=== PATIENT | female | born 1955 | race Caucasian/White ===

== ENCOUNTER 2020-07-14 10:24 | Inpatient (IN) | payer OTHER, MEDICARE ==
[2020-07-14] MEDS ORDERED: Senokot S 8.6-50 MG TAB PO PRN (12:23)
[2020-07-14] MEDS ORDERED: Sodium Chloride 0.65% Nasal 44 ML BOT EA NARE PRN (12:23)
[2020-07-14] MEDS ORDERED: Cepastat Lozenges 1 LOZ PO PRN (12:23)
[2020-07-14] MEDS ORDERED: Ondansetron PF 4 MG/2 ML Vial IVP PRN (12:23)
[2020-07-14] MEDS ORDERED: Loratadine 10 MG TAB PO PRN (12:23)
[2020-07-14] MEDS ORDERED: hydrALAZINE 20 MG/ML VIAL SLOW IVP PRN (12:23)
[2020-07-14] MEDS ORDERED: Calcium Carbonate 500 MG ChewTAB PO PRN (12:23)
[2020-07-14] MEDS ORDERED: Diabetic Tussin 200 MG/10 ML UDCUP PO PRN (12:23)
[2020-07-14] MEDS ORDERED: Ondansetron ODT 4 MG TAB PO PRN (12:23)
[2020-07-14] MEDS ORDERED: Bisacodyl 10 MG SUPP PR PRN (12:23)
[2020-07-14] MEDS ORDERED: Acetaminophen 325 MG TAB PO PRN (12:23)
[2020-07-14] MEDS ORDERED: HumaLOG 300 UNITS/3 ML VIAL SC PRN (12:26)
[2020-07-14] MEDS ORDERED: Dextrose 50% Abboject 50 ML SYRINGE SLOW IVP PRN (12:26)
[2020-07-14] MEDS ORDERED: Dextrose 5% in Water 1,000 ML IV PRN (12:26)
[2020-07-14] MEDS: Sodium Chloride 0.45% 1,000 ML IV SCH (13:00)
--- NOTE | 2020-07-14 13:21 | HP ---
PRIMARY CARE PHYSICIAN: [facility] Call admission. REASON FOR ADMISSION: Hepatic encephalopathy. HISTORY OF PRESENT ILLNESS: A 64-year-old female, who has underlying history of nonalcoholic cirrhosis of liver, who was brought to [facility] Emergency Room for increasing confusion. The patient was evaluated at [facility] Emergency Room. The patient had routine blood test done, which showed acute kidney injury, elevated ammonia, and the patient's confusion was consistent with hepatic encephalopathy. The patient's urinalysis also showed UTI. The patient was also recently admitted on June 28 for hepatitic encephalopathy and UTI. The patient had one episode of vomiting at home. She denies any hematemesis. She does not have any melena or hematochezia. The patient was having increasing confusion at home and she was also appeared weak and that is why the patient's daughter took her to local emergency room, and subsequently, the patient is transferred to our hospital for higher level of care. The patient does not have any fever or chills. She has nausea and vomiting. She had incontinence of urination. She denies any abdominal pain or abdominal distention. No hematochezia. No exposure with COVID-19. No respiratory symptoms. REVIEW OF SYSTEMS: All review of systems reviewed with the patient and negative except as mentioned in HPI, though review of system reviewed with the patient is also limited because of her level of alertness. PAST MEDICAL HISTORY: Hypertension, dyslipidemia, diabetes type 2, hypothyroidism, nonalcoholic cirrhosis of liver. PAST SURGICAL HISTORY: Cholecystectomy, thyroidectomy. PAST PSYCHIATRIC HISTORY: Reviewed and negative. SOCIAL HISTORY: The patient lives with family. No history of tobacco, alcohol, or illicit drug abuse. FAMILY HISTORY: Nothing significant. No strong family history of premature coronary artery disease, stroke, or cancer. ALLERGIES: SHELLFISH CONTAINING PRODUCT. CURRENT HOME MEDICATIONS: 1. Lasix 20 mg daily. 2. Lactulose 10 g q.i.d. 3. Rifaximin 550 mg twice daily. 4. Lipitor 10 mg at bedtime. 5. Levothyroxine 200 mcg p.o. daily. 6. Pantoprazole 40 mg p.o. daily. 7. Tramadol as needed basis. 8. Aldactone 50 mg daily. 9. Coreg 12.5 mg twice daily. 10. Victoza subcu daily. 11. Ferrous sulfate 325 mg daily. 12. Fosamax 70 mg weekly. 13. Metformin 500 mg two tablets twice daily. EMERGENCY ROOM COURSE: The patient is given Zofran at other emergency room. PHYSICAL EXAMINATION: VITAL SIGNS: Currently blood pressure 140/77, pulse 74, respiratory rate 18, saturation 98% on room air, temperature 98.8. GENERAL: The patient is currently alert, awake, confused, follows commands. HEENT: Head; normocephalic and atraumatic. EYES: Pupils are round and reactive to light. Extraocular muscles are intact. ENT: Oropharynx within normal limits. Moist mucous membranes. No oral lesions. No pharyngeal erythema. No exudate. NECK: Supple. No JVD. No meningeal signs of irritation. LUNGS: Clear to auscultation without any rhonchi or rales. CARDIAC: S1 and S2 appears regular. No murmur. No gallop. No rub. ABDOMEN: Soft. Bowel sounds present. Obesity noted. No peritoneal signs. No suprapubic tenderness. BACK: No CVA tenderness. EXTREMITIES: Upper extremities; passive movement of all joints are normal. Lower extremities; no edema. Good distal pulsation. SKIN: No skin rash. HEMATOLOGIC: No lymphadenopathy. NEUROLOGIC: The patient is alert, oriented x1. Confused. Speech normal. Asterixis noted. Otherwise, the patient moves all 4 limbs. SIGNIFICANT LABORATORY DATA AND IMAGING STUDIES: EKG showing right axis deviation, nonspecific ST-T changes. CBC; WBC 8.4, hemoglobin 11.9, platelet 97. BMP; sodium 143, potassium 3.8, chloride 110, carbon dioxide 20, anion gap 17, BUN 69, creatinine 1.71, glucose 150, calcium 9.5. LFT; AST 47, ALT 49, alkaline phosphatase 116, albumin 3.5. CK 22. Troponin less than 0.010. Ammonia 122. TSH 1.01. Urinalysis suspected for UTI. Urine drug screen negative. Serum drug screen negative. ASSESSMENT AND PLAN: 1. Hepatic encephalopathy. The patient has confusion. The patient has elevated ammonia level. The patient has underlying cirrhosis of liver. This patient also has associated acute kidney injury and abnormal metabolic profile. All this contributing to her encephalopathy. We will do CT brain to rule out any intracranial process, though less likely. We will treat her with gentle IV fluid, lactulose 20 g p.o. q.i.d., rifaximin 550 mg p.o. twice daily, and we will also treat Rocephin for urinary tract infection. 2. Acute kidney injury. We will give her half normal saline at 75 mL/h for only 1 L and we will repeat labs tomorrow. 3. Urinary tract infection. We will start Rocephin 1 g q.24 hours and we will do urine culture and change antibiotic accordingly. 4. Nonalcoholic cirrhosis of liver. We will obtain ultrasound of abdomen to rule out any ascites, which is clinically less likely at this point. 5. Diabetes type 2. Once we confirm her home medications, we will continue with her home medication. We will hold her metformin given her renal function. We will continue with insulin as per sliding scale protocol. Diabetic diet will be given. 6. Dyslipidemia. We will continue Lipitor as per home dosage. 7. Hypothyroidism. We will continue Synthroid as per home dosage. 8. Obesity with BMI 30 to 40. 9. Thrombocytopenia. We will avoid platelet reducing medication like Lovenox, only SCD. 10. Anemia, normocytic. We will continue vitamin supplementation. 11. Deep venous thrombosis prophylaxis, SCD. No Lovenox because of low platelet count. 12. Gastrointestinal prophylaxis. The patient is already on Protonix therapy. #13 patient had dark stool with blood clot when she had a bowel movement, will monitor H&H, GI has been consulted, CODE STATUS: The patient is full code. DISPOSITION PLAN: Based on clinical course. We are expecting the patient's stay in hospital more than 2 midnights. Plan of care discussed with the patient in detail. Job ID: [id number] MTDD
[2020-07-14] MEDS: cefTRIAXone\\ROCEPHIN 1 GM in Sodium Chloride 0.9% 100 ML IVPB SCH (14:22)
--- NOTE | 2020-07-14 16:11 | ULT ---
ABDOMINAL ULTRASOUND HISTORY: Cirrhosis. FINDINGS: Liver: Slightly peripheral nodular contour suggesting cirrhosis. No focal hepatic lesion is seen. The re is slightly coarsened echotexture of the liver. Gallbladder: Not visualized. Prior CT abdomen in 2013 demonstrates surgical clips in the gallbladder fossa related to cholecystectomy. Common duct: Common duct is normal in caliber measuring 0.4 cm in diameter. Pancreas: The limited visualized pancreas demonstrates a normal sonographic appearance. IVC: Limited visualized IVC has a normal sonographic appearance. Aorta: Majority of the abdominal aorta is obscured by shadowing from bowel gas. Where visualized, the abdominal aorta is normal in caliber. Spleen: Enlarged measuring 16.6 cm in craniocaudal dimensions. Kidneys: Kidneys demonstrate a normal sonographic appearance bilaterally with the right kidney measur ing 9.8 cm in length, and the left kidney measures 10.1 cm in length. IMPRESSION: 1. Cirrhosis and splenomegaly. 2. Evidence of cholecystectomy. Common duct is normal in caliber.
--- NOTE | 2020-07-14 16:14 | CON ---
DATE OF CONSULTATION: 07/14/2020 REASON FOR CONSULTATION: Hepatic encephalopathy. HISTORY OF PRESENT ILLNESS: Ms. Arboleda is a 64-year-old female who recently moved from [place], [place] to this area. History is mostly obtained from the patient's daughter with assistance of medical student. Reportedly, this is the 3rd admission for hepatic encephalopathy with previous episode occurred in 2017 and more recently in June of this year. The patient has been taking lactulose at home and rifaximin. The patient has had increasing confusion and somnolence and was found to have elevated ammonia level on admission up to 122. There were no signs of any overt bleeding such as melena, although she did have one small patch of red blood in her dark stool today. She frequently has had some decrease in her abdominal girth according to the daughter since moving to this area. She has been treated for persistent UTI. She has had upper endoscopy performed last year that did not show any varices. Reportedly, she also had a negative colonoscopy in July of last year. She does have a UTI that is currently being treated. PAST MEDICAL HISTORY: 1. Cirrhosis from steatohepatitis. 2. Hypertension. 3. Hyperlipidemia. 4. Adult onset diabetes. 5. Hypothyroidism. 6. Status post cholecystectomy. 7. Status post thyroidectomy. ALLERGIES: NO KNOWN DRUG ALLERGIES. MEDICATIONS: At home include; 1. Metformin. 2. Bactrim. 3. Reglan. 4. Meloxicam. 5. Lisinopril. 6. Victoza. 7. Synthroid. 8. Dexilant. 9. Lipitor. SOCIAL HISTORY: The patient recently moved to this area. Care for by her daughter. No known tobacco or alcohol usage. FAMILY HISTORY: Negative for any known GI problem, liver disease, or GI malignancy. REVIEW OF SYSTEMS: Not obtained. PHYSICAL EXAMINATION: VITAL SIGNS: Temperature of 98.8, blood pressure 179/84, and pulse of 70. GENERAL: She is alert, but not oriented. HEENT: Anicteric sclerae. CV: Shows normal S1 and S2. Regular rate and rhythm. CHEST: Show breath sounds. Clear to auscultation. ABDOMEN: Soft, protuberant, but no distention. No tympany. No obvious fluid wave. She has normoactive bowel sounds. There is no illicit tenderness. EXTREMITIES: Show no edema. LABORATORY DATA: WBCs 8.4, hemoglobin 11.9, and platelet count of 97. Electrolytes within normal range. Creatinine 1.71, BUN of 69, bilirubin 1.0, ALT of 49, AST of 47. Ammonia level 122. TSH 1.0179. ASSESSMENT: 1. Hepatic encephalopathy, no evidence of significant gastrointestinal bleed. However, the patient does have infection, which is urinary tract infection that is being currently treated. 2. Cirrhosis from fatty liver. 3. No signs of other decompensation such as ascites. Esophagogastroduodenoscopy lastly did not show any varices. RECOMMENDATIONS: 1. Continue with lactulose at 30 mL of 20 g four times daily for now until to achieve 3 to 4 bowel movements daily. 2. Started on rifaximin 550 mg p.o. b.i.d. 3. Proceed with abdominal ultrasound. 4. We will follow with further recommendation, pending clinical course. Job ID: [id number]
[2020-07-14] MEDS: HumaLOG 300 UNITS/3 ML VIAL SC PRN (16:41)
[2020-07-14] MEDS: Rifaximin 550 MG TAB PO SCH (20:13)
[2020-07-15] MEDS: Sodium Chloride 0.45% 1,000 ML IV SCH (02:05)
[2020-07-15 03:53] VITALS: BMI 36.6
[2020-07-15 04:49] LABS: INR-International Normal Ratio 1.2; Prothrombin Time 15.9 sec (12.0-14.7)
[2020-07-15 04:54] LABS: Hemoglobin A1c 5.5 % (4.0-6.0)
[2020-07-15 04:55] LABS: #Eosinphils 0.1 thou/uL (0.0-0.7); #Lymphocytes 1.7 thou/uL (1.20-3.40); #Monocytes 0.4 thou/uL (0.11-0.59); #Neutrophils 3.3 thou/uL (1.40-6.50); %Basophils 0.9 % (0.0-1.0); %Eosinophils 1.4 % (0.0-10.0); %Lymphocytes 30.7 % (21.0-51.0); %Monocytes 7.6 % (0.0-10.0); %Neutrophils 59.5 % (42.0-75.0); Hemoglobin 11.5 g/dL (12.0-16.0); Mean Corpuscular HGB CONC 34.1 g/dL (32.0-36.0); Mean Corpuscular Hemoglobin 31.3 pg (27.0-31.0); Mean Corpuscular Volume 91.8 fL (78.0-98.0); Mean Platelet Volume 8.9 fL (7.4-10.4); Platelet Count 85 thou/uL (130-400); RBC Distribution Width 13.4 % (11.5-14.5); Red Blood Cell (RBC) Count 3.67 mill/uL (4.20-5.40); White Blood Cell (WBC) Count 5.6 thou/uL (4.8-10.8)
[2020-07-15 05:12] LABS: ALT (SGPT) 40 U/L (8-55); AST (SGOT) 33 U/L (5-34); Albumin 3.2 g/dL (3.4-4.8); Alkaline Phosphatase 95 U/L (40-110); Anion Gap 17 mmol/L (10-20); BUN (Urea Nitrogen) 71 mg/dL (9.8-20.1); Calc. Creatinine Clearance 61 mL/min (70-130); Calcium 9.3 mg/dL (7.8-10.44); Carbon Dioxide 18 mmol/L (23-31); Chloride 114 mmol/L (98-107); Estimated GFR-MDRD 38; Globulin 3.1 g/dL (2.4-3.5); Glucose 121 mg/dL (80-115); Potassium 3.7 mmol/L (3.5-5.1); Protein, Total 6.3 g/dL (6.0-8.3); Sodium 145 mmol/L (136-145)
[2020-07-15] MEDS ORDERED: FLU VACC QS2020-21(65YR UP)/PF 240 MCG/0.7 ML SYRINGE IM ONE (09:00)
--- NOTE | 2020-07-15 09:20 | PDOC.HOSPP ---
- Subjective Encounter Date: 07/15/20 Encounter Time: 07:00 Subjective: Patient is doing better today, her renal function improved, her ammonia is also improved, she is physically slightly weak, - Objective Vital Signs & Weight: Vital Signs (12 hours) Temp Pulse Resp BP Pulse Ox 07/15/20 07:19 97.7 F 64 16 139/72 98 07/15/20 04:00 98.4 F 66 20 137/77 97 07/15/20 00:00 98.1 F 62 20 144/83 H 98 Weight Weight 213 lb 9.6 oz I&O: 07/14/20 07/15/20 07/16/20 06:59 06:59 06:59 Intake Total 200 Output Total 1 Balance 199 Result Diagrams: 07/15/20 04:29 07/15/20 04:29 Additional Labs: Accuchecks 07/15/20 07/15/20 07/14/20 04:35 00:31 15:01 POC Glucose 120 H 125 H 152 H Radiology Reviewed by me: Yes (Ultrasound right upper quadrant reviewed) Hospitalist ROS - Review of Systems Constitutional: reports: weakness, malaise. denies: fever, chills, sweats, other Respiratory: denies: cough, dry, shortness of breath, hemoptysis, SOB with excertion, pleuritic pain, sputum, wheezing, other Cardiovascular: denies: chest pain, palpitations, orthopnea, paroxysmal noc. dyspnea, edema, light headedness, other Gastrointestinal: denies: nausea, vomiting, abdominal pain, diarrhea, c onstipation, melena, hematochezia, other Genitourinary: denies: dysuria, frequency, incontinence, hematuria, retention, other Musculoskeletal: denies: neck pain, shoulder pain, arm pain, back pain, hand pain, leg pain, foot pain, other Skin: denies: rash, lesions, vi, bruising, other - Medication Medications: Active Medications Generic Name Dose Route Start Last Admin Trade Name Freq PRN Reason Stop Dose Admin Ceftriaxone Sodium 1 gm/ 100 mls @ 200 mls/hr 07/14/20 13:00 07/14/20 14:22 Sodium Chloride IVPB 100 mls 1300 LLUVIA Administration Insulin Human Lispro 0 units 07/14/20 12:26 07/14/20 16:41 Humalog 300 Units/3 Ml Vial SC 2 unit .MODERATE SLIDING SC PRN Administration Moderate Correctional Scale Lactulose 20 gm 07/14/20 13:00 07/14/20 20:13 Lactulose 20 Gm/30 Ml Udcup PO 20 gm QID LLUVIA Administration Rifaximin 550 mg 07/14/20 21:00 07/14/20 20:13 Rifaximin 550 Mg Tab PO 550 mg BID LLUVIA Administration - Exam General Appearance: NAD, awake alert Eye: PERRL, anicteric sclera ENT: normocephalic atraumatic, no oropharyngeal lesions Neck: supple, symmetric, no JVD, no thyromegaly Heart: RRR, no murmur, no gallops, no rubs, normal peripheral pulses Respiratory: CTAB, no wheezes, no rales, no ronchi, normal chest expansion Gastrointestinal: soft, non-tender, non-distended, normal bowel sounds, no palp able masses Extremities: no cyanosis, no clubbing, no edema Skin: normal turgor, no lesions Neurological: cranial nerve grossly intact, normal sensation to touch, no weakness, no focal deficits Musculoskeletal: normal tone, normal strength, no muscle wasting Psychiatric: normal affect, normal behavior, A&O x 3 Hosp A/P (1) Hepatic encephalopathy Code(s): K72.90 - HEPATIC FAILURE, UNSPECIFIED WITHOUT COMA Status: Acute (2) Acute kidney injury Code(s): N17.9 - ACUTE KIDNEY FAILURE, UNSPECIFIED Status: Acute (3) UTI (urinary tract infection) Status: Acute Qualifiers: Urinary tract infection type: acute cystitis Hematuria presence: without hematuria Qualified Code(s): N30.00 - Acute cystitis without hematuria (4) Obesity (BMI 30-39.9) Code(s): E66.9 - OBESITY, UNSPECIFIED Status: Chronic (5) Diabetes type 2, controlled Code(s): E11.9 - TYPE 2 DIABETES MELLITUS WITHOUT COMPLICATIONS Status: Chronic Qualifiers: Diabetes mellitus prison insulin use: with intermediate manager use Diabetes mellitus complication status: without complication Qualified Code(s): E11.9 - Type 2 diabetes mellitus without complications; Z79.4 - skilled nursing (current) use of insulin (6) Hypertension Code(s): I10 - ESSENTIAL (PRIMARY) HYPERTENSION Status: Chronic Qualifiers: Hypertension type: essential hypertension Qualified Code(s): I10 - Essential (primary) hypertension (7) Dyslipidemia Code(s): E78.5 - HYPERLIPIDEMIA, UNSPECIFIED Status: Chronic - Plan old records reviewed/req, continue antibiotics, PT/OT Patient has overall clinical improvement, her renal function is improving, patient is able to continue her oral intake, today we will discontinue IV fluid We will continue Rocephin today and follow-up on urine culture result Medication reviewed and continue provide symptomatic and supportive care Continue PT OT GI following and they will decide about further intervention like endoscopy if needed, her H&H remained stable, Expecting discharge in next 24 hours.
[2020-07-15] MEDS: Rifaximin 550 MG TAB PO SCH ×2 (09:53→20:36)
[2020-07-15 13:18] LABS: SARS-CoV-2 MS2 Positive; SARS-CoV-2 N Gene Negative; SARS-CoV-2 S Gene Negative; SARS-CoV-2 by NAA Not Detected (NotDetected); SARS-CoV-2 orf1ab Negative
[2020-07-15] MEDS: cefTRIAXone\\ROCEPHIN 1 GM in Sodium Chloride 0.9% 100 ML IVPB SCH (13:31)
[2020-07-15] MEDS: HumaLOG 300 UNITS/3 ML VIAL SC PRN (17:55)
[2020-07-15] MEDS ORDERED: traMADol HCl 50 MG TAB PO PRN (19:50)
[2020-07-15] MEDS ORDERED: Febuxostat 40 MG TAB PO SCH (20:15)
--- NOTE | 2020-07-15 23:26 | PRG ---
DATE OF SERVICE: 07/15/2020 SUBJECTIVE: She feels like her mental status is back to normal. She took lactulose 4 doses a day, but has only had two soft bowel movements today. She has no other complaints today. OBJECTIVE: VITAL SIGNS: Temperature 98.0, pulse 65, blood pressure 122/79. GENERAL: She is in no acute distress. Alert and oriented x3. LUNGS: Clear to auscultation bilaterally. HEART: Regular rate and rhythm without murmur. ABDOMEN: Soft, nontender, and nondistended. Bowel sounds are present. EXTREMITIES: No lower extremity edema. NEUROLOGIC: She has no asterixis on neurological exam. LABORATORY DATA: White blood cell count 5.6, hemoglobin 11.5, platelets 85. INR 1.2. Creatinine 1.39. Bilirubin 1.0. AST 33, ALT 40, alk phos 95. Albumin 3.2. Ammonia 61. IMPRESSION: 1. Hepatic encephalopathy, symptomatically improved with Xifaxan and lactulose. 2. Cirrhosis of liver, likely secondary to fatty liver disease. RECOMMENDATIONS: 1. Continue lactulose 30 mL 4 times daily. The frequency the dosing can be backed off to twice daily or 3 times daily if her bowel movements become more frequent. The goal is to titrate to 2 to 3 soft bowel movements per day. 2. Continue Xifaxan 550 mg twice daily. 3. Follow up with Dr. Vasquez or his PA in 2 to 3 weeks. 4. I will sign off. Please call if GI can be of assistance. Job ID: [id number]
[2020-07-16] MEDS: Rifaximin 550 MG TAB PO SCH (08:29)
[2020-07-16] MEDS ORDERED: Febuxostat 40 MG TAB PO SCH (09:00)
[2020-07-16] MEDS: cefTRIAXone\\ROCEPHIN 1 GM in Sodium Chloride 0.9% 100 ML IVPB SCH (12:56)
[2020-07-16] MEDS: HumaLOG 300 UNITS/3 ML VIAL SC PRN (13:00)
[2020-07-16 17:36] VITALS: BP 136/84; TEMP 98.1
--- NOTE | 2020-07-19 07:55 | DIS ---
DATE OF ADMISSION: 07/14/2020 DATE OF DISCHARGE: 07/16/2020 PRIMARY CARE PHYSICIAN: [facility] Call admission. DISCHARGE DISPOSITION: Home. PRIMARY DISCHARGE DIAGNOSES: 1. Acute kidney injury, improved. 2. Hepatic encephalopathy, resolved. 3. Urinary tract infection. SECONDARY DISCHARGE DIAGNOSES: Nonalcoholic cirrhosis of liver with portal hypertension, obesity, hypertension, dyslipidemia, diabetes type 2. PRIMARY PROCEDURE/OPERATION: None. RADIOLOGICAL INVESTIGATION: Abdominal ultrasound showing cirrhosis of liver. SIGNIFICANT LABORATORY DATA: Hemoglobin 11.5, platelet 85, WBC 5.6. INR 1.2. Sodium 145, creatinine 1.39, and ammonia level 61. LFT normal. Hemoglobin A1c 5.5. COVID-19 negative. DISCHARGE MEDICATIONS: 1. Coreg 12.5 mg twice daily. 2. Dexilant 30 mg daily. 3. Febuxostat (Uloric) 40 mg p.o. daily. 4. Ferrous sulfate 325 mg daily. 5. Fosamax 70 mg every week. 6. Lasix 20 mg daily. 7. Invokana 300 mg p.o. daily. 8. Lipitor 10 mg p.o. daily. 9. Metformin 1000 mg b.i.d. 10. Aldactone 50 mg daily. 11. Synthroid 200 mcg p.o. daily. 12. Tramadol 50 mg p.r.n. 13. Vascepa 1 g p.o. b.i.d. 14. Victoza 1.8 mg subcutaneously daily. 15. Rifaximin 550 mg p.o. twice daily. 16. Cipro 500 mg p.o. twice daily for 5 days. 17. Lactulose 20 g p.o. b.i.d. CONTRAINDICATION: None. CODE STATUS: Full code. INPATIENT LADLE PATCHER: Dr. Corey Vasquez, GI specialist. TEST RESULT PENDING ON DISCHARGE: None. ALLERGIES: SHELLFISH. DISCHARGE PLAN: Post hospital, the patient will follow up with her primary care physician in 1 week and the patient will make appointment with GI in 2 weeks. HOSPITAL COURSE: A 64-year-old female who was initially evaluated at [facility] Emergency Room for increasing confusion. Based on blood test, the patient was found with hepatic encephalopathy and she was also dehydrated with [id number] kidney injury. The patient was transferred to our hospital. We treated her with IV fluids. Her urinalysis was consistent with UTI, which was treated with Rocephin. Her urine culture grew E coli and based on culture and sensitivity result, we changed to Cipro for 5 more days. The patient was given lactulose with rifaximin and her hepatic encephalopathy resolved in next day or two. The patient did very well with physical therapy and Gastroenterology was consulted while in the hospital and they recommended outpatient followup. PHYSICAL EXAMINATION: The patient is seen and examined at bedside today. The patient is hemodynamically stable. VITAL SIGNS: Temperature 97.5, pulse 65, respiratory rate 16, saturation 98%, blood pressure 159/75, weight 213 pounds. GENERAL: The patient is alert and awake, in no acute distress. HEAD: Normocephalic, atraumatic. NECK: Supple. No JVD. No meningeal signs of irritation. LUNGS: Clear to auscultation without any rhonchi or rales. CARDIAC: S1 and S2. Regular. No murmur. No gallop. No rub. ABDOMEN: Soft and benign without any tenderness. NEUROLOGIC: Nonfocal examination. No asterixis. Job ID: [id number]
== END 2020-07-16 15:27 | disposition home or self-care (01) | DRG 442 ==
LOC: T4-B 11:53
PROVIDERS: ADMIT Internal Medicine; ATTEND Internal Medicine
DX: K72.90 Hepatic failure, unspecified without coma (principal); N17.9 Acute kidney failure, unspecified; N39.0 Urinary tract infection, site not specified; Z23 Encounter for immunization; K74.60 Unspecified cirrhosis of liver; I10 Essential (primary) hypertension; E78.5 Hyperlipidemia, unspecified; E11.9 Type 2 diabetes mellitus without complications; E03.9 Hypothyroidism, unspecified; E66.9 Obesity, unspecified; D69.6 Thrombocytopenia, unspecified; D64.9 Anemia, unspecified; K76.0 Fatty (change of) liver, not elsewhere classified; Z20.828 Contact with and (suspected) exposure to other viral communicable diseases; Z90.49 Acquired absence of other specified parts of digestive tract; Z91.013 Allergy to seafood; Z79.4 Long term (current) use of insulin; Z79.899 Other long term (current) drug therapy; Z68.30 Body mass index [BMI] 30.0-30.9, adult
CPT/HCPCS: 36415; 36416; 80053; 82140; 83036; 85025; 85610; 87635; 90471; 90662; 90732; 93975; G0008; G0009; J0696; J3490; U0003

== ENCOUNTER 2020-07-28 18:16 | Inpatient (IN) | payer OTHER, MEDICARE ==
--- NOTE | 2020-07-28 19:06 | RAD ---
EXAM: CHEST ONE VIEW HISTORY: Altered mental status. Increased confusion. COMPARISON: None FINDINGS: The cardiac silhouette and pulmonary vasculature are within normal limits. The lungs are clear. Degen erative changes are seen in the spine. Surgical clips overlie the lower neck and superior mediastinum as well as right upper quadrant. IMPRESSION: No acute cardiopulmonary process.
--- NOTE | 2020-07-28 20:12 | CT ---
HEAD CT WITHOUT CONTRAST: 07/28/20 COMPARISON: None. HISTORY: Increasing confusion. TECHNIQUE: Axial CT imaging at 5 mm intervals from vertex through skull base without contrast. FINDINGS: The visualized paranasal sinuses and mastoid air cells appear well aerated with no displaced calvaria l fracture seen. No intracranial hemorrhage, midline shift, mass effect or ventricular enlargement. IMPRESSION: No acute findings. POS: KAREN
[2020-07-28 20:55] LABS: #Eosinphils 0.1 thou/uL (0.0-0.7); #Lymphocytes 1.2 thou/uL (1.20-3.40); #Monocytes 0.4 thou/uL (0.11-0.59); #Neutrophils 2.9 thou/uL (1.40-6.50); %Basophils 0.8 % (0.0-1.0); %Eosinophils 2.6 % (0.0-10.0); %Lymphocytes 26.3 % (21.0-51.0); %Monocytes 8.2 % (0.0-10.0); %Neutrophils 62.1 % (42.0-75.0); Hemoglobin 11.2 g/dL (12.0-16.0); Mean Corpuscular HGB CONC 35.3 g/dL (32.0-36.0); Mean Corpuscular Hemoglobin 31.5 pg (27.0-31.0); Mean Corpuscular Volume 89.1 fL (78.0-98.0); Mean Platelet Volume 8.6 fL (7.4-10.4); Platelet Count 67 thou/uL (130-400); RBC Distribution Width 14.1 % (11.5-14.5); Red Blood Cell (RBC) Count 3.56 mill/uL (4.20-5.40); White Blood Cell (WBC) Count 4.7 thou/uL (4.8-10.8)
[2020-07-28 21:10] LABS: ALT (SGPT) 21 U/L (8-55); AST (SGOT) 25 U/L (5-34); Albumin 3.2 g/dL (3.4-4.8); Alkaline Phosphatase 92 U/L (40-110); Anion Gap 16 mmol/L (10-20); BUN (Urea Nitrogen) 59 mg/dL (9.8-20.1); Bilirubin, Total 1.5 mg/dL (0.2-1.2); CK (CPK) 40 U/L (29-168); Calc. Creatinine Clearance 0 mL/min (70-130); Calcium 9.2 mg/dL (7.8-10.44); Carbon Dioxide 20 mmol/L (23-31); Chloride 104 mmol/L (98-107); Estimated GFR-MDRD 19; Globulin 3.4 g/dL (2.4-3.5); Glucose 171 mg/dL (80-115); Magnesium 1.6 mg/dL (1.6-2.6); Potassium 4.1 mmol/L (3.5-5.1); Protein, Total 6.6 g/dL (6.0-8.3); Sodium 136 mmol/L (136-145)
[2020-07-28] MEDS ORDERED: cefTRIAXone\\ROCEPHIN 2 GM VIAL ONE (21:28)
[2020-07-28 21:49] LABS: Bilirubin Negative (Negative); Blood, Urine Negative (Negative); Glucose, Urine (Dipstick) 500 mg/dL (Negative); Ketone, Urine Negative (Negative); Leukocyte Negative (Negative); Nitrite Negative (Negative); Protein, Urine (Dipstick) Negative (Neg-Trace); Urobilinogen 0.2 mg/dL (Less than 2); pH, Urine 5.5 (5.0-9.0)
[2020-07-28 21:50] LABS: Clarity Clear (Clear)
[2020-07-28] MEDS ORDERED: Vancomycin 1 GM/200 ML BAG ONE (22:09)
[2020-07-29 00:07] VITALS: BMI 36.6
[2020-07-29] MEDS: Lactated Ringer's 1,000 ML IV SCH ×2 (00:18→07:06)
[2020-07-29] MEDS ORDERED: traMADol HCl 50 MG TAB PO PRN (06:31)
[2020-07-29] MEDS ORDERED: HumaLOG 300 UNITS/3 ML VIAL SC PRN (06:37)
[2020-07-29] MEDS ORDERED: Dextrose 5% in Water 1,000 ML IV PRN (06:37)
[2020-07-29] MEDS ORDERED: Dextrose 50% Abboject 50 ML SYRINGE SLOW IVP PRN (06:37)
[2020-07-29 07:07] LABS: Lactic Acid 1.5 mmol/L (0.5-2.2)
[2020-07-29 07:10] LABS: Anion Gap 13 mmol/L (10-20); BUN (Urea Nitrogen) 56 mg/dL (9.8-20.1); Calc. Creatinine Clearance 43 mL/min (70-130); Calcium 8.3 mg/dL (7.8-10.44); Carbon Dioxide 21 mmol/L (23-31); Chloride 108 mmol/L (98-107); Estimated GFR-MDRD 25; Glucose 92 mg/dL (80-115); Potassium 3.9 mmol/L (3.5-5.1); Sodium 138 mmol/L (136-145)
[2020-07-29 07:17] LABS: Hemoglobin 9.3 g/dL (12.0-16.0); Mean Corpuscular HGB CONC 34.3 g/dL (32.0-36.0); Mean Corpuscular Hemoglobin 30.8 pg (27.0-31.0); Mean Corpuscular Volume 89.7 fL (78.0-98.0); Mean Platelet Volume 8.9 fL (7.4-10.4); Platelet Count 57 thou/uL (130-400); RBC Distribution Width 14.3 % (11.5-14.5); Red Blood Cell (RBC) Count 3.03 mill/uL (4.20-5.40); White Blood Cell (WBC) Count 3.3 thou/uL (4.8-10.8)
--- NOTE | 2020-07-29 07:28 | HP ---
REASON FOR ADMISSION: Confusion. HISTORY OF PRESENT ILLNESS: This is a 64-year-old female patient who is known to have NIEVES-induced liver cirrhosis, was admitted recently for confusion secondary to increased ammonia. At home, she was reported to have increased confusion. It was reported that she has been refusing to eat or drink fluids for the past couple days. Also, she recently finished antibiotics for urinary tract infection. In the ER, she was noted to be alert, but slow to respond. I just saw the patient and she is fully alert. She does endorse not drinking much fluid lately. PAST MEDICAL HISTORY: 1. Diabetes type 2. 2. High blood pressure. 3. High cholesterol. 4. Cirrhosis due to NIEVES. 5. Hypothyroidism. 6. Post cholecystectomy. 7. Post thyroidectomy. ALLERGIES: TO SHELLFISH. SOCIAL HISTORY: She does not smoke. Does not drink alcohol. FAMILY HISTORY: Reviewed, found to be noncontributory. REVIEW OF SYSTEMS: All systems reviewed, except the above-mentioned confusion, found to be negative. PHYSICAL EXAMINATION: GENERAL: She is awake, alert, oriented, does not appear to be in distress. VITAL SIGNS: Her blood pressure 105/69, heart rate of 71, temperature is 97.9, saturating 100% on room air. HEENT: Head is nontraumatic, normocephalic. Pupils equal, reactive. Extraocular movements are intact. Nonicteric sclerae. Well-injected conjunctivae. Oral mucosa normal. Nasal mucosa normal. NECK: Supple. No adenopathy. No murmur. Thyroid is not palpable. Trachea is midline. No supraclavicular adenopathy. HEART: S1, S2 regular. No murmur. No gallops. No friction rubs. No displacement of PMI. LUNGS: Clear to auscultation bilaterally. No wheezes, rhonchi, or crackles. ABDOMEN: Bowel sounds are positive. Nontender abdomen. No hepatosplenomegaly. EXTREMITIES: 1+ pitting edema in bilateral lower extremities. NEUROLOGIC: Cranial nerves II through XII within normal limits. Normal motor function. Normal sensory function. LABORATORY DATA: Blood work shows WBC of 4.7, hemoglobin of 11.2, platelets of 67. Sodium of 136; potassium 4.1; bicarb 20; BUN 59; creatinine 2.48, previous creatinine 1.39; glucose 171. Lactic acid 3.4. Troponin 0.016. Repeat lactic acid 3. TSH 0.1919, free T4 of 1.89. A chest x-ray shows no acute disease. CT of the head shows no acute finding. ASSESSMENT AND PLAN: This is a 64-year-old female patient who is presenting with transient change in mental status. She is known to have cirrhosis, but her ammonia level is within normal limits. It seems that she has worsening of her kidney function due to poor oral intake in the setting of being on diuretics. This might have caused her transient confusion. Neuro: Patient is currently fully oriented. Continue to monitor her from that standpoint. Endocrinology: The patient's TSH is lower than the norm. It is most likely that she is taking more than she needs of thyroid replacement. For now, we will put her on a hold. Up on her discharge, recommendation is to decrease the dose. Recheck her TSH in a month or so. In regard to her diabetes, we will continue her current medications and she will be on insulin sliding scale. Renal system and electrolytes: The patient does appear to be dehydrated. Her lactic acid is slightly elevated. We will recheck it since she did receive hydration, also we will hold her diuretics for now. Reassess after her kidney function is back to normal. Cardiac: The patient has high blood pressure. Her blood pressure now is soft. We will resume Coreg but with parameters. GI: The patient has history of liver cirrhosis. Continue lactulose. Continue rifaximin. For DVT prophylaxis, she will be on SCDs. The patient is to be a full code. Job ID: [id number]
[2020-07-29] MEDS ORDERED: Non-Formulary Item 1 EACH (Icosapent Ethyl 1 GM Capsule) PO SCH (08:00)
[2020-07-29] MEDS: Rifaximin 550 MG TAB PO SCH ×2 (08:10→21:49)
[2020-07-29] MEDS: Atorvastatin Calcium 10 MG TAB PO SCH (08:10)
[2020-07-29] MEDS: Ferrous Sulfate 325 MG TAB PO SCH (08:11)
[2020-07-29] MEDS: Carvedilol 6.25 MG TAB PO SCH ×2 (08:11→22:18)
[2020-07-29 08:27] LABS: Band 1 % (5-11); Eosinophils 7 % (0-10); Lymphocytes 44 % (21-51); MDiff Complete? YES; Monocytes 10 % (0-10); Neutrophil 39 % (42-75); Platelet Morphology Comment Appears Decreased
[2020-07-29] MEDS ORDERED: CANAGLIFLOZIN 300 MG PO SCH (09:00)
[2020-07-29] MEDS ORDERED: Carvedilol 6.25 MG TAB PO SCH (09:00)
[2020-07-29] MEDS ORDERED: Non-Formulary Item 1 EACH (Carvedilol [Carvedilol] 12.5 MG Tablet) PO SCH (09:00)
[2020-07-29] MEDS ORDERED: Non-Formulary Item 1 EACH (Ferrous Sulfate [Ferrous Sulfate] 325 MG Tablet) PO SCH (09:00)
[2020-07-29] MEDS ORDERED: LIRAGLUTIDE 0.6 MG/0.1 ML SC SCH ×2 (09:00)
[2020-07-29] MEDS ORDERED: Alendronate Sodium 70 mg Tablet PO SCH ×2 (09:00→11:15)
[2020-07-29] MEDS: Febuxostat 40 MG TAB PO SCH (09:14)
[2020-07-29] MEDS: Empagliflozin 25 MG TAB PO SCH (09:14)
[2020-07-29] MEDS: Icosapent Ethyl 1 GM CAPSULE PO SCH ×2 (09:14→16:56)
[2020-07-29] MEDS ORDERED: DEXLANSOPRAZOLE 30 MG PO SCH (21:00)
[2020-07-30 07:38] VITALS: TEMP 98
[2020-07-30] MEDS: Ferrous Sulfate 325 MG TAB PO SCH (08:26)
[2020-07-30] MEDS: Atorvastatin Calcium 10 MG TAB PO SCH (08:26)
[2020-07-30] MEDS: Icosapent Ethyl 1 GM CAPSULE PO SCH ×2 (08:26→17:30)
[2020-07-30] MEDS: Rifaximin 550 MG TAB PO SCH (08:26)
[2020-07-30] MEDS: Empagliflozin 25 MG TAB PO SCH (08:26)
[2020-07-30] MEDS: Carvedilol 6.25 MG TAB PO SCH (08:26)
[2020-07-30] MEDS: Febuxostat 40 MG TAB PO SCH (08:26)
[2020-07-30 08:29] VITALS: BP 101/55
--- NOTE | 2020-07-31 01:26 | DIS ---
DATE OF ADMISSION: 07/28/2020 DATE OF DISCHARGE: 07/30/2020 DISCHARGE DIAGNOSES: 1. Acute metabolic encephalopathy, mild. Suspect secondarily to #2. 2. Dehydration, resolving. 3. Acute kidney injury on chronic kidney disease, improved. 4. Metabolic acidosis likely secondary to volume contraction and metformin. 5. Hypothyroidism. 6. Nonalcoholic hepatic cirrhosis. CONSULTATIONS: None. PERTINENT LABORATORY AND X-RAY FINDINGS: Creatinine ranged between 1.97 to 2.48. Estimated GFR ranged between 19 to 25. CO2 ranged between 20 to 21. Lactic acid level ranged between 1.5 to 3.4. Magnesium level 1.6. Total bilirubin 1.5, AST 25, ALT of 21, alkaline phosphatase 92. Serum ammonia level 60. TSH 0.19, free T4 of 1.89. CBC showed a white blood cell count ranging between 3.3 to 4.7, hemoglobin ranged between 9.3 to 11.2, platelet count ranged between 57 to 67. Blood cultures x2 dated 07/28/2020 showed no growth at 48 hours. Urine culture dated 07/28/2020 showed no growth at [address] of the brain without contrast dated 07/28/2020 showed no acute intracranial process. Portable chest x-ray dated 07/28/2020 showed no acute cardiopulmonary process. HOSPITAL COURSE: The patient was initially admitted after presenting with confusion in the context of NIEVES and likely dehydration. The patient was placed on IV fluids after screening metabolic survey showed evidence of acute kidney injury in the context of chronic kidney disease. The patient received general fluid resuscitation and overall clinically stabilized. Serum ammonia level was noted at 60. However, patient's mental status rapidly improved with hydration. The patient was also noted with mild over-correction for hypothyroidism with recommendations to decrease levothyroxine to 175 mcg daily. The patient may need additional titration of her thyroid replacement on an ongoing basis after discharge. Overall, the patient did remain clinically stable during the hospital course with mental status returning to baseline levels with full orientation x3 prior to discharge. I have examined the patient at the time of discharge and discussed followup instructions. The patient verbalized understanding and agreement, ready for discharge on 07/30/2020. DISCHARGE MEDICATIONS: 1. Carvedilol 12.5 mg p.o. b.i.d. 2. Dexilant 30 mg p.o. at bedtime. 3. Febuxostat 40 mg p.o. daily. 4. Ferrous sulfate 325 mg p.o. daily. 5. Fosamax 70 mg p.o. q.7 days. 6. Invokana 300 mg p.o. daily. 7. Lipitor 10 mg p.o. daily. 8. Tramadol 50 mg p.o. q.6 hours p.r.n. 9. Vascepa 1 g p.o. b.i.d. 10. Victoza 1.8 mg subcutaneously daily. 11. Xifaxan 550 mg p.o. b.i.d. 12. Lasix 20 mg p.o. daily, hold until 08/03/2020. 13. Lactulose 20 g p.o. b.i.d. 14. Levothyroxine 175 mcg p.o. daily. 15. Metformin 1000 mg p.o. b.i.d., may resume on 08/03/2020. 16. Spironolactone 50 mg p.o. daily, hold until 08/03/2020. FOLLOWUP: The patient may follow up with Dr. Corey Vasquez with GI Service. CONDITION ON DISCHARGE: Fair. ACTIVITY: Ad-iraj. DIET: Heart healthy and ADA. CODE STATUS: Full. DISPOSITION: Home, 07/30/2020.. TIME SPENT: Total time preparing and coordinating discharge, 34 minutes. Job ID: [id number]
--- NOTE | 2020-07-31 15:08 | EKG ---
Test Reason : AMS Blood Pressure : / mmHG Vent. Rate : 066 BPM Atrial Rate : 066 BPM P-R Int : 166 ms QRS Dur : 084 ms QT Int : 432 ms P-R-T Axes : 034 -17 053 degrees QTc Int : 452 ms Normal sinus rhythm Nonspecific T wave abnormality Abnormal ECG Confirmed by CHITRA BAINS ([id number]), scientific publications editor PELON GRAVES ([id number]) on 07/31/2020 3:08:28 PM Referred By: Confirmed By:CHITRA BAINS
--- NOTE | 2020-08-02 05:53 | PQF ---
CLINICAL DOCUMENTATION CLARIFICATION FORM: Dear : Lei Rivera Date / Time: 08/02/2020 05:53 Please exercise your independent, professional judgment in responding to the clarification form. Clinical indicators are provided on the bottom of this form for your review Please check appropriate box(es) to clarify if the following diagnosis has been ruled in our ruled out: Sepsis [ ] Ruled in diagnosis [ ] Continue to treat [ ] Resolved [ x ] Ruled out diagnosis [ ] Improving [ ] Cannot rule out diagnosis [ ] Other diagnosis [ ] Unable to determine Physician Signature: Date/Time: For continuity of documentation, please document condition throughout progress notes and discharge summary. Thank You. To be completed by CDI/Coding staff for physician review: Present Clinical Indicators - Signs / Symptoms / Labs Results and Location in Medical Record [x] Sepsis ED Notes 07/28 [x] Acute metabolic encephalopathy DS 07/30 [x] Altered mental status ED Notes 07/28 [x] PERLA DS 07/30 [x] Metabolic acidosis DS 07/30 [x] Pulse=65 Temp=97.9 JT=978/69 Respi=18 Vital Signs 07/28 [x] WBC: 07/28=4.7 07/29=3.3 Laboratory 07/28 [x] Lactic Acid: 07/28=3.4 Laboratory 07/28 [x] Blood culture: no growth Collected 07/28 Present Risk Factors Results and Location in Medical Record [x] DM ED Notes 07/28 [x] Liver Cirrhosis ED Notes 07/28 [x] CKD DS 07/30 Present Treatments Results and Location in Medical Record [x] Cipro 500mg Oral DEC 02 [x] Rocephin 2gm IV DEC 02 [x] Vancomycin 1 gm IV DEC 02 [x] IVF DEC 02 CDS/Status Controller Signature: Luis Angel Stanleymariangel Phan Phone #: [phone] Date/Time: 08/02/2020 05:53 This is a permanent part of the Medical Record [facility]
--- NOTE | 2020-08-02 05:56 | PQF ---
CLINICAL DOCUMENTATION CLARIFICATION FORM: Dear :Lei Rivera Date / Time: 08/02/20 05:55 Please exercise your independent, professional judgment in responding to the clarification form. Clinical indicators are provided on the bottom of this form for your review Please check appropriate box(es) to clarify if the following diagnosis has been ruled in our ruled out: Hepatorenal syndrome [ ] Ruled in diagnosis [ ] Continue to treat [ ] Resolved [ x ] Ruled out diagnosis [ ] Improving [ ] Cannot rule out diagnosis [ ] Other diagnosis [ ] Unable to determine Physician Signature: Date/Time: For continuity of documentation, please document condition throughout progress notes and discharge summary. Thank You. To be completed by CDI/Coding staff for physician review: Present Clinical Indicators - Signs / Symptoms / Labs Results and Location in Medical Record [x] Hepatorenal syndrome ED Notes 07/28 [x] Altered mental status ED Notes 07/28 [x] Metabolic acidosis DS 07/30 [x] Ammonia: 07/28=60 Laboratory 07/28 [x] CC: confusion HP 07/28 [x] Pitting edema in bilateral extremities HP 07/28 Present Risk Factors Results and Location in Medical Record [x] DM ED Notes 07/28 [x] Liver Cirrhosis ED Notes 07/28 [x] CKD DS 07/30 Present Treatments Results and Location in Medical Record [x] IVF MAR 07/28 [x] Lactulose 20gm Oral DEC 02 CDS/Wool Hat Finisher Signature: Luis Angel Phan Phone #: ext [phone] Date/Time: 08/02/20 05:55 This is a permanent part of the Medical Record [facility]
== END 2020-07-30 18:09 | disposition home or self-care (01) | DRG 682 ==
LOC: ERS 18:16 → T4-B 22:19
PROVIDERS: ADMIT Internal Medicine; ATTEND Emergency Medicine
DX: N17.9 Acute kidney failure, unspecified (principal); G93.41 Metabolic encephalopathy; E87.2 Acidosis; N18.9 Chronic kidney disease, unspecified; E03.9 Hypothyroidism, unspecified; E11.22 Type 2 diabetes mellitus with diabetic chronic kidney disease; I12.9 Hypertensive chronic kidney disease with stage 1 through stage 4 chronic kidney disease, or unspecified chronic kidney disease; E78.00 Pure hypercholesterolemia, unspecified; K74.60 Unspecified cirrhosis of liver; K75.81 Nonalcoholic steatohepatitis (NASH); E86.0 Dehydration; T38.3X5A Adverse effect of insulin and oral hypoglycemic [antidiabetic] drugs, initial encounter; Z90.49 Acquired absence of other specified parts of digestive tract; Z91.013 Allergy to seafood; Z79.84 Long term (current) use of oral hypoglycemic drugs; Z79.899 Other long term (current) drug therapy
CPT/HCPCS: 36415; 36416; 51701; 70450; 71045; 80048; 80053; 81003; 82140; 82550; 83605; 83735; 84439; 84443; 84484; 85025; 87040; 87086; 93005; 96365; 96367; J0696; J3370

== ENCOUNTER 2020-08-25 16:57 | Inpatient (IN) | payer OTHER, MEDICARE ==
[2020-08-25 17:44] LABS: #Eosinphils 0.1 thou/uL (0.0-0.7); #Lymphocytes 0.9 thou/uL (1.20-3.40); #Monocytes 0.2 thou/uL (0.11-0.59); #Neutrophils 1.6 thou/uL (1.40-6.50); %Basophils 0.8 % (0.0-1.0); %Eosinophils 2.4 % (0.0-10.0); %Lymphocytes 31.6 % (21.0-51.0); %Monocytes 6.9 % (0.0-10.0); %Neutrophils 58.3 % (42.0-75.0); Hemoglobin 8.5 g/dL (12.0-16.0); Mean Corpuscular HGB CONC 32.8 g/dL (32.0-36.0); Mean Corpuscular Hemoglobin 29.2 pg (27.0-31.0); Mean Corpuscular Volume 89.1 fL (78.0-98.0); Mean Platelet Volume 8.4 fL (7.4-10.4); Platelet Count 86 thou/uL (130-400); RBC Distribution Width 14.5 % (11.5-14.5); Red Blood Cell (RBC) Count 2.91 mill/uL (4.20-5.40); White Blood Cell (WBC) Count 2.8 thou/uL (4.8-10.8)
[2020-08-25 18:12] LABS: ALT (SGPT) 19 U/L (8-55); AST (SGOT) 38 U/L (5-34); Albumin 2.8 g/dL (3.4-4.8); Alkaline Phosphatase 106 U/L (40-110); Anion Gap 17 mmol/L (10-20); BUN (Urea Nitrogen) 25 mg/dL (9.8-20.1); Calc. Creatinine Clearance 0 mL/min (70-130); Calcium 8.5 mg/dL (7.8-10.44); Carbon Dioxide 16 mmol/L (23-31); Chloride 110 mmol/L (98-107); Globulin 3.1 g/dL (2.4-3.5); Glucose 173 mg/dL (80-115); Lipase 110 U/L (8-78); Potassium 4.3 mmol/L (3.5-5.1); Protein, Total 5.9 g/dL (6.0-8.3); Sodium 139 mmol/L (136-145)
[2020-08-25 18:13] LABS: Acetaminophen Less than 6.0 mcg/mL (10.0-30.0); Alcohol Less than 10 mg/dL (Less than 10); Salicylate Less than 8.0 mg/dL (15.0-30.0)
--- NOTE | 2020-08-25 18:16 | RAD ---
SINGLE VIEW OF THE CHEST: 08/25/20 COMPARISON: 07/28/20 HISTORY: Altered mental status. History of cirrhosis and chronic kidney disease. FINDINGS: Single view of the chest shows an enlarged but stable cardiomediastinal silhouette with atherosclerot ic calcifications in the aorta. There is no evidence of consolidation, mass or pleural effusion. Dege nerative changes are seen in the spine. IMPRESSION: No evidence of acute cardiopulmonary disease. POS: EAA
[2020-08-25 19:12] LABS: Bilirubin Negative (Negative); Blood, Urine Negative (Negative); Clarity Clear (Clear); Glucose, Urine (Dipstick) Greater than 1000 mg/dL (Negative); Ketone, Urine Negative (Negative); Leukocyte Negative Leu/uL (Negative); Nitrite Negative (Negative); Protein, Urine (Dipstick) Negative (Neg-Trace); Urobilinogen Normal mg/dL (Less than 2); pH, Urine 5.5 (5.0-9.0)
[2020-08-25] MEDS ORDERED: Cefepime 2 GM VIAL ONE (19:13)
--- NOTE | 2020-08-25 19:18 | CT ---
CT OF THE BRAIN WITHOUT CONTRAST: 08/25/20 COMPARISON: 07/28/20 HISTORY: Altered mental status. History of cirrhosis and kidney disease. TECHNIQUE: Multiple contiguous axial images were obtained in a CT of the brain without contrast. FINDINGS: The brain is normal in morphology and attenuation without focal lesions or confluent areas of infarct ion. There is no evidence of hydrocephalus, intracranial hemorrhage, or extra-axial fluid collection. The calvarium and overlying soft tissues are unremarkable. The visualized paranasal sinuses and masto id air cells are well aerated. IMPRESSION: No evidence of acute intracranial abnormality. POS: EAA
[2020-08-25 19:25] LABS: Amphetamine Not Detected (NotDetected); Barbiturates Screen Not Detected (NotDetected); Benzodiazepine Screen Not Detected (NotDetected); Cocaine Metabolite Screen Not Detected (NotDetected); Medtox Control Line Valid? VALID (VALID); Medtox Reader # READER 4; Methadone Not Detected (NotDetected); Methamphetamine Not Detected (NotDetected); Opiate Screen Not Detected (NotDetected); Oxycodone Screen Not Detected (NotDetected); Phencyclidine (PCP) Not Detected (NotDetected); THC/Cannabinoid Screen Not Detected (NotDetected); Tricyclic Screen Not Detected (NotDetected)
[2020-08-25 21:37] LABS: Lactic Acid 2.7 mmol/L (0.5-2.2)
[2020-08-26] MEDS ORDERED: Acetaminophen 500 MG TAB ONE (00:26)
--- NOTE | 2020-08-26 01:03 | HP ---
REASON FOR ADMISSION: Confusion. HISTORY OF PRESENT ILLNESS: This is a 64-year-old female patient who is presenting with confusion. She is known to have cirrhosis secondary to NIEVES and was recently discharged from this hospital approximately a month ago. She comes in with similar presentation to her last admission. During her stay, she was confused and appeared to be dehydrated. She did receive IV fluids. Her confusion improved. She was also noted to be mildly overcorrected for her hypothyroidism. Her levothyroxine dose was decreased. She was discharged home, and since then, her daughter has been caring for her and making sure that she is well hydrated, drinking enough fluids. There was some discussion with her body sander that she might be having some element of dementia superimposed on her cirrhosis also. She was advised to be referred to a liver transplant center, but the patient was not interested in that option. Patient has been having off-and-on episodes of confusion described by her daughter who is at the bedside as being foggy, and this morning, she tried to go to the bathroom outside of her house, and at some point, she moves her bowels in her room, and for that reason, her daughter brought her to the emergency room. Currently, patient knows that she is at the hospital but does not know the year. She does not appear to be in distress. PAST MEDICAL HISTORY: 1. Diabetes type 2. 2. High blood pressure. 3. High cholesterol. 4. Cirrhosis due to NIEVES. 5. Hypothyroidism. 6. Cholecystectomy. 7. Thyroidectomy. ALLERGIES: SHELLFISH. SOCIAL HISTORY: She does not smoke. Does not drink alcohol. FAMILY HISTORY: Reviewed, found to be noncontributory. REVIEW OF SYSTEMS: All systems reviewed, except the above mentioned found to be negative. PHYSICAL EXAMINATION: GENERAL: She is awake, alert, oriented, does not appear in distress. VITAL SIGNS: Her blood pressure is 131/66, pulse of 67, temperature is 98.5, saturating 100% on room air. HEENT: Head is nontraumatic, normocephalic. Pupils equal, reactive. Extraocular movements are intact. Nonicteric sclerae. Well injected conjunctivae. Oral mucosa normal. Nasal mucosa normal. NECK: Supple. No adenopathy. No murmur. Thyroid is not palpable. Trachea is midline. No supraclavicular adenopathy. HEART: S1, S2, regular. No murmurs. No gallops. No friction rubs. No displacement of PMI. LUNGS: Clear to auscultation bilaterally. No wheezes. No rhonchi. No crackles. ABDOMEN: Bowel sounds are positive. Nontender abdomen. No hepatosplenomegaly. EXTREMITIES: She does have 2+ pitting edema in the left lower extremity, 1+ pitting edema in the right lower extremity which is chronic as per patient's daughter. NEUROLOGIC: She has normal cranial nerves and she is moving all of her extremities. LABORATORY DATA: Blood work shows a WBC of 2.8, hemoglobin of 8.5, platelets of 86. Previous hemoglobin 9.3. Sodium 139, potassium 4.3, bicarbonate of 16, previous bicarbonate was 21, BUN 25, creatinine 1.91, lactic acid of 4.5, glucose 274, AST 38, ALT 19, ammonia level 70, lipase of 110. TSH 0.4111. Chest x-ray shows no acute pulmonary disease. CT of brain shows no intracranial abnormality. ASSESSMENT AND PLAN: This is a 64-year-old female patient who is presenting with confusion. She is known to have nonalcoholic steatohepatitis induced cirrhosis. Her lactate is elevated, but she does not appear to be dehydrated as her creatinine is not much higher than last time but again not around her baseline. Neurology: The patient will have frequent neuro checks. There could be some element of dementia superimposed on her forgetfulness due to liver cirrhosis. Her confusion is most likely metabolic in nature. We will continue to observe her from that standpoint. Gastroenterology: We will consult GI for further input. We will continue her lactulose, and we will schedule her for paracentesis. ID: The patient will be on IV antibiotics. She already received IV cefepime. We will recheck her lactate level. For deep venous thrombosis prophylaxis, she will be on SCDs. Hematology: The patient does appear to be more anemic than before. We will recheck her hemoglobin in the morning. Type and screen her in case she will need to be transfused. Endocrinology: Continue her levothyroxine. I did discuss the code status with her daughter and with her, and she wishes to be a full code. Job ID: [id number]
[2020-08-26] MEDS: Sodium Chloride 0.9% 1,000 ML IV SCH ×2 (01:53→11:33)
[2020-08-26 01:58] VITALS: BMI 37.3
[2020-08-26] MEDS ORDERED: Acetaminophen 325 MG TAB PO PRN (02:30)
[2020-08-26 05:15] LABS: #Lymphocytes 0.9 thou/uL (1.20-3.40); #Monocytes 0.2 thou/uL (0.11-0.59); #Neutrophils 1.1 thou/uL (1.40-6.50); %Basophils 0.5 % (0.0-1.0); %Eosinophils 1.6 % (0.0-10.0); %Lymphocytes 39.6 % (21.0-51.0); %Monocytes 9.6 % (0.0-10.0); %Neutrophils 48.7 % (42.0-75.0); Anion Gap 15 mmol/L (10-20); BUN (Urea Nitrogen) 22 mg/dL (9.8-20.1); Calc. Creatinine Clearance 60 mL/min (70-130); Calcium 7.8 mg/dL (7.8-10.44); Carbon Dioxide 18 mmol/L (23-31); Chloride 113 mmol/L (98-107); Glucose 92 mg/dL (80-115); Hemoglobin 7.2 g/dL (12.0-16.0); Mean Corpuscular HGB CONC 32.6 g/dL (32.0-36.0); Mean Corpuscular Hemoglobin 29.3 pg (27.0-31.0); Mean Corpuscular Volume 89.8 fL (78.0-98.0); Mean Platelet Volume 8.1 fL (7.4-10.4); Platelet Count 68 thou/uL (130-400); Potassium 3.6 mmol/L (3.5-5.1); RBC Distribution Width 14.4 % (11.5-14.5); Red Blood Cell (RBC) Count 2.45 mill/uL (4.20-5.40); Sodium 142 mmol/L (136-145); White Blood Cell (WBC) Count 2.3 thou/uL (4.8-10.8)
[2020-08-26 05:22] LABS: Lactic Acid 1.5 mmol/L (0.5-2.2)
--- NOTE | 2020-08-26 08:11 | ULT ---
EXAM: US Abdomen Limited DATE: 08/26/2020 7:41 AM INDICATION: Confusion with cirrhosis of the liver COMPARISON: None. FINDING: Limited abdominal ultrasound demonstrates no significant amount of free fluid within the pe ritoneal cavity. Overlying bowel gas limited image detail otherwise. IMPRESSION:No significant amount of free fluid within the peritoneal cavity.
--- NOTE | 2020-08-26 12:55 | PDOC.DS.DS ---
Provider - Provider Date of Admission: 08/25/20 20:24 Date of Discharge: 08/26/20 Admitting Provider: Blayne Barriga MD Primary Care Physician: Ria Das MD Course - Hospital Course Hospital Course: This is a 64-year-old female with past medical history of cirrhosis secondary to Velez who was admitted to the hospital for confusion. The patient was managed conservatively and her confusion resolved within 24 hours. She stated that she was taking lactulose as prescribed at home which has led to multiple bouts of diarrhea. I have instructed the patient to titrate lactulose to achieve 2-3 bowel movements a day. At this time she is stable and will be discharged home with outpatient follow-up with PCP in 1 week. Resuscitation Status: 08/25/20 21:03 Resuscitation Status Routine Resuscitation Status: FULL: Full Resuscitation - Labs Lab Results: 08/26/20 04:49 08/26/20 04:49 Abnormal Lab Results - Last 48 hrs 08/25/20 17:31: Chloride 110 H, Carbon Dioxide 16 L, BUN 25 H, Creatinine 1.91 H, AST 38 H, Serum Total Protein 5.9 L, Albumin 2.8 L, Albumin/Globulin Ratio 0.9 L, Lipase 110 H 08/25/20 17:31: Salicylates Less than 8.0 L, Acetaminophen Less than 6.0 L 08/25/20 17:31: WBC 2.8 L, RBC 2.91 L, Hgb 8.5 L, Hct 25.9 L, Plt Count 86 L, Lymphocytes # 0.9 L 08/25/20 17:54: Lactic Acid 4.5 H* 08/25/20 18:50: Urine Glucose (UA) Greater than 1000 A 08/25/20 21:11: Lactic Acid 2.7 H 08/26/20 04:49: Chloride 113 H, Carbon Dioxide 18 L, BUN 22 H, Creatinine 1.43 H 08/26/20 04:49: WBC 2.3 L, RBC 2.45 L, Hgb 7.2 L, Hct 22.0 L, Plt Count 68 L, Neutrophils # 1.1 L, Lymphocytes # 0.9 L Microbiology - Entire Visit 08/25/20 17:54 Venous blood - Left Hand Blood Culture - Preliminary Specimen has been received and culture in progress. No Growth to date. 08/25/20 17:31 Venous blood - Right Arm Blood Culture - Preliminary Specimen has been received and culture in progress. No Growth to date. - Physical Exam Vitals: Vital Signs (12 hours) Temp Pulse Resp BP Pulse Ox 08/26/20 11:22 98.1 F 66 16 120/76 100 08/26/20 07:26 97.9 F 68 16 113/72 98 08/26/20 04:35 98.0 F 70 18 124/72 99 08/26/20 02:00 100 08/26/20 01:10 97.5 F L 64 18 132/81 100 Weight Admit Weight 217 lb 4 oz Weight 217 lb 4 oz Physical Exam: The patient was seen and examined on the day of discharge. Problem - Problem (1) Liver cirrhosis Code(s): K74.60 - UNSPECIFIED CIRRHOSIS OF LIVER Status: Acute (2) Hepatic encephalopathy Code(s): K72.90 - HEPATIC FAILURE, UNSPECIFIED WITHOUT COMA Status: Acute (3) Diabetes type 2, controlled Code(s): E11.9 - TYPE 2 DIABETES MELLITUS WITHOUT COMPLICATIONS Status: Chronic Qualifiers: (4) Dyslipidemia Code(s): E78.5 - HYPERLIPIDEMIA, UNSPECIFIED Status: Chronic (5) Hypertension Code(s): I10 - ESSENTIAL (PRIMARY) HYPERTENSION Status: Chronic Qualifiers: - Time spent with Patient (mins): 34 Plan - Discharge Medications Home Medications: Medication Instructions Recorded Confirmed Type Dexlansoprazole [Dexilant] 30 mg PO HS 05/09/14 07/29/20 History Alendronate Sodium [Fosamax] 70 mg PO Q7D 07/14/20 07/29/20 History Atorvastatin Calcium [Lipitor] 10 mg PO DAILY 07/14/20 07/29/20 History Carvedilol 12.5 mg PO BID 07/14/20 07/29/20 History Ferrous Sulfate 325 mg PO DAILY 07/14/20 07/29/20 History Liraglutide [Victoza 2-Tyshawn] 1.8 mg SC DAILY 07/14/20 07/29/20 History Rifaximin [Xifaxan] 550 mg PO BID 07/14/20 07/29/20 History traMADol HCl [Tramadol HCl] 50 mg PO PRN PRN 07/14/20 07/29/20 History Canagliflozin [Invokana] 300 mg PO DAILY 07/15/20 07/29/20 History Febuxostat 40 mg PO DAILY 07/15/20 07/29/20 History Icosapent Ethyl [Vascepa] 1 gm PO BID-WM 07/15/20 07/29/20 History Lactulose 20 gm PO BID #1 bot 07/16/20 07/29/20 Rx Furosemide [Furosemide Oral 20 mg PO DAILY #0 07/30/20 07/29/20 Rx Solution] Levothyroxine Sodium 175 mcg PO DAILY #30 tablet 07/30/20 Rx Spironolactone 50 mg PO DAILY #0 07/30/20 07/29/20 Rx metFORMIN HCl 1,000 mg PO BID-WM #0 07/30/20 07/29/20 Rx Allergies: shellfish derived Allergy (Verified 07/14/20 20:19) - Follow up Plan Referrals: Ria Das MD [Primary Care Provider] - Disposition: HOME Quality - Care Measures CORE MEASURES:: N/A
[2020-08-26 16:18] VITALS: BP 97/59; TEMP 98.2
[2020-08-26] MEDS ORDERED: cefTRIAXone\\ROCEPHIN 1 GM in Sodium Chloride 0.9% 100 ML IVPB SCH (23:00)
--- NOTE | 2020-08-30 22:25 | PQF ---
CLINICAL DOCUMENTATION CLARIFICATION FORM: Dear : Nacho Chowdary Date / Time: 08/31/2020 Please exercise your independent, professional judgment in responding to the clarification form. Clinical indicators are provided on the bottom of this form for your review Please check appropriate box(es): [ ] Confusion is due to liver cirrhosis [ >] Confusion is due to acute hepatic encephalopathy [ ] Confusion is due to dementia [ ] Other diagnosis [ ] Unable to determine In addition, please specify: Present on Admission (POA): [ > ] Yes [ ] No [ ] Unable to determine To be completed by CDI/Coding staff for physician review: Present Clinical Indicators - Signs / Symptoms / Labs Results and Location in Medical Record [ x ] Patient presents for confusion in the setting of cirrhosis. There may be some component of hepatic encephalopathy ED provider Report [ x ] Presenting with confusion. Known to have nonalcholic steatohepatitis induced cirrhoisis. There could be some element of dementia superimposed on her forgetfulness due to her liver cirrhosis. Her confusion is most likely metabolic in nature H and P [ x ] Lactic acid levels are 4.5 and 2.7 Laboratory Present Risk Factors Results and Location in Medical Record [ x ] Cirrhosis due to NIEVES, dementia H and P [ x ] Acute hepatic encephalopathy, diabetes mellitus Discharge summary Present Treatments Results and Location in Medical Record [ x ] Brain CT 08/25 Reports [ x ] Lactulose 20 gm 08/26 Medications [ x ] IV Cefepime Medications CDS/Roll Edge Stitcher Hand Signature: [id number] Phone #: Date/Time: 08/31/2020 This is a permanent part of the Medical Record [facility]
== END 2020-08-26 17:33 | disposition home or self-care (01) | DRG 442 ==
LOC: ERS 16:57 → T4-B 20:24
PROVIDERS: ADMIT Internal Medicine; ATTEND Internal Medicine
DX: K72.00 Acute and subacute hepatic failure without coma (principal); D61.818 Other pancytopenia; K74.60 Unspecified cirrhosis of liver; E03.9 Hypothyroidism, unspecified; K75.81 Nonalcoholic steatohepatitis (NASH); E78.00 Pure hypercholesterolemia, unspecified; E78.5 Hyperlipidemia, unspecified; E11.22 Type 2 diabetes mellitus with diabetic chronic kidney disease; N18.9 Chronic kidney disease, unspecified; I12.9 Hypertensive chronic kidney disease with stage 1 through stage 4 chronic kidney disease, or unspecified chronic kidney disease; Z90.49 Acquired absence of other specified parts of digestive tract; Z90.89 Acquired absence of other organs; Z91.013 Allergy to seafood
CPT/HCPCS: 36415; 36416; 70450; 71045; 76705; 80048; 80053; 80306; 80307; 81003; 82140; 83605; 83690; 84443; 84484; 85025; 86850; 86900; 86901; 87040; 87086; 93005; 96365; J0692

== ENCOUNTER 2020-11-19 14:54 | Inpatient (IN) | payer MEDICARE, OTHER ==
[2020-11-19 15:28] LABS: #Lymphocytes 0.7 thou/uL (1.20-3.40); #Monocytes 0.3 thou/uL (0.11-0.59); #Neutrophils 2.1 thou/uL (1.40-6.50); %Eosinophils 1.3 % (0.0-10.0); %Lymphocytes 22.8 % (21.0-51.0); %Monocytes 9.4 % (0.0-10.0); %Neutrophils 65.5 % (42.0-75.0); Hemoglobin 6.7 g/dL (12.0-16.0); Mean Corpuscular HGB CONC 31.6 g/dL (32.0-36.0); Mean Corpuscular Hemoglobin 25.3 pg (27.0-31.0); Mean Corpuscular Volume 80.2 fL (78.0-98.0); Platelet Count 83 thou/uL (130-400); RBC Distribution Width 16.1 % (11.5-14.5); Red Blood Cell (RBC) Count 2.63 mill/uL (4.20-5.40); White Blood Cell (WBC) Count 3.1 thou/uL (4.8-10.8)
[2020-11-19 16:00] LABS: ALT (SGPT) 10 U/L (8-55); AST (SGOT) 18 U/L (5-34); Albumin 2.5 g/dL (3.4-4.8); Alkaline Phosphatase 107 U/L (40-110); Anion Gap 11 mmol/L (10-20); BUN (Urea Nitrogen) 35 mg/dL (9.8-20.1); Bilirubin, Total 1.1 mg/dL (0.2-1.2); Calc. Creatinine Clearance 0 mL/min (70-130); Calcium 8.3 mg/dL (7.8-10.44); Carbon Dioxide 19 mmol/L (23-31); Chloride 113 mmol/L (98-107); Globulin 2.8 g/dL (2.4-3.5); Glucose 102 mg/dL (80-115); Potassium 4.1 mmol/L (3.5-5.1); Protein, Total 5.3 g/dL (5.8-8.1); Sodium 139 mmol/L (136-145)
[2020-11-19] MEDS ORDERED: Pantoprazole 40 MG VIAL ONE (18:25)
[2020-11-19] MEDS ORDERED: Octreotide Acetate 1,250 MCG in Sodium Chloride 0.9% 250 ML 250 ML IVPB SCH (20:00)
[2020-11-20] MEDS ORDERED: Guaifenesin DM 100-10/5 ML UDCUP PO PRN (00:24)
[2020-11-20] MEDS ORDERED: hydrALAZINE 20 MG/ML VIAL SLOW IVP PRN (00:24)
[2020-11-20] MEDS ORDERED: Morphine 2 MG/ML VIAL SLOW IVP PRN (00:24)
[2020-11-20] MEDS ORDERED: Promethazine HCl 12.5 MG in Sodium Chloride 0.9% 50 ML IVPB PRN (00:24)
[2020-11-20] MEDS ORDERED: HYDROcodone/Acetaminophen 5/325 mg Tablet PO PRN (00:24)
[2020-11-20] MEDS ORDERED: Ondansetron PF 4 MG/2 ML Vial IVP PRN (00:24)
[2020-11-20] MEDS ORDERED: Labetalol HCl 100 MG/20 ML VIAL SLOW IVP PRN (00:24)
[2020-11-20] MEDS ORDERED: cloNIDine 0.1 MG TAB PO PRN (00:24)
[2020-11-20] MEDS ORDERED: traMADol HCl 50 MG TAB PO PRN (00:26)
[2020-11-20] MEDS ORDERED: Pantoprazole 40 MG VIAL IVP SCH (00:30)
[2020-11-20] MEDS ORDERED: Electrolyte Replacement Protocol 1 EACH FS SCH (00:30)
[2020-11-20] MEDS ORDERED: Octreotide Acetate 1,250 MCG in Sodium Chloride 0.9% 250 ML 250 ML IVPB SCH (01:00)
[2020-11-20] MEDS ORDERED: cefTRIAXone\\ROCEPHIN 1 GM in Sodium Chloride 0.9% 100 ML IVPB SCH (01:00)
[2020-11-20] MEDS ORDERED: Dextrose 50% Abboject 50 ML SYRINGE SLOW IVP PRN (01:18)
[2020-11-20] MEDS ORDERED: Dextrose 5% in Water 1,000 ML IV PRN (01:18)
[2020-11-20] MEDS ORDERED: HumaLOG 300 UNITS/3 ML VIAL SC PRN (01:18)
[2020-11-20 02:06] VITALS: BMI 43.9
[2020-11-20 04:55] LABS: #Lymphocytes 0.7 thou/uL (1.20-3.40); #Monocytes 0.2 thou/uL (0.11-0.59); #Neutrophils 1.3 thou/uL (1.40-6.50); %Basophils 0.2 % (0.0-1.0); %Eosinophils 0.9 % (0.0-10.0); %Lymphocytes 32.7 % (21.0-51.0); %Monocytes 8.9 % (0.0-10.0); %Neutrophils 57.2 % (42.0-75.0); Hemoglobin 7.7 g/dL (12.0-16.0); INR-International Normal Ratio 1.5; Mean Corpuscular HGB CONC 30.7 g/dL (32.0-36.0); Mean Corpuscular Hemoglobin 25.5 pg (27.0-31.0); Mean Corpuscular Volume 83.1 fL (78.0-98.0); Mean Platelet Volume 8.6 fL (7.4-10.4); Platelet Count 68 thou/uL (130-400); Prothrombin Time 18.2 sec (12.0-14.7); RBC Distribution Width 16.4 % (11.5-14.5); White Blood Cell (WBC) Count 2.3 thou/uL (4.8-10.8)
[2020-11-20 05:07] LABS: Anion Gap 11 mmol/L (10-20); BUN (Urea Nitrogen) 35 mg/dL (9.8-20.1); Calc. Creatinine Clearance 56 mL/min (70-130); Calcium 8.1 mg/dL (7.8-10.44); Carbon Dioxide 18 mmol/L (23-31); Chloride 113 mmol/L (98-107); Glucose 110 mg/dL (80-115); Magnesium 1.6 mg/dL (1.6-2.6); Potassium 4.2 mmol/L (3.5-5.1); Sodium 138 mmol/L (136-145)
[2020-11-20 05:28] LABS: SARS-CoV-2 PCR by NAA Not Detected (NotDetected)
[2020-11-20] MEDS ORDERED: Magnesium 2 GM/50 ML 2 GM in Premix Bag 1 BAG IVPB SCH (05:30)
[2020-11-20] MEDS: Levothyroxine 175 MCG TAB PO SCH ×2 (06:06→12:34)
[2020-11-20] MEDS ORDERED: Sodium Bicarbonate 2.5 MEQ/5 ML VIAL ONE (09:12)
[2020-11-20] MEDS ORDERED: Lidocaine 1% PF 5 ML VIAL ONE (09:13)
[2020-11-20] MEDS: Atorvastatin Calcium 10 MG TAB PO SCH (12:27)
[2020-11-20] MEDS: Spironolactone 25 MG TAB PO SCH (12:27)
[2020-11-20] MEDS: Carvedilol 6.25 MG TAB PO SCH ×2 (12:27→16:18)
[2020-11-20] MEDS: Rifaximin 550 MG TAB PO SCH ×2 (12:28→21:04)
[2020-11-20] MEDS: Pantoprazole 40 MG VIAL IVP SCH ×2 (12:28→21:05)
[2020-11-20 13:30] LABS: RBC Count-Automated (BF) 421 /cu.mm; WBC/Nucleated-Auto (BF) 116 uL
[2020-11-20 13:44] LABS: BF Color Yellow; Body Fluid Source Ascites Body Fluid; Clarity Hazy (Clear); Tube # EDTA
[2020-11-20 13:47] LABS: BF Segmented Neutrophils 12 %
[2020-11-20 13:48] LABS: Cell Count Non Hematic 48 %; Eosinophils 1 %; Lymphocytes 39 %
[2020-11-20 14:17] LABS: Hemoglobin 7.9 g/dL (12.0-16.0); Platelet Count 71 thou/uL (130-400)
[2020-11-20] MEDS: Folic Acid 1 MG TAB PO SCH (16:18)
[2020-11-20 19:49] LABS: Hemoglobin 7.9 g/dL (12.0-16.0); Platelet Count 76 thou/uL (130-400)
[2020-11-20] MEDS: Acetaminophen 325 MG TAB PO PRN (21:05)
[2020-11-21 04:22] LABS: ALT (SGPT) 9 U/L (8-55); AST (SGOT) 15 U/L (5-34); Albumin 2.3 g/dL (3.4-4.8); Alkaline Phosphatase 86 U/L (40-110); Anion Gap 12 mmol/L (10-20); BUN (Urea Nitrogen) 38 mg/dL (9.8-20.1); Bilirubin, Direct 0.6 mg/dL (0.1-0.3); Calc. Creatinine Clearance 50 mL/min (70-130); Calcium 7.7 mg/dL (7.8-10.44); Carbon Dioxide 17 mmol/L (23-31); Chloride 113 mmol/L (98-107); Glucose 148 mg/dL (80-115); Magnesium 1.8 mg/dL (1.6-2.6); Potassium 4.1 mmol/L (3.5-5.1); Protein, Total 4.8 g/dL (5.8-8.1); Sodium 138 mmol/L (136-145)
[2020-11-21 04:25] LABS: #Eosinphils 0.1 thou/uL (0.0-0.7); #Lymphocytes 0.8 thou/uL (1.20-3.40); #Monocytes 0.3 thou/uL (0.11-0.59); #Neutrophils 1.9 thou/uL (1.40-6.50); %Basophils 1.2 % (0.0-1.0); %Eosinophils 1.6 % (0.0-10.0); %Lymphocytes 25.3 % (21.0-51.0); %Monocytes 10.6 % (0.0-10.0); %Neutrophils 61.3 % (42.0-75.0); Hemoglobin 7.4 g/dL (12.0-16.0); Mean Corpuscular HGB CONC 31.8 g/dL (32.0-36.0); Mean Corpuscular Hemoglobin 26.3 pg (27.0-31.0); Mean Corpuscular Volume 82.9 fL (78.0-98.0); Mean Platelet Volume 8.8 fL (7.4-10.4); Platelet Count 74 thou/uL (130-400); RBC Distribution Width 16.4 % (11.5-14.5); Red Blood Cell (RBC) Count 2.82 mill/uL (4.20-5.40); White Blood Cell (WBC) Count 3.1 thou/uL (4.8-10.8)
[2020-11-21] MEDS: Levothyroxine 175 MCG TAB PO SCH ×2 (05:54→10:39)
[2020-11-21] MEDS ORDERED: Magnesium 2 GM/50 ML 2 GM in Premix Bag 1 BAG IVPB SCH (06:30)
[2020-11-21] MEDS ORDERED: Non-Formulary Item 1 EACH (Levothyroxine Sodium [Levothyroxine] 150 MCG Capsule) PO SCH (09:00)
[2020-11-21] MEDS ORDERED: Promethazine HCl 25 MG/ML VIAL IM PRN (09:14)
[2020-11-21] MEDS ORDERED: Promethazine HCl 25 MG/ML VIAL SLOW IVP PRN (09:14)
[2020-11-21] MEDS ORDERED: Ondansetron HCl/PF 4 MG/2 ML Vial IVP PRN (09:14)
[2020-11-21] MEDS ORDERED: Lidocaine 1% PF 5 ML VIAL ONE (09:26)
[2020-11-21] MEDS ORDERED: PROPOFOL 200 MG/20 ML VIAL ONE (09:26)
[2020-11-21] MEDS: Cyanocobalamin (Vitamin B-12) 1,000 MCG TAB PO SCH (10:38)
[2020-11-21] MEDS: Pantoprazole 40 MG VIAL IVP SCH ×2 (10:38→20:22)
[2020-11-21] MEDS: Multivit, Therapeutic 1 TAB PO SCH (10:38)
[2020-11-21] MEDS: Atorvastatin Calcium 10 MG TAB PO SCH (10:39)
[2020-11-21] MEDS: Spironolactone 25 MG TAB PO SCH ×2 (10:39→10:43)
[2020-11-21] MEDS: Carvedilol 3.125 MG TAB PO SCH ×2 (10:39→20:23)
[2020-11-21] MEDS: Rifaximin 550 MG TAB PO SCH ×2 (10:39→20:22)
[2020-11-21] MEDS: Carvedilol 6.25 MG TAB PO SCH (10:43)
[2020-11-21 12:13] LABS: Free T4 (Free Thyroxine) 1.27 ng/dL (0.70-1.48)
[2020-11-21] MEDS: Folic Acid 1 MG TAB PO SCH (14:44)
[2020-11-21] MEDS: Acetaminophen 325 MG TAB PO PRN (14:48)
[2020-11-21 15:47] LABS: Iron 36 ug/dL (50-170); Iron Binding Capacity, Total 245 mcg/dL (265-497)
[2020-11-21 16:12] LABS: Ferritin 14.24 ng/mL (10-291)
[2020-11-21] MEDS ORDERED: Furosemide 40 MG/4 ML VIAL SLOW IVP SCH (17:00)
[2020-11-22 04:55] LABS: #Lymphocytes 0.8 thou/uL (1.20-3.40); #Monocytes 0.3 thou/uL (0.11-0.59); #Neutrophils 1.7 thou/uL (1.40-6.50); %Basophils 0.7 % (0.0-1.0); %Eosinophils 0.5 % (0.0-10.0); %Lymphocytes 27.9 % (21.0-51.0); %Monocytes 11.2 % (0.0-10.0); %Neutrophils 59.7 % (42.0-75.0); Hemoglobin 7.5 g/dL (12.0-16.0); Mean Corpuscular HGB CONC 31.1 g/dL (32.0-36.0); Mean Corpuscular Hemoglobin 25.6 pg (27.0-31.0); Mean Corpuscular Volume 82.3 fL (78.0-98.0); Mean Platelet Volume 9.2 fL (7.4-10.4); Platelet Count 72 thou/uL (130-400); RBC Distribution Width 16.7 % (11.5-14.5); Red Blood Cell (RBC) Count 2.92 mill/uL (4.20-5.40); White Blood Cell (WBC) Count 2.9 thou/uL (4.8-10.8)
[2020-11-22 04:58] LABS: Anion Gap 11 mmol/L (10-20); BUN (Urea Nitrogen) 39 mg/dL (9.8-20.1); Calc. Creatinine Clearance 51 mL/min (70-130); Calcium 7.7 mg/dL (7.8-10.44); Carbon Dioxide 18 mmol/L (23-31); Chloride 114 mmol/L (98-107); Glucose 120 mg/dL (80-115); Magnesium 1.9 mg/dL (1.6-2.6); Sodium 139 mmol/L (136-145)
[2020-11-22 05:01] LABS: ALT (SGPT) 11 U/L (8-55); AST (SGOT) 15 U/L (5-34); Albumin 2.3 g/dL (3.4-4.8); Alkaline Phosphatase 90 U/L (40-110); Bilirubin, Direct 0.5 mg/dL (0.1-0.3); Bilirubin, Total 0.7 mg/dL (0.2-1.2); Protein, Total 4.8 g/dL (5.8-8.1)
[2020-11-22] MEDS: Levothyroxine 175 MCG TAB PO SCH (05:13)
[2020-11-22] MEDS: Atorvastatin Calcium 10 MG TAB PO SCH (09:08)
[2020-11-22] MEDS: Pantoprazole 40 MG VIAL IVP SCH (09:08)
[2020-11-22] MEDS: Cyanocobalamin (Vitamin B-12) 1,000 MCG TAB PO SCH (09:08)
[2020-11-22] MEDS: Rifaximin 550 MG TAB PO SCH (09:08)
[2020-11-22] MEDS: Multivit, Therapeutic 1 TAB PO SCH (09:08)
[2020-11-22] MEDS: Spironolactone 25 MG TAB PO SCH (09:45)
[2020-11-22] MEDS: Carvedilol 3.125 MG TAB PO SCH (09:45)
[2020-11-22] MEDS: Folic Acid 1 MG TAB PO SCH (14:55)
[2020-11-22 15:23] VITALS: BP 107/59; TEMP 97.6
[2020-11-23] MEDS ORDERED: Levothyroxine 150 MCG TAB PO SCH (06:00)
== END 2020-11-22 16:10 | disposition home or self-care (01) | DRG 394 ==
LOC: ERS 14:54 → ERHOLD 19:19 → 2NO 23:34
PROVIDERS: ADMIT Internal Medicine; ATTEND Internal Medicine
PROC: 30233N1 Transfusion of Nonautologous Red Blood Cells into Peripheral Vein, Percutaneous Approach (ICD-10-PCS; principal; 2020-11-19)
PROC: 0W9G3ZZ Drainage of Peritoneal Cavity, Percutaneous Approach (ICD-10-PCS; 2020-11-20)
PROC: 0W3P8ZZ Control Bleeding in Gastrointestinal Tract, Via Natural or Artificial Opening Endoscopic (ICD-10-PCS; 2020-11-21)
PROC: 0DB68ZZ Excision of Stomach, Via Natural or Artificial Opening Endoscopic (ICD-10-PCS; 2020-11-21)
DX: K31.7 Polyp of stomach and duodenum (principal); K76.6 Portal hypertension; K92.2 Gastrointestinal hemorrhage, unspecified; D61.818 Other pancytopenia; D62 Acute posthemorrhagic anemia; R18.8 Other ascites; D73.1 Hypersplenism; K75.81 Nonalcoholic steatohepatitis (NASH); K74.60 Unspecified cirrhosis of liver; E78.5 Hyperlipidemia, unspecified; E03.9 Hypothyroidism, unspecified; E11.22 Type 2 diabetes mellitus with diabetic chronic kidney disease; K31.89 Other diseases of stomach and duodenum; N18.30 Chronic kidney disease, stage 3 unspecified; D63.1 Anemia in chronic kidney disease; I12.9 Hypertensive chronic kidney disease with stage 1 through stage 4 chronic kidney disease, or unspecified chronic kidney disease; Z20.822 Contact with and (suspected) exposure to COVID-19; Z91.013 Allergy to seafood; Z90.49 Acquired absence of other specified parts of digestive tract; Z90.89 Acquired absence of other organs; Z79.4 Long term (current) use of insulin
CPT/HCPCS: 36415; 36416; 36430; 49083; 71045; 80048; 80053; 80076; 82274; 82607; 82728; 82746; 83540; 83550; 83735; 83880; 84439; 84443; 84481; 84484; 85025; 85060; 85610; 86850; 86900; 86901; 87070; 87205; 87635; 88305; 89051; 93005; 96365; 96366; 96375; C9113; J0696; J1815; J1940; J2354; J2704; J3475; J3490; J7050; P9016; U0003; U0005

== ENCOUNTER 2021-01-18 14:35 | Inpatient (IN) | payer MEDICARE, OTHER ==
[2021-01-18 17:27] LABS: #Eosinphils 0.1 thou/uL (0.0-0.7); #Lymphocytes 0.8 thou/uL (1.20-3.40); #Monocytes 0.4 thou/uL (0.11-0.59); #Neutrophils 4.4 thou/uL (1.40-6.50); %Basophils 0.4 % (0.0-1.0); %Lymphocytes 14.4 % (21.0-51.0); %Monocytes 6.2 % (0.0-10.0); Hemoglobin 10.1 g/dL (12.0-16.0); Mean Corpuscular HGB CONC 31.3 g/dL (32.0-36.0); Mean Corpuscular Hemoglobin 28.3 pg (27.0-31.0); Mean Corpuscular Volume 90.4 fL (78.0-98.0); Mean Platelet Volume 8.4 fL (7.4-10.4); Platelet Count 107 thou/uL (130-400); RBC Distribution Width 17.2 % (11.5-14.5); Red Blood Cell (RBC) Count 3.56 mill/uL (4.20-5.40); White Blood Cell (WBC) Count 5.7 thou/uL (4.8-10.8)
[2021-01-18 17:44] LABS: ALT (SGPT) 14 U/L (8-55); AST (SGOT) 28 U/L (5-34); Albumin 2.5 g/dL (3.4-4.8); Alkaline Phosphatase 99 U/L (40-110); Anion Gap 12 mmol/L (10-20); BUN (Urea Nitrogen) 53 mg/dL (9.8-20.1); Bilirubin, Total 1.1 mg/dL (0.2-1.2); Calc. Creatinine Clearance 0 mL/min (70-130); Calcium 9.1 mg/dL (7.8-10.44); Carbon Dioxide 20 mmol/L (23-31); Chloride 114 mmol/L (98-107); Globulin 3.9 g/dL (2.4-3.5); Glucose 90 mg/dL (80-115); Potassium 4.3 mmol/L (3.5-5.1); Protein, Total 6.4 g/dL (5.8-8.1); Sodium 142 mmol/L (136-145)
[2021-01-18 17:54] LABS: Prothrombin Time 17.7 sec (12.0-14.7)
[2021-01-18 17:55] LABS: INR-International Normal Ratio 1.4; PTT 33.8 sec (22.9-36.1)
[2021-01-18 18:03] LABS: Magnesium 1.7 mg/dL (1.6-2.6)
[2021-01-18] MEDS ORDERED: Furosemide 40 MG/4 ML VIAL ONE (18:59)
[2021-01-18 19:23] LABS: Bilirubin Negative (Negative); Blood, Urine 2+ (Negative); Clarity Clear (Clear); Glucose, Urine (Dipstick) Normal (Negative); Ketone, Urine Negative (Negative); Leukocyte 250 Leu/uL (Negative); Nitrite Negative (Negative); Protein, Urine (Dipstick) 20 mg/dL (Neg-Trace); RBC/HPF 0-3 HPF (0-3); Specific Gravity, Urine 1.017 (1.002-1.036); Squamous Epithelial 0-3 HPF (0-3); Urobilinogen Normal mg/dL (Less than 2); pH, Urine 5.5 (5.0-9.0)
[2021-01-18 19:24] LABS: Bacteria/HPF 1+ HPF (None Seen)
[2021-01-18] MEDS ORDERED: Ondansetron ODT 4 MG TAB PO PRN (20:57)
[2021-01-18] MEDS ORDERED: Acetaminophen 325 MG TAB PO PRN (20:57)
[2021-01-18] MEDS ORDERED: Ondansetron PF 4 MG/2 ML Vial IVP PRN (20:57)
[2021-01-18] MEDS ORDERED: Albumin 25% 25 GM/100 ML BOT IVPB SCH (21:00)
[2021-01-18 23:42] VITALS: BMI 46.3
[2021-01-19] MEDS ORDERED: Dextrose 5% in Water 1,000 ML IV PRN (00:41)
[2021-01-19] MEDS ORDERED: HumaLOG 300 UNITS/3 ML VIAL SC PRN ×2 (00:41)
[2021-01-19] MEDS ORDERED: Dextrose 50% Abboject 50 ML SYRINGE SLOW IVP PRN (00:41)
[2021-01-19] MEDS: Albumin 25% 25 GM/100 ML BOT IVPB SCH ×3 (03:45→16:10)
[2021-01-19 07:12] LABS: Anion Gap 14 mmol/L (10-20); BUN (Urea Nitrogen) 50 mg/dL (9.8-20.1); Calc. Creatinine Clearance 30 mL/min (70-130); Calcium 8.4 mg/dL (7.8-10.44); Carbon Dioxide 18 mmol/L (23-31); Chloride 115 mmol/L (98-107); Glucose 92 mg/dL (80-115); Potassium 3.8 mmol/L (3.5-5.1); Sodium 143 mmol/L (136-145)
[2021-01-19 07:22] LABS: #Lymphocytes 0.7 thou/uL (1.20-3.40); #Monocytes 0.3 thou/uL (0.11-0.59); #Neutrophils 2.7 thou/uL (1.40-6.50); %Basophils 0.5 % (0.0-1.0); %Eosinophils 1.1 % (0.0-10.0); %Lymphocytes 18.2 % (21.0-51.0); %Monocytes 6.9 % (0.0-10.0); %Neutrophils 73.3 % (42.0-75.0); Hemoglobin 8.5 g/dL (12.0-16.0); Mean Corpuscular HGB CONC 31.3 g/dL (32.0-36.0); Mean Corpuscular Hemoglobin 28.2 pg (27.0-31.0); Mean Corpuscular Volume 90.3 fL (78.0-98.0); Mean Platelet Volume 8.2 fL (7.4-10.4); Platelet Count 74 thou/uL (130-400); White Blood Cell (WBC) Count 3.7 thou/uL (4.8-10.8)
[2021-01-19 10:25] LABS: SARS-CoV-2 PCR by NAA Not Detected (NotDetected)
[2021-01-19] MEDS ORDERED: Furosemide 100 MG/10 ML VIAL SLOW IVP SCH (11:15)
[2021-01-19] MEDS ORDERED: Sodium Bicarbonate 2.5 MEQ/5 ML VIAL ONE (11:32)
[2021-01-19] MEDS ORDERED: Lidocaine 1% PF 5 ML VIAL ONE (11:32)
[2021-01-19] MEDS: Rifaximin 550 MG TAB PO SCH (20:35)
[2021-01-19] MEDS: Carvedilol 3.125 MG TAB PO SCH (20:35)
[2021-01-20 05:00] LABS: Anion Gap 16 mmol/L (10-20); BUN (Urea Nitrogen) 50 mg/dL (9.8-20.1); Calc. Creatinine Clearance 35 mL/min (70-130); Calcium 8.5 mg/dL (7.8-10.44); Carbon Dioxide 16 mmol/L (23-31); Chloride 116 mmol/L (98-107); Glucose 82 mg/dL (80-115); Potassium 3.5 mmol/L (3.5-5.1); Sodium 144 mmol/L (136-145)
[2021-01-20] MEDS ORDERED: Spironolactone 25 MG TAB PO SCH (08:00)
[2021-01-20] MEDS: Rifaximin 550 MG TAB PO SCH ×2 (08:36→20:13)
[2021-01-20] MEDS: Ascorbic Acid 500 mg Chewable Tablet PO SCH (08:36)
[2021-01-20] MEDS: Carvedilol 3.125 MG TAB PO SCH (08:38)
[2021-01-20] MEDS: Midodrine HCl 5 MG TAB PO SCH ×3 (08:38→20:13)
[2021-01-20] MEDS ORDERED: Furosemide 40 MG TAB PO SCH (09:00)
[2021-01-20] MEDS ORDERED: Carvedilol 6.25 MG TAB PO SCH (13:00)
[2021-01-20] MEDS: Carvedilol 6.25 MG TAB PO SCH (20:14)
[2021-01-21 07:38] LABS: Anion Gap 12 mmol/L (10-20); BUN (Urea Nitrogen) 47 mg/dL (9.8-20.1); Calc. Creatinine Clearance 39 mL/min (70-130); Calcium 8.5 mg/dL (7.8-10.44); Carbon Dioxide 21 mmol/L (23-31); Chloride 116 mmol/L (98-107); Glucose 88 mg/dL (80-115); Potassium 3.7 mmol/L (3.5-5.1); Sodium 145 mmol/L (136-145)
[2021-01-21] MEDS: Carvedilol 6.25 MG TAB PO SCH ×2 (08:34→20:22)
[2021-01-21] MEDS: Ascorbic Acid 500 mg Chewable Tablet PO SCH (08:34)
[2021-01-21] MEDS: Midodrine HCl 5 MG TAB PO SCH ×3 (08:34→20:23)
[2021-01-21] MEDS: Rifaximin 550 MG TAB PO SCH ×2 (08:35→20:23)
[2021-01-21] MEDS ORDERED: Albumin 25% 25 GM/100 ML BOT IVPB SCH ×2 (09:00→18:28)
[2021-01-21] MEDS ORDERED: Sodium Bicarbonate 2.5 MEQ/5 ML VIAL ONE (12:54)
[2021-01-21] MEDS ORDERED: Lidocaine 1% PF 5 ML VIAL ONE (12:54)
[2021-01-22 04:34] LABS: #Eosinphils 0.1 thou/uL (0.0-0.7); #Lymphocytes 0.7 thou/uL (1.20-3.40); #Monocytes 0.3 thou/uL (0.11-0.59); #Neutrophils 3.5 thou/uL (1.40-6.50); %Basophils 0.1 % (0.0-1.0); %Lymphocytes 15.6 % (21.0-51.0); %Monocytes 5.9 % (0.0-10.0); %Neutrophils 76.4 % (42.0-75.0); Mean Corpuscular HGB CONC 31.7 g/dL (32.0-36.0); Mean Corpuscular Hemoglobin 29.4 pg (27.0-31.0); Mean Corpuscular Volume 92.7 fL (78.0-98.0); Mean Platelet Volume 9.8 fL (7.4-10.4); Platelet Count 68 thou/uL (130-400); RBC Distribution Width 16.9 % (11.5-14.5); Red Blood Cell (RBC) Count 3.07 mill/uL (4.20-5.40); White Blood Cell (WBC) Count 4.6 thou/uL (4.8-10.8)
[2021-01-22 04:53] LABS: Anion Gap 13 mmol/L (10-20); BUN (Urea Nitrogen) 43 mg/dL (9.8-20.1); Calc. Creatinine Clearance 41 mL/min (70-130); Calcium 8.1 mg/dL (7.8-10.44); Carbon Dioxide 17 mmol/L (23-31); Chloride 116 mmol/L (98-107); Glucose 121 mg/dL (80-115); Potassium 3.6 mmol/L (3.5-5.1); Sodium 142 mmol/L (136-145)
[2021-01-22] MEDS: Carvedilol 6.25 MG TAB PO SCH ×2 (09:09→21:24)
[2021-01-22] MEDS: Rifaximin 550 MG TAB PO SCH ×2 (09:09→21:24)
[2021-01-22] MEDS: Midodrine HCl 5 MG TAB PO SCH ×3 (09:11→21:25)
[2021-01-22] MEDS: Ascorbic Acid 500 mg Chewable Tablet PO SCH (09:11)
[2021-01-22] MEDS: cefTRIAXone\\ROCEPHIN 1 GM in Sodium Chloride 0.9% 100 ML IVPB SCH (12:20)
[2021-01-22] MEDS: Sodium Bicarbonate Tab 325 MG TAB PO SCH ×2 (16:14→21:25)
[2021-01-22] MEDS ORDERED: Famotidine/PF 20 mg/2ml Vial SLOW IVP SCH (21:00)
[2021-01-23 06:10] LABS: #Eosinphils 0.1 thou/uL (0.0-0.7); #Lymphocytes 0.7 thou/uL (1.20-3.40); #Monocytes 0.3 thou/uL (0.11-0.59); #Neutrophils 4.2 thou/uL (1.40-6.50); %Basophils 0.3 % (0.0-1.0); %Eosinophils 2.3 % (0.0-10.0); %Lymphocytes 12.6 % (21.0-51.0); %Monocytes 5.7 % (0.0-10.0); Hemoglobin 9.7 g/dL (12.0-16.0); Mean Corpuscular HGB CONC 31.8 g/dL (32.0-36.0); Mean Corpuscular Hemoglobin 29.4 pg (27.0-31.0); Mean Corpuscular Volume 92.5 fL (78.0-98.0); Mean Platelet Volume 8.9 fL (7.4-10.4); Platelet Count 71 thou/uL (130-400); Red Blood Cell (RBC) Count 3.31 mill/uL (4.20-5.40); White Blood Cell (WBC) Count 5.4 thou/uL (4.8-10.8)
[2021-01-23 06:31] LABS: Anion Gap 11 mmol/L (10-20); BUN (Urea Nitrogen) 41 mg/dL (9.8-20.1); Calc. Creatinine Clearance 41 mL/min (70-130); Calcium 7.9 mg/dL (7.8-10.44); Carbon Dioxide 21 mmol/L (23-31); Chloride 114 mmol/L (98-107); Glucose 134 mg/dL (80-115); Magnesium 1.4 mg/dL (1.6-2.6); Phosphorus 2.9 mg/dL (2.3-4.7); Potassium 3.7 mmol/L (3.5-5.1); Sodium 142 mmol/L (136-145)
[2021-01-23] MEDS ORDERED: Magnesium 2 GM/50 ML 2 GM in Premix Bag 1 BAG IVPB SCH (08:00)
[2021-01-23] MEDS: Carvedilol 6.25 MG TAB PO SCH (08:42)
[2021-01-23] MEDS: Ascorbic Acid 500 mg Chewable Tablet PO SCH (08:42)
[2021-01-23] MEDS: Midodrine HCl 5 MG TAB PO SCH (08:47)
[2021-01-23] MEDS: Sodium Bicarbonate Tab 325 MG TAB PO SCH (08:48)
[2021-01-23] MEDS: Rifaximin 550 MG TAB PO SCH (08:48)
[2021-01-23 08:49] VITALS: BP 122/63
[2021-01-23 09:05] VITALS: TEMP 98.7
[2021-01-23] MEDS: cefTRIAXone\\ROCEPHIN 1 GM in Sodium Chloride 0.9% 100 ML IVPB SCH (10:13)
== END 2021-01-23 12:56 | disposition home or self-care (01) | DRG 432 ==
LOC: ERS 14:35 → INTOOBSV 18:58 → ONC 18:58 → OBSVTOIN 01-19 12:38
PROVIDERS: ADMIT Internal Medicine; ATTEND Internal Medicine
PROC: 0W9G3ZZ Drainage of Peritoneal Cavity, Percutaneous Approach (ICD-10-PCS; principal; 2021-01-19)
PROC: 0W9G3ZZ Drainage of Peritoneal Cavity, Percutaneous Approach (ICD-10-PCS; 2021-01-21)
DX: K74.60 Unspecified cirrhosis of liver (principal); K72.00 Acute and subacute hepatic failure without coma; K76.7 Hepatorenal syndrome; N17.9 Acute kidney failure, unspecified; E87.2 Acidosis; N18.4 Chronic kidney disease, stage 4 (severe); K76.6 Portal hypertension; D61.818 Other pancytopenia; E78.5 Hyperlipidemia, unspecified; I12.9 Hypertensive chronic kidney disease with stage 1 through stage 4 chronic kidney disease, or unspecified chronic kidney disease; D69.6 Thrombocytopenia, unspecified; Z91.013 Allergy to seafood; Z90.49 Acquired absence of other specified parts of digestive tract; K31.89 Other diseases of stomach and duodenum; D63.1 Anemia in chronic kidney disease; E03.9 Hypothyroidism, unspecified; K75.81 Nonalcoholic steatohepatitis (NASH); E11.22 Type 2 diabetes mellitus with diabetic chronic kidney disease
CPT/HCPCS: 36415; 36416; 49083; 71045; 80048; 80053; 81003; 81015; 82140; 83605; 83690; 83735; 83880; 84100; 85025; 85610; 85730; 87077; 87086; 87186; 87635; 96365; 96366; 96374; 96375; 96376; G0378; J0696; J1940; J3475; J3490; P9047; S0028; U0003; U0005

== ENCOUNTER 2021-03-01 22:45 | Inpatient (IN) | payer MEDICARE, OTHER ==
[2021-03-01 23:36] LABS: Hemoglobin 12.3 g/dL (12.0-16.0); Mean Corpuscular HGB CONC 33.4 g/dL (32.0-36.0); Mean Corpuscular Hemoglobin 31.4 pg (27.0-31.0); Mean Corpuscular Volume 93.9 fL (78.0-98.0); RBC Distribution Width 15.2 % (11.5-14.5); Red Blood Cell (RBC) Count 3.91 mill/uL (4.20-5.40); White Blood Cell (WBC) Count 4.7 thou/uL (4.8-10.8)
[2021-03-01 23:43] LABS: Acetaminophen Less than 6.0 mcg/mL (10.0-30.0); Alcohol Less than 10 mg/dL (Less than 10); Salicylate Less than 8.0 mg/dL (15.0-30.0)
[2021-03-01 23:45] LABS: ALT (SGPT) 21 U/L (8-55); AST (SGOT) 44 U/L (5-34); Albumin 2.7 g/dL (3.4-4.8); Alkaline Phosphatase 130 U/L (40-110); Anion Gap 18 mmol/L (10-20); BUN (Urea Nitrogen) 68 mg/dL (9.8-20.1); Bilirubin, Total 1.5 mg/dL (0.2-1.2); Calc. Creatinine Clearance 0 mL/min (70-130); Calcium 8.2 mg/dL (7.8-10.44); Carbon Dioxide 18 mmol/L (23-31); Chloride 110 mmol/L (98-107); Globulin 3.2 g/dL (2.4-3.5); Glucose 109 mg/dL (80-115); Lipase 88 U/L (8-78); Protein, Total 5.9 g/dL (5.8-8.1); Sodium 143 mmol/L (136-145)
[2021-03-01 23:52] LABS: #Eosinphils 0.1 thou/uL (0.0-0.7); #Lymphocytes 0.9 thou/uL (1.20-3.40); #Monocytes 0.3 thou/uL (0.11-0.59); #Neutrophils 3.3 thou/uL (1.40-6.50); %Basophils 0.6 % (0.0-1.0); %Eosinophils 2.4 % (0.0-10.0); %Lymphocytes 20.2 % (21.0-51.0); %Monocytes 6.5 % (0.0-10.0); %Neutrophils 70.4 % (42.0-75.0); Mean Platelet Volume 8.8 fL (7.4-10.4); Platelet Count 70 thou/uL (130-400); Platelet Morphology Comment Appears Decreased
[2021-03-02 00:17] LABS: Bilirubin Negative (Negative); Blood, Urine Trace (Negative); Glucose, Urine (Dipstick) Negative (Negative); Ketone, Urine Trace mg/dL (Negative); Leukocyte Trace (Negative); Nitrite Negative (Negative); Protein, Urine (Dipstick) Negative (Neg-Trace); Specific Gravity, Urine 1.015 (1.005-1.030); Urobilinogen 0.2 mg/dL (Less than 2)
[2021-03-02 00:19] LABS: Clarity Clear (Clear)
[2021-03-02 00:24] LABS: Squamous Epithelial 0-3 HPF (0-3)
[2021-03-02 00:25] LABS: Bacteria/HPF 1+ HPF (None Seen)
[2021-03-02 00:30] LABS: Amphetamine Not Detected (NotDetected); Barbiturates Screen Not Detected (NotDetected); Benzodiazepine Screen Not Detected (NotDetected); Cocaine Metabolite Screen Not Detected (NotDetected); Medtox Control Line Valid? VALID (VALID); Medtox Reader # READER 4; Methadone Not Detected (NotDetected); Methamphetamine Not Detected (NotDetected); Opiate Screen Not Detected (NotDetected); Oxycodone Screen Not Detected (NotDetected); Phencyclidine (PCP) Not Detected (NotDetected); THC/Cannabinoid Screen Not Detected (NotDetected); Tricyclic Screen Not Detected (NotDetected)
[2021-03-02] MEDS ORDERED: Cefepime 2 GM VIAL ONE (00:36)
[2021-03-02] MEDS ORDERED: VANCOMYCIN 2 GRAM/400 ML BAG 2 GM in Premix Bag 1 BAG IVPB SCH (02:15)
[2021-03-02] MEDS ORDERED: Acetaminophen 325 MG TAB PO PRN (04:56)
[2021-03-02] MEDS ORDERED: Ondansetron ODT 4 MG TAB PO PRN (04:56)
[2021-03-02] MEDS ORDERED: Insulin Regular 300 UNITS/3 ML VIAL SC PRN (04:56)
[2021-03-02] MEDS ORDERED: Dextrose 5% in Water 1,000 ML IV PRN (04:56)
[2021-03-02] MEDS ORDERED: HumaLOG 300 UNITS/3 ML VIAL SC PRN (04:56)
[2021-03-02] MEDS ORDERED: Dextrose 50% Abboject 50 ML SYRINGE SLOW IVP PRN (04:56)
[2021-03-02] MEDS ORDERED: Albumin 25% 25 GM/100 ML BOT IVPB SCH ×2 (05:15→14:00)
[2021-03-02] MEDS ORDERED: Midodrine HCl 5 MG TAB PO SCH (05:30)
[2021-03-02] MEDS ORDERED: Electrolyte Replacement Protocol 1 EACH FS PRN (06:30)
[2021-03-02] MEDS ORDERED: Potassium Chloride 10 MEQ in Premix Bag 1 BAG IVPB SCH (06:30)
[2021-03-02] MEDS: Sodium Chloride 0.9% 1,000 ML IV SCH ×2 (07:36→12:36)
[2021-03-02] MEDS: Potassium Chloride 20 MEQ in Premix Bag 1 BAG IVPB SCH ×2 (07:49→09:39)
[2021-03-02] MEDS: Enoxaparin Sodium 30 MG/0.3 ML SYRINGE SC SCH (07:50)
[2021-03-02] MEDS: Ondansetron PF 4 MG/2 ML Vial IVP PRN (07:50)
[2021-03-02] MEDS: Rifaximin 550 MG TAB PO SCH ×2 (07:50→20:43)
[2021-03-02 08:12] LABS: INR-International Normal Ratio 2.5; PTT 39.4 sec (22.9-36.1); Prothrombin Time 27.8 sec (12.0-14.7)
[2021-03-02] MEDS ORDERED: Lidocaine 1% PF 5 ML VIAL ONE (10:11)
[2021-03-02] MEDS ORDERED: Sodium Bicarbonate 2.5 MEQ/5 ML VIAL ONE (10:11)
[2021-03-02 12:24] LABS: WBC/Nucleated-Auto (BF) 80 uL
[2021-03-02 12:44] LABS: BF Color Yellow; Body Fluid Source Ascites Body Fluid; Clarity Hazy (Clear); Tube # EDTA
[2021-03-02 12:45] LABS: RBC Count-Automated (BF) 5 /cu.mm
[2021-03-02 12:47] LABS: BF Segmented Neutrophils 5 %; Cell Count Non Hematic 65 %; Lymphocytes 30 %
[2021-03-02] MEDS: D5 1/2 NS w/20 mEq KCL 1,000 ML IV SCH (14:03)
[2021-03-02] MEDS: Midodrine HCl 5 MG TAB PO SCH ×2 (14:03→23:48)
[2021-03-02] MEDS ORDERED: Cefepime 2 GM in Sodium Chloride 0.9% 100 ML IVPB SCH (23:59)
[2021-03-03 04:39] VITALS: BMI 37.6
[2021-03-03 04:52] LABS: #Eosinphils 0.1 thou/uL (0.0-0.7); #Lymphocytes 0.8 thou/uL (1.20-3.40); #Monocytes 0.3 thou/uL (0.11-0.59); #Neutrophils 2.8 thou/uL (1.40-6.50); %Basophils 0.5 % (0.0-1.0); %Eosinophils 2.1 % (0.0-10.0); %Lymphocytes 20.9 % (21.0-51.0); %Monocytes 7.7 % (0.0-10.0); %Neutrophils 68.8 % (42.0-75.0); Hemoglobin 10.1 g/dL (12.0-16.0); Mean Corpuscular HGB CONC 33.2 g/dL (32.0-36.0); Mean Corpuscular Hemoglobin 31.2 pg (27.0-31.0); Mean Platelet Volume 8.7 fL (7.4-10.4); Platelet Count 55 thou/uL (130-400); RBC Distribution Width 14.9 % (11.5-14.5); Red Blood Cell (RBC) Count 3.24 mill/uL (4.20-5.40)
[2021-03-03 05:08] LABS: ALT (SGPT) 15 U/L (8-55); AST (SGOT) 21 U/L (5-34); Albumin 2.5 g/dL (3.4-4.8); Alkaline Phosphatase 83 U/L (40-110); Anion Gap 15 mmol/L (10-20); BUN (Urea Nitrogen) 68 mg/dL (9.8-20.1); Bilirubin, Total 1.6 mg/dL (0.2-1.2); Calc. Creatinine Clearance 22 mL/min (70-130); Calcium 8.5 mg/dL (7.8-10.44); Carbon Dioxide 18 mmol/L (23-31); Chloride 116 mmol/L (98-107); Globulin 2.2 g/dL (2.4-3.5); Glucose 88 mg/dL (80-115); Protein, Total 4.7 g/dL (5.8-8.1); Sodium 146 mmol/L (136-145)
[2021-03-03 05:14] LABS: Potassium 2.5 mmol/L (3.5-5.1)
[2021-03-03] MEDS: Potassium Chloride 20 MEQ in Premix Bag 1 BAG IVPB SCH ×2 (06:37→09:15)
[2021-03-03] MEDS: Rifaximin 550 MG TAB PO SCH ×2 (09:03→21:51)
[2021-03-03] MEDS: Midodrine HCl 5 MG TAB PO SCH ×3 (09:03→21:51)
[2021-03-03] MEDS: D5 1/2 NS w/20 mEq KCL 1,000 ML IV SCH (09:20)
[2021-03-03] MEDS: Enoxaparin Sodium 30 MG/0.3 ML SYRINGE SC SCH (09:55)
[2021-03-03] MEDS ORDERED: Folic Acid 1 MG TAB PO SCH (15:00)
[2021-03-03] MEDS: Sodium Bicarbonate Tab 325 MG TAB PO SCH ×2 (15:16→21:52)
[2021-03-03] MEDS: Folic Acid 1 MG TAB PO SCH (15:17)
[2021-03-03 15:23] LABS: Anion Gap 13 mmol/L (10-20); BUN (Urea Nitrogen) 63 mg/dL (9.8-20.1); Calc. Creatinine Clearance 22 mL/min (70-130); Calcium 8.1 mg/dL (7.8-10.44); Carbon Dioxide 19 mmol/L (23-31); Chloride 115 mmol/L (98-107); Glucose 139 mg/dL (80-115); Magnesium 1.6 mg/dL (1.6-2.6); Sodium 144 mmol/L (136-145)
[2021-03-03] MEDS: Carvedilol 3.125 MG TAB PO SCH (21:51)
[2021-03-04 05:14] LABS: #Eosinphils 0.1 thou/uL (0.0-0.7); #Lymphocytes 1.3 thou/uL (1.20-3.40); #Monocytes 0.5 thou/uL (0.11-0.59); #Neutrophils 3.3 thou/uL (1.40-6.50); %Basophils 0.7 % (0.0-1.0); %Eosinophils 2.7 % (0.0-10.0); %Lymphocytes 23.8 % (21.0-51.0); %Monocytes 10.1 % (0.0-10.0); %Neutrophils 62.7 % (42.0-75.0); Hemoglobin 10.5 g/dL (12.0-16.0); Mean Corpuscular HGB CONC 32.3 g/dL (32.0-36.0); Mean Corpuscular Hemoglobin 30.9 pg (27.0-31.0); Mean Corpuscular Volume 95.5 fL (78.0-98.0); Mean Platelet Volume 8.9 fL (7.4-10.4); Platelet Count 59 thou/uL (130-400); RBC Distribution Width 14.8 % (11.5-14.5); Red Blood Cell (RBC) Count 3.41 mill/uL (4.20-5.40); White Blood Cell (WBC) Count 5.2 thou/uL (4.8-10.8)
[2021-03-04 05:57] LABS: ALT (SGPT) 15 U/L (8-55); AST (SGOT) 24 U/L (5-34); Albumin 2.3 g/dL (3.4-4.8); Alkaline Phosphatase 91 U/L (40-110); Anion Gap 13 mmol/L (10-20); BUN (Urea Nitrogen) 60 mg/dL (9.8-20.1); Bilirubin, Total 1.7 mg/dL (0.2-1.2); Calc. Creatinine Clearance 24 mL/min (70-130); Calcium 8.3 mg/dL (7.8-10.44); Carbon Dioxide 19 mmol/L (23-31); Chloride 116 mmol/L (98-107); Globulin 2.2 g/dL (2.4-3.5); Glucose 92 mg/dL (80-115); Potassium 3.1 mmol/L (3.5-5.1); Protein, Total 4.5 g/dL (5.8-8.1); Sodium 145 mmol/L (136-145)
[2021-03-04] MEDS ORDERED: Potassium Chloride 20 MEQ TAB PO SCH (07:30)
[2021-03-04] MEDS: Sodium Bicarbonate Tab 325 MG TAB PO SCH ×3 (08:54→21:07)
[2021-03-04] MEDS: Cholecalciferol 1,000 UNITS (25 MCG) TAB PO SCH (08:54)
[2021-03-04] MEDS: Rifaximin 550 MG TAB PO SCH ×2 (08:55→21:08)
[2021-03-04] MEDS: Ferrous Sulfate 325 MG TAB PO SCH (08:55)
[2021-03-04] MEDS: Ascorbic Acid 500 mg Chewable Tablet PO SCH (08:55)
[2021-03-04] MEDS: Midodrine HCl 5 MG TAB PO SCH ×3 (08:56→21:08)
[2021-03-04] MEDS: Carvedilol 3.125 MG TAB PO SCH ×2 (08:56→21:08)
[2021-03-04] MEDS: Atorvastatin Calcium 10 MG TAB PO SCH (08:56)
[2021-03-04] MEDS ORDERED: Albumin 25% 25 GM/100 ML BOT IVPB SCH (14:00)
[2021-03-05] MEDS: Ondansetron PF 4 MG/2 ML Vial IVP PRN (03:08)
[2021-03-05 04:29] LABS: #Eosinphils 0.2 thou/uL (0.0-0.7); #Lymphocytes 1.1 thou/uL (1.20-3.40); #Monocytes 0.3 thou/uL (0.11-0.59); #Neutrophils 2.2 thou/uL (1.40-6.50); %Basophils 1.2 % (0.0-1.0); %Eosinophils 4.1 % (0.0-10.0); %Lymphocytes 28.6 % (21.0-51.0); %Monocytes 8.2 % (0.0-10.0); Hemoglobin 10.3 g/dL (12.0-16.0); Mean Corpuscular HGB CONC 32.2 g/dL (32.0-36.0); Mean Corpuscular Hemoglobin 30.3 pg (27.0-31.0); Mean Corpuscular Volume 94.3 fL (78.0-98.0); Mean Platelet Volume 8.9 fL (7.4-10.4); Platelet Count 58 thou/uL (130-400); RBC Distribution Width 14.9 % (11.5-14.5); Red Blood Cell (RBC) Count 3.39 mill/uL (4.20-5.40); White Blood Cell (WBC) Count 3.8 thou/uL (4.8-10.8)
[2021-03-05 04:39] LABS: Anion Gap 15 mmol/L (10-20); BUN (Urea Nitrogen) 56 mg/dL (9.8-20.1); Calc. Creatinine Clearance 24 mL/min (70-130); Calcium 8.4 mg/dL (7.8-10.44); Carbon Dioxide 17 mmol/L (23-31); Chloride 113 mmol/L (98-107); Glucose 85 mg/dL (80-115); Magnesium 1.6 mg/dL (1.6-2.6); Potassium 3.5 mmol/L (3.5-5.1); Sodium 141 mmol/L (136-145)
[2021-03-05] MEDS: Ferrous Sulfate 325 MG TAB PO SCH (07:55)
[2021-03-05] MEDS: Ascorbic Acid 500 mg Chewable Tablet PO SCH (07:55)
[2021-03-05] MEDS: Atorvastatin Calcium 10 MG TAB PO SCH (07:55)
[2021-03-05] MEDS: Cholecalciferol 1,000 UNITS (25 MCG) TAB PO SCH (07:55)
[2021-03-05] MEDS: Folic Acid 1 MG TAB PO SCH (07:56)
[2021-03-05] MEDS: Carvedilol 3.125 MG TAB PO SCH ×2 (07:56→20:41)
[2021-03-05] MEDS: Rifaximin 550 MG TAB PO SCH ×2 (07:56→20:44)
[2021-03-05] MEDS: Sodium Bicarbonate Tab 325 MG TAB PO SCH ×3 (07:56→20:44)
[2021-03-05] MEDS: Midodrine HCl 5 MG TAB PO SCH ×3 (07:58→20:43)
[2021-03-06] MEDS: Ferrous Sulfate 325 MG TAB PO SCH (09:13)
[2021-03-06] MEDS: Ascorbic Acid 500 mg Chewable Tablet PO SCH (09:13)
[2021-03-06] MEDS: Cholecalciferol 1,000 UNITS (25 MCG) TAB PO SCH (09:13)
[2021-03-06] MEDS: Atorvastatin Calcium 10 MG TAB PO SCH (09:13)
[2021-03-06] MEDS: Midodrine HCl 5 MG TAB PO SCH (09:13)
[2021-03-06] MEDS: Carvedilol 3.125 MG TAB PO SCH (09:13)
[2021-03-06] MEDS: Folic Acid 1 MG TAB PO SCH (09:13)
[2021-03-06] MEDS: Sodium Bicarbonate Tab 325 MG TAB PO SCH (09:14)
[2021-03-06] MEDS: Rifaximin 550 MG TAB PO SCH (09:14)
[2021-03-06 11:10] VITALS: BP 118/58; TEMP 98
== END 2021-03-06 14:55 | disposition home or self-care (01) | DRG 441 ==
LOC: ERS 22:45 → 2NO 03-02 01:34
PROVIDERS: ADMIT Student in an Organized Health Care Education/Training Program; ATTEND Internal Medicine
PROC: 0W9G3ZZ Drainage of Peritoneal Cavity, Percutaneous Approach (ICD-10-PCS; principal; 2021-03-02)
DX: K72.90 Hepatic failure, unspecified without coma (principal); K76.7 Hepatorenal syndrome; R18.8 Other ascites; N17.9 Acute kidney failure, unspecified; E87.2 Acidosis; K76.6 Portal hypertension; I85.10 Secondary esophageal varices without bleeding; E87.0 Hyperosmolality and hypernatremia; D61.818 Other pancytopenia; N18.4 Chronic kidney disease, stage 4 (severe); E11.22 Type 2 diabetes mellitus with diabetic chronic kidney disease; E03.9 Hypothyroidism, unspecified; E88.09 Other disorders of plasma-protein metabolism, not elsewhere classified; E66.9 Obesity, unspecified; K74.60 Unspecified cirrhosis of liver; I12.9 Hypertensive chronic kidney disease with stage 1 through stage 4 chronic kidney disease, or unspecified chronic kidney disease; E87.6 Hypokalemia; E78.5 Hyperlipidemia, unspecified; E11.649 Type 2 diabetes mellitus with hypoglycemia without coma; Z91.013 Allergy to seafood; Z79.899 Other long term (current) drug therapy; Z90.49 Acquired absence of other specified parts of digestive tract; Z90.89 Acquired absence of other organs; Z68.39 Body mass index [BMI] 39.0-39.9, adult
CPT/HCPCS: 36415; 36416; 49083; 51701; 70450; 71045; 80048; 80053; 80306; 80307; 81003; 81015; 82140; 83605; 83690; 83735; 84484; 85025; 85060; 85610; 85730; 87040; 87070; 87205; 89051; 93005; 96365; J0692; J2405; J3370; J3480; P9047

== ENCOUNTER 2021-03-07 12:25 | Inpatient (IN) | payer MEDICARE, OTHER ==
[2021-03-07 14:12] LABS: #Eosinphils 0.1 thou/uL (0.0-0.7); #Lymphocytes 1.1 thou/uL (1.20-3.40); #Monocytes 0.4 thou/uL (0.11-0.59); #Neutrophils 2.2 thou/uL (1.40-6.50); %Basophils 0.6 % (0.0-1.0); %Eosinophils 2.4 % (0.0-10.0); %Lymphocytes 28.6 % (21.0-51.0); %Monocytes 9.2 % (0.0-10.0); %Neutrophils 59.1 % (42.0-75.0); Hemoglobin 11.5 g/dL (12.0-16.0); Mean Corpuscular HGB CONC 32.3 g/dL (32.0-36.0); Mean Corpuscular Hemoglobin 30.4 pg (27.0-31.0); Mean Corpuscular Volume 94.3 fL (78.0-98.0); Platelet Count 69 thou/uL (130-400); RBC Distribution Width 15.1 % (11.5-14.5); Red Blood Cell (RBC) Count 3.78 mill/uL (4.20-5.40); White Blood Cell (WBC) Count 3.8 thou/uL (4.8-10.8)
[2021-03-07 14:35] LABS: ALT (SGPT) 18 U/L (8-55); AST (SGOT) 32 U/L (5-34); Albumin 2.6 g/dL (3.4-4.8); Alkaline Phosphatase 111 U/L (40-110); Anion Gap 16 mmol/L (10-20); BUN (Urea Nitrogen) 56 mg/dL (9.8-20.1); Bilirubin, Total 1.6 mg/dL (0.2-1.2); Calc. Creatinine Clearance 0 mL/min (70-130); Calcium 8.2 mg/dL (7.8-10.44); Carbon Dioxide 17 mmol/L (23-31); Chloride 114 mmol/L (98-107); Globulin 2.5 g/dL (2.4-3.5); Glucose 88 mg/dL (80-115); Lipase 76 U/L (8-78); Potassium 3.7 mmol/L (3.5-5.1); Protein, Total 5.1 g/dL (5.8-8.1); Sodium 143 mmol/L (136-145)
[2021-03-07 15:25] LABS: Bilirubin Negative (Negative); Blood, Urine Moderate (Negative); Glucose, Urine (Dipstick) Negative (Negative); Ketone, Urine Trace mg/dL (Negative); Leukocyte Negative (Negative); Nitrite Negative (Negative); Protein, Urine (Dipstick) Negative (Neg-Trace); Urobilinogen 0.2 mg/dL (Less than 2)
[2021-03-07 15:26] LABS: Clarity Hazy (Clear)
[2021-03-07 15:29] LABS: Squamous Epithelial 0-3 HPF (0-3)
[2021-03-07 15:31] LABS: Bacteria/HPF Rare-Few HPF (None Seen)
[2021-03-07] MEDS ORDERED: Enoxaparin Sodium 40 MG/0.4 ML SYRINGE SC SCH (17:30)
[2021-03-07] MEDS: cefTRIAXone\\ROCEPHIN 1 GM in Sodium Chloride 0.9% 100 ML IVPB SCH (18:22)
[2021-03-07] MEDS ORDERED: hydrALAZINE 20 MG/ML VIAL SLOW IVP PRN (19:07)
[2021-03-07 19:47] LABS: INR-International Normal Ratio 1.5; PTT 34.7 sec (22.9-36.1); Prothrombin Time 18.2 sec (12.0-14.7)
[2021-03-08] MEDS: Rifaximin 550 MG TAB PO SCH ×3 (01:44→19:58)
[2021-03-08 05:13] LABS: #Eosinphils 0.1 thou/uL (0.0-0.7); #Lymphocytes 0.8 thou/uL (1.20-3.40); #Monocytes 0.3 thou/uL (0.11-0.59); #Neutrophils 1.9 thou/uL (1.40-6.50); %Basophils 0.8 % (0.0-1.0); %Eosinophils 2.3 % (0.0-10.0); %Lymphocytes 27.7 % (21.0-51.0); %Monocytes 8.3 % (0.0-10.0); %Neutrophils 60.9 % (42.0-75.0); Hemoglobin 10.7 g/dL (12.0-16.0); Mean Corpuscular Hemoglobin 29.5 pg (27.0-31.0); Mean Corpuscular Volume 95.2 fL (78.0-98.0); Mean Platelet Volume 8.5 fL (7.4-10.4); Platelet Count 63 thou/uL (130-400); RBC Distribution Width 14.9 % (11.5-14.5); Red Blood Cell (RBC) Count 3.63 mill/uL (4.20-5.40)
[2021-03-08 05:33] LABS: ALT (SGPT) 17 U/L (8-55); AST (SGOT) 25 U/L (5-34); Albumin 2.9 g/dL (3.4-4.8); Alkaline Phosphatase 95 U/L (40-110); Anion Gap 18 mmol/L (10-20); BUN (Urea Nitrogen) 58 mg/dL (9.8-20.1); Bilirubin, Total 1.5 mg/dL (0.2-1.2); Calc. Creatinine Clearance 23 mL/min (70-130); Calcium 8.5 mg/dL (7.8-10.44); Carbon Dioxide 18 mmol/L (23-31); Chloride 115 mmol/L (98-107); Globulin 2.3 g/dL (2.4-3.5); Glucose 79 mg/dL (80-115); Potassium 3.6 mmol/L (3.5-5.1); Protein, Total 5.2 g/dL (5.8-8.1); Sodium 147 mmol/L (136-145)
[2021-03-08] MEDS ORDERED: Enoxaparin Sodium 40 MG/0.4 ML SYRINGE SC SCH (09:00)
[2021-03-08] MEDS: cefTRIAXone\\ROCEPHIN 1 GM in Sodium Chloride 0.9% 100 ML IVPB SCH (17:21)
[2021-03-08] MEDS: Folic Acid 1 MG TAB PO SCH (18:02)
[2021-03-08] MEDS: Carvedilol 3.125 MG TAB PO SCH (19:58)
[2021-03-08] MEDS: Midodrine HCl 5 MG TAB PO SCH (19:58)
[2021-03-08] MEDS: Sodium Bicarbonate Tab 325 MG TAB PO SCH (19:58)
[2021-03-09 04:03] LABS: Hemoglobin 10.1 g/dL (12.0-16.0); Platelet Count 58 thou/uL (130-400)
[2021-03-09 04:20] LABS: ALT (SGPT) 13 U/L (8-55); AST (SGOT) 22 U/L (5-34); Albumin 2.8 g/dL (3.4-4.8); Alkaline Phosphatase 89 U/L (40-110); Anion Gap 12 mmol/L (10-20); BUN (Urea Nitrogen) 56 mg/dL (9.8-20.1); Bilirubin, Total 1.4 mg/dL (0.2-1.2); Calc. Creatinine Clearance 24 mL/min (70-130); Calcium 8.4 mg/dL (7.8-10.44); Carbon Dioxide 18 mmol/L (23-31); Chloride 114 mmol/L (98-107); Globulin 2.2 g/dL (2.4-3.5); Glucose 84 mg/dL (80-115); Potassium 3.2 mmol/L (3.5-5.1); Sodium 141 mmol/L (136-145)
[2021-03-09] MEDS: diphenhydrAMINE 25 MG CAP PO PRN (04:38)
[2021-03-09] MEDS: Levothyroxine 150 MCG TAB PO SCH (05:32)
[2021-03-09] MEDS: Midodrine HCl 5 MG TAB PO SCH ×3 (08:26→21:09)
[2021-03-09] MEDS: Sodium Bicarbonate Tab 325 MG TAB PO SCH ×3 (08:26→21:08)
[2021-03-09] MEDS: Ascorbic Acid 500 mg Chewable Tablet PO SCH (08:26)
[2021-03-09] MEDS: Rifaximin 550 MG TAB PO SCH ×2 (08:26→21:09)
[2021-03-09] MEDS: Carvedilol 3.125 MG TAB PO SCH ×2 (08:27→21:09)
[2021-03-09] MEDS: Cholecalciferol 1,000 UNITS (25 MCG) TAB PO SCH (08:28)
[2021-03-09] MEDS: Multivit, Therapeutic 1 TAB PO SCH (08:28)
[2021-03-09] MEDS: Cyanocobalamin (Vitamin B-12) 1,000 MCG TAB PO SCH (08:28)
[2021-03-09] MEDS: Ferrous Sulfate 325 MG TAB PO SCH (08:28)
[2021-03-09] MEDS ORDERED: Potassium Chloride 20 MEQ TAB PO SCH (14:45)
[2021-03-09] MEDS: Folic Acid 1 MG TAB PO SCH (18:09)
[2021-03-09] MEDS: cefTRIAXone\\ROCEPHIN 1 GM in Sodium Chloride 0.9% 100 ML IVPB SCH (18:09)
[2021-03-10] MEDS: diphenhydrAMINE 25 MG CAP PO PRN (03:40)
[2021-03-10 04:08] LABS: Anion Gap 14 mmol/L (10-20); BUN (Urea Nitrogen) 54 mg/dL (9.8-20.1); Calc. Creatinine Clearance 24 mL/min (70-130); Calcium 8.4 mg/dL (7.8-10.44); Carbon Dioxide 20 mmol/L (23-31); Chloride 114 mmol/L (98-107); Glucose 82 mg/dL (80-115); Potassium 3.6 mmol/L (3.5-5.1); Sodium 144 mmol/L (136-145)
[2021-03-10] MEDS: Levothyroxine 150 MCG TAB PO SCH (05:42)
[2021-03-10] MEDS: Ascorbic Acid 500 mg Chewable Tablet PO SCH (09:16)
[2021-03-10] MEDS: Cyanocobalamin (Vitamin B-12) 1,000 MCG TAB PO SCH (09:16)
[2021-03-10] MEDS: Multivit, Therapeutic 1 TAB PO SCH (09:16)
[2021-03-10] MEDS: Midodrine HCl 5 MG TAB PO SCH ×3 (09:16→21:00)
[2021-03-10] MEDS: Cholecalciferol 1,000 UNITS (25 MCG) TAB PO SCH (09:16)
[2021-03-10] MEDS: Ferrous Sulfate 325 MG TAB PO SCH (09:16)
[2021-03-10] MEDS: Sodium Bicarbonate Tab 325 MG TAB PO SCH ×3 (09:17→20:59)
[2021-03-10] MEDS: Rifaximin 550 MG TAB PO SCH ×2 (09:17→21:00)
[2021-03-10] MEDS: Carvedilol 3.125 MG TAB PO SCH ×2 (12:21→21:02)
[2021-03-10] MEDS: Sodium Chloride 0.9% 1,000 ML IV SCH (14:27)
[2021-03-10] MEDS: Folic Acid 1 MG TAB PO SCH (18:02)
[2021-03-10] MEDS: cefTRIAXone\\ROCEPHIN 1 GM in Sodium Chloride 0.9% 100 ML IVPB SCH (18:03)
[2021-03-11] MEDS: Levothyroxine 150 MCG TAB PO SCH (05:24)
[2021-03-11 05:46] LABS: Anion Gap 13 mmol/L (10-20); BUN (Urea Nitrogen) 51 mg/dL (9.8-20.1); Calc. Creatinine Clearance 22 mL/min (70-130); Calcium 8.2 mg/dL (7.8-10.44); Carbon Dioxide 19 mmol/L (23-31); Chloride 113 mmol/L (98-107); Glucose 87 mg/dL (80-115); Potassium 3.5 mmol/L (3.5-5.1); Sodium 141 mmol/L (136-145)
[2021-03-11] MEDS ORDERED: Octreotide Acetate 100 MCG/ML VIAL SC SCH (08:15)
[2021-03-11] MEDS: Ascorbic Acid 500 mg Chewable Tablet PO SCH (09:41)
[2021-03-11] MEDS: Cyanocobalamin (Vitamin B-12) 1,000 MCG TAB PO SCH (09:41)
[2021-03-11] MEDS: Cholecalciferol 1,000 UNITS (25 MCG) TAB PO SCH (09:41)
[2021-03-11] MEDS: Carvedilol 3.125 MG TAB PO SCH ×2 (09:41→20:16)
[2021-03-11] MEDS: Ferrous Sulfate 325 MG TAB PO SCH (09:41)
[2021-03-11] MEDS: Midodrine HCl 5 MG TAB PO SCH ×3 (09:42→19:53)
[2021-03-11] MEDS: Sodium Bicarbonate Tab 325 MG TAB PO SCH ×3 (09:43→19:52)
[2021-03-11] MEDS: Rifaximin 550 MG TAB PO SCH ×2 (09:43→19:53)
[2021-03-11] MEDS: Multivit, Therapeutic 1 TAB PO SCH (09:43)
[2021-03-11] MEDS ORDERED: Ondansetron PF 4 MG/2 ML Vial IVP SCH (10:00)
[2021-03-11] MEDS: Sodium Chloride 0.9% 1,000 ML IV SCH (10:21)
[2021-03-11] MEDS ORDERED: Sodium Chloride 0.9% 500 ML IV SCH (11:30)
[2021-03-11] MEDS: Albumin 25% 25 GM/100 ML BOT IVPB SCH ×3 (12:41→23:55)
[2021-03-11] MEDS: Octreotide Acetate 100 MCG/ML VIAL SC SCH ×2 (16:15→22:01)
[2021-03-11] MEDS: Folic Acid 1 MG TAB PO SCH (17:53)
[2021-03-11] MEDS: cefTRIAXone\\ROCEPHIN 1 GM in Sodium Chloride 0.9% 100 ML IVPB SCH (17:53)
[2021-03-12 04:51] LABS: Anion Gap 14 mmol/L (10-20); BUN (Urea Nitrogen) 50 mg/dL (9.8-20.1); Calc. Creatinine Clearance 21 mL/min (70-130); Calcium 8.6 mg/dL (7.8-10.44); Carbon Dioxide 18 mmol/L (23-31); Chloride 115 mmol/L (98-107); Glucose 166 mg/dL (80-115); Potassium 3.8 mmol/L (3.5-5.1); Sodium 143 mmol/L (136-145)
[2021-03-12] MEDS: Albumin 25% 25 GM/100 ML BOT IVPB SCH ×3 (05:59→20:00)
[2021-03-12] MEDS: Octreotide Acetate 100 MCG/ML VIAL SC SCH ×3 (05:59→21:40)
[2021-03-12] MEDS: Levothyroxine 150 MCG TAB PO SCH (05:59)
[2021-03-12] MEDS: Sodium Chloride 0.9% 1,000 ML IV SCH ×2 (06:00→18:39)
[2021-03-12] MEDS: Sodium Bicarbonate Tab 325 MG TAB PO SCH ×3 (09:34→20:00)
[2021-03-12] MEDS: Multivit, Therapeutic 1 TAB PO SCH (09:34)
[2021-03-12] MEDS: Midodrine HCl 5 MG TAB PO SCH ×3 (09:34→20:00)
[2021-03-12] MEDS: Rifaximin 550 MG TAB PO SCH ×2 (09:34→20:00)
[2021-03-12] MEDS: Cholecalciferol 1,000 UNITS (25 MCG) TAB PO SCH (09:35)
[2021-03-12] MEDS: Ferrous Sulfate 325 MG TAB PO SCH (09:35)
[2021-03-12] MEDS: Carvedilol 3.125 MG TAB PO SCH (09:35)
[2021-03-12] MEDS: Ascorbic Acid 500 mg Chewable Tablet PO SCH (09:35)
[2021-03-12] MEDS: Cyanocobalamin (Vitamin B-12) 1,000 MCG TAB PO SCH (09:35)
[2021-03-12] MEDS: cefTRIAXone\\ROCEPHIN 1 GM in Sodium Chloride 0.9% 100 ML IVPB SCH (18:36)
[2021-03-12] MEDS: Folic Acid 1 MG TAB PO SCH (18:36)
[2021-03-12] MEDS: Ondansetron PF 4 MG/2 ML Vial IVP PRN (18:37)
[2021-03-12] MEDS: Acetaminophen 325 MG TAB PO PRN (20:01)
[2021-03-12] MEDS ORDERED: Carvedilol 3.125 MG TAB PO SCH (21:00)
[2021-03-13] MEDS: Albumin 25% 25 GM/100 ML BOT IVPB SCH ×2 (03:33→10:00)
[2021-03-13 04:06] LABS: #Eosinphils 0.1 thou/uL (0.0-0.7); #Lymphocytes 0.7 thou/uL (1.20-3.40); #Monocytes 0.2 thou/uL (0.11-0.59); %Basophils 0.8 % (0.0-1.0); %Eosinophils 1.8 % (0.0-10.0); %Lymphocytes 24.7 % (21.0-51.0); %Monocytes 6.4 % (0.0-10.0); %Neutrophils 66.3 % (42.0-75.0); Hemoglobin 9.1 g/dL (12.0-16.0); Mean Corpuscular Hemoglobin 30.9 pg (27.0-31.0); Mean Corpuscular Volume 96.5 fL (78.0-98.0); Mean Platelet Volume 9.1 fL (7.4-10.4); Platelet Count 42 thou/uL (130-400); RBC Distribution Width 14.6 % (11.5-14.5); Red Blood Cell (RBC) Count 2.96 mill/uL (4.20-5.40)
[2021-03-13 04:27] LABS: ALT (SGPT) 13 U/L (8-55); AST (SGOT) 24 U/L (5-34); Albumin 3.9 g/dL (3.4-4.8); Alkaline Phosphatase 76 U/L (40-110); Anion Gap 16 mmol/L (10-20); BUN (Urea Nitrogen) 46 mg/dL (9.8-20.1); Calc. Creatinine Clearance 19 mL/min (70-130); Calcium 8.9 mg/dL (7.8-10.44); Carbon Dioxide 20 mmol/L (23-31); Chloride 116 mmol/L (98-107); Globulin 1.8 g/dL (2.4-3.5); Glucose 132 mg/dL (80-115); Potassium 3.5 mmol/L (3.5-5.1); Protein, Total 5.7 g/dL (5.8-8.1); Sodium 148 mmol/L (136-145)
[2021-03-13] MEDS: Octreotide Acetate 100 MCG/ML VIAL SC SCH ×3 (06:13→22:10)
[2021-03-13] MEDS: Levothyroxine 150 MCG TAB PO SCH (06:13)
[2021-03-13] MEDS: Multivit, Therapeutic 1 TAB PO SCH (09:58)
[2021-03-13] MEDS: Sodium Bicarbonate Tab 325 MG TAB PO SCH ×2 (09:58→15:50)
[2021-03-13] MEDS: Rifaximin 550 MG TAB PO SCH ×2 (09:58→19:49)
[2021-03-13] MEDS: Midodrine HCl 5 MG TAB PO SCH ×3 (09:58→19:49)
[2021-03-13] MEDS: Cyanocobalamin (Vitamin B-12) 1,000 MCG TAB PO SCH (09:59)
[2021-03-13] MEDS: Cholecalciferol 1,000 UNITS (25 MCG) TAB PO SCH (09:59)
[2021-03-13] MEDS: Ferrous Sulfate 325 MG TAB PO SCH (09:59)
[2021-03-13] MEDS: Ascorbic Acid 500 mg Chewable Tablet PO SCH (09:59)
[2021-03-13] MEDS: Acetaminophen 325 MG TAB PO PRN ×2 (10:01→20:28)
[2021-03-13] MEDS ORDERED: Albumin 25% 25 GM/100 ML BOT IVPB SCH (13:00)
[2021-03-13] MEDS ORDERED: Dextrose 5% in Water 1,000 ML IV SCH (13:15)
[2021-03-13] MEDS: diphenhydrAMINE 25 MG CAP PO PRN ×2 (13:29→19:49)
[2021-03-13] MEDS ORDERED: Morphine 2 MG/ML VIAL SLOW IVP SCH (15:45)
[2021-03-13] MEDS ORDERED: Furosemide 40 MG/4 ML VIAL SLOW IVP SCH ×2 (17:15→19:15)
[2021-03-13] MEDS: Folic Acid 1 MG TAB PO SCH (18:05)
[2021-03-13] MEDS: cefTRIAXone\\ROCEPHIN 1 GM in Sodium Chloride 0.9% 100 ML IVPB SCH (18:05)
[2021-03-13] MEDS: Ondansetron PF 4 MG/2 ML Vial IVP PRN (20:27)
[2021-03-13 21:45] LABS: Anion Gap 17 mmol/L (10-20); BUN (Urea Nitrogen) 47 mg/dL (9.8-20.1); Calc. Creatinine Clearance 18 mL/min (70-130); Calcium 9.4 mg/dL (7.8-10.44); Carbon Dioxide 19 mmol/L (23-31); Chloride 115 mmol/L (98-107); Glucose 141 mg/dL (80-115); Potassium 3.7 mmol/L (3.5-5.1); Sodium 147 mmol/L (136-145)
[2021-03-14] MEDS: Levothyroxine 150 MCG TAB PO SCH (05:04)
[2021-03-14] MEDS: hydrALAZINE 20 MG/ML VIAL SLOW IVP PRN (05:05)
[2021-03-14] MEDS: Octreotide Acetate 100 MCG/ML VIAL SC SCH ×3 (05:05→21:07)
[2021-03-14 05:37] LABS: #Lymphocytes 0.7 thou/uL (1.20-3.40); #Monocytes 0.5 thou/uL (0.11-0.59); #Neutrophils 6.6 thou/uL (1.40-6.50); %Basophils 0.4 % (0.0-1.0); %Eosinophils 0.5 % (0.0-10.0); %Lymphocytes 8.9 % (21.0-51.0); %Monocytes 5.7 % (0.0-10.0); %Neutrophils 84.4 % (42.0-75.0); Hemoglobin 10.6 g/dL (12.0-16.0); Mean Corpuscular HGB CONC 30.9 g/dL (32.0-36.0); Mean Corpuscular Hemoglobin 30.1 pg (27.0-31.0); Mean Corpuscular Volume 97.4 fL (78.0-98.0); Platelet Count 45 thou/uL (130-400); RBC Distribution Width 14.5 % (11.5-14.5); Red Blood Cell (RBC) Count 3.54 mill/uL (4.20-5.40); White Blood Cell (WBC) Count 7.8 thou/uL (4.8-10.8)
[2021-03-14 05:50] LABS: Anion Gap 18 mmol/L (10-20); BUN (Urea Nitrogen) 49 mg/dL (9.8-20.1); Calc. Creatinine Clearance 19 mL/min (70-130); Calcium 9.2 mg/dL (7.8-10.44); Carbon Dioxide 16 mmol/L (23-31); Chloride 117 mmol/L (98-107); Glucose 114 mg/dL (80-115); Potassium 3.4 mmol/L (3.5-5.1); Sodium 148 mmol/L (136-145)
[2021-03-14] MEDS: Ferrous Sulfate 325 MG TAB PO SCH (08:45)
[2021-03-14] MEDS: Midodrine HCl 5 MG TAB PO SCH ×3 (08:46→21:08)
[2021-03-14] MEDS: Cholecalciferol 1,000 UNITS (25 MCG) TAB PO SCH (08:46)
[2021-03-14] MEDS: Ascorbic Acid 500 mg Chewable Tablet PO SCH (08:47)
[2021-03-14] MEDS: Cyanocobalamin (Vitamin B-12) 1,000 MCG TAB PO SCH (08:47)
[2021-03-14] MEDS: Rifaximin 550 MG TAB PO SCH ×2 (08:48→21:08)
[2021-03-14] MEDS: Multivit, Therapeutic 1 TAB PO SCH (08:53)
[2021-03-14] MEDS: Albumin 25% 25 GM/100 ML BOT IVPB SCH ×2 (12:26→17:27)
[2021-03-14] MEDS: Acetaminophen 325 MG TAB PO PRN (17:25)
[2021-03-14] MEDS: Folic Acid 1 MG TAB PO SCH (17:25)
[2021-03-14] MEDS: cefTRIAXone\\ROCEPHIN 1 GM in Sodium Chloride 0.9% 100 ML IVPB SCH (19:21)
[2021-03-15] MEDS: Albumin 25% 25 GM/100 ML BOT IVPB SCH ×2 (00:08→05:36)
[2021-03-15] MEDS: Levothyroxine 150 MCG TAB PO SCH (05:36)
[2021-03-15] MEDS: Octreotide Acetate 100 MCG/ML VIAL SC SCH ×3 (05:36→23:34)
[2021-03-15 06:20] LABS: HBSAB Concentration Less than 8.00 mIU/mL; HBSAg Index 0.23 S/CO (0-0.99); Hep B Core Total Ab Non-Reactive (NonReactive); Hep B Core Total Index 0.05 S/CO (0-0.79); Hep B Surf AB Non-Reactive (NonReactive); Hep B Surf Ag Non-Reactive S/CO (NonReactive); Hep C IgG Ab Non-Reactive (NonReactive); Hep C Index 0.04 S/CO (0-0.79)
[2021-03-15] MEDS: Multivit, Therapeutic 1 TAB PO SCH (08:22)
[2021-03-15] MEDS: Ferrous Sulfate 325 MG TAB PO SCH (08:23)
[2021-03-15] MEDS: Cyanocobalamin (Vitamin B-12) 1,000 MCG TAB PO SCH (08:24)
[2021-03-15] MEDS: Cholecalciferol 1,000 UNITS (25 MCG) TAB PO SCH (08:24)
[2021-03-15] MEDS: Rifaximin 550 MG TAB PO SCH ×2 (08:25→22:17)
[2021-03-15] MEDS: Ascorbic Acid 500 mg Chewable Tablet PO SCH (08:25)
[2021-03-15] MEDS: Midodrine HCl 5 MG TAB PO SCH ×3 (08:26→22:16)
[2021-03-15] MEDS ORDERED: CEFAZOLIN 2 GM in Premix Bag 1 BAG IVPB SCH (09:00)
[2021-03-15] MEDS ORDERED: Heparin 10,000 UNITS/ 10 ML VIAL ONE ×2 (09:04→16:19)
[2021-03-15 12:08] LABS: Anion Gap 17 mmol/L (10-20); BUN (Urea Nitrogen) 51 mg/dL (9.8-20.1); Calc. Creatinine Clearance 17 mL/min (70-130); Calcium 9.5 mg/dL (7.8-10.44); Carbon Dioxide 18 mmol/L (23-31); Chloride 115 mmol/L (98-107); Glucose 102 mg/dL (80-115); Potassium 3.5 mmol/L (3.5-5.1); Sodium 146 mmol/L (136-145)
[2021-03-15] MEDS: hydrALAZINE 20 MG/ML VIAL SLOW IVP PRN (12:18)
[2021-03-15] MEDS ORDERED: Sodium Chloride 0.9% 10 ML ONE (16:19)
[2021-03-15] MEDS ORDERED: Lidocaine 1% w/Epinephrine 1:100K 20 ML VIAL ONE (16:19)
[2021-03-15] MEDS ORDERED: Bupivacaine PF 0.5% 30 ML VIAL ONE (16:19)
[2021-03-15] MEDS ORDERED: Sodium Chloride 0.9% 20 ML ONE (16:27)
[2021-03-15] MEDS ORDERED: Fentanyl 100 MCG/2 ML VIAL ONE (16:33)
[2021-03-15] MEDS ORDERED: Midazolam HCl 2 mg/2 ml Vial ONE (16:33)
[2021-03-15] MEDS ORDERED: PROPOFOL 20 ML ONE (16:33)
[2021-03-15] MEDS ORDERED: Promethazine HCl 25 MG/ML VIAL IM PRN (17:20)
[2021-03-15] MEDS ORDERED: Ondansetron HCl/PF 4 MG/2 ML Vial IVP PRN (17:20)
[2021-03-15] MEDS ORDERED: Promethazine HCl 25 MG/ML VIAL IVPB PRN (17:20)
[2021-03-15] MEDS: Folic Acid 1 MG TAB PO SCH (18:29)
[2021-03-15] MEDS: cefTRIAXone\\ROCEPHIN 1 GM in Sodium Chloride 0.9% 100 ML IVPB SCH (22:16)
[2021-03-16] MEDS: Octreotide Acetate 100 MCG/ML VIAL SC SCH ×2 (05:22→16:20)
[2021-03-16] MEDS: Levothyroxine 150 MCG TAB PO SCH (05:22)
[2021-03-16 05:27] LABS: #Eosinphils 0.2 thou/uL (0.0-0.7); #Lymphocytes 0.7 thou/uL (1.20-3.40); #Monocytes 0.3 thou/uL (0.11-0.59); #Neutrophils 3.4 thou/uL (1.40-6.50); %Basophils 0.1 % (0.0-1.0); %Eosinophils 3.4 % (0.0-10.0); %Lymphocytes 15.8 % (21.0-51.0); %Monocytes 7.3 % (0.0-10.0); %Neutrophils 73.4 % (42.0-75.0); Hemoglobin 9.3 g/dL (12.0-16.0); Mean Corpuscular HGB CONC 31.5 g/dL (32.0-36.0); Mean Corpuscular Hemoglobin 30.4 pg (27.0-31.0); Mean Corpuscular Volume 96.7 fL (78.0-98.0); Mean Platelet Volume 9.5 fL (7.4-10.4); Platelet Count 45 thou/uL (130-400); RBC Distribution Width 14.8 % (11.5-14.5); Red Blood Cell (RBC) Count 3.07 mill/uL (4.20-5.40); White Blood Cell (WBC) Count 4.6 thou/uL (4.8-10.8)
[2021-03-16 06:03] LABS: Anion Gap 12 mmol/L (10-20); BUN (Urea Nitrogen) 44 mg/dL (9.8-20.1); Calc. Creatinine Clearance 20 mL/min (70-130); Calcium 9.2 mg/dL (7.8-10.44); Carbon Dioxide 24 mmol/L (23-31); Chloride 112 mmol/L (98-107); Glucose 102 mg/dL (80-115); Potassium 3.5 mmol/L (3.5-5.1); Sodium 144 mmol/L (136-145)
[2021-03-16] MEDS: Ferrous Sulfate 325 MG TAB PO SCH (08:39)
[2021-03-16] MEDS: Cyanocobalamin (Vitamin B-12) 1,000 MCG TAB PO SCH (08:39)
[2021-03-16] MEDS: Cholecalciferol 1,000 UNITS (25 MCG) TAB PO SCH (08:39)
[2021-03-16] MEDS: Midodrine HCl 5 MG TAB PO SCH ×3 (08:39→20:09)
[2021-03-16] MEDS: Ascorbic Acid 500 mg Chewable Tablet PO SCH (08:39)
[2021-03-16] MEDS: Rifaximin 550 MG TAB PO SCH ×2 (08:40→20:09)
[2021-03-16] MEDS: Multivit, Therapeutic 1 TAB PO SCH (08:40)
[2021-03-16] MEDS ORDERED: Heparin 10,000 UNITS/ 10 ML VIAL ONE (08:54)
[2021-03-16] MEDS ORDERED: Tuberculin PPD 0.1 ML VIAL I-DERMAL SCH (10:45)
[2021-03-16] MEDS ORDERED: Bupivacaine PF 0.5% 30 ML VIAL ONE (14:24)
[2021-03-16] MEDS ORDERED: Heparin 5,000 UNITS/ML VIAL ONE (14:24)
[2021-03-16] MEDS ORDERED: Lidocaine 1% w/Epinephrine 1:100K 20 ML VIAL ONE (14:24)
[2021-03-16] MEDS ORDERED: Protamine Sulfate 50 MG/5 ML VIAL ONE (14:24)
[2021-03-16] MEDS ORDERED: ePHEDrine Sulfate 50 MG/10 ML VIAL ONE (14:25)
[2021-03-16] MEDS ORDERED: Propofol 1,000 MG/100 ML VIAL IV ONE (14:25)
[2021-03-16] MEDS ORDERED: Succinylcholine 200 MG/10 ml SYRINGE FS ONE (14:25)
[2021-03-16] MEDS ORDERED: PROPOFOL 200 MG/20 ML VIAL ONE (14:25)
[2021-03-16] MEDS ORDERED: Ropivacaine 0.5% HCl/PF (150 MG/30 ML VIAL) ONE (15:15)
[2021-03-16] MEDS ORDERED: Ropivacaine 2% HCl/PF (20 MG/10 ML VIAL) ONE (15:15)
[2021-03-16] MEDS ORDERED: Dexmedetomidine 200 MCG/2 ML VIAL ONE (15:34)
[2021-03-16 17:13] LABS: Actual Bicarbonate (HCO3a) 17.9 mEq/L (22-28); Base Excess (BEa) -4.9 mEq/L (-2.0 to +3.0); CO2 Tension 26.2 mmHg (35.0-45.0); Calcium, Ionized (arterial) 1.14 mmol/L (1.12-1.30); Carboxyhemoglobin (COHb) 0.8 gm% (0.0-3.0); Hemoglobin (Hb) 10.2 g/dL (12.0-16.0); O2 Tension (PaO2), arterial 88.2 mmHg (> 80.0); Potassium - ABG Lab 3.48 mmol/L (3.70-5.30); Puncture Site LRA; pH, Arterial 7.45 (7.35-7.45)
[2021-03-16] MEDS ORDERED: Fentanyl CADD 100 ML IV SCH (17:30)
[2021-03-16] MEDS ORDERED: DISCONTINUE PREVIOUS NARCOTIC PAIN MEDICATIONS AND BENZODIAZEPINES FS SCH (17:30)
[2021-03-16] MEDS ORDERED: Lorazepam 2 MG/ML VIAL SLOW IVP PRN (17:30)
[2021-03-16] MEDS ORDERED: D5 1/4 NS 500 ML IV SCH (17:30)
[2021-03-16] MEDS ORDERED: Propofol 1,000 MG/100 ML VIAL IV PRN (17:30)
[2021-03-16] MEDS ORDERED: Fentanyl BOLUS 250 ML IVPB PRN (17:30)
[2021-03-16] MEDS ORDERED: Ventilator Sedation Protocol 1 EACH FS SCH (17:30)
[2021-03-16] MEDS ORDERED: Morphine 2 MG/ML VIAL SLOW IVP PRN (17:30)
[2021-03-16] MEDS ORDERED: Propofol BOLUS 1,000 MG/100 ML VIAL IV PRN (17:30)
[2021-03-16] MEDS: Albuterol Sulfate 2.5 mg/3 ml Neb NEB SCH ×2 (18:56→23:20)
[2021-03-16] MEDS: Folic Acid 1 MG TAB PO SCH (19:45)
[2021-03-16] MEDS: EPOETIN ALFA-EPBX (ESRD) 10,000 UNIT/ML VIAL IVP SCH (20:04)
[2021-03-16] MEDS ORDERED: D5 1/4 NS 1,000 ML IV SCH (20:15)
[2021-03-16] MEDS: cefTRIAXone\\ROCEPHIN 1 GM in Sodium Chloride 0.9% 100 ML IVPB SCH (23:37)
[2021-03-17] MEDS: Octreotide Acetate 100 MCG/ML VIAL SC SCH ×4 (01:06→21:17)
[2021-03-17 04:14] LABS: Anion Gap 23 mmol/L (10-20); BUN (Urea Nitrogen) 31 mg/dL (9.8-20.1); Calc. Creatinine Clearance 26 mL/min (70-130); Calcium 9.2 mg/dL (7.8-10.44); Carbon Dioxide 17 mmol/L (23-31); Chloride 107 mmol/L (98-107); Glucose 158 mg/dL (80-115); Potassium 3.6 mmol/L (3.5-5.1); Sodium 143 mmol/L (136-145)
[2021-03-17 04:35] LABS: #Lymphocytes 0.3 thou/uL (1.20-3.40); #Monocytes 0.1 thou/uL (0.11-0.59); #Neutrophils 2.4 thou/uL (1.40-6.50); %Basophils 1.1 % (0.0-1.0); %Eosinophils 0.2 % (0.0-10.0); %Lymphocytes 10.2 % (21.0-51.0); %Monocytes 2.5 % (0.0-10.0); Hemoglobin 9.5 g/dL (12.0-16.0); Mean Corpuscular HGB CONC 32.8 g/dL (32.0-36.0); Mean Corpuscular Hemoglobin 31.2 pg (27.0-31.0); Mean Corpuscular Volume 95.1 fL (78.0-98.0); Mean Platelet Volume 9.6 fL (7.4-10.4); Platelet Count 55 thou/uL (130-400); RBC Distribution Width 14.6 % (11.5-14.5); Red Blood Cell (RBC) Count 3.03 mill/uL (4.20-5.40); White Blood Cell (WBC) Count 2.8 thou/uL (4.8-10.8)
[2021-03-17 04:38] LABS: INR-International Normal Ratio 1.5; Prothrombin Time 18.4 sec (12.0-14.7)
[2021-03-17] MEDS: Levothyroxine 150 MCG TAB PO SCH (05:58)
[2021-03-17] MEDS: Albuterol Sulfate 2.5 mg/3 ml Neb NEB SCH ×4 (06:32→22:42)
[2021-03-17 06:50] LABS: Base Excess (BEa) -3.8 mEq/L (-2.0 to +3.0); CO2 Tension 27.4 mmHg (35.0-45.0); Calcium, Ionized (arterial) 1.12 mmol/L (1.12-1.30); Carboxyhemoglobin (COHb) 0.3 gm% (0.0-3.0); Hemoglobin (Hb) 10.4 g/dL (12.0-16.0); O2 Tension (PaO2), arterial 121.3 mmHg (> 80.0); Potassium - ABG Lab 3.67 mmol/L (3.70-5.30); pH, Arterial 7.46 (7.35-7.45)
[2021-03-17 06:53] LABS: Puncture Site LRA
[2021-03-17] MEDS ORDERED: Lidocaine 1% PF 5 ML VIAL ONE (09:12)
[2021-03-17] MEDS ORDERED: Sodium Bicarbonate 2.5 MEQ/5 ML VIAL ONE (09:12)
[2021-03-17] MEDS: Multivit, Therapeutic 1 TAB PO SCH (10:30)
[2021-03-17] MEDS: Ferrous Sulfate 325 MG TAB PO SCH (10:30)
[2021-03-17] MEDS: Rifaximin 550 MG TAB PO SCH ×2 (10:30→21:17)
[2021-03-17] MEDS: Ascorbic Acid 500 mg Chewable Tablet PO SCH (10:30)
[2021-03-17] MEDS: Cholecalciferol 1,000 UNITS (25 MCG) TAB PO SCH (10:31)
[2021-03-17] MEDS: Midodrine HCl 5 MG TAB PO SCH ×3 (10:31→21:17)
[2021-03-17] MEDS: Cyanocobalamin (Vitamin B-12) 1,000 MCG TAB PO SCH (10:31)
[2021-03-17] MEDS: Folic Acid 1 MG TAB PO SCH (16:59)
[2021-03-17] MEDS: cefTRIAXone\\ROCEPHIN 1 GM in Sodium Chloride 0.9% 100 ML IVPB SCH (16:59)
[2021-03-18] MEDS: Levothyroxine 150 MCG TAB PO SCH (05:42)
[2021-03-18 05:48] LABS: ALT (SGPT) Less than 7 U/L (8-55); AST (SGOT) 16 U/L (5-34); Albumin 3.4 g/dL (3.4-4.8); Alkaline Phosphatase 69 U/L (40-110); Anion Gap 14 mmol/L (10-20); BUN (Urea Nitrogen) 37 mg/dL (9.8-20.1); Bilirubin, Total 0.9 mg/dL (0.2-1.2); Calc. Creatinine Clearance 20 mL/min (70-130); Calcium 9.1 mg/dL (7.8-10.44); Carbon Dioxide 23 mmol/L (23-31); Chloride 108 mmol/L (98-107); Globulin 1.9 g/dL (2.4-3.5); Glucose 144 mg/dL (80-115); Magnesium 1.8 mg/dL (1.6-2.6); Potassium 3.3 mmol/L (3.5-5.1); Protein, Total 5.3 g/dL (5.8-8.1); Sodium 142 mmol/L (136-145)
[2021-03-18] MEDS: Octreotide Acetate 100 MCG/ML VIAL SC SCH ×3 (06:10→21:06)
[2021-03-18] MEDS: Albuterol Sulfate 2.5 mg/3 ml Neb NEB SCH ×4 (06:55→23:16)
[2021-03-18] MEDS: Ferrous Sulfate 325 MG TAB PO SCH (08:33)
[2021-03-18] MEDS: Ascorbic Acid 500 mg Chewable Tablet PO SCH (08:33)
[2021-03-18] MEDS: Rifaximin 550 MG TAB PO SCH ×2 (08:33→21:05)
[2021-03-18] MEDS: Cholecalciferol 1,000 UNITS (25 MCG) TAB PO SCH (08:34)
[2021-03-18] MEDS: Multivit, Therapeutic 1 TAB PO SCH (08:45)
[2021-03-18] MEDS: Cyanocobalamin (Vitamin B-12) 1,000 MCG TAB PO SCH (08:45)
[2021-03-18] MEDS: Midodrine HCl 5 MG TAB PO SCH ×3 (08:45→21:05)
[2021-03-18] MEDS ORDERED: Heparin 10,000 UNITS/ 10 ML VIAL ONE (08:53)
[2021-03-18 11:41] LABS: Anion Gap 14 mmol/L (10-20); BUN (Urea Nitrogen) 38 mg/dL (9.8-20.1); Calc. Creatinine Clearance 20 mL/min (70-130); Calcium 7.9 mg/dL (7.8-10.44); Carbon Dioxide 21 mmol/L (23-31); Chloride 108 mmol/L (98-107); Glucose 171 mg/dL (80-115); Potassium 3.4 mmol/L (3.5-5.1); Sodium 140 mmol/L (136-145)
[2021-03-18 11:49] LABS: #Eosinphils 0.1 thou/uL (0.0-0.7); #Lymphocytes 0.9 thou/uL (1.20-3.40); #Monocytes 0.4 thou/uL (0.11-0.59); #Neutrophils 3.8 thou/uL (1.40-6.50); %Eosinophils 1.5 % (0.0-10.0); %Lymphocytes 17.8 % (21.0-51.0); %Monocytes 7.6 % (0.0-10.0); %Neutrophils 73.1 % (42.0-75.0); Hemoglobin 8.8 g/dL (12.0-16.0); Hypochromia SLIGHT = 6-15 cells (100X) (0-5/hpf); MDiff Complete? YES; Mean Corpuscular HGB CONC 31.1 g/dL (32.0-36.0); Mean Corpuscular Hemoglobin 30.1 pg (27.0-31.0); Mean Corpuscular Volume 96.8 fL (78.0-98.0); Mean Platelet Volume 9.3 fL (7.4-10.4); Platelet Count 60 thou/uL (130-400); Platelet Morphology Comment Appears Decreased; RBC Distribution Width 15.2 % (11.5-14.5); Red Blood Cell (RBC) Count 2.93 mill/uL (4.20-5.40); White Blood Cell (WBC) Count 5.2 thou/uL (4.8-10.8)
[2021-03-18] MEDS: EPOETIN ALFA-EPBX (ESRD) 10,000 UNIT/ML VIAL IVP SCH (13:13)
[2021-03-18] MEDS: Folic Acid 1 MG TAB PO SCH (18:33)
[2021-03-19] MEDS ORDERED: Sodium Chloride 0.9% 250 ML IVPB SCH (02:00)
[2021-03-19] MEDS ORDERED: Sodium Chloride 0.9% 250 ML IV SCH (04:00)
[2021-03-19 04:59] LABS: #Eosinphils 0.1 thou/uL (0.0-0.7); #Monocytes 0.5 thou/uL (0.11-0.59); #Neutrophils 3.1 thou/uL (1.40-6.50); %Basophils 0.3 % (0.0-1.0); %Eosinophils 2.7 % (0.0-10.0); %Lymphocytes 21.3 % (21.0-51.0); %Monocytes 11.1 % (0.0-10.0); %Neutrophils 64.7 % (42.0-75.0); Hemoglobin 8.8 g/dL (12.0-16.0); Mean Corpuscular HGB CONC 32.5 g/dL (32.0-36.0); Mean Corpuscular Hemoglobin 31.6 pg (27.0-31.0); Mean Corpuscular Volume 97.1 fL (78.0-98.0); Mean Platelet Volume 9.7 fL (7.4-10.4); Platelet Count 39 thou/uL (130-400); RBC Distribution Width 14.9 % (11.5-14.5); White Blood Cell (WBC) Count 4.7 thou/uL (4.8-10.8)
[2021-03-19 05:21] LABS: Anion Gap 12 mmol/L (10-20); BUN (Urea Nitrogen) 25 mg/dL (9.8-20.1); Calc. Creatinine Clearance 26 mL/min (70-130); Calcium 8.2 mg/dL (7.8-10.44); Carbon Dioxide 27 mmol/L (23-31); Chloride 107 mmol/L (98-107); Glucose 121 mg/dL (80-115); Potassium 3.5 mmol/L (3.5-5.1); Sodium 142 mmol/L (136-145)
[2021-03-19] MEDS: Octreotide Acetate 100 MCG/ML VIAL SC SCH ×3 (05:45→21:15)
[2021-03-19] MEDS: Levothyroxine 150 MCG TAB PO SCH (05:45)
[2021-03-19 06:04] VITALS: BMI 30.7
[2021-03-19] MEDS: Albuterol Sulfate 2.5 mg/3 ml Neb NEB SCH ×3 (06:32→19:03)
[2021-03-19] MEDS: Ascorbic Acid 500 mg Chewable Tablet PO SCH (08:48)
[2021-03-19] MEDS: Rifaximin 550 MG TAB PO SCH ×2 (08:48→21:15)
[2021-03-19] MEDS: Cholecalciferol 1,000 UNITS (25 MCG) TAB PO SCH (08:49)
[2021-03-19] MEDS: Ferrous Sulfate 325 MG TAB PO SCH (08:49)
[2021-03-19] MEDS: Multivit, Therapeutic 1 TAB PO SCH (08:49)
[2021-03-19] MEDS: Midodrine HCl 5 MG TAB PO SCH ×3 (08:53→21:15)
[2021-03-19] MEDS: Cyanocobalamin (Vitamin B-12) 1,000 MCG TAB PO SCH (08:53)
[2021-03-19] MEDS: diphenhydrAMINE 25 MG CAP PO PRN (11:33)
[2021-03-19] MEDS: Folic Acid 1 MG TAB PO SCH (18:12)
[2021-03-19] MEDS: cefTRIAXone\\ROCEPHIN 1 GM in Sodium Chloride 0.9% 100 ML IVPB SCH (18:14)
[2021-03-20] MEDS: Albuterol Sulfate 2.5 mg/3 ml Neb NEB SCH ×4 (01:25→19:17)
[2021-03-20] MEDS: Octreotide Acetate 100 MCG/ML VIAL SC SCH ×3 (06:28→21:56)
[2021-03-20] MEDS: Levothyroxine 150 MCG TAB PO SCH (06:28)
[2021-03-20] MEDS: Rifaximin 550 MG TAB PO SCH ×2 (08:37→21:57)
[2021-03-20] MEDS: Midodrine HCl 5 MG TAB PO SCH ×3 (08:37→21:57)
[2021-03-20] MEDS: Ascorbic Acid 500 mg Chewable Tablet PO SCH (08:39)
[2021-03-20] MEDS: Multivit, Therapeutic 1 TAB PO SCH (08:39)
[2021-03-20] MEDS: Ferrous Sulfate 325 MG TAB PO SCH (08:39)
[2021-03-20] MEDS: Cyanocobalamin (Vitamin B-12) 1,000 MCG TAB PO SCH (08:39)
[2021-03-20] MEDS: Cholecalciferol 1,000 UNITS (25 MCG) TAB PO SCH (08:39)
[2021-03-20 10:17] LABS: #Eosinphils 0.2 thou/uL (0.0-0.7); #Lymphocytes 1.2 thou/uL (1.20-3.40); #Monocytes 0.6 thou/uL (0.11-0.59); #Neutrophils 3.8 thou/uL (1.40-6.50); %Basophils 0.6 % (0.0-1.0); %Eosinophils 4.2 % (0.0-10.0); %Lymphocytes 19.8 % (21.0-51.0); %Monocytes 10.7 % (0.0-10.0); %Neutrophils 64.6 % (42.0-75.0); Hemoglobin 9.6 g/dL (12.0-16.0); Mean Corpuscular HGB CONC 30.6 g/dL (32.0-36.0); Mean Corpuscular Hemoglobin 30.1 pg (27.0-31.0); Mean Corpuscular Volume 98.5 fL (78.0-98.0); Mean Platelet Volume 9.4 fL (7.4-10.4); Platelet Count 53 thou/uL (130-400); RBC Distribution Width 15.3 % (11.5-14.5); White Blood Cell (WBC) Count 5.9 thou/uL (4.8-10.8)
[2021-03-20 10:28] LABS: Anion Gap 16 mmol/L (10-20); BUN (Urea Nitrogen) 28 mg/dL (9.8-20.1); Calc. Creatinine Clearance 17 mL/min (70-130); Calcium 8.7 mg/dL (7.8-10.44); Carbon Dioxide 22 mmol/L (23-31); Chloride 107 mmol/L (98-107); Glucose 142 mg/dL (80-115); Potassium 3.5 mmol/L (3.5-5.1); Sodium 141 mmol/L (136-145)
[2021-03-20] MEDS: Folic Acid 1 MG TAB PO SCH (17:35)
[2021-03-20] MEDS: cefTRIAXone\\ROCEPHIN 1 GM in Sodium Chloride 0.9% 100 ML IVPB SCH (17:35)
[2021-03-20] MEDS: diphenhydrAMINE 25 MG CAP PO PRN (22:29)
[2021-03-21] MEDS: Albuterol Sulfate 2.5 mg/3 ml Neb NEB SCH ×4 (00:13→18:42)
[2021-03-21] MEDS: Levothyroxine 150 MCG TAB PO SCH (05:42)
[2021-03-21] MEDS: Octreotide Acetate 100 MCG/ML VIAL SC SCH ×2 (05:42→15:21)
[2021-03-21 06:49] LABS: Anion Gap 19 mmol/L (10-20); BUN (Urea Nitrogen) 30 mg/dL (9.8-20.1); Calc. Creatinine Clearance 15 mL/min (70-130); Calcium 8.4 mg/dL (7.8-10.44); Carbon Dioxide 18 mmol/L (23-31); Chloride 108 mmol/L (98-107); Glucose 124 mg/dL (80-115); Potassium 3.7 mmol/L (3.5-5.1); Sodium 141 mmol/L (136-145)
[2021-03-21] MEDS: Midodrine HCl 5 MG TAB PO SCH ×2 (08:41→15:22)
[2021-03-21] MEDS: Rifaximin 550 MG TAB PO SCH (09:00)
[2021-03-21] MEDS: EPOETIN ALFA-EPBX (ESRD) 10,000 UNIT/ML VIAL IVP SCH (14:30)
[2021-03-21] MEDS: Ferrous Sulfate 325 MG TAB PO SCH (15:23)
[2021-03-21] MEDS: Multivit, Therapeutic 1 TAB PO SCH (15:23)
[2021-03-21] MEDS: Cholecalciferol 1,000 UNITS (25 MCG) TAB PO SCH (15:23)
[2021-03-21] MEDS: Cyanocobalamin (Vitamin B-12) 1,000 MCG TAB PO SCH (15:23)
[2021-03-21] MEDS: Ascorbic Acid 500 mg Chewable Tablet PO SCH (15:23)
[2021-03-21] MEDS: Acetaminophen 325 MG TAB PO PRN (18:11)
[2021-03-21] MEDS: cefTRIAXone\\ROCEPHIN 1 GM in Sodium Chloride 0.9% 100 ML IVPB SCH (18:12)
[2021-03-21] MEDS: Folic Acid 1 MG TAB PO SCH (18:12)
[2021-03-21 18:21] VITALS: BP 120/76; TEMP 98
== END 2021-03-21 18:59 | DRG 981 ==
LOC: ERS 12:25 → 2SE 16:54 → CCU 03-16 18:23 → T4-B 03-19 17:36
PROVIDERS: ADMIT Internal Medicine; ATTEND Internal Medicine
PROC: 0JH63XZ Insertion of Tunneled Vascular Access Device into Chest Subcutaneous Tissue and Fascia, Percutaneous Approach (ICD-10-PCS; 2021-03-15)
PROC: 02HV33Z Insertion of Infusion Device into Superior Vena Cava, Percutaneous Approach (ICD-10-PCS; 2021-03-15)
PROC: B5181ZA Fluoroscopy of Superior Vena Cava using Low Osmolar Contrast, Guidance (ICD-10-PCS; 2021-03-15)
PROC: B548ZZA Ultrasonography of Superior Vena Cava, Guidance (ICD-10-PCS; 2021-03-15)
PROC: 30233R1 Transfusion of Nonautologous Platelets into Peripheral Vein, Percutaneous Approach (ICD-10-PCS; 2021-03-16)
PROC: 031B09F Bypass Right Radial Artery to Lower Arm Vein with Autologous Venous Tissue, Open Approach (ICD-10-PCS; 2021-03-16)
PROC: 5A1935Z Respiratory Ventilation, Less than 24 Consecutive Hours (ICD-10-PCS; 2021-03-16)
PROC: 0W9G3ZZ Drainage of Peritoneal Cavity, Percutaneous Approach (ICD-10-PCS; principal; 2021-03-17)
PROC: 5A1D70Z Performance of Urinary Filtration, Intermittent, Less than 6 Hours Per Day (ICD-10-PCS; 2021-03-18)
DX: K72.00 Acute and subacute hepatic failure without coma (principal); K76.7 Hepatorenal syndrome; G93.41 Metabolic encephalopathy; J96.01 Acute respiratory failure with hypoxia; N18.6 End stage renal disease; R18.8 Other ascites; N17.9 Acute kidney failure, unspecified; K76.6 Portal hypertension; D61.818 Other pancytopenia; I12.0 Hypertensive chronic kidney disease with stage 5 chronic kidney disease or end stage renal disease; E87.2 Acidosis; K92.2 Gastrointestinal hemorrhage, unspecified; D62 Acute posthemorrhagic anemia; N30.00 Acute cystitis without hematuria; E87.1 Hypo-osmolality and hyponatremia; D68.9 Coagulation defect, unspecified; J91.8 Pleural effusion in other conditions classified elsewhere; I85.10 Secondary esophageal varices without bleeding; D63.8 Anemia in other chronic diseases classified elsewhere; D63.1 Anemia in chronic kidney disease; K75.81 Nonalcoholic steatohepatitis (NASH); K74.60 Unspecified cirrhosis of liver; E11.22 Type 2 diabetes mellitus with diabetic chronic kidney disease; K31.7 Polyp of stomach and duodenum; K31.89 Other diseases of stomach and duodenum; E87.70 Fluid overload, unspecified; E03.9 Hypothyroidism, unspecified; E78.5 Hyperlipidemia, unspecified; E66.9 Obesity, unspecified; E87.6 Hypokalemia; Z91.013 Allergy to seafood; Z79.899 Other long term (current) drug therapy; Z99.2 Dependence on renal dialysis; Z90.49 Acquired absence of other specified parts of digestive tract; Z87.891 Personal history of nicotine dependence; Z68.39 Body mass index [BMI] 39.0-39.9, adult; Z79.4 Long term (current) use of insulin
CPT/HCPCS: 36415; 36416; 36430; 36600; 49083; 51701; 70450; 71045; 76705; 80048; 80053; 81003; 81015; 82140; 82805; 83690; 83735; 83880; 85014; 85018; 85025; 85049; 85610; 85730; 86704; 86706; 86803; 86850; 86900; 86901; 87340; 90935; 93005; 93306; 93970; 94002; 94003; 94640; C1751; C1752; G0257; J0360; J0690; J0696; J1644; J1940; J2250; J2270; J2354; J2405; J2704; J2720; J2795; J3010; J3490; J7611; J7620; P9035; P9045; P9047; Q0163; Q5105; S0020

== ENCOUNTER 2021-05-19 06:58 | Day surgery (SDC) | payer MEDICARE, OTHER ==
[2021-05-19 13:15] VITALS: BP 119/72; TEMP 98
[2021-05-19] MEDS ORDERED: Heparin 1,000 UNITS/ML VIAL ONE (14:05)
== END 2021-05-19 10:30 | disposition home or self-care (01) ==
LOC: SPEC 06:58
PROVIDERS: ATTEND Specialist
PROC: 05L Upper Veins, Occlusion (ICD-10-PCS; principal; 2021-05-19)
DX: N18.6 End stage renal disease (principal); T82.898A Other specified complication of vascular prosthetic devices, implants and grafts, initial encounter; K74.60 Unspecified cirrhosis of liver; D68.9 Coagulation defect, unspecified; Z79.899 Other long term (current) drug therapy; Z91.013 Allergy to seafood; Z99.2 Dependence on renal dialysis
CPT/HCPCS: 36901; 36909; 61623; 76937; J1644

== ENCOUNTER 2021-06-18 11:49 | Inpatient (IN) | payer MEDICARE, OTHER ==
[2021-06-18 13:02] LABS: #Lymphocytes 0.6 thou/uL (1.20-3.40); #Monocytes 0.3 thou/uL (0.11-0.59); #Neutrophils 3.8 thou/uL (1.40-6.50); %Basophils 0.3 % (0.0-1.0); %Eosinophils 0.9 % (0.0-10.0); %Lymphocytes 12.1 % (21.0-51.0); %Monocytes 7.1 % (0.0-10.0); %Neutrophils 79.6 % (42.0-75.0); Hemoglobin 10.1 g/dL (12.0-16.0); Mean Corpuscular HGB CONC 33.6 g/dL (32.0-36.0); Mean Corpuscular Hemoglobin 33.2 pg (27.0-31.0); Mean Corpuscular Volume 98.9 fL (78.0-98.0); Mean Platelet Volume 7.6 fL (7.4-10.4); Platelet Count 80 thou/uL (130-400); RBC Distribution Width 13.6 % (11.5-14.5); Red Blood Cell (RBC) Count 3.03 mill/uL (4.20-5.40); White Blood Cell (WBC) Count 4.8 thou/uL (4.8-10.8)
[2021-06-18 13:20] LABS: Acetaminophen Less than 6.0 mcg/mL (10.0-30.0); Alcohol Less than 10 mg/dL (Less than 10); Salicylate Less than 8.0 mg/dL (15.0-30.0)
[2021-06-18 13:24] LABS: Bilirubin 1+ (Negative); Blood, Urine Negative (Negative); Clarity Clear (Clear); Glucose, Urine (Dipstick) Normal (Negative); Ketone, Urine 20 mg/dL (Negative); Leukocyte 75 Leu/uL (Negative); Nitrite Negative (Negative); Protein, Urine (Dipstick) 30 mg/dL (Neg-Trace); Specific Gravity, Urine 1.024 (1.002-1.036); Squamous Epithelial 0-3 HPF (0-3)
[2021-06-18 13:25] LABS: Bacteria/HPF 1+ HPF (None Seen)
[2021-06-18 13:31] LABS: Amphetamine Not Detected (NotDetected); Barbiturates Screen Not Detected (NotDetected); Benzodiazepine Screen Not Detected (NotDetected); Cocaine Metabolite Screen Not Detected (NotDetected); Methadone Not Detected (NotDetected); Methamphetamine Not Detected (NotDetected); Opiate Screen Not Detected (NotDetected); Oxycodone Screen Not Detected (NotDetected); Phencyclidine (PCP) Not Detected (NotDetected); THC/Cannabinoid Screen Not Detected (NotDetected); Tricyclic Screen Not Detected (NotDetected)
[2021-06-18 13:34] LABS: ALT (SGPT) 15 U/L (8-55); AST (SGOT) 20 U/L (5-34); Albumin 2.6 g/dL (3.4-4.8); Alkaline Phosphatase 175 U/L (40-110); Anion Gap 13 mmol/L (10-20); BUN (Urea Nitrogen) 14 mg/dL (9.8-20.1); Bilirubin, Total 1.7 mg/dL (0.2-1.2); Calc. Creatinine Clearance 0 mL/min (70-130); Calcium 8.7 mg/dL (7.8-10.44); Carbon Dioxide 31 mmol/L (23-31); Chloride 99 mmol/L (98-107); Globulin 3.4 g/dL (2.4-3.5); Glucose 171 mg/dL (80-115); Potassium 3.4 mmol/L (3.5-5.1); Sodium 140 mmol/L (136-145)
[2021-06-18 13:41] LABS: Lipase 59 U/L (8-78)
[2021-06-18 18:18] VITALS: BMI 33.5
[2021-06-18 18:27] LABS: SARS-CoV-2 NAA Rapid Test Not Detected (NotDetected)
[2021-06-18 19:01] LABS: Lactic Acid 2.7 mmol/L (0.5-2.2)
[2021-06-18] MEDS ORDERED: HYDROcodone/Acetaminophen 5/325 mg Tablet PO PRN (19:12)
[2021-06-18] MEDS ORDERED: Ondansetron PF 4 MG/2 ML Vial IVP PRN (19:12)
[2021-06-18] MEDS ORDERED: Insulin Regular 300 UNITS/3 ML VIAL SC PRN (19:48)
[2021-06-18] MEDS ORDERED: Dextrose 5% in Water 1,000 ML IV PRN (19:48)
[2021-06-18] MEDS ORDERED: Dextrose 50% Abboject 50 ML SYRINGE SLOW IVP PRN (19:48)
[2021-06-18] MEDS ORDERED: HumaLOG 300 UNITS/3 ML VIAL SC PRN (19:48)
[2021-06-18] MEDS: cefTRIAXone\\ROCEPHIN 2 GM in Sodium Chloride 0.9% 100 ML IVPB SCH (21:56)
[2021-06-18] MEDS: Atorvastatin Calcium 10 MG TAB PO SCH (22:07)
[2021-06-18] MEDS: Midodrine HCl 5 MG TAB PO SCH (22:08)
[2021-06-18] MEDS: Rifaximin 550 MG TAB PO SCH (22:09)
[2021-06-19] MEDS: Acetaminophen 325 MG TAB PO PRN ×2 (00:56→06:16)
[2021-06-19] MEDS: Levothyroxine 150 MCG TAB PO SCH (06:12)
[2021-06-19 06:21] LABS: #Lymphocytes 0.7 thou/uL (1.20-3.40); #Monocytes 0.5 thou/uL (0.11-0.59); #Neutrophils 8.3 thou/uL (1.40-6.50); %Basophils 0.1 % (0.0-1.0); %Lymphocytes 6.9 % (21.0-51.0); %Monocytes 5.7 % (0.0-10.0); %Neutrophils 87.3 % (42.0-75.0); Hemoglobin 7.8 g/dL (12.0-16.0); Mean Corpuscular HGB CONC 32.7 g/dL (32.0-36.0); Mean Corpuscular Hemoglobin 32.5 pg (27.0-31.0); Mean Corpuscular Volume 99.6 fL (78.0-98.0); Mean Platelet Volume 7.9 fL (7.4-10.4); Platelet Count 66 thou/uL (130-400); RBC Distribution Width 13.5 % (11.5-14.5); Red Blood Cell (RBC) Count 2.38 mill/uL (4.20-5.40); White Blood Cell (WBC) Count 9.5 thou/uL (4.8-10.8)
[2021-06-19] MEDS: HumaLOG 300 UNITS/3 ML VIAL SC PRN ×2 (06:28→11:29)
[2021-06-19 06:36] LABS: ALT (SGPT) 13 U/L (8-55); AST (SGOT) 17 U/L (5-34); Albumin 2.2 g/dL (3.4-4.8); Alkaline Phosphatase 123 U/L (40-110); Anion Gap 11 mmol/L (10-20); BUN (Urea Nitrogen) 22 mg/dL (9.8-20.1); Bilirubin, Total 1.7 mg/dL (0.2-1.2); Calc. Creatinine Clearance 15 mL/min (70-130); Calcium 8.5 mg/dL (7.8-10.44); Carbon Dioxide 31 mmol/L (23-31); Chloride 100 mmol/L (98-107); Globulin 3.1 g/dL (2.4-3.5); Glucose 162 mg/dL (80-115); Potassium 3.4 mmol/L (3.5-5.1); Protein, Total 5.3 g/dL (5.8-8.1); Sodium 139 mmol/L (136-145)
[2021-06-19] MEDS: Cholecalciferol 1,000 UNITS (25 MCG) TAB PO SCH (08:18)
[2021-06-19] MEDS: Ferrous Sulfate 325 MG TAB PO SCH (08:18)
[2021-06-19] MEDS: Rifaximin 550 MG TAB PO SCH ×2 (08:18→19:45)
[2021-06-19] MEDS: Ascorbic Acid 500 mg Chewable Tablet PO SCH (08:18)
[2021-06-19] MEDS: Multivit, Therapeutic 1 TAB PO SCH (08:18)
[2021-06-19] MEDS: Icosapent Ethyl 1 GM CAPSULE PO SCH ×2 (08:18→17:24)
[2021-06-19] MEDS: Folic Acid 1 MG TAB PO SCH (08:19)
[2021-06-19] MEDS: Midodrine HCl 5 MG TAB PO SCH ×3 (08:19→19:45)
[2021-06-19] MEDS ORDERED: (Mecobalamin [B12 Active] 1,000 MCG Tab.Chew) PO SCH (09:00)
[2021-06-19 16:39] LABS: Hemoglobin 8.9 g/dL (12.0-16.0); Platelet Count 61 thou/uL (130-400)
[2021-06-19] MEDS: Atorvastatin Calcium 10 MG TAB PO SCH (19:44)
[2021-06-19] MEDS: cefTRIAXone\\ROCEPHIN 2 GM in Sodium Chloride 0.9% 100 ML IVPB SCH (19:44)
[2021-06-20] MEDS: Levothyroxine 150 MCG TAB PO SCH (04:39)
[2021-06-20 08:05] LABS: HBSAg Index 0.23 S/CO (0-0.99); Hep B Surf Ag Non-Reactive S/CO (NonReactive)
[2021-06-20] MEDS: Midodrine HCl 5 MG TAB PO SCH ×3 (12:22→20:04)
[2021-06-20] MEDS: Icosapent Ethyl 1 GM CAPSULE PO SCH ×2 (12:23→17:16)
[2021-06-20] MEDS ORDERED: Rifaximin 550 MG TAB PO SCH (12:30)
[2021-06-20] MEDS: Cholecalciferol 1,000 UNITS (25 MCG) TAB PO SCH (13:27)
[2021-06-20] MEDS: Ascorbic Acid 500 mg Chewable Tablet PO SCH (13:27)
[2021-06-20] MEDS: Ferrous Sulfate 325 MG TAB PO SCH (13:27)
[2021-06-20] MEDS: Multivit, Therapeutic 1 TAB PO SCH (13:28)
[2021-06-20] MEDS: Folic Acid 1 MG TAB PO SCH (13:28)
[2021-06-20] MEDS ORDERED: Heparin 10,000 UNITS/ 10 ML VIAL ONE (14:57)
[2021-06-20] MEDS: cefTRIAXone\\ROCEPHIN 2 GM in Sodium Chloride 0.9% 100 ML IVPB SCH (20:03)
[2021-06-20] MEDS: Atorvastatin Calcium 10 MG TAB PO SCH (20:04)
[2021-06-20] MEDS: Rifaximin 550 MG TAB PO SCH (20:04)
[2021-06-21] MEDS: Levothyroxine 150 MCG TAB PO SCH (06:18)
[2021-06-21] MEDS ORDERED: Sodium Bicarbonate 2.5 MEQ/5 ML VIAL ONE (09:29)
[2021-06-21] MEDS ORDERED: Lidocaine 1% PF 5 ML VIAL ONE (09:29)
[2021-06-21] MEDS: Icosapent Ethyl 1 GM CAPSULE PO SCH ×2 (10:59→16:23)
[2021-06-21] MEDS: Ascorbic Acid 500 mg Chewable Tablet PO SCH (11:00)
[2021-06-21] MEDS: Cholecalciferol 1,000 UNITS (25 MCG) TAB PO SCH (11:00)
[2021-06-21] MEDS: Midodrine HCl 5 MG TAB PO SCH ×3 (11:00→19:46)
[2021-06-21] MEDS: Ferrous Sulfate 325 MG TAB PO SCH (11:00)
[2021-06-21] MEDS: Multivit, Therapeutic 1 TAB PO SCH (11:00)
[2021-06-21] MEDS: Rifaximin 550 MG TAB PO SCH ×2 (11:00→19:46)
[2021-06-21] MEDS: Folic Acid 1 MG TAB PO SCH (11:01)
[2021-06-21 11:33] LABS: Fluid, Protein 1.6 g/dL (Not Available)
[2021-06-21 11:50] LABS: RBC Count-Automated (BF) 287 /cu.mm; WBC/Nucleated-Auto (BF) 247 uL
[2021-06-21 12:27] LABS: BF Color Yellow; Body Fluid Source Ascites Body Fluid; Clarity Hazy (Clear); Tube # EDTA
[2021-06-21 12:29] LABS: BF Segmented Neutrophils 18 %; Cell Count Non Hematic 58 %; Lymphocytes 24 %
[2021-06-21] MEDS: cefTRIAXone\\ROCEPHIN 2 GM in Sodium Chloride 0.9% 100 ML IVPB SCH (19:46)
[2021-06-21] MEDS: Atorvastatin Calcium 10 MG TAB PO SCH (19:46)
[2021-06-22] MEDS: Levothyroxine 150 MCG TAB PO SCH (05:41)
[2021-06-22] MEDS: Folic Acid 1 MG TAB PO SCH (07:57)
[2021-06-22] MEDS: Cholecalciferol 1,000 UNITS (25 MCG) TAB PO SCH (07:57)
[2021-06-22] MEDS: Multivit, Therapeutic 1 TAB PO SCH (07:57)
[2021-06-22] MEDS: Rifaximin 550 MG TAB PO SCH (07:57)
[2021-06-22] MEDS: Ascorbic Acid 500 mg Chewable Tablet PO SCH (07:58)
[2021-06-22] MEDS: Icosapent Ethyl 1 GM CAPSULE PO SCH (07:58)
[2021-06-22] MEDS: Ferrous Sulfate 325 MG TAB PO SCH (07:58)
[2021-06-22] MEDS: Midodrine HCl 5 MG TAB PO SCH ×2 (07:58→15:53)
[2021-06-22] MEDS ORDERED: Heparin 10,000 UNITS/ 10 ML VIAL ONE (09:19)
[2021-06-22 09:28] LABS: Hemoglobin 8.5 g/dL (12.0-16.0); Mean Corpuscular HGB CONC 33.7 g/dL (32.0-36.0); Mean Corpuscular Hemoglobin 33.2 pg (27.0-31.0); Mean Corpuscular Volume 98.4 fL (78.0-98.0); Mean Platelet Volume 7.6 fL (7.4-10.4); Platelet Count 73 thou/uL (130-400); RBC Distribution Width 13.1 % (11.5-14.5); Red Blood Cell (RBC) Count 2.56 mill/uL (4.20-5.40); White Blood Cell (WBC) Count 2.8 thou/uL (4.8-10.8)
[2021-06-22 09:45] LABS: Band 2 % (5-11); Eosinophils 3 % (0-10); Lymphocytes 26 % (21-51); MDiff Complete? YES; Monocytes 11 % (0-10); Neutrophil 58 % (42-75); Platelet Morphology Comment Appears Decreased; Polychromasia SLIGHT = 2-3 cells (100X) (0-2/hpf)
[2021-06-22 09:46] LABS: Anion Gap 12 mmol/L (10-20); BUN (Urea Nitrogen) 33 mg/dL (9.8-20.1); Calc. Creatinine Clearance 16 mL/min (70-130); Calcium 8.2 mg/dL (7.8-10.44); Carbon Dioxide 31 mmol/L (23-31); Chloride 99 mmol/L (98-107); Glucose 149 mg/dL (80-115); Potassium 3.5 mmol/L (3.5-5.1); Sodium 138 mmol/L (136-145)
[2021-06-22] MEDS ORDERED: EPOETIN ALFA-EPBX (ESRD) 10,000 UNIT/ML VIAL IVP SCH (10:00)
[2021-06-22 13:39] VITALS: BP 102/63; TEMP 98.1
== END 2021-06-22 16:21 | disposition home health service (06) | DRG 441 ==
LOC: ERS 11:49 → SURG A 14:59 → OBSVTOIN 06-20 13:23
PROVIDERS: ADMIT Internal Medicine; ATTEND Family Medicine
PROC: 5A1D70Z Performance of Urinary Filtration, Intermittent, Less than 6 Hours Per Day (ICD-10-PCS; principal; 2021-06-20)
PROC: 0W9G3ZZ Drainage of Peritoneal Cavity, Percutaneous Approach (ICD-10-PCS; 2021-06-21)
DX: K72.00 Acute and subacute hepatic failure without coma (principal); N18.6 End stage renal disease; K76.7 Hepatorenal syndrome; I12.0 Hypertensive chronic kidney disease with stage 5 chronic kidney disease or end stage renal disease; R18.8 Other ascites; N30.00 Acute cystitis without hematuria; K74.69 Other cirrhosis of liver; Z20.822 Contact with and (suspected) exposure to COVID-19; E03.9 Hypothyroidism, unspecified; E11.22 Type 2 diabetes mellitus with diabetic chronic kidney disease; K75.81 Nonalcoholic steatohepatitis (NASH); D63.1 Anemia in chronic kidney disease; I95.9 Hypotension, unspecified; K76.0 Fatty (change of) liver, not elsewhere classified; Z99.2 Dependence on renal dialysis; Z91.013 Allergy to seafood; Z90.49 Acquired absence of other specified parts of digestive tract; Z87.891 Personal history of nicotine dependence; Z91.041 Radiographic dye allergy status; Z79.899 Other long term (current) drug therapy
CPT/HCPCS: 36415; 36416; 49083; 51701; 70450; 71045; 80048; 80053; 80306; 80307; 81003; 81015; 82140; 82150; 83605; 83615; 83690; 84157; 84478; 84484; 85007; 85025; 85027; 85060; 87040; 87070; 87205; 87340; 88112; 88305; 89051; 90935; 93005; 96365; 96376; G0257; G0378; J0696; J1644; J1815; J3490; Q5105; U0002

== ENCOUNTER 2021-07-08 16:52 | Observation (INO) | payer MEDICARE, OTHER ==
[2021-07-08 18:04] LABS: #Lymphocytes 0.8 thou/uL (1.20-3.40); #Monocytes 0.4 thou/uL (0.11-0.59); #Neutrophils 2.4 thou/uL (1.40-6.50); %Basophils 0.3 % (0.0-1.0); %Monocytes 9.9 % (0.0-10.0); %Neutrophils 66.7 % (42.0-75.0); Hemoglobin 9.7 g/dL (12.0-16.0); Mean Corpuscular HGB CONC 33.4 g/dL (32.0-36.0); Mean Corpuscular Hemoglobin 32.6 pg (27.0-31.0); Mean Corpuscular Volume 97.5 fL (78.0-98.0); Mean Platelet Volume 7.2 fL (7.4-10.4); Platelet Count 104 thou/uL (130-400); RBC Distribution Width 13.3 % (11.5-14.5); Red Blood Cell (RBC) Count 2.99 mill/uL (4.20-5.40); White Blood Cell (WBC) Count 3.6 thou/uL (4.8-10.8)
[2021-07-08 18:25] LABS: Acetaminophen Less than 6.0 mcg/mL (10.0-30.0); Alcohol Less than 10 mg/dL (Less than 10); Salicylate Less than 8.0 mg/dL (15.0-30.0)
[2021-07-08 18:27] LABS: ALT (SGPT) 17 U/L (8-55); AST (SGOT) 30 U/L (5-34); Albumin 2.8 g/dL (3.4-4.8); Alkaline Phosphatase 207 U/L (40-110); Anion Gap 16 mmol/L (10-20); BUN (Urea Nitrogen) 12 mg/dL (9.8-20.1); Bilirubin, Total 1.2 mg/dL (0.2-1.2); Calc. Creatinine Clearance 0 mL/min (70-130); Calcium 8.8 mg/dL (7.8-10.44); Carbon Dioxide 33 mmol/L (23-31); Chloride 96 mmol/L (98-107); Globulin 4.1 g/dL (2.4-3.5); Glucose 150 mg/dL (80-115); Lipase 81 U/L (8-78); Potassium 3.5 mmol/L (3.5-5.1); Protein, Total 6.9 g/dL (5.8-8.1); Sodium 141 mmol/L (136-145)
[2021-07-08 18:35] LABS: Bacteria/HPF None Seen HPF (None Seen); Bilirubin Negative (Negative); Blood, Urine Negative (Negative); Clarity Clear (Clear); Glucose, Urine (Dipstick) Normal (Negative); Ketone, Urine 10 mg/dL (Negative); Leukocyte 25 Leu/uL (Negative); Nitrite Negative (Negative); Protein, Urine (Dipstick) 50 mg/dL (Neg-Trace); Specific Gravity, Urine 1.022 (1.002-1.036); Squamous Epithelial None Seen HPF (0-3); Urobilinogen 3 mg/dL (Less than 2); WBC/HPF 0-3 HPF (0-3)
[2021-07-08 18:42] LABS: Amphetamine Not Detected (NotDetected); Barbiturates Screen Not Detected (NotDetected); Benzodiazepine Screen Not Detected (NotDetected); Cocaine Metabolite Screen Not Detected (NotDetected); Methadone Not Detected (NotDetected); Methamphetamine Not Detected (NotDetected); Opiate Screen Not Detected (NotDetected); Oxycodone Screen Not Detected (NotDetected); Phencyclidine (PCP) Not Detected (NotDetected); THC/Cannabinoid Screen Not Detected (NotDetected); Tricyclic Screen Not Detected (NotDetected)
[2021-07-08] MEDS ORDERED: Ondansetron PF 4 MG/2 ML Vial IVP PRN (21:38)
[2021-07-08] MEDS ORDERED: Ondansetron ODT 4 MG TAB PO PRN (21:38)
[2021-07-08] MEDS ORDERED: Acetaminophen 650 MG Suppository PR PRN (21:38)
[2021-07-08] MEDS ORDERED: Acetaminophen 325 MG TAB PO PRN (21:38)
[2021-07-08] MEDS ORDERED: Dextrose 50% Abboject 50 ML SYRINGE SLOW IVP PRN (22:48)
[2021-07-08] MEDS ORDERED: Dextrose 5% in Water 1,000 ML IV PRN (22:48)
[2021-07-08] MEDS ORDERED: HumaLOG 300 UNITS/3 ML VIAL SC PRN ×2 (22:48)
[2021-07-09 00:38] VITALS: BMI 32.4
[2021-07-09 05:39] LABS: #Eosinphils 0.1 thou/uL (0.0-0.7); #Lymphocytes 0.8 thou/uL (1.20-3.40); #Monocytes 0.4 thou/uL (0.11-0.59); #Neutrophils 1.7 thou/uL (1.40-6.50); %Basophils 0.4 % (0.0-1.0); %Eosinophils 2.3 % (0.0-10.0); %Monocytes 13.5 % (0.0-10.0); %Neutrophils 57.8 % (42.0-75.0); Hemoglobin 8.3 g/dL (12.0-16.0); Mean Corpuscular HGB CONC 34.1 g/dL (32.0-36.0); Mean Corpuscular Hemoglobin 33.3 pg (27.0-31.0); Mean Corpuscular Volume 97.8 fL (78.0-98.0); Mean Platelet Volume 7.4 fL (7.4-10.4); Platelet Count 81 thou/uL (130-400); RBC Distribution Width 13.4 % (11.5-14.5)
[2021-07-09 06:14] LABS: Anion Gap 13 mmol/L (10-20); BUN (Urea Nitrogen) 14 mg/dL (9.8-20.1); Calc. Creatinine Clearance 15 mL/min (70-130); Calcium 8.6 mg/dL (7.8-10.44); Carbon Dioxide 30 mmol/L (23-31); Chloride 99 mmol/L (98-107); Glucose 129 mg/dL (80-115); Potassium 3.4 mmol/L (3.5-5.1); Sodium 139 mmol/L (136-145)
[2021-07-09] MEDS ORDERED: Heparin 5,000 UNITS/ML VIAL SC SCH (09:00)
[2021-07-09] MEDS: Midodrine HCl 5 MG TAB PO SCH ×2 (14:35→21:45)
[2021-07-09] MEDS: Icosapent Ethyl 1 GM CAPSULE PO SCH (16:41)
[2021-07-09 16:49] LABS: SARS-CoV-2 PCR by NAA Not Detected (NotDetected)
[2021-07-09] MEDS ORDERED: Non-Formulary Item 1 EACH (Icosapent Ethyl 1 GM Capsule) PO SCH (17:00)
[2021-07-09] MEDS ORDERED: Gabapentin 100 MG CAP PO SCH (21:00)
[2021-07-09] MEDS: Rifaximin 550 MG TAB PO SCH (21:46)
[2021-07-10] MEDS ORDERED: Levothyroxine 150 MCG TAB PO SCH (06:00)
[2021-07-10] MEDS: Midodrine HCl 5 MG TAB PO SCH ×2 (08:48→14:13)
[2021-07-10] MEDS: Rifaximin 550 MG TAB PO SCH (08:49)
[2021-07-10] MEDS: Icosapent Ethyl 1 GM CAPSULE PO SCH (08:50)
[2021-07-10] MEDS ORDERED: Folic Acid 1 MG TAB PO SCH (09:00)
[2021-07-10] MEDS ORDERED: Non-Formulary Item 1 EACH (Ferrous Sulfate [Ferrous Sulfate] 325 MG Tablet) PO SCH (09:00)
[2021-07-10] MEDS ORDERED: Non-Formulary Item 1 EACH (Ascorbic Acid [Vitamin C] 1,000 MG Tablet) PO SCH (09:00)
[2021-07-10] MEDS ORDERED: Atorvastatin Calcium 10 MG TAB PO SCH (09:00)
[2021-07-10] MEDS ORDERED: Non-Formulary Item 1 EACH (Levothyroxine Sodium [Levothyroxine] 150 MCG Capsule) PO SCH (09:00)
[2021-07-10] MEDS ORDERED: Ascorbic Acid 500 mg Chewable Tablet PO SCH (09:00)
[2021-07-10] MEDS ORDERED: Ferrous Sulfate 325 MG TAB PO SCH (09:00)
[2021-07-10 11:32] LABS: Anion Gap 15 mmol/L (10-20); BUN (Urea Nitrogen) 19 mg/dL (9.8-20.1); Calc. Creatinine Clearance 11 mL/min (70-130); Calcium 8.9 mg/dL (7.8-10.44); Carbon Dioxide 29 mmol/L (23-31); Chloride 99 mmol/L (98-107); Glucose 132 mg/dL (80-115); Potassium 3.6 mmol/L (3.5-5.1); Sodium 139 mmol/L (136-145)
[2021-07-10 16:04] VITALS: BP 114/64; TEMP 98.7
== END 2021-07-10 17:10 | disposition home or self-care (01) ==
LOC: ERS 16:52 → 3SE 21:05
PROVIDERS: ADMIT Student in an Organized Health Care Education/Training Program; ATTEND Internal Medicine
DX: K72.10 Chronic hepatic failure without coma (principal); E87.6 Hypokalemia; E88.09 Other disorders of plasma-protein metabolism, not elsewhere classified; I12.0 Hypertensive chronic kidney disease with stage 5 chronic kidney disease or end stage renal disease; E11.22 Type 2 diabetes mellitus with diabetic chronic kidney disease; N18.6 End stage renal disease; D63.1 Anemia in chronic kidney disease; G93.41 Metabolic encephalopathy; E78.5 Hyperlipidemia, unspecified; E89.0 Postprocedural hypothyroidism; K74.60 Unspecified cirrhosis of liver; K76.7 Hepatorenal syndrome; Z87.891 Personal history of nicotine dependence; Z79.899 Other long term (current) drug therapy; Z91.013 Allergy to seafood; Z99.2 Dependence on renal dialysis; Z20.822 Contact with and (suspected) exposure to COVID-19
CPT/HCPCS: 51701; 70450; 71045; 80048 ×2; 80053; 80306; 80307; 82140; 82962 ×2; 83690; 85025 ×2; 93005; 97116; 97139 ×3; 99285; G0378 ×4; U0003; U0005; 36415; 36416; 81003; 81015

== ENCOUNTER 2021-07-21 12:42 | Outpatient (CLI) | payer MEDICARE, OTHER ==
[2021-07-22 01:42] LABS: SARS-CoV-2 PCR by NAA Not Detected (NotDetected)
== END 2021-07-21 12:43 | disposition home or self-care (01) ==
LOC: LABBT 12:42
PROVIDERS: ATTEND Specialist
DX: Z01.818 Encounter for other preprocedural examination (principal); Z20.822 Contact with and (suspected) exposure to COVID-19
CPT/HCPCS: 93005; U0003; U0005; 93010

== ENCOUNTER 2021-07-26 09:50 | Day surgery (SDC) | payer MEDICARE ==
[2021-07-25 13:55] VITALS: BMI 32.5
[2021-07-26 10:46] LABS: #Eosinphils 0.1 thou/uL (0.0-0.7); #Lymphocytes 1.1 thou/uL (1.20-3.40); #Monocytes 0.3 thou/uL (0.11-0.59); #Neutrophils 2.5 thou/uL (1.40-6.50); %Basophils 0.9 % (0.0-1.0); %Eosinophils 1.4 % (0.0-10.0); %Neutrophils 61.7 % (42.0-75.0); Hemoglobin 9.6 g/dL (12.0-16.0); Mean Corpuscular HGB CONC 33.1 g/dL (32.0-36.0); Mean Corpuscular Hemoglobin 32.4 pg (27.0-31.0); Mean Platelet Volume 7.3 fL (7.4-10.4); Platelet Count 99 thou/uL (130-400); Red Blood Cell (RBC) Count 2.94 mill/uL (4.20-5.40)
[2021-07-26 10:51] LABS: Anion Gap 17 mmol/L (10-20); BUN (Urea Nitrogen) 17 mg/dL (9.8-20.1); Calc. Creatinine Clearance 14 mL/min (70-130); Calcium 8.7 mg/dL (7.8-10.44); Carbon Dioxide 26 mmol/L (23-31); Chloride 99 mmol/L (98-107); Glucose 108 mg/dL (80-115); Potassium 3.5 mmol/L (3.5-5.1); Sodium 138 mmol/L (136-145)
[2021-07-26] MEDS ORDERED: Fentanyl 100 MCG/2 ML VIAL ONE ×2 (10:59→11:39)
[2021-07-26] MEDS ORDERED: Phenylephrine 10 MG/ML VIAL ONE (11:39)
[2021-07-26] MEDS ORDERED: ceFAZolin 2 GM/DEX 5% 100 ML BAG ONE (11:53)
[2021-07-26] MEDS ORDERED: Protamine Sulfate 50 MG/5 ML VIAL ONE (11:56)
[2021-07-26] MEDS ORDERED: Bupivacaine PF 0.5% 30 ML VIAL ONE (11:56)
[2021-07-26] MEDS ORDERED: Lidocaine 1% w/Epinephrine 1:100K 20 ML VIAL ONE (11:56)
[2021-07-26] MEDS ORDERED: Heparin 5,000 UNITS/ML VIAL ONE (11:56)
[2021-07-26] MEDS ORDERED: Albumin 5% 0 ML ONE (12:01)
[2021-07-26] MEDS ORDERED: Dexamethasone 20 MG/5 ML VIAL ONE (12:14)
[2021-07-26] MEDS ORDERED: Ondansetron PF 4 MG/2 ML Vial ONE (12:14)
[2021-07-26] MEDS ORDERED: Heparin 1,000 UNITS/ML VIAL ONE (13:17)
== END 2021-07-26 13:45 | disposition home or self-care (01) ==
LOC: SDC 09:50
PROVIDERS: ATTEND Specialist
PROC: 05LB0ZZ Occlusion of Right Basilic Vein, Open Approach (ICD-10-PCS; principal; 2021-07-26)
DX: I12.0 Hypertensive chronic kidney disease with stage 5 chronic kidney disease or end stage renal disease (principal); E11.22 Type 2 diabetes mellitus with diabetic chronic kidney disease; N18.6 End stage renal disease; D63.1 Anemia in chronic kidney disease; E89.0 Postprocedural hypothyroidism; E78.2 Mixed hyperlipidemia; K72.90 Hepatic failure, unspecified without coma; D69.59 Other secondary thrombocytopenia; K76.7 Hepatorenal syndrome; K76.6 Portal hypertension; K75.81 Nonalcoholic steatohepatitis (NASH); K74.69 Other cirrhosis of liver; R18.8 Other ascites; E66.01 Morbid (severe) obesity due to excess calories; Z68.32 Body mass index [BMI] 32.0-32.9, adult; Z79.899 Other long term (current) drug therapy; Z91.013 Allergy to seafood; Z99.2 Dependence on renal dialysis
CPT/HCPCS: 80048; 85025; J1100; J1644; J2370; J2405; J2720; J3010; P9045; S0020

== ENCOUNTER 2021-08-09 16:29 | Emergency (ER) | payer MEDICARE, OTHER ==
[2021-08-09 17:38] LABS: #Lymphocytes 0.8 thou/uL (1.20-3.40); #Monocytes 0.3 thou/uL (0.11-0.59); #Neutrophils 2.6 thou/uL (1.40-6.50); %Basophils 0.2 % (0.0-1.0); %Eosinophils 0.8 % (0.0-10.0); Hemoglobin 10.9 g/dL (12.0-16.0); Mean Corpuscular HGB CONC 33.2 g/dL (32.0-36.0); Mean Corpuscular Hemoglobin 32.7 pg (27.0-31.0); Mean Corpuscular Volume 98.4 fL (78.0-98.0); Mean Platelet Volume 7.1 fL (7.4-10.4); Platelet Count 98 thou/uL (130-400); RBC Distribution Width 14.4 % (11.5-14.5); Red Blood Cell (RBC) Count 3.35 mill/uL (4.20-5.40); White Blood Cell (WBC) Count 3.7 thou/uL (4.8-10.8)
[2021-08-09 17:58] LABS: ALT (SGPT) 15 U/L (8-55); AST (SGOT) 27 U/L (5-34); Albumin 2.7 g/dL (3.4-4.8); Alkaline Phosphatase 225 U/L (40-110); Anion Gap 16 mmol/L (10-20); BUN (Urea Nitrogen) 13 mg/dL (9.8-20.1); Bilirubin, Total 1.4 mg/dL (0.2-1.2); CK (CPK) 25 U/L (29-168); Calc. Creatinine Clearance 0 mL/min (70-130); Carbon Dioxide 29 mmol/L (23-31); Chloride 96 mmol/L (98-107); Globulin 4.4 g/dL (2.4-3.5); Glucose 119 mg/dL (80-115); Potassium 3.2 mmol/L (3.5-5.1); Protein, Total 7.1 g/dL (5.8-8.1); Sodium 138 mmol/L (136-145)
[2021-08-09 18:29] LABS: Bilirubin Negative (Negative); Blood, Urine 2+ (Negative); Clarity Turbid (Clear); Glucose, Urine (Dipstick) Normal (Negative); Ketone, Urine 20 mg/dL (Negative); Leukocyte 75 Leu/uL (Negative); Nitrite Negative (Negative); Protein, Urine (Dipstick) 30 mg/dL (Neg-Trace); RBC/HPF Greater than 50 HPF (0-3); Specific Gravity, Urine 1.023 (1.002-1.036); Yeast-Budding 2+ HPF (None Seen)
[2021-08-09 18:37] LABS: Bacteria/HPF 1+ HPF (None Seen)
[2021-08-09] MEDS ORDERED: cefTRIAXone\\ROCEPHIN 2 GM VIAL ONE (21:54)
== END 2021-08-09 23:00 | disposition home or self-care (01) ==
LOC: ERS 16:29
DX: N30.00 Acute cystitis without hematuria (principal); E03.9 Hypothyroidism, unspecified; I12.0 Hypertensive chronic kidney disease with stage 5 chronic kidney disease or end stage renal disease; N18.6 End stage renal disease; E11.22 Type 2 diabetes mellitus with diabetic chronic kidney disease; K74.60 Unspecified cirrhosis of liver; Z87.891 Personal history of nicotine dependence; Z79.899 Other long term (current) drug therapy
CPT/HCPCS: 36415; 51701; 70450; 71045; 72125; 80053; 81003; 81015; 82140; 82550; 85025; 87086; 93005; 94760; 96365; J0696

== ENCOUNTER 2021-09-01 10:13 | Inpatient (IN) | payer MEDICARE, OTHER ==
[2021-09-01] MEDS ORDERED: Norepinephrine 4 MG/4 ML VIAL ONE (10:20)
[2021-09-01] MEDS ORDERED: cefTRIAXone\\ROCEPHIN 2 GM VIAL ONE (10:29)
[2021-09-01] MEDS ORDERED: Albumin 25% 25 GM/100 ML BOT IVPB SCH (10:30)
[2021-09-01] MEDS ORDERED: Fentanyl 100 MCG/2 ML VIAL ONE (10:47)
[2021-09-01 11:04] LABS: ALT (SGPT) 21 U/L (8-55); AST (SGOT) 21 U/L (5-34); Albumin 2.2 g/dL (3.4-4.8); Alkaline Phosphatase 143 U/L (40-110); Anion Gap 20 mmol/L (10-20); BUN (Urea Nitrogen) 24 mg/dL (9.8-20.1); Bilirubin, Total 1.3 mg/dL (0.2-1.2); Calc. Creatinine Clearance 0 mL/min (70-130); Calcium 9.1 mg/dL (7.8-10.44); Carbon Dioxide 19 mmol/L (23-31); Chloride 101 mmol/L (98-107); Globulin 3.4 g/dL (2.4-3.5); Glucose 125 mg/dL (80-115); Potassium 3.1 mmol/L (3.5-5.1); Protein, Total 5.6 g/dL (5.8-8.1); Sodium 137 mmol/L (136-145)
[2021-09-01 11:31] LABS: Hemoglobin 10.8 g/dL (12.0-16.0); Mean Corpuscular HGB CONC 32.9 g/dL (32.0-36.0); Mean Corpuscular Hemoglobin 33.1 pg (27.0-31.0); Mean Platelet Volume 7.7 fL (7.4-10.4); Platelet Count 93 thou/uL (130-400); RBC Distribution Width 14.5 % (11.5-14.5); Red Blood Cell (RBC) Count 3.26 mill/uL (4.20-5.40); White Blood Cell (WBC) Count 4.3 thou/uL (4.8-10.8)
[2021-09-01 11:35] LABS: Band 64 % (5-11); Lymphocytes 13 % (21-51); MDiff Complete? YES; Metamyelocyte 4 % (0-0); Monocytes 3 % (0-10); Neutrophil 16 % (42-75); Platelet Morphology Comment Appears Decreased; Polychromasia SLIGHT = 2-3 cells (100X) (0-2/hpf); Reflex for Review?? YES
[2021-09-01] MEDS ORDERED: Midodrine HCl 5 MG TAB PO SCH (12:00)
[2021-09-01] MEDS ORDERED: Lidocaine 1% (PF) 30 ML VIAL ONE (12:23)
[2021-09-01 14:08] LABS: Lactic Acid 8.1 mmol/L (0.5-2.2)
[2021-09-01 14:27] LABS: RBC Count-Automated (BF) 152 /cu.mm; WBC/Nucleated-Auto (BF) 7275 /cu.mm
[2021-09-01 14:33] LABS: BF Color Yellow; Body Fluid Source Peritoneal Fluid; Clarity Hazy (Clear); Tube # EDTA
[2021-09-01 14:44] LABS: BF Segmented Neutrophils 76 %; Cell Count Non Hematic 15 %; Eosinophils 4 %; Lymphocytes 3 %
[2021-09-01] MEDS ORDERED: Meropenem 1 GM in Sodium Chloride 0.9% 100 ML IVPB SCH (15:00)
[2021-09-01 16:08] LABS: SARS-CoV-2 NAA Rapid Test Not Detected (NotDetected)
[2021-09-01 16:34] VITALS: BMI 30.4
[2021-09-01 18:08] LABS: Lactic Acid 7.6 mmol/L (0.5-2.2)
[2021-09-01] MEDS: Sodium Chloride 0.9% 1,000 ML IV SCH (18:48)
[2021-09-01] MEDS: Albumin 25% 25 GM/100 ML BOT IVPB SCH (18:48)
[2021-09-01] MEDS: Rifaximin 550 MG TAB PO SCH (21:48)
[2021-09-01] MEDS: Midodrine HCl 5 MG TAB PO SCH (21:48)
[2021-09-02] MEDS: Albumin 25% 25 GM/100 ML BOT IVPB SCH ×4 (01:32→17:57)
[2021-09-02 03:38] LABS: Hemoglobin 8.4 g/dL (12.0-16.0); Mean Corpuscular HGB CONC 33.4 g/dL (32.0-36.0); Mean Corpuscular Hemoglobin 33.6 pg (27.0-31.0); RBC Distribution Width 14.5 % (11.5-14.5); Red Blood Cell (RBC) Count 2.51 mill/uL (4.20-5.40); White Blood Cell (WBC) Count 4.7 thou/uL (4.8-10.8)
[2021-09-02 03:49] LABS: Anion Gap 23 mmol/L (10-20); BUN (Urea Nitrogen) 32 mg/dL (9.8-20.1); Calc. Creatinine Clearance 9 mL/min (70-130); Calcium 9.6 mg/dL (7.8-10.44); Carbon Dioxide 17 mmol/L (23-31); Chloride 101 mmol/L (98-107); Glucose 103 mg/dL (80-115); Potassium 3.8 mmol/L (3.5-5.1); Sodium 137 mmol/L (136-145)
[2021-09-02 03:53] LABS: Lactic Acid 6.2 mmol/L (0.5-2.2)
[2021-09-02 04:07] LABS: Band 31 % (5-11); Hypochromia SLIGHT = 6-15 cells (100X) (0-5/hpf); Lymphocytes 9 % (21-51); MDiff Complete? YES; Macrocytosis SLIGHT = 6-15 cells (100X) (0-5/hpf); Mean Platelet Volume 8.4 fL (7.4-10.4); Monocytes 10 % (0-10); Neutrophil 50 % (42-75); Platelet Count 50 thou/uL (130-400); Platelet Morphology Comment Appears Decreased
[2021-09-02] MEDS: Levothyroxine 150 MCG TAB PO SCH (06:39)
[2021-09-02] MEDS: Rifaximin 550 MG TAB PO SCH ×2 (08:23→20:35)
[2021-09-02] MEDS: Midodrine HCl 5 MG TAB PO SCH ×3 (08:23→20:35)
[2021-09-02] MEDS: Sodium Chloride 0.9% 1,000 ML IV SCH (08:24)
[2021-09-02] MEDS: Pantoprazole 40 MG VIAL IVP SCH (08:24)
[2021-09-02] MEDS: Fentanyl 100 MCG/2 ML VIAL SLOW IVP PRN ×2 (08:24→13:18)
[2021-09-02] MEDS ORDERED: Heparin 10,000 UNITS/ 10 ML VIAL ONE (09:23)
[2021-09-02 09:42] LABS: HBSAB Concentration Less than 8.00 mIU/mL; HBSAg Index 0.58 S/CO (0-0.99); Hep B Surf AB Non-Reactive (NonReactive); Hep B Surf Ag Non-Reactive S/CO (NonReactive)
[2021-09-02] MEDS ORDERED: Meropenem 500 MG in Sodium Chloride 0.9% 100 ML IVPB SCH (13:00)
[2021-09-02] MEDS: Meropenem 500 MG in Sodium Chloride 0.9% 100 ML IVPB SCH (17:57)
[2021-09-03] MEDS: Sodium Chloride 0.9% 1,000 ML IV SCH ×2 (01:10→09:01)
[2021-09-03 03:34] LABS: #Lymphocytes 0.3 thou/uL (1.20-3.40); #Monocytes 0.4 thou/uL (0.11-0.59); #Neutrophils 2.3 thou/uL (1.40-6.50); %Basophils 0.2 % (0.0-1.0); %Eosinophils 0.1 % (0.0-10.0); %Monocytes 11.6 % (0.0-10.0); Hemoglobin 6.8 g/dL (12.0-16.0); Mean Corpuscular Hemoglobin 33.9 pg (27.0-31.0); Mean Corpuscular Volume 99.9 fL (78.0-98.0); Mean Platelet Volume 7.8 fL (7.4-10.4); Platelet Count 44 thou/uL (130-400); RBC Distribution Width 14.4 % (11.5-14.5); Red Blood Cell (RBC) Count 2.01 mill/uL (4.20-5.40)
[2021-09-03 03:47] LABS: Anion Gap 13 mmol/L (10-20); BUN (Urea Nitrogen) 20 mg/dL (9.8-20.1); Calc. Creatinine Clearance 16 mL/min (70-130); Calcium 8.8 mg/dL (7.8-10.44); Carbon Dioxide 23 mmol/L (23-31); Chloride 108 mmol/L (98-107); Glucose 101 mg/dL (80-115); Potassium 3.3 mmol/L (3.5-5.1); Sodium 141 mmol/L (136-145)
[2021-09-03] MEDS: Levothyroxine 150 MCG TAB PO SCH (07:02)
[2021-09-03] MEDS: Pantoprazole 40 MG VIAL IVP SCH (09:00)
[2021-09-03] MEDS: Rifaximin 550 MG TAB PO SCH ×2 (09:00→20:52)
[2021-09-03] MEDS: Midodrine HCl 5 MG TAB PO SCH ×3 (09:00→20:51)
[2021-09-03] MEDS: Meropenem 500 MG in Sodium Chloride 0.9% 100 ML IVPB SCH (16:50)
[2021-09-03] MEDS: Fentanyl 100 MCG/2 ML VIAL SLOW IVP PRN (17:20)
[2021-09-04] MEDS: Sodium Chloride 0.9% 1,000 ML IV SCH ×3 (03:27→20:51)
[2021-09-04] MEDS: Levothyroxine 150 MCG TAB PO SCH (06:30)
[2021-09-04 07:55] LABS: #Lymphocytes 0.5 thou/uL (1.20-3.40); #Monocytes 0.4 thou/uL (0.11-0.59); #Neutrophils 2.9 thou/uL (1.40-6.50); %Basophils 0.1 % (0.0-1.0); %Eosinophils 1.2 % (0.0-10.0); %Lymphocytes 13.1 % (21.0-51.0); %Monocytes 11.3 % (0.0-10.0); %Neutrophils 74.3 % (42.0-75.0); Hemoglobin 10.2 g/dL (12.0-16.0); Mean Corpuscular HGB CONC 33.6 g/dL (32.0-36.0); Mean Corpuscular Hemoglobin 32.9 pg (27.0-31.0); Mean Platelet Volume 8.3 fL (7.4-10.4); Platelet Count 46 thou/uL (130-400); RBC Distribution Width 15.2 % (11.5-14.5); Red Blood Cell (RBC) Count 3.09 mill/uL (4.20-5.40); White Blood Cell (WBC) Count 3.9 thou/uL (4.8-10.8)
[2021-09-04] MEDS: Pantoprazole 40 MG VIAL IVP SCH (08:11)
[2021-09-04] MEDS: Midodrine HCl 5 MG TAB PO SCH ×3 (08:11→20:50)
[2021-09-04] MEDS: Rifaximin 550 MG TAB PO SCH ×2 (08:11→20:50)
[2021-09-04] MEDS: Meropenem 500 MG in Sodium Chloride 0.9% 100 ML IVPB SCH (15:34)
[2021-09-04] MEDS: Fentanyl 100 MCG/2 ML VIAL SLOW IVP PRN (20:59)
[2021-09-05] MEDS: Levothyroxine 150 MCG TAB PO SCH (06:01)
[2021-09-05] MEDS: Midodrine HCl 5 MG TAB PO SCH ×3 (09:55→21:12)
[2021-09-05] MEDS: Pantoprazole 40 MG VIAL IVP SCH (09:55)
[2021-09-05] MEDS: Rifaximin 550 MG TAB PO SCH ×2 (09:55→21:12)
[2021-09-05] MEDS: Sodium Chloride 0.9% 1,000 ML IV SCH ×2 (09:56→21:38)
[2021-09-05 11:39] LABS: Hemoglobin 9.8 g/dL (12.0-16.0); Mean Corpuscular HGB CONC 33.8 g/dL (32.0-36.0); Mean Corpuscular Hemoglobin 32.9 pg (27.0-31.0); Mean Corpuscular Volume 97.2 fL (78.0-98.0); Mean Platelet Volume 7.6 fL (7.4-10.4); Platelet Count 55 thou/uL (130-400); RBC Distribution Width 14.4 % (11.5-14.5); Red Blood Cell (RBC) Count 2.99 mill/uL (4.20-5.40); White Blood Cell (WBC) Count 3.5 thou/uL (4.8-10.8)
[2021-09-05 12:00] LABS: ALT (SGPT) 24 U/L (8-55); AST (SGOT) 53 U/L (5-34); Albumin 2.4 g/dL (3.4-4.8); Alkaline Phosphatase 100 U/L (40-110); Anion Gap 13 mmol/L (10-20); BUN (Urea Nitrogen) 25 mg/dL (9.8-20.1); Bilirubin, Total 1.3 mg/dL (0.2-1.2); Calc. Creatinine Clearance 15 mL/min (70-130); Calcium 8.3 mg/dL (7.8-10.44); Carbon Dioxide 21 mmol/L (23-31); Chloride 106 mmol/L (98-107); Globulin 2.6 g/dL (2.4-3.5); Glucose 120 mg/dL (80-115); Potassium 3.7 mmol/L (3.5-5.1); Sodium 136 mmol/L (136-145)
[2021-09-05 12:03] LABS: Band 5 % (5-11); Eosinophils 11 % (0-10); Lymphocytes 22 % (21-51); MDiff Complete? YES; Monocytes 13 % (0-10); Neutrophil 48 % (42-75); Platelet Morphology Comment Appears Decreased; RBC Morphology Normal
[2021-09-05] MEDS: Meropenem 500 MG in Sodium Chloride 0.9% 100 ML IVPB SCH (16:10)
[2021-09-05] MEDS: Fentanyl 100 MCG/2 ML VIAL SLOW IVP PRN ×2 (16:58→21:23)
[2021-09-06] MEDS: Fentanyl 100 MCG/2 ML VIAL SLOW IVP PRN ×2 (05:35→14:54)
[2021-09-06] MEDS: Levothyroxine 150 MCG TAB PO SCH (05:36)
[2021-09-06 06:55] LABS: #Eosinphils 0.2 thou/uL (0.0-0.7); #Lymphocytes 0.7 thou/uL (1.20-3.40); #Monocytes 0.5 thou/uL (0.11-0.59); #Neutrophils 2.7 thou/uL (1.40-6.50); %Basophils 0.2 % (0.0-1.0); %Eosinophils 3.9 % (0.0-10.0); %Lymphocytes 17.2 % (21.0-51.0); %Monocytes 11.7 % (0.0-10.0); Hemoglobin 10.6 g/dL (12.0-16.0); Mean Corpuscular HGB CONC 33.7 g/dL (32.0-36.0); Mean Corpuscular Hemoglobin 32.9 pg (27.0-31.0); Mean Corpuscular Volume 97.6 fL (78.0-98.0); Mean Platelet Volume 8.3 fL (7.4-10.4); Platelet Count 54 thou/uL (130-400); RBC Distribution Width 14.3 % (11.5-14.5); Red Blood Cell (RBC) Count 3.22 mill/uL (4.20-5.40); White Blood Cell (WBC) Count 4.1 thou/uL (4.8-10.8)
[2021-09-06 07:02] LABS: Anion Gap 14 mmol/L (10-20); BUN (Urea Nitrogen) 30 mg/dL (9.8-20.1); Calc. Creatinine Clearance 13 mL/min (70-130); Calcium 8.2 mg/dL (7.8-10.44); Carbon Dioxide 17 mmol/L (23-31); Chloride 108 mmol/L (98-107); Glucose 84 mg/dL (80-115); Potassium 3.8 mmol/L (3.5-5.1); Sodium 135 mmol/L (136-145)
[2021-09-06] MEDS: Midodrine HCl 5 MG TAB PO SCH ×3 (07:45→21:01)
[2021-09-06] MEDS ORDERED: Heparin 10,000 UNITS/ 10 ML VIAL ONE (09:46)
[2021-09-06] MEDS: Rifaximin 550 MG TAB PO SCH ×2 (12:56→21:01)
[2021-09-06] MEDS: Pantoprazole 40 MG VIAL IVP SCH (12:59)
[2021-09-06] MEDS: cefTRIAXone\\ROCEPHIN 2 GM in Sodium Chloride 0.9% 100 ML IVPB SCH (13:01)
[2021-09-06] MEDS: HYDROcodone/Acetaminophen 10/325 mg Tablet PO PRN (20:59)
[2021-09-06] MEDS: Gabapentin 100 MG CAP PO SCH (21:00)
[2021-09-07 04:48] LABS: #Eosinphils 0.1 thou/uL (0.0-0.7); #Lymphocytes 0.7 thou/uL (1.20-3.40); #Monocytes 0.5 thou/uL (0.11-0.59); #Neutrophils 2.2 thou/uL (1.40-6.50); %Basophils 0.6 % (0.0-1.0); %Eosinophils 3.7 % (0.0-10.0); %Lymphocytes 19.1 % (21.0-51.0); %Monocytes 13.1 % (0.0-10.0); %Neutrophils 63.5 % (42.0-75.0); Hemoglobin 9.6 g/dL (12.0-16.0); Mean Corpuscular HGB CONC 33.6 g/dL (32.0-36.0); Mean Corpuscular Hemoglobin 33.2 pg (27.0-31.0); Mean Corpuscular Volume 98.7 fL (78.0-98.0); Mean Platelet Volume 7.6 fL (7.4-10.4); Platelet Count 66 thou/uL (130-400); RBC Distribution Width 14.2 % (11.5-14.5); Red Blood Cell (RBC) Count 2.89 mill/uL (4.20-5.40); White Blood Cell (WBC) Count 3.5 thou/uL (4.8-10.8)
[2021-09-07 05:12] LABS: Albumin 2.3 g/dL (3.4-4.8); Alkaline Phosphatase 134 U/L (40-110); Anion Gap 11 mmol/L (10-20); Bilirubin, Total 1.1 mg/dL (0.2-1.2); Calcium 8.4 mg/dL (7.8-10.44); Carbon Dioxide 27 mmol/L (23-31); Chloride 103 mmol/L (98-107); Globulin 2.5 g/dL (2.4-3.5); Glucose 98 mg/dL (80-115); Potassium 3.5 mmol/L (3.5-5.1); Protein, Total 4.8 g/dL (5.8-8.1); Sodium 137 mmol/L (136-145)
[2021-09-07] MEDS: Levothyroxine 150 MCG TAB PO SCH (05:21)
[2021-09-07 05:48] LABS: Calc. Creatinine Clearance 18 mL/min (70-130)
[2021-09-07 05:49] LABS: BUN (Urea Nitrogen) 18 mg/dL (9.8-20.1)
[2021-09-07 05:50] LABS: AST (SGOT) 61 U/L (5-34)
[2021-09-07 05:51] LABS: ALT (SGPT) 27 U/L (8-55)
[2021-09-07] MEDS ORDERED: Sodium Bicarbonate 2.5 MEQ/5 ML VIAL ONE (08:23)
[2021-09-07] MEDS ORDERED: Lidocaine 1% PF 5 ML VIAL ONE (08:23)
[2021-09-07] MEDS: Midodrine HCl 5 MG TAB PO SCH ×3 (08:24→20:32)
[2021-09-07] MEDS: Rifaximin 550 MG TAB PO SCH ×2 (08:24→20:31)
[2021-09-07] MEDS: HYDROcodone/Acetaminophen 10/325 mg Tablet PO PRN ×2 (08:24→23:20)
[2021-09-07] MEDS: Pantoprazole 40 MG VIAL IVP SCH (08:25)
[2021-09-07 08:39] LABS: INR-International Normal Ratio 1.3; PTT 38.6 sec (22.9-36.1)
[2021-09-07] MEDS: cefTRIAXone\\ROCEPHIN 2 GM in Sodium Chloride 0.9% 100 ML IVPB SCH (10:15)
[2021-09-07] MEDS ORDERED: Albumin 25% 25 GM/100 ML BOT IVPB SCH (11:00)
[2021-09-07 11:24] LABS: RBC Count-Automated (BF) 620 /cu.mm; WBC/Nucleated-Auto (BF) 518 /cu.mm
[2021-09-07 12:38] LABS: Body Fluid Source Ascites Body Fluid; Clarity Hazy (Clear); Tube # EDTA
[2021-09-07 12:39] LABS: BF Color Yellow
[2021-09-07 14:11] LABS: BF Segmented Neutrophils 43 %; Cell Count Non Hematic 24 %; Lymphocytes 33 %
[2021-09-07] MEDS: Gabapentin 100 MG CAP PO SCH (20:31)
[2021-09-08] MEDS: Levothyroxine 150 MCG TAB PO SCH (05:40)
[2021-09-08 07:54] LABS: #Eosinphils 0.2 thou/uL (0.0-0.7); #Lymphocytes 0.7 thou/uL (1.20-3.40); #Monocytes 0.4 thou/uL (0.11-0.59); %Basophils 0.7 % (0.0-1.0); %Eosinophils 5.7 % (0.0-10.0); %Lymphocytes 21.1 % (21.0-51.0); %Monocytes 11.7 % (0.0-10.0); %Neutrophils 60.9 % (42.0-75.0); Hemoglobin 10.1 g/dL (12.0-16.0); Mean Corpuscular Hemoglobin 32.8 pg (27.0-31.0); Mean Corpuscular Volume 99.4 fL (78.0-98.0); Mean Platelet Volume 7.6 fL (7.4-10.4); Platelet Count 76 thou/uL (130-400); RBC Distribution Width 14.1 % (11.5-14.5); Red Blood Cell (RBC) Count 3.09 mill/uL (4.20-5.40); White Blood Cell (WBC) Count 3.3 thou/uL (4.8-10.8)
[2021-09-08] MEDS: Midodrine HCl 5 MG TAB PO SCH ×3 (08:15→20:03)
[2021-09-08 08:38] LABS: Anion Gap 13 mmol/L (10-20); Calcium 8.9 mg/dL (7.8-10.44); Carbon Dioxide 25 mmol/L (23-31); Chloride 103 mmol/L (98-107); Glucose 90 mg/dL (80-115); Potassium 3.5 mmol/L (3.5-5.1); Sodium 137 mmol/L (136-145)
[2021-09-08 08:39] LABS: BUN (Urea Nitrogen) 26 mg/dL (9.8-20.1); Calc. Creatinine Clearance 14 mL/min (70-130)
[2021-09-08] MEDS ORDERED: Heparin 10,000 UNITS/ 10 ML VIAL ONE (10:56)
[2021-09-08] MEDS: HYDROcodone/Acetaminophen 10/325 mg Tablet PO PRN ×3 (12:53→22:17)
[2021-09-08] MEDS: Rifaximin 550 MG TAB PO SCH ×2 (12:54→20:02)
[2021-09-08] MEDS: cefTRIAXone\\ROCEPHIN 2 GM in Sodium Chloride 0.9% 100 ML IVPB SCH (12:55)
[2021-09-08] MEDS: Gabapentin 100 MG CAP PO SCH (20:01)
[2021-09-09] MEDS: Levothyroxine 150 MCG TAB PO SCH (05:51)
[2021-09-09] MEDS: Midodrine HCl 5 MG TAB PO SCH ×3 (08:20→20:19)
[2021-09-09] MEDS: Rifaximin 550 MG TAB PO SCH ×2 (08:20→20:19)
[2021-09-09] MEDS: HYDROcodone/Acetaminophen 10/325 mg Tablet PO PRN ×2 (09:27→15:46)
[2021-09-09] MEDS: cefTRIAXone\\ROCEPHIN 2 GM in Sodium Chloride 0.9% 100 ML IVPB SCH (09:28)
[2021-09-09 16:21] LABS: SARS-CoV-2 PCR by NAA Not Detected (NotDetected)
[2021-09-09] MEDS: Gabapentin 100 MG CAP PO SCH (20:19)
[2021-09-10] MEDS: Levothyroxine 150 MCG TAB PO SCH (05:58)
[2021-09-10 06:48] LABS: Anion Gap 14 mmol/L (10-20); BUN (Urea Nitrogen) 23 mg/dL (9.8-20.1); Calc. Creatinine Clearance 12 mL/min (70-130); Calcium 8.7 mg/dL (7.8-10.44); Carbon Dioxide 26 mmol/L (23-31); Chloride 102 mmol/L (98-107); Glucose 97 mg/dL (80-115); Potassium 4.6 mmol/L (3.5-5.1); Sodium 137 mmol/L (136-145)
[2021-09-10 07:29] LABS: #Eosinphils 0.2 thou/uL (0.0-0.7); #Lymphocytes 0.9 thou/uL (1.20-3.40); #Monocytes 0.5 thou/uL (0.11-0.59); #Neutrophils 2.8 thou/uL (1.40-6.50); %Basophils 0.6 % (0.0-1.0); %Eosinophils 3.7 % (0.0-10.0); %Lymphocytes 19.3 % (21.0-51.0); %Monocytes 12.4 % (0.0-10.0); %Neutrophils 63.9 % (42.0-75.0); Hemoglobin 9.8 g/dL (12.0-16.0); Mean Corpuscular HGB CONC 31.6 g/dL (32.0-36.0); Mean Corpuscular Hemoglobin 31.1 pg (27.0-31.0); Mean Corpuscular Volume 98.6 fL (78.0-98.0); Mean Platelet Volume 7.5 fL (7.4-10.4); Platelet Count 104 thou/uL (130-400); RBC Distribution Width 13.9 % (11.5-14.5); Red Blood Cell (RBC) Count 3.14 mill/uL (4.20-5.40); White Blood Cell (WBC) Count 4.4 thou/uL (4.8-10.8)
[2021-09-10] MEDS: Midodrine HCl 5 MG TAB PO SCH ×3 (07:58→20:17)
[2021-09-10] MEDS: Rifaximin 550 MG TAB PO SCH ×2 (07:59→20:17)
[2021-09-10] MEDS ORDERED: Heparin 10,000 UNITS/ 10 ML VIAL ONE (08:03)
[2021-09-10] MEDS: cefTRIAXone\\ROCEPHIN 2 GM in Sodium Chloride 0.9% 100 ML IVPB SCH (14:14)
[2021-09-10] MEDS: Gabapentin 100 MG CAP PO SCH (20:17)
[2021-09-10] MEDS: HYDROcodone/Acetaminophen 10/325 mg Tablet PO PRN (20:19)
[2021-09-11] MEDS: Levothyroxine 150 MCG TAB PO SCH (05:33)
[2021-09-11] MEDS: Midodrine HCl 5 MG TAB PO SCH (08:23)
[2021-09-11] MEDS: Rifaximin 550 MG TAB PO SCH (08:23)
[2021-09-11] MEDS: cefTRIAXone\\ROCEPHIN 2 GM in Sodium Chloride 0.9% 100 ML IVPB SCH (10:32)
[2021-09-11 13:40] VITALS: BP 96/57; TEMP 97.8
== END 2021-09-11 14:03 | disposition home or self-care (01) | DRG 371 ==
LOC: ERS 10:13 → IMCU/EMU 14:07 → T4-A 09-05 17:01
PROVIDERS: ADMIT Internal Medicine; ATTEND Family Medicine
PROC: 0W9G3ZZ Drainage of Peritoneal Cavity, Percutaneous Approach (ICD-10-PCS; principal; 2021-09-01)
PROC: 5A1D70Z Performance of Urinary Filtration, Intermittent, Less than 6 Hours Per Day (ICD-10-PCS; 2021-09-02)
PROC: 30233N1 Transfusion of Nonautologous Red Blood Cells into Peripheral Vein, Percutaneous Approach (ICD-10-PCS; 2021-09-03)
PROC: 5A1D70Z Performance of Urinary Filtration, Intermittent, Less than 6 Hours Per Day (ICD-10-PCS; 2021-09-03)
PROC: 5A1D70Z Performance of Urinary Filtration, Intermittent, Less than 6 Hours Per Day (ICD-10-PCS; 2021-09-06)
PROC: 0W9G3ZZ Drainage of Peritoneal Cavity, Percutaneous Approach (ICD-10-PCS; 2021-09-07)
PROC: 5A1D70Z Performance of Urinary Filtration, Intermittent, Less than 6 Hours Per Day (ICD-10-PCS; 2021-09-08)
PROC: 5A1D70Z Performance of Urinary Filtration, Intermittent, Less than 6 Hours Per Day (ICD-10-PCS; 2021-09-10)
DX: K65.2 Spontaneous bacterial peritonitis (principal); N18.6 End stage renal disease; K76.7 Hepatorenal syndrome; G93.41 Metabolic encephalopathy; D61.818 Other pancytopenia; R18.8 Other ascites; K76.6 Portal hypertension; I12.0 Hypertensive chronic kidney disease with stage 5 chronic kidney disease or end stage renal disease; K52.9 Noninfective gastroenteritis and colitis, unspecified; K74.60 Unspecified cirrhosis of liver; E78.5 Hyperlipidemia, unspecified; E03.9 Hypothyroidism, unspecified; Z20.822 Contact with and (suspected) exposure to COVID-19; K21.9 Gastro-esophageal reflux disease without esophagitis; E87.6 Hypokalemia; K72.90 Hepatic failure, unspecified without coma; D64.9 Anemia, unspecified; E88.09 Other disorders of plasma-protein metabolism, not elsewhere classified; I95.89 Other hypotension; E11.22 Type 2 diabetes mellitus with diabetic chronic kidney disease; B96.20 Unspecified Escherichia coli [E. coli] as the cause of diseases classified elsewhere; E66.9 Obesity, unspecified; Z68.31 Body mass index [BMI] 31.0-31.9, adult; Z90.49 Acquired absence of other specified parts of digestive tract; Z88.8 Allergy status to other drugs, medicaments and biological substances; Z91.013 Allergy to seafood; Z99.2 Dependence on renal dialysis
CPT/HCPCS: 36415; 36416; 36430; 49083; 70450; 71045; 74177; 80048; 80053; 81001; 82140; 83605; 83630; 84443; 85025; 85060; 85610; 85730; 86706; 86850; 86900; 86901; 87040; 87045; 87046; 87070; 87077; 87086; 87186; 87205; 87324; 87340; 87427; 87449; 89051; 90935; 93005; 96374; 96375; 96376; C9113; G0257; J0696; J1644; J2001; J2185; J3010; J3490; J7050; P9016; P9047; U0002; U0003; U0005

== ENCOUNTER 2022-01-20 17:51 | Inpatient (IN) | payer MEDICARE, OTHER ==
[2022-01-20] MEDS ORDERED: Dextrose 50% Abboject 50 ML SYRINGE SLOW IVP PRN (21:14)
[2022-01-20] MEDS ORDERED: Dextrose 5% in Water 1,000 ML IV PRN (21:14)
[2022-01-20] MEDS ORDERED: HumaLOG 300 UNITS/3 ML VIAL SC PRN ×2 (21:14)
[2022-01-20] MEDS: Rifaximin 550 MG TAB PO SCH (23:21)
[2022-01-20] MEDS: Midodrine HCl 5 MG TAB PO SCH (23:21)
[2022-01-20 23:45] VITALS: BMI 30.2
[2022-01-21] MEDS ORDERED: Morphine 2 MG/ML VIAL SLOW IVP SCH (04:59)
[2022-01-21 05:36] LABS: #Eosinphils 0.1 thou/uL (0.0-0.7); #Lymphocytes 0.7 thou/uL (1.20-3.40); #Monocytes 0.2 thou/uL (0.11-0.59); #Neutrophils 1.3 thou/uL (1.40-6.50); %Basophils 0.1 % (0.0-1.0); %Eosinophils 5.2 % (0.0-10.0); %Lymphocytes 30.5 % (21.0-51.0); %Monocytes 10.2 % (0.0-10.0); Hemoglobin 9.3 g/dL (12.0-16.0); Mean Corpuscular HGB CONC 31.9 g/dL (32.0-36.0); Mean Corpuscular Hemoglobin 33.2 pg (27.0-31.0); Mean Platelet Volume 7.3 fL (7.4-10.4); Platelet Count 67 thou/uL (130-400); RBC Distribution Width 14.8 % (11.5-14.5); Red Blood Cell (RBC) Count 2.79 mill/uL (4.20-5.40); White Blood Cell (WBC) Count 2.3 thou/uL (4.8-10.8)
[2022-01-21 06:08] LABS: ALT (SGPT) 18 U/L (8-55); AST (SGOT) 19 U/L (5-34); Albumin 2.7 g/dL (3.4-4.8); Alkaline Phosphatase 150 U/L (40-110); Anion Gap 18 mmol/L (10-20); BUN (Urea Nitrogen) 26 mg/dL (9.8-20.1); Bilirubin, Total 0.9 mg/dL (0.2-1.2); Calc. Creatinine Clearance 9 mL/min (70-130); Calcium 9.4 mg/dL (7.8-10.44); Carbon Dioxide 26 mmol/L (23-31); Chloride 101 mmol/L (98-107); Globulin 3.2 g/dL (2.4-3.5); Glucose 95 mg/dL (80-115); Potassium 4.6 mmol/L (3.5-5.1); Protein, Total 5.9 g/dL (5.8-8.1); Sodium 140 mmol/L (136-145)
[2022-01-21] MEDS: Levothyroxine 150 MCG TAB PO SCH (06:23)
[2022-01-21] MEDS: Folic Acid 1 MG TAB PO SCH (10:00)
[2022-01-21] MEDS: Rifaximin 550 MG TAB PO SCH ×2 (10:01→21:51)
[2022-01-21] MEDS: Midodrine HCl 5 MG TAB PO SCH ×3 (10:01→21:51)
[2022-01-21] MEDS ORDERED: Acetaminophen 325 MG TAB PO SCH (11:00)
[2022-01-21 15:49] LABS: SARS-CoV-2 PCR by NAA Not Detected (NotDetected)
[2022-01-21] MEDS: cefTRIAXone\\ROCEPHIN 2 GM in Sodium Chloride 0.9% 100 ML IVPB SCH (15:53)
[2022-01-22 04:25] LABS: #Eosinphils 0.2 thou/uL (0.0-0.7); #Lymphocytes 0.6 thou/uL (1.20-3.40); #Monocytes 0.3 thou/uL (0.11-0.59); #Neutrophils 1.5 thou/uL (1.40-6.50); %Basophils 0.9 % (0.0-1.0); %Lymphocytes 23.5 % (21.0-51.0); %Monocytes 12.4 % (0.0-10.0); %Neutrophils 56.3 % (42.0-75.0); Hemoglobin 8.6 g/dL (12.0-16.0); Mean Corpuscular HGB CONC 33.3 g/dL (32.0-36.0); Mean Corpuscular Hemoglobin 34.6 pg (27.0-31.0); Mean Platelet Volume 7.4 fL (7.4-10.4); Platelet Count 65 thou/uL (130-400); RBC Distribution Width 14.7 % (11.5-14.5); Red Blood Cell (RBC) Count 2.48 mill/uL (4.20-5.40); White Blood Cell (WBC) Count 2.7 thou/uL (4.8-10.8)
[2022-01-22 04:39] LABS: Anion Gap 14 mmol/L (10-20); BUN (Urea Nitrogen) 15 mg/dL (9.8-20.1); Calc. Creatinine Clearance 13 mL/min (70-130); Calcium 8.6 mg/dL (7.8-10.44); Carbon Dioxide 28 mmol/L (23-31); Chloride 101 mmol/L (98-107); Glucose 98 mg/dL (80-115); Potassium 3.8 mmol/L (3.5-5.1); Sodium 139 mmol/L (136-145)
[2022-01-22] MEDS ORDERED: Acetaminophen 500 MG TAB PO SCH (06:15)
[2022-01-22] MEDS: Levothyroxine 150 MCG TAB PO SCH (06:22)
[2022-01-22] MEDS: Midodrine HCl 5 MG TAB PO SCH ×3 (10:51→20:49)
[2022-01-22] MEDS: Folic Acid 1 MG TAB PO SCH (10:52)
[2022-01-22] MEDS: Rifaximin 550 MG TAB PO SCH ×2 (10:52→20:50)
[2022-01-22] MEDS: cefTRIAXone\\ROCEPHIN 2 GM in Sodium Chloride 0.9% 100 ML IVPB SCH (16:14)
[2022-01-22] MEDS: Ondansetron PF 4 MG/2 ML Vial IVP PRN ×2 (20:57→23:50)
[2022-01-23] MEDS ORDERED: traMADol HCl 50 MG TAB PO SCH (04:25)
[2022-01-23 05:04] LABS: #Eosinphils 0.2 thou/uL (0.0-0.7); #Lymphocytes 0.7 thou/uL (1.20-3.40); #Monocytes 0.3 thou/uL (0.11-0.59); #Neutrophils 1.6 thou/uL (1.40-6.50); %Basophils 0.4 % (0.0-1.0); %Eosinophils 7.8 % (0.0-10.0); %Lymphocytes 25.3 % (21.0-51.0); %Monocytes 10.6 % (0.0-10.0); %Neutrophils 55.9 % (42.0-75.0); Hemoglobin 9.4 g/dL (12.0-16.0); Mean Corpuscular HGB CONC 32.3 g/dL (32.0-36.0); Mean Corpuscular Hemoglobin 33.4 pg (27.0-31.0); Mean Platelet Volume 7.3 fL (7.4-10.4); Platelet Count 75 thou/uL (130-400); RBC Distribution Width 14.8 % (11.5-14.5); Red Blood Cell (RBC) Count 2.82 mill/uL (4.20-5.40); White Blood Cell (WBC) Count 2.8 thou/uL (4.8-10.8)
[2022-01-23 05:11] LABS: Anion Gap 15 mmol/L (10-20); BUN (Urea Nitrogen) 20 mg/dL (9.8-20.1); Calc. Creatinine Clearance 11 mL/min (70-130); Calcium 8.8 mg/dL (7.8-10.44); Carbon Dioxide 28 mmol/L (23-31); Chloride 99 mmol/L (98-107); Glucose 117 mg/dL (80-115); Potassium 3.4 mmol/L (3.5-5.1); Sodium 139 mmol/L (136-145)
[2022-01-23] MEDS: Levothyroxine 150 MCG TAB PO SCH (05:11)
[2022-01-23] MEDS: Midodrine HCl 5 MG TAB PO SCH ×3 (09:26→20:12)
[2022-01-23] MEDS: Folic Acid 1 MG TAB PO SCH (09:26)
[2022-01-23] MEDS: Rifaximin 550 MG TAB PO SCH ×2 (09:26→20:11)
[2022-01-23] MEDS: Ondansetron PF 4 MG/2 ML Vial IVP PRN (10:23)
[2022-01-23] MEDS: cefTRIAXone\\ROCEPHIN 2 GM in Sodium Chloride 0.9% 100 ML IVPB SCH (16:31)
[2022-01-24 04:52] LABS: #Eosinphils 0.2 thou/uL (0.0-0.7); #Lymphocytes 0.6 thou/uL (1.20-3.40); #Monocytes 0.3 thou/uL (0.11-0.59); #Neutrophils 1.4 thou/uL (1.40-6.50); %Basophils 0.7 % (0.0-1.0); %Eosinophils 8.5 % (0.0-10.0); %Monocytes 12.2 % (0.0-10.0); %Neutrophils 54.5 % (42.0-75.0); Hemoglobin 8.4 g/dL (12.0-16.0); Mean Corpuscular HGB CONC 33.4 g/dL (32.0-36.0); Mean Corpuscular Hemoglobin 34.4 pg (27.0-31.0); Mean Platelet Volume 7.5 fL (7.4-10.4); Platelet Count 67 thou/uL (130-400); RBC Distribution Width 14.7 % (11.5-14.5); Red Blood Cell (RBC) Count 2.45 mill/uL (4.20-5.40); White Blood Cell (WBC) Count 2.6 thou/uL (4.8-10.8)
[2022-01-24 05:11] LABS: Anion Gap 16 mmol/L (10-20); BUN (Urea Nitrogen) 25 mg/dL (9.8-20.1); Calc. Creatinine Clearance 8 mL/min (70-130); Calcium 8.8 mg/dL (7.8-10.44); Carbon Dioxide 28 mmol/L (23-31); Chloride 102 mmol/L (98-107); Glucose 107 mg/dL (80-115); Potassium 3.9 mmol/L (3.5-5.1); Sodium 142 mmol/L (136-145)
[2022-01-24] MEDS: Levothyroxine 150 MCG TAB PO SCH (05:53)
[2022-01-24] MEDS: Rifaximin 550 MG TAB PO SCH (09:06)
[2022-01-24] MEDS: Folic Acid 1 MG TAB PO SCH (09:06)
[2022-01-24] MEDS ORDERED: Cefdinir 300 MG CAP PO SCH (10:00)
[2022-01-24] MEDS: Midodrine HCl 5 MG TAB PO SCH ×2 (10:14→15:57)
[2022-01-24 16:14] VITALS: BP 138/60; TEMP 98.2
== END 2022-01-24 16:51 | disposition home or self-care (01) | DRG 689 ==
LOC: ERS 17:51 → 2NO 19:34
PROVIDERS: ADMIT Internal Medicine; ATTEND Internal Medicine
PROC: 5A1D70Z Performance of Urinary Filtration, Intermittent, Less than 6 Hours Per Day (ICD-10-PCS; principal; 2022-01-21)
DX: N30.00 Acute cystitis without hematuria (principal); N18.6 End stage renal disease; G93.41 Metabolic encephalopathy; I12.0 Hypertensive chronic kidney disease with stage 5 chronic kidney disease or end stage renal disease; Z20.822 Contact with and (suspected) exposure to COVID-19; E03.9 Hypothyroidism, unspecified; E78.5 Hyperlipidemia, unspecified; K74.60 Unspecified cirrhosis of liver; E11.22 Type 2 diabetes mellitus with diabetic chronic kidney disease; E78.00 Pure hypercholesterolemia, unspecified; D63.1 Anemia in chronic kidney disease; E87.6 Hypokalemia; Z91.013 Allergy to seafood; Z91.041 Radiographic dye allergy status; Z79.899 Other long term (current) drug therapy; Z99.2 Dependence on renal dialysis; Z87.891 Personal history of nicotine dependence; Z79.890 Hormone replacement therapy; Z90.49 Acquired absence of other specified parts of digestive tract
CPT/HCPCS: 36415; 36416; 80048; 80053; 85025; 90935; 99285; G0257; J0696; J2405; J3490; U0003; U0005

== ENCOUNTER 2022-02-04 10:29 | Inpatient (IN) | payer MEDICARE ==
[~2022-02-04 10:29] MED LIST: Heparin 10,000 UNITS/ 10 ML VIAL ONE
[2022-02-04 11:22] LABS: Actual Bicarbonate (HCO3v) 29 mEq/L (22-28); Analyzer IN Cardio ER; Base Excess 6.1 mEq/L (-2.0 to +3.0); Calcium, Ionized (venous) 1.02 mmol/L (1.16-1.32); Chloride (VBG) 99 mmol/L (98-106); Hemoglobin (Hb) 10.7 g/dL (11.7-16.1); Potassium (VBG) 4.83 mmol/L (3.70-5.30); pH (venous) 7.56 (7.32-7.43)
[2022-02-04 11:55] LABS: Hemoglobin 10.3 g/dL (12.0-16.0); Mean Corpuscular HGB CONC 31.8 g/dL (32.0-36.0); Mean Corpuscular Hemoglobin 32.9 pg (27.0-31.0); Mean Platelet Volume 7.5 fL (7.4-10.4); Platelet Count 85 thou/uL (130-400); RBC Distribution Width 14.9 % (11.5-14.5); Red Blood Cell (RBC) Count 3.13 mill/uL (4.20-5.40); White Blood Cell (WBC) Count 3.3 thou/uL (4.8-10.8)
[2022-02-04 11:58] LABS: INR-International Normal Ratio 1.2
[2022-02-04 11:59] LABS: PTT 29.4 sec (22.9-36.1)
[2022-02-04 12:12] LABS: ALT (SGPT) 20 U/L (8-55); AST (SGOT) 26 U/L (5-34); Albumin 2.8 g/dL (3.4-4.8); Alkaline Phosphatase 203 U/L (40-110); Anion Gap 19 mmol/L (10-20); BUN (Urea Nitrogen) 26 mg/dL (9.8-20.1); Calc. Creatinine Clearance 0 mL/min (70-130); Calcium 9.4 mg/dL (7.8-10.44); Carbon Dioxide 26 mmol/L (23-31); Chloride 99 mmol/L (98-107); Glucose 98 mg/dL (80-115); Magnesium 2.3 mg/dL (1.6-2.6); Potassium 4.9 mmol/L (3.5-5.1); Protein, Total 6.8 g/dL (5.8-8.1); Sodium 139 mmol/L (136-145)
[2022-02-04 12:16] LABS: Band 7 % (5-11); Eosinophils 5 % (0-10); Lymphocytes 18 % (21-51); MDiff Complete? YES; Macrocytosis SLIGHT = 6-15 cells (100X) (0-5/hpf); Monocytes 8 % (0-10); Neutrophil 58 % (42-75); Platelet Morphology Comment Appears Decreased; Polychromasia SLIGHT = 2-3 cells (100X) (0-2/hpf); Reactive Lymphocytes 3 % (0-10)
[2022-02-04 12:23] LABS: Bilirubin Negative (Negative); Blood, Urine Small (Negative); Clarity Cloudy (Clear); Glucose, Urine (Dipstick) Negative (Negative); Ketone, Urine 40 mg/dL (Negative); Leukocyte Large (Negative); Nitrite Negative (Negative); Protein, Urine (Dipstick) 100 mg/dL (Neg-Trace); Urobilinogen 0.2 mg/dL (Less than 2)
[2022-02-04 12:33] LABS: Bacteria/HPF 4+ HPF (None Seen); WBC/HPF Greater than 50 HPF (0-3)
[2022-02-04] MEDS ORDERED: Cefepime 2 GM VIAL ONE (14:13)
[2022-02-04] MEDS ORDERED: Senokot S 8.6-50 MG TAB PO PRN (14:14)
[2022-02-04] MEDS ORDERED: Ondansetron PF 4 MG/2 ML Vial IVP PRN (14:14)
[2022-02-04] MEDS ORDERED: Bisacodyl 5 MG TAB PO PRN (14:14)
[2022-02-04 14:45] LABS: Hemoglobin A1c 4.3 % (4.0-6.0)
[2022-02-04 15:05] LABS: Lactic Acid 2.2 mmol/L (0.5-2.2)
[2022-02-04 16:07] VITALS: BMI 32.4
[2022-02-04 18:17] LABS: HBSAB Concentration Less than 8.00 mIU/mL; Hep B Surf AB Non-Reactive (NonReactive)
[2022-02-04 19:03] LABS: Legionella Urinary Ag Negative (Negative); Strep pneumo Urine Ag NEGATIVE (NEGATIVE)
[2022-02-04 19:20] LABS: HBSAg Index 3.11 S/CO (0-0.99)
[2022-02-04 19:21] LABS: Hep B Surf Ag Reflx Confirmation S/CO (NonReactive)
[2022-02-04 21:50] LABS: SARS-CoV-2 PCR by NAA Not Detected (NotDetected)
[2022-02-05] MEDS: Lactulose 10 GM/15 ML Oral Solution PR SCH ×2 (01:46→10:26)
[2022-02-05 04:01] LABS: #Eosinphils 0.1 thou/uL (0.0-0.7); #Lymphocytes 0.4 thou/uL (1.20-3.40); #Monocytes 0.2 thou/uL (0.11-0.59); #Neutrophils 2.6 thou/uL (1.40-6.50); %Basophils 0.9 % (0.0-1.0); %Eosinophils 2.1 % (0.0-10.0); %Lymphocytes 12.1 % (21.0-51.0); %Monocytes 6.9 % (0.0-10.0); %Neutrophils 78.1 % (42.0-75.0); Mean Corpuscular HGB CONC 33.3 g/dL (32.0-36.0); Mean Corpuscular Hemoglobin 34.1 pg (27.0-31.0); Mean Platelet Volume 7.3 fL (7.4-10.4); Platelet Count 71 thou/uL (130-400); RBC Distribution Width 14.8 % (11.5-14.5); Red Blood Cell (RBC) Count 2.93 mill/uL (4.20-5.40); White Blood Cell (WBC) Count 3.4 thou/uL (4.8-10.8)
[2022-02-05 04:14] LABS: ALT (SGPT) 18 U/L (8-55); AST (SGOT) 19 U/L (5-34); Albumin 2.6 g/dL (3.4-4.8); Alkaline Phosphatase 154 U/L (40-110); Anion Gap 15 mmol/L (10-20); BUN (Urea Nitrogen) 16 mg/dL (9.8-20.1); Bilirubin, Total 1.6 mg/dL (0.2-1.2); Calc. Creatinine Clearance 15 mL/min (70-130); Calcium 8.9 mg/dL (7.8-10.44); Carbon Dioxide 27 mmol/L (23-31); Cardiac Risk 3.5 (Less than 4.5); Chloride 99 mmol/L (98-107); Cholesterol 112 mg/dl (< 200 Desired); Globulin 3.5 g/dL (2.4-3.5); Glucose 107 mg/dL (80-115); HDL Cholesterol 32 mg/dL (>60 Neg Risk); LDL Cholesterol, Calculated 60 mg/dL; Magnesium 1.9 mg/dL (1.6-2.6); Potassium 3.8 mmol/L (3.5-5.1); Protein, Total 6.1 g/dL (5.8-8.1); Sodium 137 mmol/L (136-145); Triglycerides 99 mg/dL (Less than 150)
[2022-02-05 11:38] LABS: Syphilis Antibody Nonreactive (Nonreactive); Syphilis Antibody Index 0.07 S/CO (<1.00 Non-Reactive)
[2022-02-05] MEDS: Acetaminophen 325 MG TAB PO PRN ×2 (12:31→21:05)
[2022-02-05] MEDS: Midodrine HCl 5 MG TAB PO SCH ×2 (14:10→20:56)
[2022-02-05] MEDS: Cefepime 1 GM in Sodium Chloride 0.9% 100 ML IVPB SCH (14:10)
[2022-02-05] MEDS ORDERED: traMADol HCl 50 MG TAB PO PRN (14:50)
[2022-02-05] MEDS ORDERED: traMADol HCl 50 MG TAB PO SCH (15:00)
[2022-02-05] MEDS ORDERED: Non-Formulary Item 1 EACH (Lactulose 10 Gm/15ml Oral Sol 10 GM/15 ML Ml) PO SCH (15:00)
[2022-02-05] MEDS: Rifaximin 550 MG TAB PO SCH (20:57)
[2022-02-06 05:01] LABS: #Eosinphils 0.1 thou/uL (0.0-0.7); #Lymphocytes 0.6 thou/uL (1.20-3.40); #Monocytes 0.2 thou/uL (0.11-0.59); #Neutrophils 2.2 thou/uL (1.40-6.50); %Lymphocytes 18.7 % (21.0-51.0); %Neutrophils 70.4 % (42.0-75.0); Hemoglobin 9.3 g/dL (12.0-16.0); Mean Corpuscular HGB CONC 33.9 g/dL (32.0-36.0); Mean Corpuscular Hemoglobin 34.8 pg (27.0-31.0); Platelet Count 71 thou/uL (130-400); RBC Distribution Width 14.8 % (11.5-14.5); Red Blood Cell (RBC) Count 2.68 mill/uL (4.20-5.40); White Blood Cell (WBC) Count 3.2 thou/uL (4.8-10.8)
[2022-02-06 05:04] LABS: ALT (SGPT) 17 U/L (8-55); AST (SGOT) 15 U/L (5-34); Albumin 2.5 g/dL (3.4-4.8); Alkaline Phosphatase 140 U/L (40-110); Anion Gap 16 mmol/L (10-20); BUN (Urea Nitrogen) 26 mg/dL (9.8-20.1); Bilirubin, Total 1.4 mg/dL (0.2-1.2); Calc. Creatinine Clearance 11 mL/min (70-130); Calcium 8.8 mg/dL (7.8-10.44); Carbon Dioxide 26 mmol/L (23-31); Chloride 101 mmol/L (98-107); Globulin 3.4 g/dL (2.4-3.5); Glucose 96 mg/dL (80-115); Magnesium 2.2 mg/dL (1.6-2.6); Potassium 4.1 mmol/L (3.5-5.1); Protein, Total 5.9 g/dL (5.8-8.1); Sodium 139 mmol/L (136-145)
[2022-02-06 05:20] LABS: HIV (1/2) Antibody/Antigen Non-Reactive (NonReactive); HIV 1/2 INDEX 0.09 S/CO (<1.00)
[2022-02-06] MEDS: Levothyroxine 150 MCG TAB PO SCH (06:51)
[2022-02-06] MEDS: Folic Acid 1 MG TAB PO SCH (08:35)
[2022-02-06] MEDS: Cholecalciferol 1,000 UNITS (25 MCG) TAB PO SCH (08:35)
[2022-02-06] MEDS: Ascorbic Acid 500 mg Chewable Tablet PO SCH (08:35)
[2022-02-06] MEDS: Multivit, Therapeutic 1 TAB PO SCH (08:35)
[2022-02-06] MEDS: Rifaximin 550 MG TAB PO SCH ×2 (08:36→21:53)
[2022-02-06] MEDS: Midodrine HCl 5 MG TAB PO SCH ×3 (08:36→21:53)
[2022-02-06] MEDS ORDERED: Ondansetron PF 4 MG/2 ML Vial ONE (09:53)
[2022-02-06] MEDS ORDERED: Sodium Bicarbonate 2.5 MEQ/5 ML VIAL ONE (10:08)
[2022-02-06] MEDS ORDERED: Lidocaine 1% PF 5 ML VIAL ONE (10:08)
[2022-02-06 11:20] LABS: RBC Count-Automated (BF) 150 /cu.mm; WBC/Nucleated-Auto (BF) 103 /cu.mm
[2022-02-06 11:34] LABS: Body Fluid Source Ascites Body Fluid; Tube # EDTA
[2022-02-06 11:35] LABS: BF Color Yellow; Clarity Clear (Clear)
[2022-02-06 11:36] LABS: BF Segmented Neutrophils 8 %; Cell Count Non Hematic 67 %; Lymphocytes 25 %
[2022-02-06] MEDS: Cefepime 1 GM in Sodium Chloride 0.9% 100 ML IVPB SCH (13:46)
[2022-02-06] MEDS: Ondansetron ODT 4 MG TAB PO PRN (21:53)
[2022-02-07 03:55] LABS: #Eosinphils 0.2 thou/uL (0.0-0.7); #Lymphocytes 0.6 thou/uL (1.20-3.40); #Monocytes 0.2 thou/uL (0.11-0.59); %Lymphocytes 19.7 % (21.0-51.0); %Monocytes 6.7 % (0.0-10.0); %Neutrophils 67.6 % (42.0-75.0); Hemoglobin 8.9 g/dL (12.0-16.0); Mean Corpuscular HGB CONC 33.4 g/dL (32.0-36.0); Mean Corpuscular Hemoglobin 34.1 pg (27.0-31.0); Platelet Count 65 thou/uL (130-400); RBC Distribution Width 14.3 % (11.5-14.5); Red Blood Cell (RBC) Count 2.62 mill/uL (4.20-5.40)
[2022-02-07 04:04] LABS: ALT (SGPT) 14 U/L (8-55); AST (SGOT) 15 U/L (5-34); Albumin 2.4 g/dL (3.4-4.8); Alkaline Phosphatase 139 U/L (40-110); Anion Gap 12 mmol/L (10-20); BUN (Urea Nitrogen) 35 mg/dL (9.8-20.1); Bilirubin, Total 1.2 mg/dL (0.2-1.2); Calc. Creatinine Clearance 9 mL/min (70-130); Calcium 8.7 mg/dL (7.8-10.44); Carbon Dioxide 30 mmol/L (23-31); Chloride 99 mmol/L (98-107); Globulin 3.3 g/dL (2.4-3.5); Glucose 103 mg/dL (80-115); Magnesium 2.3 mg/dL (1.6-2.6); Potassium 4.2 mmol/L (3.5-5.1); Protein, Total 5.7 g/dL (5.8-8.1); Sodium 137 mmol/L (136-145)
[2022-02-07] MEDS: Levothyroxine 150 MCG TAB PO SCH (06:19)
[2022-02-07] MEDS: Acetaminophen 325 MG TAB PO PRN ×2 (06:35→21:12)
[2022-02-07] MEDS ORDERED: Heparin 10,000 UNITS/ 10 ML VIAL ONE (08:40)
[2022-02-07] MEDS: Folic Acid 1 MG TAB PO SCH (08:43)
[2022-02-07] MEDS: Multivit, Therapeutic 1 TAB PO SCH (08:43)
[2022-02-07] MEDS: Ascorbic Acid 500 mg Chewable Tablet PO SCH (08:43)
[2022-02-07] MEDS: Rifaximin 550 MG TAB PO SCH ×2 (08:43→21:12)
[2022-02-07] MEDS: Midodrine HCl 5 MG TAB PO SCH ×3 (08:43→21:13)
[2022-02-07] MEDS: Cholecalciferol 1,000 UNITS (25 MCG) TAB PO SCH (08:44)
[2022-02-07] MEDS: Ondansetron ODT 4 MG TAB PO PRN ×3 (08:53→22:42)
[2022-02-07] MEDS ORDERED: Simethicone Chewable 80 MG TAB PO PRN (14:15)
[2022-02-07] MEDS: Hydrocortisone/Pramoxine (Proctofoam HC) 10 GM BOX PR SCH ×2 (16:15→21:13)
[2022-02-08] MEDS: Acetaminophen 325 MG TAB PO PRN (00:30)
[2022-02-08 04:24] LABS: #Eosinphils 0.2 thou/uL (0.0-0.7); #Lymphocytes 0.8 thou/uL (1.20-3.40); #Monocytes 0.4 thou/uL (0.11-0.59); #Neutrophils 2.4 thou/uL (1.40-6.50); %Basophils 0.4 % (0.0-1.0); %Eosinophils 4.8 % (0.0-10.0); %Lymphocytes 21.1 % (21.0-51.0); %Monocytes 11.1 % (0.0-10.0); %Neutrophils 62.6 % (42.0-75.0); Hemoglobin 9.6 g/dL (12.0-16.0); Mean Corpuscular HGB CONC 33.2 g/dL (32.0-36.0); Mean Corpuscular Hemoglobin 33.3 pg (27.0-31.0); Mean Platelet Volume 7.2 fL (7.4-10.4); Platelet Count 65 thou/uL (130-400); RBC Distribution Width 14.2 % (11.5-14.5); Red Blood Cell (RBC) Count 2.88 mill/uL (4.20-5.40); White Blood Cell (WBC) Count 3.8 thou/uL (4.8-10.8)
[2022-02-08 04:48] LABS: ALT (SGPT) 18 U/L (8-55); AST (SGOT) 22 U/L (5-34); Albumin 2.6 g/dL (3.4-4.8); Alkaline Phosphatase 158 U/L (40-110); Anion Gap 16 mmol/L (10-20); BUN (Urea Nitrogen) 16 mg/dL (9.8-20.1); Bilirubin, Total 1.2 mg/dL (0.2-1.2); Calc. Creatinine Clearance 14 mL/min (70-130); Calcium 8.5 mg/dL (7.8-10.44); Carbon Dioxide 24 mmol/L (23-31); Chloride 98 mmol/L (98-107); Globulin 3.5 g/dL (2.4-3.5); Glucose 81 mg/dL (80-115); Magnesium 1.9 mg/dL (1.6-2.6); Potassium 3.7 mmol/L (3.5-5.1); Protein, Total 6.1 g/dL (5.8-8.1); Sodium 134 mmol/L (136-145)
[2022-02-08] MEDS: Levothyroxine 150 MCG TAB PO SCH (06:13)
[2022-02-08] MEDS: Cholecalciferol 1,000 UNITS (25 MCG) TAB PO SCH (08:50)
[2022-02-08] MEDS: Rifaximin 550 MG TAB PO SCH ×2 (08:50→19:51)
[2022-02-08] MEDS: Ondansetron ODT 4 MG TAB PO PRN ×2 (08:50→15:39)
[2022-02-08] MEDS: Midodrine HCl 5 MG TAB PO SCH ×3 (08:51→19:51)
[2022-02-08] MEDS: Multivit, Therapeutic 1 TAB PO SCH (08:51)
[2022-02-08] MEDS: Folic Acid 1 MG TAB PO SCH (08:51)
[2022-02-08] MEDS: Ascorbic Acid 500 mg Chewable Tablet PO SCH (08:51)
[2022-02-08] MEDS: Hydrocortisone/Pramoxine (Proctofoam HC) 10 GM BOX PR SCH ×3 (09:15→19:54)
[2022-02-09] MEDS: Levothyroxine 150 MCG TAB PO SCH (05:38)
[2022-02-09 06:16] LABS: #Eosinphils 0.3 thou/uL (0.0-0.7); #Lymphocytes 0.8 thou/uL (1.20-3.40); #Monocytes 0.3 thou/uL (0.11-0.59); #Neutrophils 1.8 thou/uL (1.40-6.50); %Basophils 0.4 % (0.0-1.0); %Eosinophils 8.8 % (0.0-10.0); %Monocytes 9.9 % (0.0-10.0); %Neutrophils 56.9 % (42.0-75.0); Hemoglobin 8.7 g/dL (12.0-16.0); Mean Corpuscular HGB CONC 33.7 g/dL (32.0-36.0); Mean Platelet Volume 8.8 fL (7.4-10.4); Platelet Count 59 thou/uL (130-400); RBC Distribution Width 13.9 % (11.5-14.5); Red Blood Cell (RBC) Count 2.56 mill/uL (4.20-5.40); White Blood Cell (WBC) Count 3.2 thou/uL (4.8-10.8)
[2022-02-09 06:27] LABS: ALT (SGPT) 15 U/L (8-55); AST (SGOT) 23 U/L (5-34); Albumin 2.3 g/dL (3.4-4.8); Alkaline Phosphatase 155 U/L (40-110); Anion Gap 16 mmol/L (10-20); BUN (Urea Nitrogen) 23 mg/dL (9.8-20.1); Bilirubin, Total 0.9 mg/dL (0.2-1.2); Calc. Creatinine Clearance 10 mL/min (70-130); Calcium 8.8 mg/dL (7.8-10.44); Carbon Dioxide 23 mmol/L (23-31); Chloride 99 mmol/L (98-107); Globulin 3.2 g/dL (2.4-3.5); Glucose 73 mg/dL (80-115); Potassium 4.1 mmol/L (3.5-5.1); Protein, Total 5.5 g/dL (5.8-8.1); Sodium 134 mmol/L (136-145)
[2022-02-09 07:52] VITALS: BP 99/57; TEMP 98.2
[2022-02-09] MEDS: Ascorbic Acid 500 mg Chewable Tablet PO SCH (07:58)
[2022-02-09] MEDS: Rifaximin 550 MG TAB PO SCH (07:58)
[2022-02-09] MEDS: Midodrine HCl 5 MG TAB PO SCH ×2 (07:58→14:12)
[2022-02-09] MEDS: Cholecalciferol 1,000 UNITS (25 MCG) TAB PO SCH (07:59)
[2022-02-09] MEDS: Multivit, Therapeutic 1 TAB PO SCH (07:59)
[2022-02-09] MEDS: Folic Acid 1 MG TAB PO SCH (07:59)
[2022-02-09] MEDS: Hydrocortisone/Pramoxine (Proctofoam HC) 10 GM BOX PR SCH ×2 (08:02→15:06)
[2022-02-10 18:09] LABS: Hep B Surface AG-Rflx Sendout Confirm. indicated (Negative)
== END 2022-02-09 18:59 | disposition home or self-care (01) | DRG 70 ==
LOC: ERS 10:29 → IMCU/EMU 14:14 → T4-A 02-08 14:38
PROVIDERS: ADMIT Family Medicine; ATTEND Family Medicine
PROC: 5A1D70Z Performance of Urinary Filtration, Intermittent, Less than 6 Hours Per Day (ICD-10-PCS; 2022-02-04)
PROC: 0W9G3ZZ Drainage of Peritoneal Cavity, Percutaneous Approach (ICD-10-PCS; principal; 2022-02-06)
PROC: 5A1D70Z Performance of Urinary Filtration, Intermittent, Less than 6 Hours Per Day (ICD-10-PCS; 2022-02-07)
DX: G93.41 Metabolic encephalopathy (principal); N18.6 End stage renal disease; K76.7 Hepatorenal syndrome; K72.00 Acute and subacute hepatic failure without coma; N30.00 Acute cystitis without hematuria; I12.0 Hypertensive chronic kidney disease with stage 5 chronic kidney disease or end stage renal disease; R18.8 Other ascites; D61.818 Other pancytopenia; E03.9 Hypothyroidism, unspecified; K74.60 Unspecified cirrhosis of liver; D69.6 Thrombocytopenia, unspecified; E78.00 Pure hypercholesterolemia, unspecified; D63.8 Anemia in other chronic diseases classified elsewhere; K72.10 Chronic hepatic failure without coma; D63.1 Anemia in chronic kidney disease; E11.22 Type 2 diabetes mellitus with diabetic chronic kidney disease; B96.1 Klebsiella pneumoniae [K. pneumoniae] as the cause of diseases classified elsewhere; Z20.822 Contact with and (suspected) exposure to COVID-19; Z99.2 Dependence on renal dialysis; Z90.49 Acquired absence of other specified parts of digestive tract; Z98.890 Other specified postprocedural states; Z91.013 Allergy to seafood; Z88.8 Allergy status to other drugs, medicaments and biological substances; Z79.899 Other long term (current) drug therapy
CPT/HCPCS: 36415; 49083; 51701; 70450; 71045; 80053; 80061; 81003; 81015; 82140; 82248; 82607; 82746; 82805; 83036; 83605; 83735; 84443; 84484; 85025; 85060; 85610; 85730; 86706; 86780; 87040; 87070; 87077; 87081; 87086; 87186; 87205; 87340; 87389; 87449; 87899; 89051; 90935; 93005; 96361; 96365; G0257; J0692; J1644; J1956; J2405; J3490; Q0162; U0003; U0005

== ENCOUNTER 2022-03-03 08:04 | Day surgery (SDC) | payer MEDICARE, OTHER ==
[2022-03-03] MEDS ORDERED: Lidocaine 1% PF 5 ML VIAL ONE (08:17)
[2022-03-03] MEDS ORDERED: Sodium Bicarbonate 2.5 MEQ/5 ML VIAL ONE (08:17)
[2022-03-03] MEDS ORDERED: Albumin 25% 100 ML ONE (08:17)
[2022-03-03] MEDS ORDERED: Albumin 25% 25 GM/100 ML BOT IVPB SCH (08:30)
[2022-03-03 11:39] LABS: RBC Count-Automated (BF) 45 /cu.mm; WBC/Nucleated-Auto (BF) 191 /cu.mm
[2022-03-03 11:42] LABS: Body Fluid Source Ascites Body Fluid
[2022-03-03 11:43] LABS: BF Color Yellow; Clarity Hazy (Clear); Tube # EDTA
[2022-03-03 11:46] LABS: BF Segmented Neutrophils 4 %; Lymphocytes 43 %
[2022-03-03 11:49] LABS: Cell Count Non Hematic 53 %
[2022-03-03 11:59] VITALS: BP 115/48
[2022-03-03 20:23] LABS: Fluid, Protein 1.2 g/dL (Not Available)
== END 2022-03-03 09:55 | disposition home or self-care (01) ==
LOC: ULT 08:04
PROVIDERS: ATTEND Family Medicine
PROC: 0W9G3ZX Drainage of Peritoneal Cavity, Percutaneous Approach, Diagnostic (ICD-10-PCS; principal; 2022-03-03)
DX: K75.81 Nonalcoholic steatohepatitis (NASH) (principal); K74.60 Unspecified cirrhosis of liver; R18.8 Other ascites; K76.7 Hepatorenal syndrome; K72.90 Hepatic failure, unspecified without coma; I12.0 Hypertensive chronic kidney disease with stage 5 chronic kidney disease or end stage renal disease; E11.22 Type 2 diabetes mellitus with diabetic chronic kidney disease; N18.6 End stage renal disease; E89.0 Postprocedural hypothyroidism; Z87.891 Personal history of nicotine dependence; Z79.890 Hormone replacement therapy; Z79.899 Other long term (current) drug therapy; Z91.013 Allergy to seafood; Z91.048 Other nonmedicinal substance allergy status; Z99.2 Dependence on renal dialysis
CPT/HCPCS: 49083; 82042; 82150; 83615; 84157; 84478; 87070; 87205; 89051; P9047; 85060; 88112; 88305

== ENCOUNTER 2022-03-25 13:58 | Inpatient (IN) | payer MEDICARE ==
[2022-03-25 16:10] VITALS: BMI 33.1
[2022-03-25] MEDS ORDERED: Acetaminophen 325 MG TAB PO PRN (16:22)
[2022-03-25] MEDS ORDERED: Senokot S 8.6-50 MG TAB PO PRN (16:22)
[2022-03-25] MEDS ORDERED: Dextrose 50% Abboject 50 ML SYRINGE SLOW IVP PRN (17:01)
[2022-03-25] MEDS ORDERED: HumaLOG 300 UNITS/3 ML VIAL SC PRN (17:01)
[2022-03-25] MEDS ORDERED: Dextrose 5% in Water 1,000 ML IV PRN (17:01)
[2022-03-25] MEDS ORDERED: Midodrine HCl 5 MG TAB PO SCH (21:00)
[2022-03-25] MEDS: Rifaximin 550 MG TAB PO SCH (21:04)
[2022-03-25] MEDS: Famotidine 20 MG TAB PO SCH (21:04)
[2022-03-25] MEDS: Heparin 5,000 UNITS/ML VIAL SC SCH (22:18)
[2022-03-26 05:22] LABS: Anion Gap 20 mmol/L (10-20); BUN (Urea Nitrogen) 37 mg/dL (9.8-20.1); Calc. Creatinine Clearance 8 mL/min (70-130); Calcium 8.8 mg/dL (7.8-10.44); Carbon Dioxide 23 mmol/L (23-31); Chloride 103 mmol/L (98-107); Estimated GFR 4; Glucose 143 mg/dL (80-115); Potassium 4.1 mmol/L (3.5-5.1); Sodium 142 mmol/L (136-145)
[2022-03-26] MEDS: Levothyroxine 150 MCG TAB PO SCH (05:41)
[2022-03-26 07:51] LABS: #Eosinphils 0.1 thou/uL (0.0-0.7); #Lymphocytes 0.7 thou/uL (1.20-3.40); #Monocytes 0.3 thou/uL (0.11-0.59); %Basophils 0.7 % (0.0-1.0); %Eosinophils 4.4 % (0.0-10.0); %Lymphocytes 21.5 % (21.0-51.0); %Monocytes 8.5 % (0.0-10.0); %Neutrophils 64.9 % (42.0-75.0); Hemoglobin 9.3 g/dL (12.0-16.0); Mean Corpuscular HGB CONC 33.8 g/dL (32.0-36.0); Mean Corpuscular Hemoglobin 35.1 pg (27.0-31.0); Mean Platelet Volume 7.8 fL (7.4-10.4); Platelet Count 75 thou/uL (130-400); RBC Distribution Width 14.3 % (11.5-14.5); Red Blood Cell (RBC) Count 2.66 mill/uL (4.20-5.40); White Blood Cell (WBC) Count 3.1 thou/uL (4.8-10.8)
[2022-03-26] MEDS: Atorvastatin Calcium 10 MG TAB PO SCH (10:31)
[2022-03-26] MEDS: Rifaximin 550 MG TAB PO SCH ×2 (10:33→21:06)
[2022-03-26] MEDS: Famotidine 20 MG TAB PO SCH (10:33)
[2022-03-26] MEDS: Heparin 5,000 UNITS/ML VIAL SC SCH ×2 (10:34→16:29)
[2022-03-26 19:08] LABS: Lactic Acid 1.9 mmol/L (0.5-2.2)
[2022-03-26] MEDS ORDERED: Famotidine 20 MG TAB PO SCH (21:00)
[2022-03-27] MEDS: Levothyroxine 150 MCG TAB PO SCH (05:35)
[2022-03-27 07:29] LABS: #Eosinphils 0.2 thou/uL (0.0-0.7); #Lymphocytes 0.6 thou/uL (1.20-3.40); #Monocytes 0.4 thou/uL (0.11-0.59); #Neutrophils 1.8 thou/uL (1.40-6.50); %Basophils 0.7 % (0.0-1.0); %Eosinophils 5.9 % (0.0-10.0); %Lymphocytes 19.1 % (21.0-51.0); %Monocytes 12.3 % (0.0-10.0); %Neutrophils 62.1 % (42.0-75.0); Mean Corpuscular HGB CONC 32.7 g/dL (32.0-36.0); Mean Corpuscular Hemoglobin 34.1 pg (27.0-31.0); Platelet Count 62 thou/uL (130-400); RBC Distribution Width 14.1 % (11.5-14.5); Red Blood Cell (RBC) Count 2.64 mill/uL (4.20-5.40); White Blood Cell (WBC) Count 2.9 thou/uL (4.8-10.8)
[2022-03-27 07:40] LABS: Chloride 103 mmol/L (98-107); Potassium 4.4 mmol/L (3.5-5.1); Sodium 140 mmol/L (136-145)
[2022-03-27 07:41] LABS: Calcium 8.6 mg/dL (7.8-10.44); Glucose 107 mg/dL (80-115)
[2022-03-27 07:42] LABS: Anion Gap 22 mmol/L (10-20); Carbon Dioxide 19 mmol/L (23-31)
[2022-03-27 07:44] LABS: Calc. Creatinine Clearance 7 mL/min (70-130); Estimated GFR 4
[2022-03-27 07:45] LABS: BUN (Urea Nitrogen) 51 mg/dL (9.8-20.1)
[2022-03-27] MEDS: Rifaximin 550 MG TAB PO SCH (10:08)
[2022-03-27] MEDS: Atorvastatin Calcium 10 MG TAB PO SCH (10:08)
[2022-03-27 11:58] VITALS: BP 123/56; TEMP 97.6
== END 2022-03-27 14:20 | disposition home or self-care (01) | DRG 441 ==
LOC: 2NO 13:58 → OBSVTOIN 03-26 16:13
PROVIDERS: ADMIT Internal Medicine; ATTEND Internal Medicine
DX: K72.90 Hepatic failure, unspecified without coma (principal); Z20.822 Contact with and (suspected) exposure to COVID-19; N18.6 End stage renal disease; G93.41 Metabolic encephalopathy; N30.00 Acute cystitis without hematuria; I12.0 Hypertensive chronic kidney disease with stage 5 chronic kidney disease or end stage renal disease; R47.01 Aphasia; R18.8 Other ascites; D61.818 Other pancytopenia; K75.81 Nonalcoholic steatohepatitis (NASH); K74.60 Unspecified cirrhosis of liver; E11.22 Type 2 diabetes mellitus with diabetic chronic kidney disease; E89.0 Postprocedural hypothyroidism; R47.1 Dysarthria and anarthria; D63.1 Anemia in chronic kidney disease; Z99.2 Dependence on renal dialysis; Z91.013 Allergy to seafood; Z91.09 Other allergy status, other than to drugs and biological substances; Z79.899 Other long term (current) drug therapy; Z79.890 Hormone replacement therapy; Z90.49 Acquired absence of other specified parts of digestive tract; Z87.891 Personal history of nicotine dependence; Z28.21 Immunization not carried out because of patient refusal
CPT/HCPCS: 36415; 36416; 70551; 80048; 82140; 83605; 85025; G0378; U0003; U0005

== ENCOUNTER 2022-05-04 16:26 | Emergency (ER) | payer MEDICARE ==
[2022-05-04 17:18] LABS: #Eosinphils 0.1 thou/uL (0.0-0.7); #Lymphocytes 0.5 thou/uL (1.20-3.40); #Monocytes 0.4 thou/uL (0.11-0.59); #Neutrophils 3.9 thou/uL (1.40-6.50); %Basophils 0.1 % (0.0-1.0); %Eosinophils 1.3 % (0.0-10.0); %Lymphocytes 10.2 % (21.0-51.0); %Monocytes 7.7 % (0.0-10.0); %Neutrophils 80.8 % (42.0-75.0); Actual Bicarbonate (HCO3v) 28 mEq/L (22-28); Analyzer IN Cardio ER; Base Excess 3.1 mEq/L (-2.0 to +3.0); Calcium, Ionized (venous) 1.03 mmol/L (1.16-1.32); Chloride (VBG) 98 mmol/L (98-106); Hemoglobin 10.8 g/dL (12.0-16.0); Hemoglobin (Hb) 11.6 g/dL (11.7-16.1); Mean Corpuscular HGB CONC 32.8 g/dL (32.0-36.0); Mean Corpuscular Hemoglobin 34.3 pg (27.0-31.0); Mean Platelet Volume 7.7 fL (7.4-10.4); Platelet Count 103 thou/uL (130-400); Potassium (VBG) 4.13 mmol/L (3.70-5.30); RBC Distribution Width 14.7 % (11.5-14.5); Red Blood Cell (RBC) Count 3.14 mill/uL (4.20-5.40); White Blood Cell (WBC) Count 4.8 thou/uL (4.8-10.8); pH (venous) 7.43 (7.32-7.43)
[2022-05-04 17:41] LABS: ALT (SGPT) 8 U/L (8-55); AST (SGOT) 26 U/L (5-34); Alkaline Phosphatase 227 U/L (40-110); Anion Gap 17 mmol/L (10-20); BUN (Urea Nitrogen) 13 mg/dL (9.8-20.1); Bilirubin, Total 1.4 mg/dL (0.2-1.2); Calc. Creatinine Clearance 0 mL/min (70-130); Calcium 8.8 mg/dL (7.8-10.44); Carbon Dioxide 30 mmol/L (23-31); Chloride 96 mmol/L (98-107); Estimated GFR 12; Globulin 3.8 g/dL (2.4-3.5); Glucose 130 mg/dL (80-115); Potassium 4.6 mmol/L (3.5-5.1); Protein, Total 6.8 g/dL (5.8-8.1); Sodium 138 mmol/L (136-145)
[2022-05-04 18:48] LABS: Bilirubin Negative (Negative); Blood, Urine Negative (Negative); Clarity Clear (Clear); Glucose, Urine (Dipstick) Negative (Negative); Ketone, Urine 15 mg/dL (Negative); Leukocyte Trace (Negative); Nitrite Negative (Negative); Protein, Urine (Dipstick) 100 mg/dL (Neg-Trace); Urobilinogen 0.2 mg/dL (Less than 2)
[2022-05-04 18:49] LABS: WBC/HPF 0-3 HPF (0-3)
[2022-05-04 18:52] LABS: Squamous Epithelial 0-3 HPF (0-3)
== END 2022-05-04 19:42 | disposition home or self-care (01) ==
LOC: ERS 16:26
DX: K74.60 Unspecified cirrhosis of liver (principal); I12.0 Hypertensive chronic kidney disease with stage 5 chronic kidney disease or end stage renal disease; N18.6 End stage renal disease; R41.0 Disorientation, unspecified; E11.22 Type 2 diabetes mellitus with diabetic chronic kidney disease; E03.9 Hypothyroidism, unspecified; Z99.2 Dependence on renal dialysis; Z87.891 Personal history of nicotine dependence; Z79.899 Other long term (current) drug therapy
CPT/HCPCS: 36415; 51701; 70450; 71045; 80053; 81003; 81015; 82140; 82805; 83605; 84484; 85025; 87040; 87086; 93005; 96360

== ENCOUNTER 2022-07-04 16:37 | Inpatient (IN) | payer MEDICARE ==
[2022-07-04 18:23] LABS: #Lymphocytes 0.5 thou/uL (1.20-3.40); #Monocytes 0.4 thou/uL (0.11-0.59); %Basophils 0.4 % (0.0-1.0); %Eosinophils 0.9 % (0.0-10.0); %Monocytes 7.5 % (0.0-10.0); %Neutrophils 81.1 % (42.0-75.0); Hemoglobin 10.7 g/dL (12.0-16.0); Mean Corpuscular HGB CONC 32.6 g/dL (32.0-36.0); Mean Corpuscular Hemoglobin 34.7 pg (27.0-31.0); Platelet Count 79 thou/uL (130-400); RBC Distribution Width 14.6 % (11.5-14.5); Red Blood Cell (RBC) Count 3.09 mill/uL (4.20-5.40); White Blood Cell (WBC) Count 4.9 thou/uL (4.8-10.8)
[2022-07-04 18:25] LABS: ALT (SGPT) 21 U/L (8-55); AST (SGOT) 22 U/L (5-34); Alkaline Phosphatase 223 U/L (40-110); Anion Gap 17 mmol/L (10-20); BUN (Urea Nitrogen) 18 mg/dL (9.8-20.1); Bilirubin, Total 1.7 mg/dL (0.2-1.2); Calc. Creatinine Clearance 0 mL/min (70-130); Calcium 9.1 mg/dL (7.8-10.44); Carbon Dioxide 29 mmol/L (23-31); Chloride 96 mmol/L (98-107); Estimated GFR 9; Glucose 151 mg/dL (80-115); Lipase 83 U/L (8-78); Potassium 4.8 mmol/L (3.5-5.1); Sodium 137 mmol/L (136-145)
[2022-07-04 19:03] LABS: Amphetamine Not Detected (NotDetected); Barbiturates Screen Not Detected (NotDetected); Benzodiazepine Screen Not Detected (NotDetected); Cocaine Metabolite Screen Not Detected (NotDetected); Methadone Not Detected (NotDetected); Methamphetamine Not Detected (NotDetected); Opiate Screen Not Detected (NotDetected); Oxycodone Screen Not Detected (NotDetected); Phencyclidine (PCP) Not Detected (NotDetected); THC/Cannabinoid Screen Not Detected (NotDetected); Tricyclic Screen Not Detected (NotDetected)
[2022-07-04 19:05] LABS: Acetaminophen Less than 10.0 mcg/mL (10.0-30.0); Alcohol Less than 10 mg/dL (Less than 10); CK (CPK) 38 U/L (29-168); Salicylate Less than 8.0 mg/dL (15.0-30.0)
[2022-07-04 19:13] LABS: Bacteria/HPF 4+ HPF (None Seen); Bilirubin Negative (Negative); Blood, Urine Negative (Negative); Clarity Turbid (Clear); Glucose, Urine (Dipstick) Normal (Negative); Ketone, Urine Negative (Negative); Leukocyte 500 Leu/uL (Negative); Nitrite Negative (Negative); Protein, Urine (Dipstick) 100 mg/dL (Neg-Trace); RBC/HPF 0-3 HPF (0-3); Specific Gravity, Urine 1.014 (1.002-1.036); Squamous Epithelial 0-3 HPF (0-3); Urobilinogen Normal mg/dL (Less than 2); WBC/HPF Greater than 50 HPF (0-3); pH, Urine 7.5 (5.0-9.0)
[2022-07-04] MEDS ORDERED: cefTRIAXone\\ROCEPHIN 2 GM VIAL ONE (20:19)
[2022-07-04] MEDS ORDERED: Dextrose 50% Abboject 50 ML SYRINGE SLOW IVP PRN (20:47)
[2022-07-04] MEDS ORDERED: Insulin Regular 300 UNITS/3 ML VIAL SC PRN ×2 (20:47)
[2022-07-04] MEDS ORDERED: Ondansetron ODT 4 MG TAB PO PRN (20:47)
[2022-07-04] MEDS ORDERED: Dextrose 5% in Water 1,000 ML IV PRN (20:47)
[2022-07-04 21:23] VITALS: BMI 32.1
[2022-07-04] MEDS: Midodrine HCl 5 MG TAB PO SCH (21:32)
[2022-07-04] MEDS: Atorvastatin Calcium 10 MG TAB PO SCH (21:33)
[2022-07-04] MEDS: Rifaximin 550 MG TAB PO SCH (21:33)
[2022-07-05] MEDS: Levothyroxine 150 MCG TAB PO SCH (05:48)
[2022-07-05 06:51] LABS: Anion Gap 18 mmol/L (10-20); BUN (Urea Nitrogen) 25 mg/dL (9.8-20.1); Calc. Creatinine Clearance 11 mL/min (70-130); Calcium 8.9 mg/dL (7.8-10.44); Carbon Dioxide 27 mmol/L (23-31); Chloride 96 mmol/L (98-107); Estimated GFR 7; Glucose 91 mg/dL (80-115); Potassium 4.7 mmol/L (3.5-5.1); Sodium 136 mmol/L (136-145)
[2022-07-05 07:05] LABS: #Eosinphils 0.2 thou/uL (0.0-0.7); #Lymphocytes 0.8 thou/uL (1.20-3.40); #Monocytes 0.3 thou/uL (0.11-0.59); #Neutrophils 2.2 thou/uL (1.40-6.50); %Basophils 0.9 % (0.0-1.0); %Eosinophils 5.1 % (0.0-10.0); %Lymphocytes 22.3 % (21.0-51.0); %Monocytes 9.7 % (0.0-10.0); Hemoglobin 9.5 g/dL (12.0-16.0); Mean Corpuscular HGB CONC 32.2 g/dL (32.0-36.0); Mean Corpuscular Hemoglobin 34.2 pg (27.0-31.0); Mean Platelet Volume 8.1 fL (7.4-10.4); Platelet Count 65 thou/uL (130-400); RBC Distribution Width 14.5 % (11.5-14.5); Red Blood Cell (RBC) Count 2.77 mill/uL (4.20-5.40); White Blood Cell (WBC) Count 3.5 thou/uL (4.8-10.8)
[2022-07-05] MEDS: Folic Acid 1 MG TAB PO SCH (09:46)
[2022-07-05] MEDS: Rifaximin 550 MG TAB PO SCH ×2 (09:52→20:51)
[2022-07-05] MEDS: Midodrine HCl 5 MG TAB PO SCH ×3 (09:52→20:50)
[2022-07-05] MEDS: Acetaminophen 325 MG TAB PO PRN ×2 (10:49→20:51)
[2022-07-05] MEDS: Atorvastatin Calcium 10 MG TAB PO SCH (20:49)
[2022-07-05] MEDS: cefTRIAXone\\ROCEPHIN 1 GM in Sodium Chloride 0.9% 100 ML IVPB SCH (20:50)
[2022-07-06] MEDS: Acetaminophen 325 MG TAB PO PRN ×2 (00:41→20:28)
[2022-07-06] MEDS: Levothyroxine 150 MCG TAB PO SCH (06:13)
[2022-07-06 06:41] LABS: #Eosinphils 0.2 thou/uL (0.0-0.7); #Monocytes 0.4 thou/uL (0.11-0.59); #Neutrophils 1.4 thou/uL (1.40-6.50); %Basophils 0.8 % (0.0-1.0); %Eosinophils 6.2 % (0.0-10.0); %Lymphocytes 32.8 % (21.0-51.0); %Neutrophils 47.3 % (42.0-75.0); Hemoglobin 8.6 g/dL (12.0-16.0); Mean Corpuscular HGB CONC 32.4 g/dL (32.0-36.0); Mean Corpuscular Hemoglobin 33.9 pg (27.0-31.0); Mean Platelet Volume 7.9 fL (7.4-10.4); Platelet Count 67 thou/uL (130-400); RBC Distribution Width 14.2 % (11.5-14.5); Red Blood Cell (RBC) Count 2.54 mill/uL (4.20-5.40)
[2022-07-06 06:52] LABS: Anion Gap 16 mmol/L (10-20); BUN (Urea Nitrogen) 35 mg/dL (9.8-20.1); Calc. Creatinine Clearance 8 mL/min (70-130); Calcium 8.6 mg/dL (7.8-10.44); Carbon Dioxide 28 mmol/L (23-31); Chloride 97 mmol/L (98-107); Estimated GFR 5; Glucose 76 mg/dL (80-115); Sodium 136 mmol/L (136-145)
[2022-07-06] MEDS: Folic Acid 1 MG TAB PO SCH (08:40)
[2022-07-06] MEDS: Rifaximin 550 MG TAB PO SCH ×2 (08:40→20:27)
[2022-07-06] MEDS: Midodrine HCl 5 MG TAB PO SCH ×3 (08:40→20:28)
[2022-07-06 09:47] LABS: HBSAg Index 0.22 S/CO (0-0.99); Hep B Surf Ag Non-Reactive S/CO (NonReactive)
[2022-07-06] MEDS: Atorvastatin Calcium 10 MG TAB PO SCH (20:27)
[2022-07-06] MEDS: cefTRIAXone\\ROCEPHIN 1 GM in Sodium Chloride 0.9% 100 ML IVPB SCH (20:30)
[2022-07-07] MEDS: Levothyroxine 150 MCG TAB PO SCH (05:40)
[2022-07-07 06:39] LABS: Anion Gap 14 mmol/L (10-20); BUN (Urea Nitrogen) 21 mg/dL (9.8-20.1); Calc. Creatinine Clearance 12 mL/min (70-130); Calcium 8.4 mg/dL (7.8-10.44); Carbon Dioxide 29 mmol/L (23-31); Chloride 97 mmol/L (98-107); Estimated GFR 7; Glucose 88 mg/dL (80-115); Potassium 4.8 mmol/L (3.5-5.1); Sodium 135 mmol/L (136-145)
[2022-07-07 06:41] LABS: #Eosinphils 0.2 thou/uL (0.0-0.7); #Lymphocytes 0.7 thou/uL (1.20-3.40); #Monocytes 0.3 thou/uL (0.11-0.59); #Neutrophils 1.5 thou/uL (1.40-6.50); %Basophils 1.3 % (0.0-1.0); %Eosinophils 6.7 % (0.0-10.0); %Lymphocytes 25.9 % (21.0-51.0); %Monocytes 11.9 % (0.0-10.0); %Neutrophils 54.2 % (42.0-75.0); Hemoglobin 8.5 g/dL (12.0-16.0); Mean Corpuscular Hemoglobin 34.4 pg (27.0-31.0); Mean Platelet Volume 7.9 fL (7.4-10.4); RBC Distribution Width 14.1 % (11.5-14.5); Red Blood Cell (RBC) Count 2.46 mill/uL (4.20-5.40); White Blood Cell (WBC) Count 2.8 thou/uL (4.8-10.8)
[2022-07-07 07:00] LABS: Platelet Count 65 thou/uL (130-400)
[2022-07-07 08:26] VITALS: BP 103/52; TEMP 97.8
[2022-07-07] MEDS: Rifaximin 550 MG TAB PO SCH (08:54)
[2022-07-07] MEDS: Folic Acid 1 MG TAB PO SCH (08:55)
[2022-07-07] MEDS: Midodrine HCl 5 MG TAB PO SCH (08:55)
== END 2022-07-07 14:12 | disposition home or self-care (01) | DRG 689 ==
LOC: SUATTDRO 16:37 → ERS 16:37 → T4-A 20:26
PROVIDERS: ADMIT Student in an Organized Health Care Education/Training Program; ATTEND Internal Medicine
PROC: 5A1D70Z Performance of Urinary Filtration, Intermittent, Less than 6 Hours Per Day (ICD-10-PCS; principal; 2022-07-04)
DX: N39.0 Urinary tract infection, site not specified (principal); G93.41 Metabolic encephalopathy; N18.6 End stage renal disease; I12.0 Hypertensive chronic kidney disease with stage 5 chronic kidney disease or end stage renal disease; R18.8 Other ascites; Z20.822 Contact with and (suspected) exposure to COVID-19; E11.22 Type 2 diabetes mellitus with diabetic chronic kidney disease; E03.9 Hypothyroidism, unspecified; K74.60 Unspecified cirrhosis of liver; B96.1 Klebsiella pneumoniae [K. pneumoniae] as the cause of diseases classified elsewhere; E78.5 Hyperlipidemia, unspecified; K76.0 Fatty (change of) liver, not elsewhere classified; Z90.49 Acquired absence of other specified parts of digestive tract; Z99.2 Dependence on renal dialysis; Z87.891 Personal history of nicotine dependence; Z91.041 Radiographic dye allergy status; Z91.013 Allergy to seafood; Z79.899 Other long term (current) drug therapy
CPT/HCPCS: 36415; 36416; 51701; 70450; 80048; 80053; 80306; 80307; 81003; 81015; 82140; 82550; 83690; 84443; 84484; 85025; 87077; 87086; 87186; 87340; 90935; 93005; 96365; G0257; J0696; J3490; Q0162; U0003; U0005

== ENCOUNTER 2022-07-26 20:35 | Emergency (ER) | payer MEDICARE ==
[2022-07-26 21:34] LABS: Hemoglobin 10.4 g/dL (12.0-16.0); Mean Platelet Volume 8.4 fL (7.4-10.4); Platelet Count 53 thou/uL (130-400); RBC Distribution Width 14.3 % (11.5-14.5); Red Blood Cell (RBC) Count 2.98 mill/uL (4.20-5.40); White Blood Cell (WBC) Count 3.4 thou/uL (4.8-10.8)
[2022-07-26 21:35] LABS: #Eosinphils 0.1 thou/uL (0.0-0.7); #Lymphocytes 0.8 thou/uL (1.20-3.40); #Monocytes 0.3 thou/uL (0.11-0.59); #Neutrophils 2.2 thou/uL (1.40-6.50); %Basophils 0.8 % (0.0-1.0); %Eosinophils 2.7 % (0.0-10.0); %Lymphocytes 23.5 % (21.0-51.0); %Monocytes 7.7 % (0.0-10.0); %Neutrophils 65.4 % (42.0-75.0)
[2022-07-26 21:54] LABS: ALT (SGPT) 17 U/L (8-55); AST (SGOT) 18 U/L (5-34); Albumin 2.8 g/dL (3.4-4.8); Alkaline Phosphatase 204 U/L (40-110); Anion Gap 16 mmol/L (10-20); BUN (Urea Nitrogen) 33 mg/dL (9.8-20.1); Bilirubin, Total 1.4 mg/dL (0.2-1.2); Calc. Creatinine Clearance 0 mL/min (70-130); Calcium 8.5 mg/dL (7.8-10.44); Carbon Dioxide 25 mmol/L (23-31); Chloride 100 mmol/L (98-107); Estimated GFR 4; Globulin 3.4 g/dL (2.4-3.5); Glucose 165 mg/dL (80-115); Lipase 162 U/L (8-78); Potassium 4.2 mmol/L (3.5-5.1); Protein, Total 6.2 g/dL (5.8-8.1); Sodium 137 mmol/L (136-145)
[2022-07-26 22:04] LABS: MDiff Complete? YES; Macrocytosis SLIGHT = 6-15 cells (100X) (0-5/hpf); Ovalocytes SLIGHT = 2-5 cells (100X) (0-1/hpf); Platelet Morphology Comment Appears Decreased
[2022-07-26 22:09] LABS: Bilirubin Negative (Negative); Blood, Urine Small (Negative); Glucose, Urine (Dipstick) Negative (Negative); Ketone, Urine 15 mg/dL (Negative); Leukocyte Large (Negative); Nitrite Negative (Negative); Protein, Urine (Dipstick) 100 mg/dL (Neg-Trace); Specific Gravity, Urine 1.015 (1.005-1.030); Urobilinogen 0.2 mg/dL (Less than 2); pH, Urine 7.5 (5.0-9.0)
[2022-07-26 22:10] LABS: Clarity Hazy (Clear)
[2022-07-26 22:15] LABS: Bacteria/HPF 2+ HPF (None Seen); Renal Epithelial 0-3 HPF (None Seen); Squamous Epithelial 0-3 HPF (0-3); WBC/HPF Greater Than 50 HPF (0-3)
[2022-07-26 22:16] LABS: Other Microscopic Description Less than 2 mL rec'd
[2022-07-26] MEDS ORDERED: Lidocaine 1% MPF 2 ML VIAL ONE (22:38)
[2022-07-26] MEDS ORDERED: cefTRIAXone\\ROCEPHIN 1 GM VIAL ONE (22:38)
[2022-07-26] MEDS ORDERED: Ciprofloxacin 500 MG TAB ONE (22:58)
== END 2022-07-26 23:05 | disposition home or self-care (01) ==
LOC: ERS 20:35
DX: N39.0 Urinary tract infection, site not specified (principal); E78.5 Hyperlipidemia, unspecified; E11.22 Type 2 diabetes mellitus with diabetic chronic kidney disease; I12.0 Hypertensive chronic kidney disease with stage 5 chronic kidney disease or end stage renal disease; N18.6 End stage renal disease
CPT/HCPCS: 36415; 70450; 80053; 81003; 81015; 82140; 83690; 83735; 85025; 87077; 87086; 87186; 96372; J0696

== ENCOUNTER 2022-10-28 12:11 | Observation (INO) | payer MEDICARE ==
[2022-10-28 13:08] LABS: #Eosinphils 0.1 thou/uL (0.0-0.7); #Lymphocytes 0.6 thou/uL (1.20-3.40); #Monocytes 0.3 thou/uL (0.11-0.59); #Neutrophils 2.7 thou/uL (1.40-6.50); %Basophils 0.4 % (0.0-1.0); %Eosinophils 1.6 % (0.0-10.0); %Lymphocytes 16.3 % (21.0-51.0); %Monocytes 8.3 % (0.0-10.0); %Neutrophils 73.4 % (42.0-75.0); Hemoglobin 10.8 g/dL (12.0-16.0); Mean Corpuscular HGB CONC 33.2 g/dL (32.0-36.0); Mean Corpuscular Hemoglobin 35.1 pg (27.0-31.0); Mean Platelet Volume 7.6 fL (7.4-10.4); Platelet Count 72 10x3/uL (130-400); RBC Distribution Width 14.4 % (11.5-14.5); Red Blood Cell (RBC) Count 3.06 mill/uL (4.20-5.40); White Blood Cell (WBC) Count 3.7 10x3/uL (4.8-10.8)
[2022-10-28] MEDS ORDERED: Cefepime 2 GM VIAL ONE (13:38)
[2022-10-28] MEDS ORDERED: Vancomycin 1 GM/200 ML (FROZEN) BAG ONE (13:38)
[2022-10-28 13:39] LABS: ALT (SGPT) 20 U/L (8-55); AST (SGOT) 15 U/L (5-34); Acetaminophen Less than 10.0 mcg/mL (10.0-30.0); Albumin 2.7 g/dL (3.4-4.8); Alcohol Less than 10 mg/dL (Less than 10); Alkaline Phosphatase 194 U/L (40-110); Anion Gap 17 mmol/L (10-20); BUN (Urea Nitrogen) 28 mg/dL (9.8-20.1); Bilirubin, Total 1.4 mg/dL (0.2-1.2); Calc. Creatinine Clearance 0 mL/min (70-130); Carbon Dioxide 25 mmol/L (23-31); Chloride 99 mmol/L (98-107); Estimated GFR 6; Globulin 3.4 g/dL (2.4-3.5); Glucose 114 mg/dL (80-115); Lipase 112 U/L (8-78); Potassium 3.9 mmol/L (3.5-5.1); Protein, Total 6.1 g/dL (5.8-8.1); Salicylate Less than 8.0 mg/dL (15.0-30.0); Sodium 137 mmol/L (136-145)
[2022-10-28] MEDS ORDERED: Ondansetron PF 4 MG/2 ML Vial IVP PRN (16:31)
[2022-10-28] MEDS ORDERED: Ondansetron ODT 4 MG TAB PO PRN (16:31)
[2022-10-28 17:08] LABS: Magnesium 1.4 mg/dL (1.6-2.6)
[2022-10-28 18:12] VITALS: BMI 32.8
[2022-10-28 20:26] LABS: Free T4 (Free Thyroxine) 1.55 ng/dL (0.70-1.48)
[2022-10-28] MEDS ORDERED: Vancomycin HCl 750 MG in Sodium Chloride 0.9% 250 ML 250 ML IVPB SCH (21:00)
[2022-10-28] MEDS ORDERED: Vancomycin Diaylsis Sliding Scale (Wt 71-99) FS SCH (21:15)
[2022-10-28] MEDS: Acetaminophen 325 MG TAB PO PRN (22:18)
[2022-10-29 04:36] VITALS: TEMP 97.9
[2022-10-29 05:00] LABS: #Eosinphils 0.1 thou/uL (0.0-0.7); #Lymphocytes 0.8 thou/uL (1.20-3.40); #Monocytes 0.3 thou/uL (0.11-0.59); #Neutrophils 1.7 thou/uL (1.40-6.50); %Basophils 0.7 % (0.0-1.0); %Eosinophils 5.1 % (0.0-10.0); %Lymphocytes 26.9 % (21.0-51.0); %Monocytes 10.3 % (0.0-10.0); %Neutrophils 57.1 % (42.0-75.0); Mean Corpuscular HGB CONC 33.1 g/dL (32.0-36.0); Mean Corpuscular Hemoglobin 35.3 pg (27.0-31.0); Mean Platelet Volume 7.8 fL (7.4-10.4); Platelet Count 50 10x3/uL (130-400); RBC Distribution Width 14.3 % (11.5-14.5); Red Blood Cell (RBC) Count 2.55 mill/uL (4.20-5.40)
[2022-10-29 05:15] LABS: ALT (SGPT) 18 U/L (8-55); AST (SGOT) 12 U/L (5-34); Albumin 2.4 g/dL (3.4-4.8); Alkaline Phosphatase 140 U/L (40-110); Anion Gap 15 mmol/L (10-20); BUN (Urea Nitrogen) 35 mg/dL (9.8-20.1); Bilirubin, Total 1.6 mg/dL (0.2-1.2); Calc. Creatinine Clearance 8 mL/min (70-130); Calcium 9.4 mg/dL (7.8-10.44); Carbon Dioxide 26 mmol/L (23-31); Chloride 100 mmol/L (98-107); Estimated GFR 4; Globulin 3.3 g/dL (2.4-3.5); Glucose 84 mg/dL (80-115); Potassium 5.3 mmol/L (3.5-5.1); Protein, Total 5.7 g/dL (5.8-8.1); Sodium 136 mmol/L (136-145)
[2022-10-29 08:53] LABS: Magnesium 2.1 mg/dL (1.6-2.6)
[2022-10-29] MEDS ORDERED: Cefepime 0.5 GM in Sodium Chloride 0.9% 100 ML IVPB SCH (09:00)
[2022-10-29] MEDS: Acetaminophen 325 MG TAB PO PRN (09:05)
[2022-10-29 12:19] VITALS: BP 114/58
[2022-10-30] MEDS ORDERED: Cefepime 0.5 GM, Admixture Fee 1 EACH in Sodium Chloride 0.9% 100 ML IVPB SCH (09:00)
== END 2022-10-29 14:15 | disposition home or self-care (01) ==
LOC: ERS 12:11 → 2NO 15:41
PROVIDERS: ADMIT Internal Medicine; ATTEND Internal Medicine
DX: R41.0 Disorientation, unspecified (principal); I95.9 Hypotension, unspecified; E11.10 Type 2 diabetes mellitus with ketoacidosis without coma; I12.0 Hypertensive chronic kidney disease with stage 5 chronic kidney disease or end stage renal disease; E11.22 Type 2 diabetes mellitus with diabetic chronic kidney disease; N18.6 End stage renal disease; D63.1 Anemia in chronic kidney disease; K75.81 Nonalcoholic steatohepatitis (NASH); K74.60 Unspecified cirrhosis of liver; E78.5 Hyperlipidemia, unspecified; E89.0 Postprocedural hypothyroidism; E11.40 Type 2 diabetes mellitus with diabetic neuropathy, unspecified; K21.9 Gastro-esophageal reflux disease without esophagitis; E87.5 Hyperkalemia; E66.9 Obesity, unspecified; Z68.33 Body mass index [BMI] 33.0-33.9, adult; Z87.891 Personal history of nicotine dependence; Z79.890 Hormone replacement therapy; Z79.899 Other long term (current) drug therapy; Z91.013 Allergy to seafood; Z91.041 Radiographic dye allergy status; Z91.048 Other nonmedicinal substance allergy status; Z99.2 Dependence on renal dialysis; Z20.822 Contact with and (suspected) exposure to COVID-19
CPT/HCPCS: 70450; 71045; 80053; 80202; 80307; 82140; 82962 ×2; 83605; 83690; 83735 ×2; 84439; 84481; 84484; 85025; 87040; 93005; J3370; U0003; U0005; 36415; 36416; 80306; 84443; 96376; G0378; J0692; J3490; J7050

== ENCOUNTER 2022-11-18 10:27 | Inpatient (IN) | payer MEDICARE ==
[2022-11-18 11:31] LABS: Actual Bicarbonate (HCO3v) 26 mEq/L (22-28); Base Excess 5.1 mEq/L (-2.0 to +3.0); Calcium, Ionized (venous) 0.97 mmol/L (1.16-1.32); Chloride (VBG) 98 mmol/L (98-106); Hemoglobin (Hb) 8.4 g/dL (11.7-16.1); Potassium (VBG) 4.61 mmol/L (3.70-5.30); Sodium 138.1 mmol/L (133-146); pH (venous) 7.64 (7.32-7.43)
[2022-11-18 11:53] LABS: ALT (SGPT) 17 U/L (8-55); AST (SGOT) 25 U/L (5-34); Albumin 2.9 g/dL (3.4-4.8); Alkaline Phosphatase 185 U/L (40-110); Anion Gap 19 mmol/L (10-20); BUN (Urea Nitrogen) 41 mg/dL (9.8-20.1); Bilirubin, Total 1.3 mg/dL (0.2-1.2); Calc. Creatinine Clearance 0 mL/min (70-130); Calcium 9.2 mg/dL (7.8-10.44); Carbon Dioxide 25 mmol/L (23-31); Chloride 99 mmol/L (98-107); Estimated GFR 4; Globulin 3.5 g/dL (2.4-3.5); Glucose 113 mg/dL (80-115); Potassium 4.6 mmol/L (3.5-5.1); Protein, Total 6.4 g/dL (5.8-8.1); Sodium 138 mmol/L (136-145)
[2022-11-18 11:55] LABS: Acetaminophen Less than 10.0 mcg/mL (10.0-30.0); Alcohol Less than 10 mg/dL (Less than 10); CK (CPK) 34 U/L (29-168); Magnesium 2.4 mg/dL (1.6-2.6); Salicylate Less than 8.0 mg/dL (15.0-30.0)
[2022-11-18 11:57] LABS: #Eosinphils 0.1 thou/uL (0.0-0.7); #Lymphocytes 0.8 thou/uL (1.20-3.40); #Monocytes 0.3 thou/uL (0.11-0.59); #Neutrophils 2.1 thou/uL (1.40-6.50); %Monocytes 9.3 % (0.0-10.0); %Neutrophils 63.8 % (42.0-75.0); Hemoglobin 10.6 g/dL (12.0-16.0); Mean Corpuscular HGB CONC 33.4 g/dL (32.0-36.0); Mean Corpuscular Hemoglobin 35.4 pg (27.0-31.0); Platelet Count 77 10x3/uL (130-400); RBC Distribution Width 14.4 % (11.5-14.5); Red Blood Cell (RBC) Count 3.01 mill/uL (4.20-5.40); White Blood Cell (WBC) Count 3.4 10x3/uL (4.8-10.8)
[2022-11-18] MEDS ORDERED: Magnesium 2 GM/50 ML BAG (IN WATER) ONE (12:02)
[2022-11-18 12:09] LABS: Bilirubin Negative (Negative); Blood, Urine Small (Negative); Glucose, Urine (Dipstick) Negative (Negative); Ketone, Urine 15 mg/dL (Negative); Leukocyte Large (Negative); Nitrite Negative (Negative); Protein, Urine (Dipstick) 100 mg/dL (Neg-Trace); Specific Gravity, Urine 1.015 (1.005-1.030); Urobilinogen 0.2 mg/dL (Less than 2); pH, Urine 7.5 (5.0-9.0)
[2022-11-18 12:12] LABS: Clarity Turbid (Clear)
[2022-11-18 12:15] LABS: RBC/HPF 0-3 HPF (0-3)
[2022-11-18 12:16] LABS: Bacteria/HPF 3+ HPF (None Seen); Squamous Epithelial 0-3 HPF (0-3); WBC/HPF Greater Than 50 HPF (0-3)
[2022-11-18 12:19] LABS: Amphetamine Not Detected (NotDetected); Barbiturates Screen Not Detected (NotDetected); Benzodiazepine Screen Not Detected (NotDetected); Cocaine Metabolite Screen Not Detected (NotDetected); Methadone Not Detected (NotDetected); Methamphetamine Not Detected (NotDetected); Opiate Screen Detected (NotDetected); Oxycodone Screen Not Detected (NotDetected); Phencyclidine (PCP) Not Detected (NotDetected); THC/Cannabinoid Screen Not Detected (NotDetected); Transitional Epithelial 0-3 HPF (None Seen); Tricyclic Screen Not Detected (NotDetected)
[2022-11-18 12:22] LABS: INR-International Normal Ratio 1.2; Prothrombin Time 15.7 sec (12.0-14.7)
[2022-11-18 12:23] LABS: PTT 33.1 sec (22.9-36.1)
[2022-11-18] MEDS ORDERED: Iopamidol-370 76% 500 ML 1 ML ONE (12:49)
[2022-11-18] MEDS ORDERED: Acetaminophen 650 MG Suppository PR PRN (13:42)
[2022-11-18] MEDS ORDERED: Ondansetron PF 4 MG/2 ML Vial IVP PRN (13:42)
[2022-11-18] MEDS ORDERED: Piperacillin/Tazobactam 2.25 GM in Sodium Chloride 0.9% 100 ML IVPB SCH (14:00)
[2022-11-18] MEDS ORDERED: Dextrose 5% in Water 1,000 ML IV PRN (14:10)
[2022-11-18] MEDS ORDERED: HumaLOG 300 UNITS/3 ML VIAL SC PRN ×2 (14:10)
[2022-11-18] MEDS ORDERED: Dextrose 50% Abboject 50 ML SYRINGE SLOW IVP PRN (14:10)
[2022-11-18] MEDS ORDERED: VANCOMYCIN 1.75 GM/500 ML BAG 1.75 GM in Premix Bag 1 BAG IVPB SCH (14:30)
[2022-11-18 16:41] VITALS: BMI 33.6
[2022-11-18] MEDS ORDERED: Vancomycin Diaylsis Sliding Scale (Wt 71-99) FS SCH (17:15)
[2022-11-18] MEDS: Piperacillin/Tazobactam 3.375 GM in Sodium Chloride 0.9% 100 ML IVPB SCH (18:40)
[2022-11-18 22:41] LABS: HBSAB Concentration Less than 8.00 mIU/mL; Hep B Surf AB Non-Reactive (NonReactive); Hep B Surf Ag Non-Reactive S/CO (NonReactive)
[2022-11-19] MEDS: Piperacillin/Tazobactam 3.375 GM in Sodium Chloride 0.9% 100 ML IVPB SCH ×2 (05:41→17:59)
[2022-11-19 05:43] LABS: #Eosinphils 0.1 thou/uL (0.0-0.7); #Lymphocytes 0.7 thou/uL (1.20-3.40); #Monocytes 0.3 thou/uL (0.11-0.59); #Neutrophils 2.4 thou/uL (1.40-6.50); %Basophils 0.4 % (0.0-1.0); %Lymphocytes 19.2 % (21.0-51.0); %Neutrophils 68.4 % (42.0-75.0); Hemoglobin 9.8 g/dL (12.0-16.0); Mean Corpuscular HGB CONC 34.3 g/dL (32.0-36.0); Mean Corpuscular Hemoglobin 36.3 pg (27.0-31.0); Mean Platelet Volume 7.9 fL (7.4-10.4); Platelet Count 74 10x3/uL (130-400); RBC Distribution Width 14.6 % (11.5-14.5); Red Blood Cell (RBC) Count 2.71 mill/uL (4.20-5.40); White Blood Cell (WBC) Count 3.5 10x3/uL (4.8-10.8)
[2022-11-19 05:59] LABS: Anion Gap 16 mmol/L (10-20); BUN (Urea Nitrogen) 23 mg/dL (9.8-20.1); Calc. Creatinine Clearance 13 mL/min (70-130); Calcium 9.5 mg/dL (7.8-10.44); Carbon Dioxide 26 mmol/L (23-31); Chloride 99 mmol/L (98-107); Estimated GFR 8; Glucose 94 mg/dL (80-115); Potassium 4.4 mmol/L (3.5-5.1); Sodium 137 mmol/L (136-145)
[2022-11-19] MEDS: Midodrine HCl 5 MG TAB PO SCH ×3 (09:16→20:54)
[2022-11-19] MEDS: Cyanocobalamin (Vitamin B-12) 1,000 MCG TAB PO SCH (09:16)
[2022-11-19] MEDS: Atorvastatin Calcium 10 MG TAB PO SCH (09:16)
[2022-11-19] MEDS: Multivit, Therapeutic 1 TAB PO SCH (09:17)
[2022-11-19] MEDS: Rifaximin 550 MG TAB PO SCH ×2 (09:17→20:54)
[2022-11-19] MEDS ORDERED: Morphine 2 MG/ML VIAL SLOW IVP PRN ×2 (13:30→13:31)
[2022-11-19] MEDS: Gabapentin 100 MG CAP PO SCH (20:54)
[2022-11-19] MEDS: Folic Acid 1 MG TAB PO SCH (20:54)
[2022-11-20 04:14] LABS: #Eosinphils 0.1 thou/uL (0.0-0.7); #Lymphocytes 0.8 thou/uL (1.20-3.40); #Monocytes 0.3 thou/uL (0.11-0.59); #Neutrophils 1.9 thou/uL (1.40-6.50); %Basophils 0.5 % (0.0-1.0); %Eosinophils 3.4 % (0.0-10.0); %Lymphocytes 25.9 % (21.0-51.0); %Monocytes 10.4 % (0.0-10.0); %Neutrophils 59.8 % (42.0-75.0); Hemoglobin 9.2 g/dL (12.0-16.0); Mean Corpuscular HGB CONC 35.5 g/dL (32.0-36.0); Mean Corpuscular Hemoglobin 37.3 pg (27.0-31.0); Mean Platelet Volume 7.7 fL (7.4-10.4); Platelet Count 64 10x3/uL (130-400); RBC Distribution Width 14.2 % (11.5-14.5); Red Blood Cell (RBC) Count 2.47 mill/uL (4.20-5.40); White Blood Cell (WBC) Count 3.2 10x3/uL (4.8-10.8)
[2022-11-20 04:26] LABS: ALT (SGPT) 15 U/L (8-55); AST (SGOT) 20 U/L (5-34); Albumin 2.6 g/dL (3.4-4.8); Alkaline Phosphatase 124 U/L (40-110); Anion Gap 18 mmol/L (10-20); BUN (Urea Nitrogen) 41 mg/dL (9.8-20.1); Bilirubin, Total 1.9 mg/dL (0.2-1.2); Calc. Creatinine Clearance 9 mL/min (70-130); Calcium 8.7 mg/dL (7.8-10.44); Carbon Dioxide 26 mmol/L (23-31); Chloride 101 mmol/L (98-107); Estimated GFR 5; Globulin 3.1 g/dL (2.4-3.5); Glucose 86 mg/dL (80-115); Protein, Total 5.7 g/dL (5.8-8.1); Sodium 140 mmol/L (136-145)
[2022-11-20] MEDS: Piperacillin/Tazobactam 3.375 GM in Sodium Chloride 0.9% 100 ML IVPB SCH ×2 (05:48→17:13)
[2022-11-20] MEDS: Levothyroxine 150 MCG TAB PO SCH (05:48)
[2022-11-20] MEDS: Cyanocobalamin (Vitamin B-12) 1,000 MCG TAB PO SCH (09:24)
[2022-11-20] MEDS: Atorvastatin Calcium 10 MG TAB PO SCH (09:24)
[2022-11-20] MEDS: Multivit, Therapeutic 1 TAB PO SCH (09:27)
[2022-11-20] MEDS: Midodrine HCl 5 MG TAB PO SCH ×3 (09:27→21:38)
[2022-11-20] MEDS: Rifaximin 550 MG TAB PO SCH ×2 (09:28→21:38)
[2022-11-20] MEDS: Gabapentin 100 MG CAP PO SCH (21:38)
[2022-11-20] MEDS: Folic Acid 1 MG TAB PO SCH (21:38)
[2022-11-21 04:13] LABS: #Eosinphils 0.1 thou/uL (0.0-0.7); #Lymphocytes 0.8 thou/uL (1.20-3.40); #Monocytes 0.3 thou/uL (0.11-0.59); #Neutrophils 2.4 thou/uL (1.40-6.50); %Basophils 0.8 % (0.0-1.0); %Eosinophils 3.9 % (0.0-10.0); %Lymphocytes 22.7 % (21.0-51.0); %Neutrophils 64.6 % (42.0-75.0); Hemoglobin 9.7 g/dL (12.0-16.0); Mean Corpuscular HGB CONC 34.9 g/dL (32.0-36.0); Mean Corpuscular Hemoglobin 36.7 pg (27.0-31.0); Platelet Count 61 10x3/uL (130-400); RBC Distribution Width 14.1 % (11.5-14.5); Red Blood Cell (RBC) Count 2.63 mill/uL (4.20-5.40); White Blood Cell (WBC) Count 3.6 10x3/uL (4.8-10.8)
[2022-11-21 04:17] LABS: Anion Gap 23 mmol/L (10-20); BUN (Urea Nitrogen) 57 mg/dL (9.8-20.1); Calc. Creatinine Clearance 7 mL/min (70-130); Carbon Dioxide 23 mmol/L (23-31); Chloride 100 mmol/L (98-107); Estimated GFR 4; Glucose 127 mg/dL (80-115); Magnesium 2.7 mg/dL (1.6-2.6); Potassium 4.7 mmol/L (3.5-5.1); Sodium 141 mmol/L (136-145)
[2022-11-21] MEDS: Piperacillin/Tazobactam 3.375 GM in Sodium Chloride 0.9% 100 ML IVPB SCH (05:30)
[2022-11-21] MEDS: Levothyroxine 150 MCG TAB PO SCH (05:30)
[2022-11-21] MEDS: Midodrine HCl 5 MG TAB PO SCH ×4 (09:13→20:47)
[2022-11-21] MEDS: Rifaximin 550 MG TAB PO SCH ×2 (12:50→20:47)
[2022-11-21] MEDS: Atorvastatin Calcium 10 MG TAB PO SCH (12:51)
[2022-11-21] MEDS: Cyanocobalamin (Vitamin B-12) 1,000 MCG TAB PO SCH (12:51)
[2022-11-21] MEDS: Multivit, Therapeutic 1 TAB PO SCH (12:52)
[2022-11-21] MEDS ORDERED: Meropenem 1 GM in Sodium Chloride 0.9% 100 ML IVPB SCH (15:00)
[2022-11-21] MEDS ORDERED: HYDROcodone/Acetaminophen 5/325 mg Tablet PO PRN (16:48)
[2022-11-21] MEDS ORDERED: Aspirin/APAP/Caffeine Tab (Excedrin Migraine) PO PRN (18:19)
[2022-11-21] MEDS: Folic Acid 1 MG TAB PO SCH (20:46)
[2022-11-21] MEDS: Gabapentin 100 MG CAP PO SCH (20:46)
[2022-11-21] MEDS: Meropenem 500 MG in Sodium Chloride 0.9% 100 ML IVPB SCH (23:53)
[2022-11-22] MEDS: Levothyroxine 150 MCG TAB PO SCH (05:57)
[2022-11-22] MEDS: Midodrine HCl 5 MG TAB PO SCH ×3 (08:55→20:51)
[2022-11-22] MEDS: Multivit, Therapeutic 1 TAB PO SCH (08:55)
[2022-11-22] MEDS: Rifaximin 550 MG TAB PO SCH ×2 (08:55→20:51)
[2022-11-22] MEDS: Atorvastatin Calcium 10 MG TAB PO SCH (08:56)
[2022-11-22] MEDS: Cyanocobalamin (Vitamin B-12) 1,000 MCG TAB PO SCH (08:56)
[2022-11-22] MEDS: Folic Acid 1 MG TAB PO SCH (20:51)
[2022-11-22] MEDS: Gabapentin 100 MG CAP PO SCH (20:51)
[2022-11-22] MEDS: Meropenem 500 MG in Sodium Chloride 0.9% 100 ML IVPB SCH (23:42)
[2022-11-23] MEDS: Levothyroxine 150 MCG TAB PO SCH (06:39)
[2022-11-23] MEDS: Midodrine HCl 5 MG TAB PO SCH ×3 (09:06→20:47)
[2022-11-23] MEDS: Atorvastatin Calcium 10 MG TAB PO SCH (09:06)
[2022-11-23] MEDS: Rifaximin 550 MG TAB PO SCH ×2 (09:07→20:47)
[2022-11-23] MEDS: Multivit, Therapeutic 1 TAB PO SCH (09:07)
[2022-11-23] MEDS: Cyanocobalamin (Vitamin B-12) 1,000 MCG TAB PO SCH (09:07)
[2022-11-23] MEDS: Gabapentin 100 MG CAP PO SCH (20:47)
[2022-11-23] MEDS: Folic Acid 1 MG TAB PO SCH (20:47)
[2022-11-24] MEDS: Meropenem 500 MG in Sodium Chloride 0.9% 100 ML IVPB SCH ×2 (00:08→19:35)
[2022-11-24] MEDS: Levothyroxine 150 MCG TAB PO SCH (06:06)
[2022-11-24] MEDS: Midodrine HCl 5 MG TAB PO SCH ×3 (08:53→21:03)
[2022-11-24] MEDS: Atorvastatin Calcium 10 MG TAB PO SCH (08:53)
[2022-11-24] MEDS: Multivit, Therapeutic 1 TAB PO SCH (08:53)
[2022-11-24] MEDS: Rifaximin 550 MG TAB PO SCH ×2 (08:53→21:03)
[2022-11-24] MEDS: Cyanocobalamin (Vitamin B-12) 1,000 MCG TAB PO SCH (08:53)
[2022-11-24] MEDS ORDERED: Meropenem 500 MG in Sodium Chloride 0.9% 100 ML IVPB SCH (20:30)
[2022-11-24 20:48] VITALS: BP 110/59; TEMP 98.6
[2022-11-24] MEDS: Gabapentin 100 MG CAP PO SCH (21:03)
[2022-11-24] MEDS: Folic Acid 1 MG TAB PO SCH (21:03)
== END 2022-11-24 21:30 | disposition home or self-care (01) | DRG 689 ==
LOC: ERS 10:27 → 2NO 13:46 → INTOOBSV 13:46 → OBSVTOIN 11-20 08:16
PROVIDERS: ADMIT Internal Medicine; ATTEND Internal Medicine
PROC: 5A1D70Z Performance of Urinary Filtration, Intermittent, Less than 6 Hours Per Day (ICD-10-PCS; principal; 2022-11-18)
DX: N39.0 Urinary tract infection, site not specified (principal); G93.41 Metabolic encephalopathy; N18.6 End stage renal disease; R18.8 Other ascites; I12.0 Hypertensive chronic kidney disease with stage 5 chronic kidney disease or end stage renal disease; E03.9 Hypothyroidism, unspecified; K74.60 Unspecified cirrhosis of liver; E78.5 Hyperlipidemia, unspecified; E11.22 Type 2 diabetes mellitus with diabetic chronic kidney disease; K21.9 Gastro-esophageal reflux disease without esophagitis; K75.81 Nonalcoholic steatohepatitis (NASH); D63.1 Anemia in chronic kidney disease; B96.1 Klebsiella pneumoniae [K. pneumoniae] as the cause of diseases classified elsewhere; Z91.048 Other nonmedicinal substance allergy status; Z90.49 Acquired absence of other specified parts of digestive tract; Z98.890 Other specified postprocedural states; Z90.89 Acquired absence of other organs; Z91.013 Allergy to seafood; Z79.890 Hormone replacement therapy; Z79.899 Other long term (current) drug therapy; Z82.49 Family history of ischemic heart disease and other diseases of the circulatory system; Z87.891 Personal history of nicotine dependence; Z20.822 Contact with and (suspected) exposure to COVID-19
CPT/HCPCS: 36415; 36416; 51701; 70496; 70498; 71045; 80048; 80053; 80306; 80307; 81003; 81015; 82140; 82550; 82805; 83605; 83735; 83880; 84443; 84484; 85025; 85610; 85730; 86706; 87040; 87077; 87081; 87086; 87186; 87340; 90935; 93005; 96365; 96367; 96375; 96376; G0257; G0378; J2185; J2272; J2405; J2543; J3370; J3475; J3490; Q9967

== ENCOUNTER 2022-12-16 10:19 | Inpatient (IN) | payer MEDICARE ==
[2022-12-16 11:27] LABS: #Eosinphils 0.1 thou/uL (0.0-0.7); #Lymphocytes 0.6 thou/uL (1.20-3.40); #Monocytes 0.4 thou/uL (0.11-0.59); #Neutrophils 2.5 thou/uL (1.40-6.50); %Basophils 0.4 % (0.0-1.0); %Eosinophils 3.7 % (0.0-10.0); %Lymphocytes 16.6 % (21.0-51.0); %Monocytes 10.1 % (0.0-10.0); %Neutrophils 69.2 % (42.0-75.0); Mean Corpuscular HGB CONC 33.2 g/dL (32.0-36.0); Mean Platelet Volume 7.7 fL (7.4-10.4); Platelet Count 71 10x3/uL (130-400); Red Blood Cell (RBC) Count 2.86 mill/uL (4.20-5.40); White Blood Cell (WBC) Count 3.5 10x3/uL (4.8-10.8)
[2022-12-16 11:49] LABS: ALT (SGPT) 20 U/L (8-55); AST (SGOT) 28 U/L (5-34); Albumin 2.7 g/dL (3.4-4.8); Alkaline Phosphatase 199 U/L (40-110); Anion Gap 18 mmol/L (10-20); BUN (Urea Nitrogen) 37 mg/dL (9.8-20.1); Calc. Creatinine Clearance 0 mL/min (70-130); Calcium 10.1 mg/dL (7.8-10.44); Carbon Dioxide 26 mmol/L (23-31); Chloride 100 mmol/L (98-107); Estimated GFR 5; Globulin 3.6 g/dL (2.4-3.5); Glucose 152 mg/dL (80-115); Potassium 3.9 mmol/L (3.5-5.1); Protein, Total 6.3 g/dL (5.8-8.1); Sodium 140 mmol/L (136-145)
[2022-12-16 13:43] LABS: Bilirubin Small (Negative); Blood, Urine Large (Negative); Glucose, Urine (Dipstick) Negative (Negative); Ketone, Urine Trace mg/dL (Negative); Leukocyte Trace (Negative); Nitrite Positive (Negative); Protein, Urine (Dipstick) > or equal to 300 mg/dL (Neg-Trace); Urobilinogen 0.2 mg/dL (Less than 2); pH, Urine 7.5 (5.0-9.0)
[2022-12-16 13:54] LABS: Clarity Cloudy (Clear); RBC/HPF Greater than 50 HPF (0-3)
[2022-12-16 13:55] LABS: Bacteria/HPF 4+ HPF (None Seen)
[2022-12-16] MEDS ORDERED: Piperacillin/Tazobactam 2.25 GM in Sodium Chloride 0.9% 100 ML IVPB SCH ×2 (14:45→23:59)
[2022-12-16 16:00] VITALS: BMI 34.9
[2022-12-16] MEDS ORDERED: Ondansetron PF 4 MG/2 ML Vial IVP PRN (16:00)
[2022-12-16] MEDS ORDERED: Acetaminophen 325 MG TAB PO PRN (16:00)
[2022-12-16] MEDS ORDERED: Ondansetron ODT 4 MG TAB SL PRN (16:00)
[2022-12-16 17:30] LABS: HBSAB Concentration Less than 8.00 mIU/mL; HBSAg Index 0.35 S/CO (0-0.99); Hep B Core Total Ab Non-Reactive (NonReactive); Hep B Core Total Index 0.13 S/CO (0-0.79); Hep B Surf AB Non-Reactive (NonReactive); Hep B Surf Ag Non-Reactive S/CO (NonReactive); Hep C IgG Ab Non-Reactive (NonReactive); Hep C Index 0.13 S/CO (0-0.79)
[2022-12-16] MEDS ORDERED: Dextrose 50% Abboject 50 ML SYRINGE SLOW IVP PRN (18:30)
[2022-12-16] MEDS ORDERED: HumaLOG 300 UNITS/3 ML VIAL SC PRN ×2 (18:30)
[2022-12-16] MEDS ORDERED: Dextrose 5% in Water 1,000 ML IV PRN (18:30)
[2022-12-16] MEDS: Piperacillin/Tazobactam 3.375 GM in Sodium Chloride 0.9% 100 ML IVPB SCH ×2 (20:00→21:42)
[2022-12-16] MEDS: Rifaximin 550 MG TAB PO SCH (21:44)
[2022-12-16] MEDS: Atorvastatin Calcium 10 MG TAB PO SCH (21:44)
[2022-12-16] MEDS: Gabapentin 100 MG CAP PO SCH (21:45)
[2022-12-16] MEDS: Folic Acid 1 MG TAB PO SCH (21:45)
[2022-12-16] MEDS: Midodrine HCl 5 MG TAB PO SCH (21:45)
[2022-12-16] MEDS: Icosapent Ethyl 1 GM CAPSULE PO SCH (21:47)
[2022-12-17] MEDS: Levothyroxine 150 MCG TAB PO SCH (06:46)
[2022-12-17 08:04] LABS: ALT (SGPT) 18 U/L (8-55); AST (SGOT) 27 U/L (5-34); Albumin 2.4 g/dL (3.4-4.8); Alkaline Phosphatase 152 U/L (40-110); Anion Gap 14 mmol/L (10-20); BUN (Urea Nitrogen) 21 mg/dL (9.8-20.1); Bilirubin, Total 1.4 mg/dL (0.2-1.2); Calc. Creatinine Clearance 14 mL/min (70-130); Carbon Dioxide 30 mmol/L (23-31); Chloride 100 mmol/L (98-107); Estimated GFR 8; Globulin 3.3 g/dL (2.4-3.5); Glucose 113 mg/dL (80-115); Potassium 4.3 mmol/L (3.5-5.1); Protein, Total 5.7 g/dL (5.8-8.1); Sodium 140 mmol/L (136-145)
[2022-12-17 09:23] LABS: Free T4 (Free Thyroxine) 1.41 ng/dL (0.70-1.48)
[2022-12-17] MEDS: Piperacillin/Tazobactam 3.375 GM in Sodium Chloride 0.9% 100 ML IVPB SCH (09:26)
[2022-12-17] MEDS: Heparin 5,000 UNITS/ML VIAL SC SCH ×2 (09:26→20:30)
[2022-12-17] MEDS: Ascorbic Acid 500 mg Chewable Tablet PO SCH (09:27)
[2022-12-17] MEDS: Multivit, Therapeutic 1 TAB PO SCH (09:27)
[2022-12-17] MEDS: Icosapent Ethyl 1 GM CAPSULE PO SCH ×2 (09:27→20:33)
[2022-12-17] MEDS: Rifaximin 550 MG TAB PO SCH ×2 (09:27→20:30)
[2022-12-17] MEDS: Cholecalciferol 1,000 UNITS (25 MCG) TAB PO SCH (09:27)
[2022-12-17] MEDS: Midodrine HCl 5 MG TAB PO SCH ×3 (09:27→22:30)
[2022-12-17] MEDS: Cyanocobalamin (Vitamin B-12) 1,000 MCG TAB PO SCH (09:28)
[2022-12-17] MEDS: Acetaminophen 500 MG TAB PO PRN (11:02)
[2022-12-17] MEDS ORDERED: Meropenem 1 GM in Sodium Chloride 0.9% 100 ML IVPB SCH ×2 (13:30→14:00)
[2022-12-17] MEDS: Albumin 25% 25 GM/100 ML BOT IVPB SCH ×2 (17:45→23:47)
[2022-12-17] MEDS: Meropenem 500 MG in Sodium Chloride 0.9% 100 ML IVPB SCH (20:29)
[2022-12-17] MEDS: Folic Acid 1 MG TAB PO SCH (20:31)
[2022-12-17] MEDS: Gabapentin 100 MG CAP PO SCH (20:33)
[2022-12-17] MEDS: Atorvastatin Calcium 10 MG TAB PO SCH (20:58)
[2022-12-18] MEDS: Albumin 25% 25 GM/100 ML BOT IVPB SCH ×2 (05:18→13:17)
[2022-12-18] MEDS: Levothyroxine 150 MCG TAB PO SCH (05:18)
[2022-12-18 06:17] LABS: ALT (SGPT) 16 U/L (8-55); AST (SGOT) 22 U/L (5-34); Albumin 3.1 g/dL (3.4-4.8); Alkaline Phosphatase 139 U/L (40-110); Anion Gap 17 mmol/L (10-20); BUN (Urea Nitrogen) 33 mg/dL (9.8-20.1); Bilirubin, Total 1.2 mg/dL (0.2-1.2); Calc. Creatinine Clearance 10 mL/min (70-130); Calcium 9.6 mg/dL (7.8-10.44); Carbon Dioxide 28 mmol/L (23-31); Chloride 101 mmol/L (98-107); Estimated GFR 5; Glucose 104 mg/dL (80-115); Potassium 3.9 mmol/L (3.5-5.1); Protein, Total 6.1 g/dL (5.8-8.1); Sodium 142 mmol/L (136-145)
[2022-12-18 06:18] LABS: #Eosinphils 0.3 thou/uL (0.0-0.7); #Lymphocytes 0.7 thou/uL (1.20-3.40); #Monocytes 0.3 thou/uL (0.11-0.59); #Neutrophils 1.6 thou/uL (1.40-6.50); %Basophils 0.4 % (0.0-1.0); %Eosinophils 9.4 % (0.0-10.0); %Lymphocytes 24.6 % (21.0-51.0); %Monocytes 10.4 % (0.0-10.0); %Neutrophils 55.2 % (42.0-75.0); Hemoglobin 8.7 g/dL (12.0-16.0); Mean Corpuscular HGB CONC 35.2 g/dL (32.0-36.0); Mean Corpuscular Hemoglobin 36.8 pg (27.0-31.0); Mean Platelet Volume 7.8 fL (7.4-10.4); Platelet Count 58 10x3/uL (130-400); RBC Distribution Width 13.9 % (11.5-14.5); Red Blood Cell (RBC) Count 2.37 mill/uL (4.20-5.40); White Blood Cell (WBC) Count 2.8 10x3/uL (4.8-10.8)
[2022-12-18] MEDS: Heparin 5,000 UNITS/ML VIAL SC SCH (07:28)
[2022-12-18] MEDS: Ascorbic Acid 500 mg Chewable Tablet PO SCH (08:05)
[2022-12-18] MEDS: Rifaximin 550 MG TAB PO SCH ×2 (08:05→20:52)
[2022-12-18] MEDS: Midodrine HCl 5 MG TAB PO SCH ×3 (08:05→20:53)
[2022-12-18] MEDS: Cholecalciferol 1,000 UNITS (25 MCG) TAB PO SCH (08:06)
[2022-12-18] MEDS: Multivit, Therapeutic 1 TAB PO SCH (08:06)
[2022-12-18] MEDS: Cyanocobalamin (Vitamin B-12) 1,000 MCG TAB PO SCH (08:06)
[2022-12-18] MEDS: Icosapent Ethyl 1 GM CAPSULE PO SCH ×2 (08:07→20:53)
[2022-12-18] MEDS ORDERED: Ondansetron PF 4 MG/2 ML Vial ONE (10:38)
[2022-12-18] MEDS ORDERED: PROPOFOL 200 MG/20 ML VIAL ONE (10:38)
[2022-12-18] MEDS ORDERED: Lidocaine 1% PF 5 ML VIAL ONE (10:38)
[2022-12-18] MEDS ORDERED: Rocuronium Bromide 10 MG/ML (10ML VIAL) ONE (10:38)
[2022-12-18] MEDS ORDERED: SUGAMMADEX SODIUM 200 MG/2 ML VIAL ONE (10:46)
[2022-12-18] MEDS: Acetaminophen 500 MG TAB PO PRN ×2 (13:20→21:03)
[2022-12-18] MEDS: Dextrose 5 %-0.45 % NaCl 1,000 ML IV SCH (18:25)
[2022-12-18] MEDS: Folic Acid 1 MG TAB PO SCH (20:53)
[2022-12-18] MEDS: Atorvastatin Calcium 10 MG TAB PO SCH (20:53)
[2022-12-18] MEDS: Gabapentin 100 MG CAP PO SCH (20:53)
[2022-12-18] MEDS: Meropenem 500 MG in Sodium Chloride 0.9% 100 ML IVPB SCH (21:42)
[2022-12-19] MEDS: Levothyroxine 150 MCG TAB PO SCH (05:32)
[2022-12-19 05:56] LABS: #Eosinphils 0.4 thou/uL (0.0-0.7); #Lymphocytes 0.4 thou/uL (1.20-3.40); #Monocytes 0.4 thou/uL (0.11-0.59); #Neutrophils 1.6 thou/uL (1.40-6.50); %Basophils 0.4 % (0.0-1.0); %Eosinophils 13.4 % (0.0-10.0); %Lymphocytes 15.6 % (21.0-51.0); %Monocytes 13.5 % (0.0-10.0); %Neutrophils 57.1 % (42.0-75.0); Hemoglobin 8.4 g/dL (12.0-16.0); Mean Corpuscular HGB CONC 34.7 g/dL (32.0-36.0); Mean Corpuscular Hemoglobin 36.3 pg (27.0-31.0); Platelet Count 50 10x3/uL (130-400); RBC Distribution Width 13.7 % (11.5-14.5); Red Blood Cell (RBC) Count 2.32 mill/uL (4.20-5.40); White Blood Cell (WBC) Count 2.8 10x3/uL (4.8-10.8)
[2022-12-19 06:08] LABS: ALT (SGPT) 16 U/L (8-55); AST (SGOT) 26 U/L (5-34); Albumin 3.2 g/dL (3.4-4.8); Alkaline Phosphatase 110 U/L (40-110); Anion Gap 17 mmol/L (10-20); BUN (Urea Nitrogen) 43 mg/dL (9.8-20.1); Bilirubin, Total 1.2 mg/dL (0.2-1.2); Calc. Creatinine Clearance 8 mL/min (70-130); Calcium 9.2 mg/dL (7.8-10.44); Carbon Dioxide 25 mmol/L (23-31); Chloride 104 mmol/L (98-107); Estimated GFR 4; Globulin 2.6 g/dL (2.4-3.5); Glucose 98 mg/dL (80-115); Potassium 3.7 mmol/L (3.5-5.1); Protein, Total 5.8 g/dL (5.8-8.1); Sodium 142 mmol/L (136-145)
[2022-12-19] MEDS: Dextrose 5 %-0.45 % NaCl 1,000 ML IV SCH (08:26)
[2022-12-19] MEDS: Midodrine HCl 5 MG TAB PO SCH ×2 (08:31→15:29)
[2022-12-19] MEDS: Multivit, Therapeutic 1 TAB PO SCH (13:26)
[2022-12-19] MEDS: Cyanocobalamin (Vitamin B-12) 1,000 MCG TAB PO SCH (13:26)
[2022-12-19] MEDS: Icosapent Ethyl 1 GM CAPSULE PO SCH (13:26)
[2022-12-19] MEDS: Ascorbic Acid 500 mg Chewable Tablet PO SCH (13:26)
[2022-12-19] MEDS: Rifaximin 550 MG TAB PO SCH (13:26)
[2022-12-19] MEDS: Cholecalciferol 1,000 UNITS (25 MCG) TAB PO SCH (13:26)
[2022-12-19 16:00] VITALS: BP 97/50; TEMP 96.4
[2022-12-19] MEDS ORDERED: Albumin 25% 25 GM/100 ML BOT IVPB SCH (18:00)
== END 2022-12-19 18:47 | disposition home health service (06) | DRG 689 ==
LOC: ERS 10:19 → T4-B 14:27 → OBSVTOIN 12-18 14:20
PROVIDERS: ADMIT Family Medicine; ATTEND Family Medicine
PROC: 0W3P8ZZ Control Bleeding in Gastrointestinal Tract, Via Natural or Artificial Opening Endoscopic (ICD-10-PCS; principal; 2022-12-18)
PROC: 0DB78ZZ Excision of Stomach, Pylorus, Via Natural or Artificial Opening Endoscopic (ICD-10-PCS; 2022-12-18)
DX: N39.0 Urinary tract infection, site not specified (principal); N18.6 End stage renal disease; I12.0 Hypertensive chronic kidney disease with stage 5 chronic kidney disease or end stage renal disease; N25.81 Secondary hyperparathyroidism of renal origin; K76.6 Portal hypertension; G93.49 Other encephalopathy; K76.82 Hepatic encephalopathy; E03.9 Hypothyroidism, unspecified; E78.5 Hyperlipidemia, unspecified; K74.60 Unspecified cirrhosis of liver; E11.22 Type 2 diabetes mellitus with diabetic chronic kidney disease; D63.1 Anemia in chronic kidney disease; K21.9 Gastro-esophageal reflux disease without esophagitis; K31.89 Other diseases of stomach and duodenum; Z91.041 Radiographic dye allergy status; Z91.013 Allergy to seafood; Z79.890 Hormone replacement therapy; Z79.899 Other long term (current) drug therapy; Z87.891 Personal history of nicotine dependence; Z99.2 Dependence on renal dialysis
CPT/HCPCS: 36415; 36416; 70450; 71045; 74176; 76770; 76856; 80053; 81003; 81015; 82140; 84439; 84443; 84481; 85025; 86704; 87040; 87077; 87086; 87186; 88305; 90935; 93005; 96366; 96367; 96375; 96376; G0257; G0378; J2185; J2405; J2543; J2704; J3490; J7042; P9047

== ENCOUNTER 2022-12-22 08:58 | Outpatient (CLI) | payer MEDICARE | END 2022-12-22 08:59 | disposition home or self-care (01) | LOC: BICMAMMO 08:58 | PROVIDERS: ATTEND Family Medicine | DX: Z12.31 Encounter for screening mammogram for malignant neoplasm of breast (principal); M81.0 Age-related osteoporosis without current pathological fracture; Z78.0 Asymptomatic menopausal state | CPT/HCPCS: 77063; 77067; 77080 ==

== ENCOUNTER 2023-10-16 10:36 | Inpatient (IN) | payer MEDICARE ==
[2023-10-16] MEDS ORDERED: Lactulose 20 GM (30 mL) UDCUP ONE (11:03)
[2023-10-16 12:31] LABS: ALT (SGPT) 44 U/L (8-55); AST (SGOT) 46 U/L (5-34); Albumin 3.3 g/dL (3.4-4.8); Alkaline Phosphatase 447 U/L (40-110); Anion Gap 19 mmol/L (10-20); BUN (Urea Nitrogen) 15 mg/dL (9.8-20.1); Bilirubin, Total 1.5 mg/dL (0.2-1.2); Calc. Creatinine Clearance 0 mL/min (70-130); Calcium 8.7 mg/dL (7.8-10.44); Carbon Dioxide 27 mmol/L (23-31); Chloride 98 mmol/L (98-107); Estimated GFR 11; Globulin 3.5 g/dL (2.4-3.5); Glucose 119 mg/dL (80-115); Lipase 114 U/L (8-78); Potassium 3.5 mmol/L (3.5-5.1); Protein, Total 6.8 g/dL (5.8-8.1); Sodium 140 mmol/L (136-145)
[2023-10-16 12:51] LABS: Troponin I Less than 0.010 ng/mL (< 0.028)
[2023-10-16 14:13] LABS: #Monocytes 0.5 thou/uL (0.11-0.59); #Neutrophils 2.8 thou/uL (1.40-6.50); %Basophils 0.2 % (0.0-1.0); %Eosinophils 0.7 % (0.0-10.0); %Neutrophils 68.6 % (42.0-75.0); Hemoglobin 10.5 g/dL (12.0-16.0); Mean Corpuscular HGB CONC 33.9 g/dL (32.0-36.0); Mean Corpuscular Hemoglobin 33.9 pg (27.0-31.0); Mean Platelet Volume 10.8 fL (7.4-10.4); RBC Distribution Width 16.4 % (11.5-14.5); White Blood Cell (WBC) Count 4.1 10x3/uL (4.8-10.8)
[2023-10-16 14:19] LABS: Platelet Count 72 10x3/uL (130-400)
[2023-10-16] MEDS ORDERED: Acetaminophen 325 MG TAB PO PRN (14:56)
[2023-10-16] MEDS ORDERED: Ondansetron ODT 4 MG TAB PO PRN (14:56)
[2023-10-16] MEDS ORDERED: Calcium Carbonate 500 MG ChewTAB PO PRN (14:56)
[2023-10-16 16:15] LABS: Troponin I Less than 0.010 ng/mL (< 0.028)
[2023-10-16 18:40] VITALS: BMI 35.2
[2023-10-16 19:52] LABS: Troponin I 0.015 ng/mL (< 0.028)
[2023-10-16] MEDS: Rifaximin 550 MG TAB PO SCH (20:52)
[2023-10-16] MEDS: Midodrine HCl 5 MG TAB PO SCH (20:52)
[2023-10-16] MEDS: Famotidine 20 MG TAB PO SCH (20:53)
[2023-10-16] MEDS: Folic Acid 1 MG TAB PO SCH (20:53)
[2023-10-16] MEDS: Lactulose 20 GM (30 mL) UDCUP PO SCH (20:53)
[2023-10-17 04:38] LABS: #Eosinphils 0.1 thou/uL (0.0-0.7); #Monocytes 0.4 thou/uL (0.11-0.59); %Basophils 0.6 % (0.0-1.0); %Eosinophils 3.2 % (0.0-10.0); %Lymphocytes 28.1 % (21.0-51.0); %Monocytes 11.3 % (0.0-10.0); %Neutrophils 56.5 % (42.0-75.0); Hematocrit 26.9 % (36.0-47.0); Hemoglobin 8.9 g/dL (12.0-16.0); Mean Corpuscular HGB CONC 33.1 g/dL (32.0-36.0); Mean Corpuscular Hemoglobin 33.7 pg (27.0-31.0); Mean Corpuscular Volume 101.9 fl (78.0-98.0); Mean Platelet Volume 10.8 fL (7.4-10.4); RBC Distribution Width 16.5 % (11.5-14.5); Red Blood Cell (RBC) Count 2.64 mill/uL (4.20-5.40); White Blood Cell (WBC) Count 3.5 10x3/uL (4.8-10.8)
[2023-10-17 04:45] LABS: Platelet Count 65 10x3/uL (130-400)
[2023-10-17 05:23] LABS: Anion Gap 19 mmol/L (10-20); BUN (Urea Nitrogen) 24 mg/dL (9.8-20.1); Calc. Creatinine Clearance 12 mL/min (70-130); Calcium 8.4 mg/dL (7.8-10.44); Carbon Dioxide 26 mmol/L (23-31); Chloride 99 mmol/L (98-107); Estimated GFR 7; Glucose 90 mg/dL (80-115); Potassium 3.8 mmol/L (3.5-5.1); Sodium 140 mmol/L (136-145)
[2023-10-17] MEDS: Atorvastatin Calcium 10 MG TAB PO SCH (09:20)
[2023-10-17] MEDS: Lactulose 20 GM (30 mL) UDCUP PO SCH ×3 (09:20→21:17)
[2023-10-17] MEDS: Rifaximin 550 MG TAB PO SCH ×2 (09:20→21:17)
[2023-10-17] MEDS: Midodrine HCl 5 MG TAB PO SCH ×3 (09:20→21:16)
[2023-10-17] MEDS: Folic Acid 1 MG TAB PO SCH (21:17)
[2023-10-17] MEDS: Famotidine 20 MG TAB PO SCH (21:17)
[2023-10-18 06:28] LABS: #Eosinphils 0.2 thou/uL (0.0-0.7); #Monocytes 0.4 thou/uL (0.11-0.59); %Basophils 0.6 % (0.0-1.0); %Eosinophils 4.1 % (0.0-10.0); %Lymphocytes 28.7 % (21.0-51.0); %Monocytes 11.3 % (0.0-10.0); Hematocrit 26.9 % (36.0-47.0); Hemoglobin 8.9 g/dL (12.0-16.0); Mean Corpuscular HGB CONC 33.1 g/dL (32.0-36.0); Mean Corpuscular Hemoglobin 34.1 pg (27.0-31.0); Mean Corpuscular Volume 103.1 fl (78.0-98.0); Mean Platelet Volume 10.8 fL (7.4-10.4); Red Blood Cell (RBC) Count 2.61 mill/uL (4.20-5.40); White Blood Cell (WBC) Count 3.6 10x3/uL (4.8-10.8)
[2023-10-18 06:31] LABS: Platelet Count 62 10x3/uL (130-400)
[2023-10-18 06:52] LABS: Albumin 2.5 g/dL (3.4-4.8)
[2023-10-18 06:53] LABS: Chloride 98 mmol/L (98-107); Potassium 3.9 mmol/L (3.5-5.1); Sodium 138 mmol/L (136-145)
[2023-10-18 06:54] LABS: Calcium 8.2 mg/dL (7.8-10.44); Glucose 89 mg/dL (80-115)
[2023-10-18 06:55] LABS: Globulin 2.7 g/dL (2.4-3.5); Protein, Total 5.2 g/dL (5.8-8.1)
[2023-10-18 06:56] LABS: Bilirubin, Total 1.5 mg/dL (0.2-1.2); Carbon Dioxide 27 mmol/L (23-31)
[2023-10-18 06:57] LABS: Alkaline Phosphatase 321 U/L (40-110)
[2023-10-18 06:58] LABS: Calc. Creatinine Clearance 8 mL/min (70-130); Estimated GFR 4
[2023-10-18 06:59] LABS: BUN (Urea Nitrogen) 41 mg/dL (9.8-20.1)
[2023-10-18 07:00] LABS: ALT (SGPT) 27 U/L (8-55); AST (SGOT) 25 U/L (5-34)
[2023-10-18 07:01] LABS: Anion Gap 17 mmol/L (10-20)
[2023-10-18] MEDS: Midodrine HCl 5 MG TAB PO SCH ×2 (08:34→17:43)
[2023-10-18] MEDS: Atorvastatin Calcium 10 MG TAB PO SCH (08:34)
[2023-10-18] MEDS: Lactulose 20 GM (30 mL) UDCUP PO SCH ×2 (08:34→17:43)
[2023-10-18] MEDS: Rifaximin 550 MG TAB PO SCH (08:34)
[2023-10-18 17:39] LABS: HBSAB Concentration Less than 8.00 mIU/mL; HBSAg Index 0.16 S/CO (0-0.99); Hep B Core Total Ab Non-Reactive (NonReactive); Hep B Core Total Index 0.13 S/CO (0-0.79); Hep B Surf AB Non-Reactive (NonReactive); Hep B Surf Ag Non-Reactive S/CO (NonReactive); Hep C IgG Ab Non-Reactive S/CO (NonReactive); Hep C Index 0.08 S/CO (0-0.79)
[2023-10-18 22:58] VITALS: BP 113/66; TEMP 98
[2023-10-19] MEDS ORDERED: FLU VACC QS2023(65UP)/MF59C/PF 60 MCG/0.5 ML SYRINGE IM ONE (09:00)
== END 2023-10-18 22:40 | disposition home or self-care (01) | DRG 441 ==
LOC: ERS 10:36 → ERHOLD 14:02 → T4-B 18:14 → OBSVTOIN 10-17 13:56
PROVIDERS: ADMIT Student in an Organized Health Care Education/Training Program; ATTEND Emergency Medicine
DX: K72.90 Hepatic failure, unspecified without coma (principal); N18.6 End stage renal disease; I12.0 Hypertensive chronic kidney disease with stage 5 chronic kidney disease or end stage renal disease; R18.8 Other ascites; K74.60 Unspecified cirrhosis of liver; Z91.048 Other nonmedicinal substance allergy status; Z91.041 Radiographic dye allergy status; Z79.899 Other long term (current) drug therapy; E78.5 Hyperlipidemia, unspecified; Z99.2 Dependence on renal dialysis; E11.22 Type 2 diabetes mellitus with diabetic chronic kidney disease; E03.9 Hypothyroidism, unspecified; Z90.49 Acquired absence of other specified parts of digestive tract; Z90.89 Acquired absence of other organs; D63.1 Anemia in chronic kidney disease; D69.6 Thrombocytopenia, unspecified
CPT/HCPCS: 36415; 36416; 70450; 71045; 80048; 80053; 82140; 82977; 83690; 83735; 84145; 84484; 85025; 86704; 87040; 93005

== ENCOUNTER 2023-11-13 22:24 | Observation (INO) | payer MEDICARE ==
[2023-11-13 22:54] LABS: #Eosinphils 0.1 thou/uL (0.0-0.7); #Monocytes 0.2 thou/uL (0.11-0.59); #Neutrophils 2.4 thou/uL (1.40-6.50); %Basophils 0.6 % (0.0-1.0); %Eosinophils 2.6 % (0.0-10.0); %Lymphocytes 20.6 % (21.0-51.0); %Monocytes 6.7 % (0.0-10.0); %Neutrophils 69.2 % (42.0-75.0); Hematocrit 28.7 % (36.0-47.0); Hemoglobin 9.8 g/dL (12.0-16.0); Mean Corpuscular HGB CONC 34.1 g/dL (32.0-36.0); Mean Corpuscular Hemoglobin 34.9 pg (27.0-31.0); Mean Corpuscular Volume 102.1 fl (78.0-98.0); Mean Platelet Volume 10.1 fL (7.4-10.4); RBC Distribution Width 15.9 % (11.5-14.5); Red Blood Cell (RBC) Count 2.81 mill/uL (4.20-5.40); White Blood Cell (WBC) Count 3.5 10x3/uL (4.8-10.8)
[2023-11-13 22:55] LABS: Platelet Count 72 10x3/uL (130-400)
[2023-11-13 23:13] LABS: Acetaminophen Less than 10 mcg/mL (10.0-30.0); Alcohol Less than 10.0 mg/dL (Less than 10); Lipase 256 U/L (8-78); Salicylate Less than 8.0 mg/dL (15.0-30.0)
[2023-11-13 23:14] LABS: ALT (SGPT) 18 U/L (8-55); AST (SGOT) 19 U/L (5-34); Alkaline Phosphatase 447 U/L (40-110); Anion Gap 20 mmol/L (10-20); BUN (Urea Nitrogen) 64 mg/dL (9.8-20.1); Bilirubin, Total 1.5 mg/dL (0.2-1.2); Calc. Creatinine Clearance 0 mL/min (70-130); Calcium 7.9 mg/dL (7.8-10.44); Carbon Dioxide 23 mmol/L (23-31); Chloride 101 mmol/L (98-107); Estimated GFR 3; Globulin 3.1 g/dL (2.4-3.5); Glucose 191 mg/dL (80-115); Potassium 4.4 mmol/L (3.5-5.1); Protein, Total 6.1 g/dL (5.8-8.1); Sodium 140 mmol/L (136-145)
[2023-11-14] MEDS ORDERED: Lactulose 20 GM (30 mL) UDCUP ONE (02:21)
[2023-11-14] MEDS ORDERED: Acetaminophen 650 MG Suppository PR PRN (08:31)
[2023-11-14] MEDS ORDERED: Ondansetron PF 4 MG/2 ML Vial IVP PRN (08:31)
[2023-11-14] MEDS ORDERED: Ondansetron ODT 4 MG TAB PO PRN (08:31)
[2023-11-14] MEDS ORDERED: LEVOTHYROXINE SODIUM 150 MCG PO SCH (09:00)
[2023-11-14] MEDS: Midodrine HCl 5 MG TAB PO SCH (10:05)
[2023-11-14] MEDS: Lactulose 20 GM (30 mL) UDCUP PO SCH (10:06)
[2023-11-14 10:20] VITALS: BMI 35.4
[2023-11-14] MEDS: Acetaminophen 325 MG TAB PO PRN (11:02)
[2023-11-14] MEDS: cefTRIAXone\\ROCEPHIN 1 GM in Sodium Chloride 0.9% 100 ML IVPB SCH (11:02)
[2023-11-14] MEDS ORDERED: Dextrose 5% in Water 1,000 ML IV PRN (11:15)
[2023-11-14] MEDS ORDERED: Glucagon 1 MG/ML KIT IM PRN (11:15)
[2023-11-14] MEDS ORDERED: Dextrose 50% Abboject 50 ML SYRINGE SLOW IVP PRN (11:15)
[2023-11-14] MEDS ORDERED: Insulin Regular 300 UNITS/3 ML VIAL SC PRN ×2 (11:15)
[2023-11-14] MEDS: Rifaximin 550 MG TAB PO SCH (11:42)
[2023-11-14] MEDS: Albumin 5% 12.5 GM (250 mL) BOT IVPB SCH (11:58)
[2023-11-14] MEDS ORDERED: Lidocaine 1% PF 5 ML VIAL ONE (12:57)
[2023-11-14] MEDS ORDERED: Sodium Bicarbonate 2.5 MEQ/5 ML SDV ONE (12:57)
[2023-11-14 18:40] LABS: INR-International Normal Ratio 1.3; PTT 17.9 sec (22.9-36.1)
[2023-11-14] MEDS: Famotidine 20 MG TAB PO SCH (20:24)
[2023-11-14] MEDS: Folic Acid 1 MG TAB PO SCH (20:25)
[2023-11-15 04:43] LABS: #Eosinphils 0.1 thou/uL (0.0-0.7); #Monocytes 0.3 thou/uL (0.11-0.59); #Neutrophils 1.8 thou/uL (1.40-6.50); %Basophils 0.6 % (0.0-1.0); %Eosinophils 3.8 % (0.0-10.0); %Lymphocytes 26.4 % (21.0-51.0); %Monocytes 9.9 % (0.0-10.0); %Neutrophils 58.7 % (42.0-75.0); Hematocrit 25.2 % (36.0-47.0); Hemoglobin 8.1 g/dL (12.0-16.0); Mean Corpuscular HGB CONC 32.1 g/dL (32.0-36.0); Mean Corpuscular Hemoglobin 33.3 pg (27.0-31.0); Mean Corpuscular Volume 103.7 fl (78.0-98.0); Mean Platelet Volume 10.7 fL (7.4-10.4); RBC Distribution Width 15.9 % (11.5-14.5); Red Blood Cell (RBC) Count 2.43 mill/uL (4.20-5.40); White Blood Cell (WBC) Count 3.1 10x3/uL (4.8-10.8)
[2023-11-15 04:45] LABS: Platelet Count 60 10x3/uL (130-400)
[2023-11-15 05:14] LABS: Anion Gap 22 mmol/L (10-20); BUN (Urea Nitrogen) 77 mg/dL (9.8-20.1); Calc. Creatinine Clearance 6 mL/min (70-130); Calcium 7.8 mg/dL (7.8-10.44); Carbon Dioxide 21 mmol/L (23-31); Chloride 102 mmol/L (98-107); Estimated GFR 3; Glucose 86 mg/dL (80-115); Potassium 4.4 mmol/L (3.5-5.1); Sodium 141 mmol/L (136-145)
[2023-11-15] MEDS: Levothyroxine 150 MCG TAB PO SCH (05:43)
[2023-11-15 12:22] LABS: HBSAB Concentration Less than 8.00 mIU/mL; HBSAg Index 0.25 S/CO (0-0.99); Hep B Core Total Ab Non-Reactive (NonReactive); Hep B Core Total Index 0.11 S/CO (0-0.79); Hep B Surf AB Non-Reactive (NonReactive); Hep B Surf Ag Non-Reactive S/CO (NonReactive); Hep C IgG Ab Non-Reactive S/CO (NonReactive); Hep C Index 0.11 S/CO (0-0.79)
[2023-11-15] MEDS: Cyanocobalamin (Vitamin B-12) 1,000 MCG TAB PO SCH (14:57)
[2023-11-15 16:28] VITALS: BP 108/68; TEMP 97.8
== END 2023-11-15 17:20 | disposition home health service (06) ==
LOC: ERS 22:24 → SJJU 11-14 06:12
PROVIDERS: ADMIT Internal Medicine; ATTEND Family Medicine
DX: K76.82 Hepatic encephalopathy (principal); K74.60 Unspecified cirrhosis of liver; E11.22 Type 2 diabetes mellitus with diabetic chronic kidney disease; N18.6 End stage renal disease; Z99.2 Dependence on renal dialysis; E03.9 Hypothyroidism, unspecified; E78.5 Hyperlipidemia, unspecified; I95.9 Hypotension, unspecified; Z91.041 Radiographic dye allergy status; Z91.013 Allergy to seafood; Z91.048 Other nonmedicinal substance allergy status; Z79.899 Other long term (current) drug therapy; Z79.890 Hormone replacement therapy; Z90.49 Acquired absence of other specified parts of digestive tract; Z90.89 Acquired absence of other organs; Z87.891 Personal history of nicotine dependence
CPT/HCPCS: 76705; 80048; 80053; 80307; 82140; 82962 ×2; 83690; 84443; 85025 ×2; 85610; 85730; 86704; 93005; 96365; 96375; 96376; 99285; G0378 ×3; P9045; 36415; 36416; 90935; G0257; J0696; J3490

== ENCOUNTER 2024-02-20 13:17 | Outpatient (CLI) | payer MEDICARE, OTHER | END 2024-02-20 13:18 | disposition home or self-care (01) | LOC: BICMAMMO 13:17 | PROVIDERS: ATTEND Family Medicine | DX: Z12.31 Encounter for screening mammogram for malignant neoplasm of breast (principal); Z80.3 Family history of malignant neoplasm of breast | CPT/HCPCS: 77063; 77067 ==

== ENCOUNTER 2024-03-25 06:12 | Inpatient (IN) | payer MEDICARE, OTHER ==
[2024-03-25 06:58] LABS: ALT (SGPT) 32 U/L (8-55); AST (SGOT) 27 U/L (5-34); Albumin 2.7 g/dL (3.4-4.8); Alkaline Phosphatase 457 U/L (40-110); Anion Gap 24 mmol/L (10-20); BUN (Urea Nitrogen) 60 mg/dL (9.8-20.1); Bilirubin, Total 1.7 mg/dL (0.2-1.2); Calc. Creatinine Clearance 0 mL/min (70-130); Calcium 8.3 mg/dL (7.8-10.44); Carbon Dioxide 21 mmol/L (23-31); Chloride 100 mmol/L (98-107); Estimated GFR 4; Globulin 4.1 g/dL (2.4-3.5); Glucose 153 mg/dL (80-115); Magnesium 2.4 mg/dL (1.6-2.6); Potassium 3.9 mmol/L (3.5-5.1); Protein, Total 6.8 g/dL (5.8-8.1); Sodium 141 mmol/L (136-145)
[2024-03-25 07:01] LABS: INR-International Normal Ratio 1.2; PTT 31.3 sec (22.9-36.1); Prothrombin Time 15.2 sec (12.0-14.7)
[2024-03-25 07:17] LABS: #Basophils Less than 0.03 10x3/uL (0.0-0.2); %Basophils 0.2 % (0.0-1.0); %Eosinophils 1.4 % (0.0-10.0); %Lymphocytes 11.8 % (21.0-51.0); %Monocytes 4.7 % (0.0-10.0); %Neutrophils 81.4 % (42.0-75.0); Hematocrit 30.8 % (36.0-47.0); Hemoglobin 10.3 g/dL (12.0-16.0); Mean Corpuscular HGB CONC 33.4 g/dL (32.0-36.0); Mean Corpuscular Hemoglobin 34.6 pg (27.0-31.0); Mean Corpuscular Volume 103.4 fL (78.0-98.0); Mean Platelet Volume 10.1 fL (7.4-10.4); Platelet Count 75 10x3/uL (130-400); RBC Distribution Width 18.1 % (11.5-14.5); Red Blood Cell (RBC) Count 2.98 mill/uL (4.20-5.40)
[2024-03-25 07:35] LABS: Actual Bicarbonate (HCO3v) 20.8 mEq/L (22-28); Base Excess 0.7 mEq/L (-2.0 to +3.0); Chloride (VBG) 98 mmol/L (98-106); Hematocrit-VBG 34 % (36.0-47.0); Hemoglobin (Hb) 11.6 g/dL (11.7-16.1); Potassium (VBG) 4.02 mmol/L (3.70-5.30); Sodium 138 mmol/L (133-146)
[2024-03-25 07:37] LABS: Calcium, Ionized (venous) 0.76 mmol/L (1.16-1.32)
[2024-03-25 09:08] LABS: Acetaminophen Less than 10 mcg/mL (10.0-30.0); Alcohol Less than 10.0 mg/dL (Less than 10); Salicylate Less than 8.0 mg/dL (15.0-30.0)
[2024-03-25 09:50] LABS: Lactic Acid 2.8 mmol/L (0.5-2.2)
[2024-03-25 10:14] LABS: HBSAB Concentration Less than 8.00 mIU/mL; HBsAg Index 0.28 S/CO (0-0.99); Hep B Core Total Ab NONREACTIVE (NonReactive); Hep B Core Total Index 0.11 S/CO (0-0.79); Hep B Surf AB NONREACTIVE (NonReactive); Hep B Surf Ag NONREACTIVE S/CO (NonReactive); Hep C IgG Ab NONREACTIVE S/CO (NonReactive); Hep C Index 0.11 S/CO (0-0.79)
[2024-03-25] MEDS ORDERED: Benzocaine 20% Spray 60 ML CAN ONE (10:56)
[2024-03-25] MEDS ORDERED: Glucagon 1 MG/ML KIT IM PRN (11:02)
[2024-03-25] MEDS ORDERED: Dextrose 5% in Water 1,000 ML IV PRN (11:02)
[2024-03-25] MEDS ORDERED: Dextrose 50% Abboject 50 ML SYRINGE SLOW IVP PRN (11:02)
[2024-03-25] MEDS ORDERED: Insulin Lispro 100 UNIT/ML 10 ML VIAL SC PRN ×2 (11:18)
[2024-03-25] MEDS ORDERED: Lactulose 20 GM (30 mL) UDCUP ONE ×2 (11:28→17:38)
[2024-03-25] MEDS: Lactulose 10 GM/15 ML Oral Solution PR SCH (13:19)
[2024-03-25 17:43] LABS: Lactic Acid 4.3 mmol/L (0.5-2.2)
[2024-03-25] MEDS: Lactulose 20 GM (30 mL) UDCUP PO SCH (18:02)
[2024-03-25 18:30] VITALS: BMI 36.1
[2024-03-25] MEDS: Midodrine HCl 5 MG TAB PO SCH (18:32)
[2024-03-25] MEDS: Folic Acid 1 MG TAB PO SCH (21:41)
[2024-03-25] MEDS: Pantoprazole DR 40 MG TAB PO SCH (21:41)
[2024-03-25] MEDS: Rifaximin 550 MG TAB PO SCH (21:41)
[2024-03-26 04:36] LABS: #Basophils Less than 0.03 10x3/uL (0.0-0.2); %Basophils 0.4 % (0.0-1.0); %Eosinophils 2.2 % (0.0-10.0); %Lymphocytes 17.8 % (21.0-51.0); %Monocytes 8.1 % (0.0-10.0); %Neutrophils 71.3 % (42.0-75.0); Hematocrit 30.5 % (36.0-47.0); Hemoglobin 10.3 g/dL (12.0-16.0); Mean Corpuscular HGB CONC 33.8 g/dL (32.0-36.0); Mean Corpuscular Hemoglobin 34.1 pg (27.0-31.0); Mean Platelet Volume 10.3 fL (7.4-10.4); Platelet Count 60 10x3/uL (130-400); RBC Distribution Width 18.6 % (11.5-14.5); Red Blood Cell (RBC) Count 3.02 mill/uL (4.20-5.40)
[2024-03-26 04:48] LABS: ALT (SGPT) 28 U/L (8-55); AST (SGOT) 27 U/L (5-34); Albumin 2.4 g/dL (3.4-4.8); Alkaline Phosphatase 318 U/L (40-110); Anion Gap 22 mmol/L (10-20); BUN (Urea Nitrogen) 32 mg/dL (9.8-20.1); Bilirubin, Total 1.8 mg/dL (0.2-1.2); Calc. Creatinine Clearance 13 mL/min (70-130); Carbon Dioxide 19 mmol/L (23-31); Chloride 101 mmol/L (98-107); Estimated GFR 7; Globulin 3.8 g/dL (2.4-3.5); Glucose 140 mg/dL (80-115); Potassium 3.7 mmol/L (3.5-5.1); Protein, Total 6.2 g/dL (5.8-8.1); Sodium 138 mmol/L (136-145)
[2024-03-26 05:24] LABS: Anisocytosis SLIGHT = 6-15 cells HPF (0-5); Macrocytosis SLIGHT = 6-15 cells HPF (0-5); Platelet Adequacy Comment Platelets Decreased; Polychromasia SLIGHT = 2-3 cells HPF (0-2)
[2024-03-26] MEDS: Levothyroxine Sodium 125 MCG TAB PO SCH (06:21)
[2024-03-26] MEDS: Atorvastatin Calcium 10 MG TAB PO SCH (09:40)
[2024-03-26 09:58] VITALS: BMI 36.1
[2024-03-26] MEDS: Lactulose 20 GM (30 mL) UDCUP PO SCH ×2 (13:08→21:17)
[2024-03-26] MEDS: Acetaminophen 325 MG TAB PO SCH (15:56)
[2024-03-26] MEDS: Metoclopramide HCl 10 MG (2 mL) VIAL IVP SCH (15:56)
[2024-03-26] MEDS ORDERED: diphenhydrAMINE 25 MG CAP PO PRN (19:51)
[2024-03-27] MEDS: Fluticasone Propionate Nasal Spray 16 gm Bottle NASAL SCH (13:36)
[2024-03-27 20:42] LABS: ALT (SGPT) 23 U/L (8-55); AST (SGOT) 28 U/L (5-34); Albumin 2.2 g/dL (3.4-4.8); Alkaline Phosphatase 287 U/L (40-110); Anion Gap 22 mmol/L (10-20); BUN (Urea Nitrogen) 22 mg/dL (9.8-20.1); Bilirubin, Total 1.6 mg/dL (0.2-1.2); Calc. Creatinine Clearance 16 mL/min (70-130); Calcium 7.6 mg/dL (7.8-10.44); Carbon Dioxide 16 mmol/L (23-31); Chloride 102 mmol/L (98-107); Estimated GFR 9; Globulin 3.5 g/dL (2.4-3.5); Glucose 170 mg/dL (80-115); Potassium 3.8 mmol/L (3.5-5.1); Protein, Total 5.7 g/dL (5.8-8.1); Sodium 136 mmol/L (136-145)
[2024-03-27] MEDS: Gabapentin 100 MG CAP PO SCH (21:01)
[2024-03-27] MEDS: Icosapent Ethyl 1 GM CAPSULE PO SCH (21:02)
[2024-03-27 21:27] LABS: #Basophils Less than 0.03 10x3/uL (0.0-0.2); %Basophils 0.4 % (0.0-1.0); %Eosinophils 2.8 % (0.0-10.0); %Lymphocytes 18.1 % (21.0-51.0); %Monocytes 8.9 % (0.0-10.0); %Neutrophils 69.6 % (42.0-75.0); Hematocrit 29.9 % (36.0-47.0); Hemoglobin 9.5 g/dL (12.0-16.0); Mean Corpuscular HGB CONC 31.8 g/dL (32.0-36.0); Mean Corpuscular Hemoglobin 34.2 pg (27.0-31.0); Mean Corpuscular Volume 107.6 fL (78.0-98.0); Platelet Count 67 10x3/uL (130-400); RBC Distribution Width 17.7 % (11.5-14.5); Red Blood Cell (RBC) Count 2.78 mill/uL (4.20-5.40)
[2024-03-28 04:43] LABS: #Basophils Less than 0.03 10x3/uL (0.0-0.2); %Basophils 0.4 % (0.0-1.0); %Eosinophils 4.3 % (0.0-10.0); %Lymphocytes 23.7 % (21.0-51.0); %Monocytes 10.3 % (0.0-10.0); %Neutrophils 61.1 % (42.0-75.0); Hematocrit 28.4 % (36.0-47.0); Hemoglobin 9.2 g/dL (12.0-16.0); Mean Corpuscular HGB CONC 32.4 g/dL (32.0-36.0); Mean Corpuscular Hemoglobin 33.6 pg (27.0-31.0); Mean Corpuscular Volume 103.6 fL (78.0-98.0); Mean Platelet Volume 10.1 fL (7.4-10.4); Platelet Count 70 10x3/uL (130-400); RBC Distribution Width 17.6 % (11.5-14.5); Red Blood Cell (RBC) Count 2.74 mill/uL (4.20-5.40)
[2024-03-28 04:58] LABS: ALT (SGPT) 22 U/L (8-55); AST (SGOT) 25 U/L (5-34); Albumin 2.3 g/dL (3.4-4.8); Alkaline Phosphatase 285 U/L (40-110); Anion Gap 18 mmol/L (10-20); BUN (Urea Nitrogen) 26 mg/dL (9.8-20.1); Bilirubin, Total 1.8 mg/dL (0.2-1.2); Calc. Creatinine Clearance 13 mL/min (70-130); Calcium 7.6 mg/dL (7.8-10.44); Carbon Dioxide 24 mmol/L (23-31); Chloride 100 mmol/L (98-107); Estimated GFR 7; Globulin 3.2 g/dL (2.4-3.5); Glucose 107 mg/dL (80-115); Potassium 3.8 mmol/L (3.5-5.1); Protein, Total 5.5 g/dL (5.8-8.1); Sodium 138 mmol/L (136-145)
[2024-03-28] MEDS: Multivit, Therapeutic 1 TAB PO SCH (09:08)
[2024-03-28] MEDS: Cyanocobalamin (Vitamin B-12) 1,000 MCG TAB PO SCH (09:08)
[2024-03-28 10:00] VITALS: BP 118/55; TEMP 97.8
== END 2024-03-28 12:15 | disposition home or self-care (01) | DRG 441 ==
LOC: ERS 06:12 → ERHOLD 09:31 → 2NO 18:28
PROVIDERS: ADMIT Family Medicine; ATTEND Internal Medicine
PROC: 5A1D70Z Performance of Urinary Filtration, Intermittent, Less than 6 Hours Per Day (ICD-10-PCS; principal; 2024-03-25)
DX: K76.82 Hepatic encephalopathy (principal); N18.6 End stage renal disease; R18.8 Other ascites; E87.20 Acidosis, unspecified; E87.3 Alkalosis; K92.2 Gastrointestinal hemorrhage, unspecified; K76.6 Portal hypertension; I12.0 Hypertensive chronic kidney disease with stage 5 chronic kidney disease or end stage renal disease; K74.60 Unspecified cirrhosis of liver; E11.22 Type 2 diabetes mellitus with diabetic chronic kidney disease; D64.9 Anemia, unspecified; E78.5 Hyperlipidemia, unspecified; E87.5 Hyperkalemia; E89.0 Postprocedural hypothyroidism; K75.81 Nonalcoholic steatohepatitis (NASH); K31.89 Other diseases of stomach and duodenum; Z91.013 Allergy to seafood; Z91.048 Other nonmedicinal substance allergy status; Z99.2 Dependence on renal dialysis; Z91.041 Radiographic dye allergy status; Z79.899 Other long term (current) drug therapy; Z79.890 Hormone replacement therapy; Z90.49 Acquired absence of other specified parts of digestive tract; Z87.891 Personal history of nicotine dependence
CPT/HCPCS: 36415; 36416; 70450; 71045; 80053; 80307; 82140; 82805; 83605; 83735; 83880; 83930; 84443; 84484; 85025; 85610; 85730; 86704; 86706; 86803; 87040; 87340; 93005; J2765

== ENCOUNTER 2024-04-05 14:59 | Inpatient (IN) | payer MEDICARE, OTHER ==
[2024-04-05 16:17] LABS: Influenza A by NAA Not Detected (NotDetected); Influenza B by NAA Not Detected (NotDetected); SARS-CoV-2 NAA Rapid Test Not Detected (NotDetected)
[2024-04-05 16:31] LABS: ALT (SGPT) 28 U/L (8-55); AST (SGOT) 24 U/L (5-34); Albumin 2.6 g/dL (3.4-4.8); Alkaline Phosphatase 328 U/L (40-110); Anion Gap 19 mmol/L (10-20); BUN (Urea Nitrogen) 60 mg/dL (9.8-20.1); Bilirubin, Total 1.7 mg/dL (0.2-1.2); Calc. Creatinine Clearance 0 mL/min (70-130); Carbon Dioxide 25 mmol/L (23-31); Chloride 98 mmol/L (98-107); Estimated GFR 5; Globulin 3.7 g/dL (2.4-3.5); Glucose 106 mg/dL (80-115); Lipase 75 U/L (8-78); Potassium 4.6 mmol/L (3.5-5.1); Protein, Total 6.3 g/dL (5.8-8.1); Sodium 137 mmol/L (136-145)
[2024-04-05 16:32] LABS: #Basophils Less than 0.03 10x3/uL (0.0-0.2); %Basophils 0.4 % (0.0-1.0); %Eosinophils 2.7 % (0.0-10.0); %Lymphocytes 19.5 % (21.0-51.0); %Monocytes 7.6 % (0.0-10.0); %Neutrophils 69.2 % (42.0-75.0); Hematocrit 29.6 % (36.0-47.0); Hemoglobin 9.5 g/dL (12.0-16.0); Mean Corpuscular HGB CONC 32.1 g/dL (32.0-36.0); Mean Corpuscular Hemoglobin 34.2 pg (27.0-31.0); Mean Corpuscular Volume 106.5 fL (78.0-98.0); Mean Platelet Volume 10.3 fL (7.4-10.4); Platelet Count 88 10x3/uL (130-400); RBC Distribution Width 17.3 % (11.5-14.5); Red Blood Cell (RBC) Count 2.78 mill/uL (4.20-5.40)
[2024-04-05 16:34] LABS: Troponin I 0.014 ng/mL (< 0.028)
[2024-04-05 16:37] LABS: INR-International Normal Ratio 1.2; Prothrombin Time 15.4 sec (12.0-14.7)
[2024-04-05 16:38] LABS: PTT 26.5 sec (22.9-36.1)
[2024-04-05 16:43] LABS: Actual Bicarbonate (HCO3v) 26.2 mEq/L (22-28); Base Excess 2.5 mEq/L (-2.0 to +3.0); Chloride (VBG) 96 mmol/L (98-106); Hematocrit-VBG 32 % (36.0-47.0); Potassium (VBG) 4.66 mmol/L (3.70-5.30); Sodium 138 mmol/L (133-146); pH (venous) 7.469 (7.32-7.43)
[2024-04-05] MEDS ORDERED: Senokot S 8.6-50 MG TAB PO PRN (17:47)
[2024-04-05 20:50] VITALS: BMI 36.9
[2024-04-06] MEDS: Lactulose 20 GM (30 mL) UDCUP PER TUBE SCH ×4 (00:38→13:14)
[2024-04-06] MEDS: Rifaximin 550 MG TAB PER TUBE SCH (00:38)
[2024-04-06 05:43] LABS: #Basophils Less than 0.03 10x3/uL (0.0-0.2); %Basophils 0.2 % (0.0-1.0); %Eosinophils 1.3 % (0.0-10.0); %Lymphocytes 10.8 % (21.0-51.0); %Monocytes 6.6 % (0.0-10.0); %Neutrophils 80.8 % (42.0-75.0); Hematocrit 30.6 % (36.0-47.0); Hemoglobin 9.8 g/dL (12.0-16.0); Mean Corpuscular Hemoglobin 34.9 pg (27.0-31.0); Mean Corpuscular Volume 108.9 fL (78.0-98.0); Mean Platelet Volume 10.2 fL (7.4-10.4); Platelet Count 85 10x3/uL (130-400); RBC Distribution Width 17.9 % (11.5-14.5); Red Blood Cell (RBC) Count 2.81 mill/uL (4.20-5.40)
[2024-04-06] MEDS: Levothyroxine Sodium 125 MCG TAB PER TUBE SCH (05:43)
[2024-04-06 05:50] LABS: ALT (SGPT) 27 U/L (8-55); AST (SGOT) 21 U/L (5-34); Albumin 2.5 g/dL (3.4-4.8); Alkaline Phosphatase 312 U/L (40-110); Anion Gap 23 mmol/L (10-20); BUN (Urea Nitrogen) 68 mg/dL (9.8-20.1); Bilirubin, Total 1.9 mg/dL (0.2-1.2); Calc. Creatinine Clearance 8 mL/min (70-130); Calcium 7.9 mg/dL (7.8-10.44); Carbon Dioxide 20 mmol/L (23-31); Chloride 99 mmol/L (98-107); Estimated GFR 4; Globulin 3.8 g/dL (2.4-3.5); Glucose 163 mg/dL (80-115); Protein, Total 6.3 g/dL (5.8-8.1); Sodium 137 mmol/L (136-145)
[2024-04-06] MEDS: Pantoprazole 40 MG VIAL IVP SCH (09:57)
[2024-04-06] MEDS: Dextrose 5 % And 0.9 % NaCl 1,000 ML IV SCH (10:59)
[2024-04-06] MEDS: EPOETIN ALFA-EPBX (ESRD) 10,000 UNITS/ML VIAL SC SCH (13:14)
[2024-04-06] MEDS: Folic Acid 1 MG TAB PO SCH (22:56)
[2024-04-07 05:23] LABS: Anion Gap 19 mmol/L (10-20); BUN (Urea Nitrogen) 43 mg/dL (9.8-20.1); Calc. Creatinine Clearance 11 mL/min (70-130); Calcium 7.7 mg/dL (7.8-10.44); Carbon Dioxide 22 mmol/L (23-31); Chloride 100 mmol/L (98-107); Estimated GFR 6; Glucose 159 mg/dL (80-115); Potassium 4.3 mmol/L (3.5-5.1); Sodium 137 mmol/L (136-145)
[2024-04-07 06:02] LABS: #Basophils 0.03 10x3/uL (0.0-0.2); %Basophils 0.5 % (0.0-1.0); %Eosinophils 2.7 % (0.0-10.0); %Lymphocytes 12.9 % (21.0-51.0); %Monocytes 9.4 % (0.0-10.0); %Neutrophils 73.7 % (42.0-75.0); Hematocrit 28.3 % (36.0-47.0); Hemoglobin 8.7 g/dL (12.0-16.0); Mean Corpuscular HGB CONC 30.7 g/dL (32.0-36.0); Mean Corpuscular Hemoglobin 33.9 pg (27.0-31.0); Mean Corpuscular Volume 110.1 fL (78.0-98.0); Mean Platelet Volume 10.1 fL (7.4-10.4); Platelet Count 77 10x3/uL (130-400); RBC Distribution Width 18.5 % (11.5-14.5); Red Blood Cell (RBC) Count 2.57 mill/uL (4.20-5.40)
[2024-04-07] MEDS ORDERED: Non-Formulary Item 1 EACH (Cyanocobalamin (Vitamin B-12) [Vitamin B-12] 1,000 MCG Capsule PO SCH (09:00)
[2024-04-07] MEDS ORDERED: Non-Formulary Item 1 EACH (Ascorbic Acid [Vitamin C] 1,000 MG Tablet) PO SCH (09:00)
[2024-04-07] MEDS: Ascorbic Acid 500 mg Chewable Tablet PO SCH (09:43)
[2024-04-07] MEDS: Atorvastatin Calcium 10 MG TAB PO SCH (09:43)
[2024-04-07] MEDS: Levothyroxine Sodium 125 MCG TAB PO SCH (09:43)
[2024-04-07] MEDS: Cyanocobalamin (Vitamin B-12) 1,000 MCG TAB PO SCH (09:43)
[2024-04-07] MEDS: Cholecalciferol 1,000 UNITS (25 MCG) TAB PO SCH (09:43)
[2024-04-07] MEDS: traMADol HCl 50 MG TAB PO PRN (13:12)
[2024-04-07] MEDS ORDERED: Preparation H Suppository PR PRN (14:06)
[2024-04-07] MEDS: Acetaminophen 325 MG TAB PO PRN (16:24)
[2024-04-08 05:20] LABS: #Basophils Less than 0.03 10x3/uL (0.0-0.2); %Basophils 0.4 % (0.0-1.0); %Eosinophils 3.1 % (0.0-10.0); %Monocytes 9.4 % (0.0-10.0); %Neutrophils 69.7 % (42.0-75.0); Hematocrit 25.1 % (36.0-47.0); Mean Corpuscular HGB CONC 31.9 g/dL (32.0-36.0); Mean Corpuscular Hemoglobin 34.6 pg (27.0-31.0); Mean Corpuscular Volume 108.7 fL (78.0-98.0); Mean Platelet Volume 9.7 fL (7.4-10.4); Platelet Count 66 10x3/uL (130-400); RBC Distribution Width 18.5 % (11.5-14.5); Red Blood Cell (RBC) Count 2.31 mill/uL (4.20-5.40)
[2024-04-08 05:29] LABS: Anion Gap 20 mmol/L (10-20); BUN (Urea Nitrogen) 56 mg/dL (9.8-20.1); Calc. Creatinine Clearance 9 mL/min (70-130); Carbon Dioxide 23 mmol/L (23-31); Chloride 100 mmol/L (98-107); Estimated GFR 4; Glucose 120 mg/dL (80-115); Potassium 4.6 mmol/L (3.5-5.1); Sodium 138 mmol/L (136-145)
[2024-04-08 05:50] LABS: Anisocytosis SLIGHT = 6-15 cells HPF (0-5); Macrocytosis SLIGHT = 6-15 cells HPF (0-5); Platelet Adequacy Comment Platelets Decreased
[2024-04-09] MEDS: predniSONE 50 MG TAB PO SCH ×2 (00:02→13:02)
[2024-04-09 05:36] LABS: Anion Gap 16 mmol/L (10-20); BUN (Urea Nitrogen) 32 mg/dL (9.8-20.1); Calc. Creatinine Clearance 14 mL/min (70-130); Calcium 7.5 mg/dL (7.8-10.44); Carbon Dioxide 25 mmol/L (23-31); Chloride 101 mmol/L (98-107); Estimated GFR 8; Glucose 139 mg/dL (80-115); Potassium 4.8 mmol/L (3.5-5.1); Sodium 137 mmol/L (136-145)
[2024-04-09 06:14] LABS: Hematocrit 28.2 % (36.0-47.0); Mean Corpuscular HGB CONC 31.9 g/dL (32.0-36.0); Mean Corpuscular Hemoglobin 33.8 pg (27.0-31.0); Mean Platelet Volume 9.7 fL (7.4-10.4); Platelet Count 59 10x3/uL (130-400); RBC Distribution Width 18.4 % (11.5-14.5); Red Blood Cell (RBC) Count 2.66 mill/uL (4.20-5.40)
[2024-04-09 07:11] LABS: Anisocytosis SLIGHT = 6-15 cells HPF (0-5); Band 4 % (5-11); Eosinophils 1 % (0-10); Lymphocytes 7 % (21-51); Macrocytosis SLIGHT = 6-15 cells HPF (0-5); Neutrophil 88 % (42-75); Platelet Adequacy Comment Platelets Decreased; Polychromasia SLIGHT = 2-3 cells HPF (0-2); Smudge Cells 6.1 %
[2024-04-09] MEDS: Cefepime 1 GM in Sodium Chloride 0.9% 100 ML IVPB SCH (18:33)
[2024-04-09] MEDS: diphenhydrAMINE 25 MG CAP PO SCH (21:14)
[2024-04-10 06:50] LABS: Anion Gap 19 mmol/L (10-20); BUN (Urea Nitrogen) 59 mg/dL (9.8-20.1); Calc. Creatinine Clearance 10 mL/min (70-130); Calcium 7.4 mg/dL (7.8-10.44); Carbon Dioxide 22 mmol/L (23-31); Chloride 96 mmol/L (98-107); Estimated GFR 5; Glucose 172 mg/dL (80-115); Potassium 4.7 mmol/L (3.5-5.1); Sodium 132 mmol/L (136-145)
[2024-04-10 07:15] LABS: Band 10 % (5-11); Large Platelets 1.7 % (0-5); Lymphocytes 6 % (21-51); Monocytes 2 % (0-10); Neutrophil 83 % (42-75); Platelet Adequacy Comment Platelets Decreased; Polychromasia SLIGHT = 2-3 cells HPF (0-2)
[2024-04-10 07:40] LABS: Hematocrit 25.5 % (36.0-47.0); Hemoglobin 8.4 g/dL (12.0-16.0); Mean Corpuscular HGB CONC 32.5 g/dL (32.0-36.0); Mean Corpuscular Hemoglobin 34.2 pg (27.0-31.0); Mean Platelet Volume 10.3 fL (7.4-10.4); Platelet Count 55 10x3/uL (130-400); RBC Distribution Width 17.4 % (11.5-14.5)
[2024-04-10 15:38] VITALS: BMI 36.9
[2024-04-11 07:58] LABS: #Basophils Less than 0.03 10x3/uL (0.0-0.2); #Eosinphils Less than 0.03 10x3/uL (0.0-0.7); %Eosinophils 0.2 % (0.0-10.0); %Lymphocytes 13.8 % (21.0-51.0); %Monocytes 7.6 % (0.0-10.0); Hematocrit 27.3 % (36.0-47.0); Hemoglobin 8.6 g/dL (12.0-16.0); Mean Corpuscular HGB CONC 31.5 g/dL (32.0-36.0); Mean Corpuscular Hemoglobin 34.4 pg (27.0-31.0); Mean Corpuscular Volume 109.2 fL (78.0-98.0); Mean Platelet Volume 9.9 fL (7.4-10.4); Platelet Count 54 10x3/uL (130-400); RBC Distribution Width 18.3 % (11.5-14.5)
[2024-04-11 08:24] LABS: Anion Gap 15 mmol/L (10-20); BUN (Urea Nitrogen) 36 mg/dL (9.8-20.1); Calc. Creatinine Clearance 15 mL/min (70-130); Calcium 7.2 mg/dL (7.8-10.44); Carbon Dioxide 24 mmol/L (23-31); Chloride 100 mmol/L (98-107); Estimated GFR 8; Glucose 105 mg/dL (80-115); Potassium 3.8 mmol/L (3.5-5.1); Sodium 135 mmol/L (136-145)
[2024-04-11 15:24] VITALS: BP 96/61; TEMP 98.1
== END 2024-04-11 12:24 | disposition home health service (06) | DRG 441 ==
LOC: ERS 14:59 → MSONC 17:24 → OBSVTOIN 04-06 10:08
PROVIDERS: ADMIT Family Medicine; ATTEND Family Medicine
PROC: 5A1D70Z Performance of Urinary Filtration, Intermittent, Less than 6 Hours Per Day (ICD-10-PCS; principal; 2024-04-06)
DX: K76.82 Hepatic encephalopathy (principal); N18.6 End stage renal disease; I12.0 Hypertensive chronic kidney disease with stage 5 chronic kidney disease or end stage renal disease; K76.6 Portal hypertension; R18.8 Other ascites; H92.02 Otalgia, left ear; K74.60 Unspecified cirrhosis of liver; D63.1 Anemia in chronic kidney disease; R79.89 Other specified abnormal findings of blood chemistry; R41.82 Altered mental status, unspecified; E03.9 Hypothyroidism, unspecified; E78.5 Hyperlipidemia, unspecified; D69.6 Thrombocytopenia, unspecified; H74.92 Unspecified disorder of left middle ear and mastoid; E88.09 Other disorders of plasma-protein metabolism, not elsewhere classified; Z91.013 Allergy to seafood; Z79.899 Other long term (current) drug therapy; Z79.890 Hormone replacement therapy; Z99.2 Dependence on renal dialysis; Z90.49 Acquired absence of other specified parts of digestive tract; Z90.89 Acquired absence of other organs
CPT/HCPCS: 36415; 36416; 70450; 70491; 70551; 71045; 74018; 74176; 80048; 80053; 82140; 82805; 83690; 83880; 84443; 84484; 85025; 85610; 85730; 87040; 90935; 93005; 96374; C9113; G0257; G0378; J0692; J3490; J7042; J7512; Q5105

== ENCOUNTER 2024-06-14 18:10 | Inpatient (IN) | payer MEDICARE, OTHER ==
[2024-06-14 18:54] LABS: #Basophils Less than 0.03 10x3/uL (0.0-0.2); %Basophils 0.2 % (0.0-1.0); %Eosinophils 1.2 % (0.0-10.0); %Lymphocytes 21.7 % (21.0-51.0); %Monocytes 8.3 % (0.0-10.0); %Neutrophils 68.4 % (42.0-75.0); Mean Corpuscular HGB CONC 30.8 g/dL (32.0-36.0); Mean Corpuscular Hemoglobin 33.6 pg (27.0-31.0); Mean Corpuscular Volume 109.2 fL (78.0-98.0); Platelet Count 101 10x3/uL (130-400); RBC Distribution Width 17.3 % (11.5-14.5); Red Blood Cell (RBC) Count 2.38 mill/uL (4.20-5.40)
[2024-06-14 19:06] LABS: Acetaminophen Less than 10 mcg/mL (Less than 10); Alcohol Less than 10.0 mg/dL (Less than 10); Salicylate Less than 8.0 mg/dL (Less than 8.0)
[2024-06-14 19:12] LABS: ALT (SGPT) 29 U/L (8-55); AST (SGOT) 31 U/L (5-34); Albumin 2.6 g/dL (3.4-4.8); Alkaline Phosphatase 305 U/L (40-110); Anion Gap 22 mmol/L (10-20); BUN (Urea Nitrogen) 63 mg/dL (9.8-20.1); Bilirubin, Total 1.4 mg/dL (0.2-1.2); Calc. Creatinine Clearance 0 mL/min (70-130); Calcium 7.8 mg/dL (7.8-10.44); Carbon Dioxide 26 mmol/L (23-31); Chloride 97 mmol/L (98-107); Estimated GFR 5; Glucose 102 mg/dL (80-115); Potassium 6.6 mmol/L (3.5-5.1); Protein, Total 6.6 g/dL (5.8-8.1); Sodium 138 mmol/L (136-145)
[2024-06-14 19:16] LABS: Troponin I 0.011 ng/mL (< 0.028)
[2024-06-14] MEDS ORDERED: Albuterol 1.25 MG (3 mL) NEB ONE (19:40)
[2024-06-14] MEDS ORDERED: CALCIUM GLUC 1 GM/NS 50 ML IV Bag ONE (19:41)
[2024-06-14] MEDS ORDERED: Sodium Bicarb 50 MEQ/50 ML Abboject 8.4% SYRINGE ONE (19:41)
[2024-06-14] MEDS ORDERED: Dextrose 10% in Water 250 ML ONE (20:03)
[2024-06-14] MEDS ORDERED: Insulin Regular, Human 100 UNIT/ML 10 ML VIAL ONE (20:03)
[2024-06-14 22:33] LABS: HBsAg Index 0.32 S/CO (0-0.99); Hep B Core Total Ab NONREACTIVE (NonReactive); Hep B Core Total Index 0.13 S/CO (0-0.79); Hep B Surf Ag NONREACTIVE S/CO (NonReactive)
[2024-06-14 22:40] LABS: HBSAB Concentration Less than 8.00 mIU/mL; Hep B Surf AB NONREACTIVE (NonReactive)
[2024-06-14 22:41] LABS: Hep C IgG Ab NONREACTIVE S/CO (NonReactive); Hep C Index 0.07 S/CO (0-0.79)
[2024-06-14] MEDS ORDERED: Acetaminophen 650 MG Suppository PR PRN (22:48)
[2024-06-14] MEDS ORDERED: Ondansetron ODT 4 MG TAB PO PRN (22:48)
[2024-06-15] MEDS ORDERED: Albumin 25% 100 ML ONE (00:20)
[2024-06-15] MEDS: Albumin 25% 25 GM (100 mL) BOT IVPB SCH (00:40)
[2024-06-15] MEDS: Midodrine HCl 5 MG TAB PO SCH ×2 (01:17→08:40)
[2024-06-15] MEDS: Lactulose 10 GM/15 ML Oral Solution PR SCH (03:10)
[2024-06-15] MEDS: Acetaminophen 325 MG TAB PO SCH (03:10)
[2024-06-15 05:22] LABS: ALT (SGPT) 29 U/L (8-55); AST (SGOT) 36 U/L (5-34); Albumin 3.1 g/dL (3.4-4.8); Alkaline Phosphatase 287 U/L (40-110); Anion Gap 23 mmol/L (10-20); BUN (Urea Nitrogen) 23 mg/dL (9.8-20.1); Bilirubin, Total 1.8 mg/dL (0.2-1.2); Calc. Creatinine Clearance 0 mL/min (70-130); Calcium 8.4 mg/dL (7.8-10.44); Carbon Dioxide 23 mmol/L (23-31); Chloride 100 mmol/L (98-107); Estimated GFR 12; Globulin 3.9 g/dL (2.4-3.5); Glucose 111 mg/dL (80-115); Sodium 141 mmol/L (136-145)
[2024-06-15] MEDS: Levothyroxine Sodium 125 MCG TAB PO SCH (06:35)
[2024-06-15 07:22] LABS: Hematocrit 23.7 % (36.0-47.0); Hemoglobin 7.7 g/dL (12.0-16.0); Mean Corpuscular HGB CONC 32.5 g/dL (32.0-36.0); Mean Corpuscular Hemoglobin 34.4 pg (27.0-31.0); Mean Corpuscular Volume 105.8 fL (78.0-98.0); Mean Platelet Volume 10.8 fL (7.4-10.4); Platelet Count 37 10x3/uL (130-400); RBC Distribution Width 17.7 % (11.5-14.5); Red Blood Cell (RBC) Count 2.24 mill/uL (4.20-5.40)
[2024-06-15 08:15] LABS: Anisocytosis MARKED = >30 cells HPF (0-5); Band 4 % (5-11); Lymphocytes 3 % (21-51); Macrocytosis MODERATE=16-30 cells HPF (0-5); Monocytes 3 % (0-10); Neutrophil 90 % (42-75); Ovalocytes SLIGHT = 2-5 cells HPF (0-1); Platelet Adequacy Comment Significant Decrease; Polychromasia SLIGHT = 2-3 cells HPF (0-2)
[2024-06-15] MEDS: Ascorbic Acid 500 mg Chewable Tablet PO SCH (08:39)
[2024-06-15] MEDS: Atorvastatin Calcium 10 MG TAB PO SCH (08:40)
[2024-06-15] MEDS: Icosapent Ethyl 1 GM CAPSULE PO SCH (08:40)
[2024-06-15] MEDS: Cyanocobalamin (Vitamin B-12) 1,000 MCG TAB PO SCH (08:40)
[2024-06-15] MEDS: Cholecalciferol 1,000 UNITS (25 MCG) TAB PO SCH (08:40)
[2024-06-15] MEDS: Multivit, Therapeutic 1 TAB PO SCH (08:40)
[2024-06-15] MEDS: Pantoprazole DR 40 MG TAB PO SCH (08:42)
[2024-06-15] MEDS: Rifaximin 550 MG TAB PO SCH (08:43)
[2024-06-15] MEDS ORDERED: Insulin Lispro 100 UNIT/ML 10 ML VIAL SC PRN (14:30)
[2024-06-15] MEDS ORDERED: Dextrose 50% Abboject 50 ML SYRINGE SLOW IVP PRN (14:30)
[2024-06-15] MEDS ORDERED: Glucagon 1 MG/ML KIT IM PRN (14:30)
[2024-06-15] MEDS ORDERED: Dextrose 5% in Water 1,000 ML IV PRN (14:30)
[2024-06-15] MEDS: Folic Acid 1 MG TAB PO SCH (22:16)
[2024-06-15] MEDS: Gabapentin 100 MG CAP PO SCH (22:16)
[2024-06-15] MEDS: Floranex 1 GM Packet PO SCH (22:17)
[2024-06-15] MEDS: Pantoprazole 40 MG VIAL IVP SCH (22:47)
[2024-06-16 05:50] LABS: #Basophils Less than 0.03 10x3/uL (0.0-0.2); %Basophils 0.4 % (0.0-1.0); %Eosinophils 1.3 % (0.0-10.0); %Lymphocytes 20.5 % (21.0-51.0); %Monocytes 9.9 % (0.0-10.0); %Neutrophils 67.5 % (42.0-75.0); Hematocrit 21.6 % (36.0-47.0); Hemoglobin 6.5 g/dL (12.0-16.0); Mean Corpuscular HGB CONC 30.1 g/dL (32.0-36.0); Mean Corpuscular Hemoglobin 33.7 pg (27.0-31.0); Mean Corpuscular Volume 111.9 fL (78.0-98.0); Mean Platelet Volume 9.9 fL (7.4-10.4); Platelet Count 78 10x3/uL (130-400); RBC Distribution Width 18.1 % (11.5-14.5); Red Blood Cell (RBC) Count 1.93 mill/uL (4.20-5.40)
[2024-06-16 05:55] LABS: INR-International Normal Ratio 1.4; Prothrombin Time 16.7 sec (12.0-14.7)
[2024-06-16 06:18] LABS: Anisocytosis SLIGHT = 6-15 cells HPF (0-5); Macrocytosis SLIGHT = 6-15 cells HPF (0-5); Platelet Adequacy Comment Platelets Decreased; Polychromasia SLIGHT = 2-3 cells HPF (0-2)
[2024-06-16 06:45] LABS: Anion Gap 16 mmol/L (10-20); BUN (Urea Nitrogen) 39 mg/dL (9.8-20.1); Calc. Creatinine Clearance 12 mL/min (70-130); Calcium 6.9 mg/dL (7.8-10.44); Carbon Dioxide 28 mmol/L (23-31); Chloride 99 mmol/L (98-107); Estimated GFR 7; Glucose 103 mg/dL (80-115); Potassium 4.9 mmol/L (3.5-5.1); Sodium 138 mmol/L (136-145)
[2024-06-16] MEDS: Pantoprazole 40 MG VIAL IVP SCH (08:44)
[2024-06-16] MEDS: Calcium Acetate 667 MG CAP PO SCH (11:15)
[2024-06-16] MEDS: Ondansetron PF 4 MG/2 ML Vial IVP PRN (12:52)
[2024-06-17 08:59] LABS: #Basophils Less than 0.03 10x3/uL (0.0-0.2); %Basophils 0.2 % (0.0-1.0); %Eosinophils 1.4 % (0.0-10.0); %Lymphocytes 15.3 % (21.0-51.0); %Monocytes 9.2 % (0.0-10.0); %Neutrophils 73.4 % (42.0-75.0); Hemoglobin 7.6 g/dL (12.0-16.0); Mean Corpuscular HGB CONC 31.7 g/dL (32.0-36.0); Mean Corpuscular Volume 104.3 fL (78.0-98.0); Platelet Count 80 10x3/uL (130-400); RBC Distribution Width 19.5 % (11.5-14.5)
[2024-06-17 09:10] LABS: Anion Gap 15 mmol/L (10-20); BUN (Urea Nitrogen) 53 mg/dL (9.8-20.1); Calc. Creatinine Clearance 9 mL/min (70-130); Calcium 7.1 mg/dL (7.8-10.44); Carbon Dioxide 28 mmol/L (23-31); Chloride 98 mmol/L (98-107); Estimated GFR 5; Glucose 98 mg/dL (80-115); Sodium 136 mmol/L (136-145)
[2024-06-17] MEDS ORDERED: Epoetin (ESRD) 10,000 UNITS/ML VIAL IVP SCH (12:00)
[2024-06-17] MEDS: EPOETIN ALFA-EPBX 10,000 UNITS/ML VIAL IVP SCH (17:30)
[2024-06-18 09:04] LABS: Anion Gap 15 mmol/L (10-20); BUN (Urea Nitrogen) 27 mg/dL (9.8-20.1); Calc. Creatinine Clearance 15 mL/min (70-130); Calcium 7.4 mg/dL (7.8-10.44); Carbon Dioxide 23 mmol/L (23-31); Chloride 98 mmol/L (98-107); Estimated GFR 9; Glucose 135 mg/dL (80-115); Potassium 4.1 mmol/L (3.5-5.1); Sodium 132 mmol/L (136-145)
[2024-06-18 10:15] LABS: #Basophils 0.03 10x3/uL (0.0-0.2); %Basophils 0.6 % (0.0-1.0); %Eosinophils 2.2 % (0.0-10.0); %Lymphocytes 18.7 % (21.0-51.0); %Monocytes 9.4 % (0.0-10.0); %Neutrophils 68.5 % (42.0-75.0); Hematocrit 26.5 % (36.0-47.0); Hemoglobin 8.7 g/dL (12.0-16.0); Mean Corpuscular HGB CONC 32.8 g/dL (32.0-36.0); Mean Corpuscular Hemoglobin 33.1 pg (27.0-31.0); Mean Corpuscular Volume 100.8 fL (78.0-98.0); Platelet Count 58 10x3/uL (130-400); RBC Distribution Width 18.6 % (11.5-14.5); Red Blood Cell (RBC) Count 2.63 mill/uL (4.20-5.40)
[2024-06-18] MEDS: HYDROcodone/Acetaminophen 5/325 mg Tablet PO SCH (16:04)
[2024-06-18] MEDS: Lactulose 20 GM (30 mL) UDCUP PO SCH (20:54)
[2024-06-19 04:57] LABS: Albumin 2.4 g/dL (3.4-4.8); Anion Gap 13 mmol/L (10-20); BUN (Urea Nitrogen) 38 mg/dL (9.8-20.1); BUN/Creatinine Ratio 6.06; Calc. Creatinine Clearance 12 mL/min (70-130); Calcium 7.4 mg/dL (7.8-10.44); Carbon Dioxide 25 mmol/L (23-31); Chloride 98 mmol/L (98-107); Estimated GFR 7; Glucose 81 mg/dL (80-115); Phosphorus 3.7 mg/dL (2.3-4.7); Potassium 4.5 mmol/L (3.5-5.1); Sodium 131 mmol/L (136-145)
[2024-06-19] MEDS ORDERED: Heparin 10,000 UNITS/ 10 ML VIAL ONE (09:25)
[2024-06-19] MEDS: Lactulose 20 GM (30 mL) UDCUP PO SCH (13:08)
[2024-06-19] MEDS: Albumin 25% 25 GM (100 mL) BOT IVPB SCH (13:10)
[2024-06-20] MEDS: Lactulose 20 GM (30 mL) UDCUP PO PRN (05:12)
[2024-06-20 05:20] LABS: Albumin 2.8 g/dL (3.4-4.8); Anion Gap 13 mmol/L (10-20); BUN (Urea Nitrogen) 21 mg/dL (9.8-20.1); BUN/Creatinine Ratio 4.75; Calc. Creatinine Clearance 17 mL/min (70-130); Calcium 7.7 mg/dL (7.8-10.44); Carbon Dioxide 27 mmol/L (23-31); Chloride 100 mmol/L (98-107); Estimated GFR 10; Glucose 84 mg/dL (80-115); Potassium 4.1 mmol/L (3.5-5.1); Sodium 136 mmol/L (136-145)
[2024-06-20] MEDS: Acetaminophen 325 MG TAB PO PRN (20:45)
[2024-06-21 05:11] LABS: Albumin 2.5 g/dL (3.4-4.8); Anion Gap 14 mmol/L (10-20); BUN (Urea Nitrogen) 30 mg/dL (9.8-20.1); BUN/Creatinine Ratio 5.07; Calc. Creatinine Clearance 13 mL/min (70-130); Calcium 7.8 mg/dL (7.8-10.44); Carbon Dioxide 26 mmol/L (23-31); Chloride 101 mmol/L (98-107); Estimated GFR 7; Glucose 79 mg/dL (80-115); Phosphorus 3.9 mg/dL (2.3-4.7); Potassium 4.4 mmol/L (3.5-5.1); Sodium 137 mmol/L (136-145)
[2024-06-21] MEDS ORDERED: Albumin 25% 25 GM (100 mL) BOT IVPB PRN (09:29)
[2024-06-21] MEDS: Sodium Chloride 0.9% 1,000 ML IV SCH (15:43)
[2024-06-22 05:44] VITALS: BMI 35.3
[2024-06-23 11:14] LABS: Anion Gap 15 mmol/L (10-20); BUN (Urea Nitrogen) 31 mg/dL (9.8-20.1); Calc. Creatinine Clearance 12 mL/min (70-130); Calcium 8.2 mg/dL (7.8-10.44); Carbon Dioxide 25 mmol/L (23-31); Chloride 103 mmol/L (98-107); Estimated GFR 7; Glucose 122 mg/dL (80-115); Potassium 4.5 mmol/L (3.5-5.1); Sodium 138 mmol/L (136-145)
[2024-06-23 17:38] VITALS: BMI 35.3
[2024-06-24] MEDS: EPOETIN ALFA-EPBX (ESRD) 10,000 UNITS/ML VIAL IVP SCH (13:40)
[2024-06-24 17:10] LABS: Anion Gap 14 mmol/L (10-20); BUN (Urea Nitrogen) 18 mg/dL (9.8-20.1); Calc. Creatinine Clearance 18 mL/min (70-130); Calcium 8.3 mg/dL (7.8-10.44); Carbon Dioxide 29 mmol/L (23-31); Chloride 101 mmol/L (98-107); Estimated GFR 11; Glucose 121 mg/dL (80-115); Sodium 140 mmol/L (136-145)
[2024-06-24 17:26] VITALS: BP 112/49; TEMP 98.4
== END 2024-06-24 18:27 | disposition home or self-care (01) | DRG 70 ==
LOC: ERS 18:10 → ERHOLD 21:24 → 2NO 06-15 12:45 → MSONC 06-23 16:43
PROVIDERS: ADMIT Student in an Organized Health Care Education/Training Program; ATTEND Internal Medicine
PROC: 30233J1 Transfusion of Nonautologous Serum Albumin into Peripheral Vein, Percutaneous Approach (ICD-10-PCS; 2024-06-14)
PROC: 30233N1 Transfusion of Nonautologous Red Blood Cells into Peripheral Vein, Percutaneous Approach (ICD-10-PCS; principal; 2024-06-16)
DX: G93.41 Metabolic encephalopathy (principal); N18.6 End stage renal disease; E72.20 Disorder of urea cycle metabolism, unspecified; I12.0 Hypertensive chronic kidney disease with stage 5 chronic kidney disease or end stage renal disease; E87.5 Hyperkalemia; K74.60 Unspecified cirrhosis of liver; D63.1 Anemia in chronic kidney disease; D69.6 Thrombocytopenia, unspecified; E88.09 Other disorders of plasma-protein metabolism, not elsewhere classified; E11.22 Type 2 diabetes mellitus with diabetic chronic kidney disease; J44.9 Chronic obstructive pulmonary disease, unspecified; Z88.8 Allergy status to other drugs, medicaments and biological substances; Z99.2 Dependence on renal dialysis; Z91.048 Other nonmedicinal substance allergy status
CPT/HCPCS: 36415; 36416; 36430; 51701; 70450; 71045; 80048; 80053; 80069; 80307; 82140; 82274; 83880; 84484; 85025; 85610; 86704; 86706; 86803; 86850; 86900; 86901; 87340; 90935; 93005; 96365; 96375; G0257; J0613; J1644; J1815; J2405; J2470; J7030; P9016; P9047; Q5105; Q5106

== ENCOUNTER 2024-06-25 17:51 | Emergency (ER) | payer MEDICARE, OTHER ==
[2024-06-25 19:46] LABS: ALT (SGPT) 16 U/L (8-55); AST (SGOT) 15 U/L (5-34); Albumin 2.9 g/dL (3.4-4.8); Alkaline Phosphatase 182 U/L (40-110); Anion Gap 19 mmol/L (10-20); BUN (Urea Nitrogen) 33 mg/dL (9.8-20.1); Bilirubin, Total 2.5 mg/dL (0.2-1.2); Calc. Creatinine Clearance 0 mL/min (70-130); Calcium 8.5 mg/dL (7.8-10.44); Carbon Dioxide 23 mmol/L (23-31); Chloride 101 mmol/L (98-107); Estimated GFR 7; Globulin 3.1 g/dL (2.4-3.5); Glucose 230 mg/dL (80-115); Magnesium 2.3 mg/dL (1.6-2.6); Potassium 4.2 mmol/L (3.5-5.1); Sodium 139 mmol/L (136-145)
[2024-06-25 19:48] LABS: #Basophils Less than 0.03 10x3/uL (0.0-0.2); #Eosinphils Less than 0.03 10x3/uL (0.0-0.7); %Basophils 0.1 % (0.0-1.0); %Lymphocytes 6.3 % (21.0-51.0); %Monocytes 9.9 % (0.0-10.0); %Neutrophils 83.1 % (42.0-75.0); Hematocrit 24.7 % (36.0-47.0); Hemoglobin 7.7 g/dL (12.0-16.0); Mean Corpuscular HGB CONC 31.2 g/dL (32.0-36.0); Mean Corpuscular Hemoglobin 32.2 pg (27.0-31.0); Mean Corpuscular Volume 103.3 fL (78.0-98.0); Mean Platelet Volume 9.7 fL (7.4-10.4); Platelet Count 84 10x3/uL (130-400); RBC Distribution Width 17.7 % (11.5-14.5); Red Blood Cell (RBC) Count 2.39 mill/uL (4.20-5.40)
[2024-06-25] MEDS ORDERED: fentaNYL 50 mcg/mL 1 mL Vial ONE (19:58)
== END 2024-06-25 22:52 | disposition home or self-care (01) ==
LOC: ERS 17:51
DX: R53.1 Weakness (principal); E11.22 Type 2 diabetes mellitus with diabetic chronic kidney disease; N18.6 End stage renal disease; I12.0 Hypertensive chronic kidney disease with stage 5 chronic kidney disease or end stage renal disease; R62.7 Adult failure to thrive; E03.9 Hypothyroidism, unspecified; E78.5 Hyperlipidemia, unspecified; Z68.35 Body mass index [BMI] 35.0-35.9, adult; Z99.2 Dependence on renal dialysis
CPT/HCPCS: 80053; 82140; 83735; 85025; 93005; J3010; 36415; 96374

== ENCOUNTER 2024-07-05 13:58 | Inpatient (IN) | payer MEDICARE, OTHER ==
[~2024-07-05 13:58] MED LIST changes: -Heparin 10,000 UNITS/ 10 ML VIAL ONE; +Iopamidol-370 76% 500 ML MDV (1 ML CHARGE) ONE
[2024-07-05 15:34] LABS: #Basophils Less than 0.03 10x3/uL (0.0-0.2); %Basophils 0.1 % (0.0-1.0); %Eosinophils 0.2 % (0.0-10.0); %Lymphocytes 3.3 % (21.0-51.0); %Monocytes 12.3 % (0.0-10.0); %Neutrophils 82.8 % (42.0-75.0); Hematocrit 28.3 % (36.0-47.0); Mean Corpuscular HGB CONC 31.8 g/dL (32.0-36.0); Mean Corpuscular Hemoglobin 30.3 pg (27.0-31.0); Mean Corpuscular Volume 95.3 fL (78.0-98.0); Mean Platelet Volume 10.1 fL (7.4-10.4); Platelet Count 201 10x3/uL (130-400); RBC Distribution Width 19.6 % (11.5-14.5); Red Blood Cell (RBC) Count 2.97 mill/uL (4.20-5.40)
[2024-07-05 15:48] LABS: ALT (SGPT) 60 U/L (8-55); AST (SGOT) 91 U/L (5-34); Albumin 2.1 g/dL (3.4-4.8); Alkaline Phosphatase 177 U/L (40-110); Anion Gap 18 mmol/L (10-20); BUN (Urea Nitrogen) 47 mg/dL (9.8-20.1); Bilirubin, Total 1.5 mg/dL (0.2-1.2); Calc. Creatinine Clearance 0 mL/min (70-130); Calcium 8.1 mg/dL (7.8-10.44); Carbon Dioxide 26 mmol/L (23-31); Chloride 94 mmol/L (98-107); Estimated GFR 6; Globulin 3.2 g/dL (2.4-3.5); Glucose 154 mg/dL (80-115); Lipase 35 U/L (8-78); Magnesium 2.4 mg/dL (1.6-2.6); Potassium 4.7 mmol/L (3.5-5.1); Protein, Total 5.3 g/dL (5.8-8.1); Sodium 133 mmol/L (136-145)
[2024-07-05 15:53] LABS: Troponin I 0.012 ng/mL (< 0.028)
[2024-07-05] MEDS ORDERED: Morphine 4 MG/ML VIAL ONE (16:12)
[2024-07-05] MEDS ORDERED: Ondansetron PF 4 MG/2 ML Vial ONE (16:13)
[2024-07-05] MEDS ORDERED: cefTRIAXone (ROCEPHIN) 2 GM VIAL ONE (17:00)
[2024-07-05] MEDS ORDERED: Sodium Chloride 0.9% 100 ML ONE (17:00)
[2024-07-05] MEDS ORDERED: Ondansetron PF 4 MG/2 ML Vial IVP PRN (17:38)
[2024-07-05] MEDS ORDERED: Ondansetron ODT 4 MG TAB PO PRN (17:38)
[2024-07-05] MEDS ORDERED: Albumin 25% 100 ML ONE (18:03)
[2024-07-05] MEDS ORDERED: Insulin Lispro 100 UNIT/ML 10 ML VIAL SC PRN ×2 (18:04)
[2024-07-05] MEDS ORDERED: Dextrose 50% Abboject 50 ML SYRINGE SLOW IVP PRN (18:04)
[2024-07-05] MEDS ORDERED: Glucagon 1 MG/ML KIT IM PRN (18:04)
[2024-07-05] MEDS ORDERED: Dextrose 5% in Water 1,000 ML IV PRN (18:04)
[2024-07-05 18:52] LABS: Lactic Acid 1.86 mmol/L (0.5-2.2)
[2024-07-05 19:09] LABS: Fluid, Protein 1.4 g/dL (Not Available)
[2024-07-05 19:23] LABS: RBC Count-Automated (BF) 766 /cu.mm; WBC/Nucleated-Auto (BF) 322 /cu.mm
[2024-07-05 19:39] LABS: Body Fluid Source Paracentesis Fluid; Clarity Hazy (Clear); Tube # EDTA
[2024-07-05 19:40] LABS: BF Color Yellow
[2024-07-05 20:39] LABS: BF Segmented Neutrophils 66 %; Cell Count Non Hematic 20 %; Lymphocytes 14 %
[2024-07-05 21:04] VITALS: BMI 5628.5
[2024-07-05] MEDS: Vancomycin (BATCH) 1.5 GM in Premix 1 BAG IVPB SCH (22:23)
[2024-07-05] MEDS: Heparin 5,000 UNITS/ML VIAL SC SCH (22:24)
[2024-07-06] MEDS: Cefepime 1 GM in Sodium Chloride 0.9% 100 ML IVPB SCH (00:13)
[2024-07-06] MEDS: Pantoprazole 40 MG VIAL IVP SCH ×2 (05:35→08:54)
[2024-07-06] MEDS: Levothyroxine Sodium 125 MCG TAB PO SCH (05:35)
[2024-07-06] MEDS: Acetaminophen 325 MG TAB PO PRN (06:18)
[2024-07-06] MEDS: Lactulose 20 GM (30 mL) UDCUP PO SCH (08:54)
[2024-07-06 09:22] LABS: Anion Gap 19 mmol/L (10-20); BUN (Urea Nitrogen) 55 mg/dL (9.8-20.1); Calc. Creatinine Clearance 11 mL/min (70-130); Calcium 8.1 mg/dL (7.8-10.44); Carbon Dioxide 24 mmol/L (23-31); Chloride 93 mmol/L (98-107); Estimated GFR 5; Glucose 109 mg/dL (80-115); Potassium 5.2 mmol/L (3.5-5.1); Sodium 131 mmol/L (136-145)
[2024-07-06 09:37] LABS: #Basophils Less than 0.03 10x3/uL (0.0-0.2); %Basophils 0.1 % (0.0-1.0); %Eosinophils 0.1 % (0.0-10.0); %Lymphocytes 3.8 % (21.0-51.0); %Monocytes 10.2 % (0.0-10.0); %Neutrophils 84.6 % (42.0-75.0); Hematocrit 26.6 % (36.0-47.0); Hemoglobin 8.7 g/dL (12.0-16.0); Mean Corpuscular HGB CONC 32.7 g/dL (32.0-36.0); Mean Corpuscular Hemoglobin 30.4 pg (27.0-31.0); Mean Platelet Volume 10.4 fL (7.4-10.4); Platelet Count 159 10x3/uL (130-400); RBC Distribution Width 19.4 % (11.5-14.5); Red Blood Cell (RBC) Count 2.86 mill/uL (4.20-5.40)
[2024-07-06] MEDS ORDERED: Heparin 10,000 UNITS/ 10 ML VIAL ONE (10:21)
[2024-07-06 11:56] LABS: Anion Gap 20 mmol/L (10-20); BUN (Urea Nitrogen) 57 mg/dL (9.8-20.1); Calc. Creatinine Clearance 11 mL/min (70-130); Calcium 8.2 mg/dL (7.8-10.44); Carbon Dioxide 21 mmol/L (23-31); Chloride 94 mmol/L (98-107); Estimated GFR 5; Glucose 116 mg/dL (80-115); Potassium 5.8 mmol/L (3.5-5.1); Sodium 129 mmol/L (136-145)
[2024-07-06] MEDS ORDERED: cefTRIAXone\\ROCEPHIN 2 GM in Sodium Chloride 0.9% 100 ML IVPB SCH (17:00)
[2024-07-06] MEDS: Albumin 25% 25 GM (100 mL) BOT IVPB SCH (23:09)
[2024-07-06] MEDS: Rifaximin 550 MG TAB PO SCH (23:10)
[2024-07-06] MEDS: Acetaminophen 500 MG TAB PO SCH (23:10)
[2024-07-06] MEDS: traMADol HCl 50 MG TAB PO PRN (23:11)
[2024-07-06] MEDS: Midodrine HCl 5 MG TAB PO SCH (23:12)
[2024-07-07] MEDS: Albumin 25% 25 GM (100 mL) BOT IVPB SCH (05:01)
[2024-07-07 05:41] LABS: #Basophils Less than 0.03 10x3/uL (0.0-0.2); %Basophils 0.1 % (0.0-1.0); %Eosinophils 0.3 % (0.0-10.0); %Lymphocytes 4.5 % (21.0-51.0); %Monocytes 9.8 % (0.0-10.0); %Neutrophils 84.2 % (42.0-75.0); Hematocrit 25.8 % (36.0-47.0); Hemoglobin 8.3 g/dL (12.0-16.0); Mean Corpuscular HGB CONC 32.2 g/dL (32.0-36.0); Mean Corpuscular Hemoglobin 30.6 pg (27.0-31.0); Mean Corpuscular Volume 95.2 fL (78.0-98.0); Platelet Count 127 10x3/uL (130-400); RBC Distribution Width 19.9 % (11.5-14.5); Red Blood Cell (RBC) Count 2.71 mill/uL (4.20-5.40)
[2024-07-07 05:52] LABS: ALT (SGPT) 40 U/L (8-55); AST (SGOT) 63 U/L (5-34); Albumin 2.4 g/dL (3.4-4.8); Alkaline Phosphatase 143 U/L (40-110); Anion Gap 17 mmol/L (10-20); BUN (Urea Nitrogen) 29 mg/dL (9.8-20.1); Bilirubin, Total 1.3 mg/dL (0.2-1.2); Calc. Creatinine Clearance 18 mL/min (70-130); Calcium 8.2 mg/dL (7.8-10.44); Carbon Dioxide 24 mmol/L (23-31); Chloride 98 mmol/L (98-107); Estimated GFR 9; Globulin 3.1 g/dL (2.4-3.5); Glucose 89 mg/dL (80-115); Potassium 4.2 mmol/L (3.5-5.1); Protein, Total 5.5 g/dL (5.8-8.1); Sodium 135 mmol/L (136-145)
[2024-07-07] MEDS: Dicyclomine 10 MG CAP PO SCH (14:19)
[2024-07-07 15:22] VITALS: BMI 39.8
[2024-07-08 10:37] LABS: #Basophils Less than 0.03 10x3/uL (0.0-0.2); %Basophils 0.1 % (0.0-1.0); %Eosinophils 0.6 % (0.0-10.0); %Lymphocytes 7.6 % (21.0-51.0); %Monocytes 8.9 % (0.0-10.0); %Neutrophils 81.7 % (42.0-75.0); Hematocrit 23.9 % (36.0-47.0); Hemoglobin 7.7 g/dL (12.0-16.0); Mean Corpuscular HGB CONC 32.2 g/dL (32.0-36.0); Mean Corpuscular Hemoglobin 30.4 pg (27.0-31.0); Mean Corpuscular Volume 94.5 fL (78.0-98.0); Mean Platelet Volume 10.2 fL (7.4-10.4); Platelet Count 128 10x3/uL (130-400); RBC Distribution Width 19.9 % (11.5-14.5); Red Blood Cell (RBC) Count 2.53 mill/uL (4.20-5.40)
[2024-07-08 10:49] LABS: Anion Gap 13 mmol/L (10-20); BUN (Urea Nitrogen) 20 mg/dL (9.8-20.1); Calc. Creatinine Clearance 26 mL/min (70-130); Calcium 8.5 mg/dL (7.8-10.44); Carbon Dioxide 29 mmol/L (23-31); Chloride 102 mmol/L (98-107); Estimated GFR 15; Glucose 89 mg/dL (80-115); Potassium 3.7 mmol/L (3.5-5.1); Sodium 140 mmol/L (136-145)
[2024-07-08] MEDS: EPOETIN ALFA-EPBX (ESRD) 10,000 UNITS/ML VIAL SC SCH (16:31)
[2024-07-09 05:23] LABS: #Basophils Less than 0.03 10x3/uL (0.0-0.2); %Basophils 0.2 % (0.0-1.0); %Eosinophils 0.9 % (0.0-10.0); %Lymphocytes 5.2 % (21.0-51.0); %Monocytes 14.3 % (0.0-10.0); %Neutrophils 78.2 % (42.0-75.0); Hemoglobin 7.3 g/dL (12.0-16.0); Mean Corpuscular HGB CONC 30.4 g/dL (32.0-36.0); Mean Corpuscular Hemoglobin 29.8 pg (27.0-31.0); Mean Platelet Volume 10.1 fL (7.4-10.4); Platelet Count 133 10x3/uL (130-400); RBC Distribution Width 19.7 % (11.5-14.5); Red Blood Cell (RBC) Count 2.45 mill/uL (4.20-5.40)
[2024-07-09 05:28] LABS: Anion Gap 13 mmol/L (10-20); BUN (Urea Nitrogen) 26 mg/dL (9.8-20.1); Calc. Creatinine Clearance 20 mL/min (70-130); Calcium 8.7 mg/dL (7.8-10.44); Carbon Dioxide 29 mmol/L (23-31); Chloride 100 mmol/L (98-107); Estimated GFR 11; Glucose 140 mg/dL (80-115); Sodium 138 mmol/L (136-145)
[2024-07-09] MEDS: traMADol HCl 50 MG TAB PO PRN (14:30)
[2024-07-09] MEDS: Lidocaine 2% Viscous Solution 20 ML, Aluminum & Magnesium Hydroxide 30 ML, Donnatal Eli... SSW SCH (14:31)
[2024-07-09] MEDS: Mag-Al 1200 mg/1200 mg/30 ML UDCUP PO SCH (16:58)
[2024-07-09] MEDS: Pantoprazole DR 40 MG TAB PO SCH (21:17)
[2024-07-10 05:11] LABS: #Basophils 0.03 10x3/uL (0.0-0.2); %Basophils 0.3 % (0.0-1.0); %Eosinophils 0.9 % (0.0-10.0); %Monocytes 10.8 % (0.0-10.0); %Neutrophils 82.1 % (42.0-75.0); Hematocrit 27.4 % (36.0-47.0); Hemoglobin 8.5 g/dL (12.0-16.0); Mean Corpuscular Volume 96.8 fL (78.0-98.0); Mean Platelet Volume 10.4 fL (7.4-10.4); Platelet Count 116 10x3/uL (130-400); Red Blood Cell (RBC) Count 2.83 mill/uL (4.20-5.40)
[2024-07-10 08:44] LABS: Anion Gap 14 mmol/L (10-20); BUN (Urea Nitrogen) 34 mg/dL (9.8-20.1); Calc. Creatinine Clearance 14 mL/min (70-130); Calcium 9.2 mg/dL (7.8-10.44); Carbon Dioxide 27 mmol/L (23-31); Chloride 101 mmol/L (98-107); Estimated GFR 7; Glucose 128 mg/dL (80-115); Sodium 138 mmol/L (136-145)
[2024-07-10] MEDS ORDERED: Pantoprazole DR 40 MG TAB PO SCH (09:00)
[2024-07-11 02:51] LABS: #Basophils Less than 0.03 10x3/uL (0.0-0.2); %Basophils 0.2 % (0.0-1.0); %Eosinophils 0.8 % (0.0-10.0); %Lymphocytes 4.2 % (21.0-51.0); %Monocytes 10.5 % (0.0-10.0); %Neutrophils 83.5 % (42.0-75.0); Hematocrit 27.7 % (36.0-47.0); Hemoglobin 8.6 g/dL (12.0-16.0); Mean Corpuscular Hemoglobin 30.1 pg (27.0-31.0); Mean Corpuscular Volume 96.9 fL (78.0-98.0); Mean Platelet Volume 10.6 fL (7.4-10.4); Platelet Count 70 10x3/uL (130-400); RBC Distribution Width 20.1 % (11.5-14.5); Red Blood Cell (RBC) Count 2.86 mill/uL (4.20-5.40)
[2024-07-11 03:08] LABS: Anion Gap 16 mmol/L (10-20); BUN (Urea Nitrogen) 18 mg/dL (9.8-20.1); Calc. Creatinine Clearance 24 mL/min (70-130); Calcium 8.9 mg/dL (7.8-10.44); Carbon Dioxide 24 mmol/L (23-31); Chloride 100 mmol/L (98-107); Estimated GFR 13; Glucose 126 mg/dL (80-115); Magnesium 2.2 mg/dL (1.6-2.6); Potassium 3.7 mmol/L (3.5-5.1); Sodium 136 mmol/L (136-145)
[2024-07-11] MEDS: Metoprolol Tartrate 5 MG (5 mL) VIAL IVP SCH (03:40)
[2024-07-11] MEDS ORDERED: Amiodarone 450 MG in Dextrose 5% in Water 250 ML IVPB SCH (15:45)
[2024-07-11] MEDS: Amiodarone 150 MG in Dextrose 5% in Water 100 ML IVPB SCH (16:03)
[2024-07-11] MEDS: Midodrine HCl 5 MG TAB PO PRN (20:10)
[2024-07-12 04:46] LABS: #Basophils Less than 0.03 10x3/uL (0.0-0.2); %Basophils 0.1 % (0.0-1.0); %Eosinophils 0.7 % (0.0-10.0); %Lymphocytes 3.9 % (21.0-51.0); %Monocytes 9.4 % (0.0-10.0); %Neutrophils 84.7 % (42.0-75.0); Hematocrit 28.3 % (36.0-47.0); Hemoglobin 8.7 g/dL (12.0-16.0); Mean Corpuscular HGB CONC 30.7 g/dL (32.0-36.0); Mean Corpuscular Hemoglobin 30.5 pg (27.0-31.0); Mean Corpuscular Volume 99.3 fL (78.0-98.0); Mean Platelet Volume 10.7 fL (7.4-10.4); Platelet Count 123 10x3/uL (130-400); RBC Distribution Width 20.8 % (11.5-14.5); Red Blood Cell (RBC) Count 2.85 mill/uL (4.20-5.40)
[2024-07-12 04:58] LABS: Anion Gap 15 mmol/L (10-20); BUN (Urea Nitrogen) 26 mg/dL (9.8-20.1); Calc. Creatinine Clearance 17 mL/min (70-130); Calcium 9.5 mg/dL (7.8-10.44); Carbon Dioxide 26 mmol/L (23-31); Chloride 99 mmol/L (98-107); Estimated GFR 9; Glucose 138 mg/dL (80-115); Potassium 3.8 mmol/L (3.5-5.1); Sodium 136 mmol/L (136-145)
[2024-07-12 05:59] LABS: Anisocytosis SLIGHT = 6-15 cells HPF (0-5); Hypochromia SLIGHT = 6-15 cells HPF (0-5); Platelet Adequacy Comment Platelets Normal; Polychromasia SLIGHT = 2-3 cells HPF (0-2)
[2024-07-12] MEDS: Albumin 25% 25 GM (100 mL) BOT IVPB SCH (13:52)
[2024-07-12] MEDS: Dronedarone HCl 400 MG TAB PO SCH (17:21)
[2024-07-13 04:47] LABS: #Basophils 0.03 10x3/uL (0.0-0.2); %Basophils 0.2 % (0.0-1.0); %Eosinophils 0.7 % (0.0-10.0); %Lymphocytes 6.1 % (21.0-51.0); %Monocytes 9.9 % (0.0-10.0); %Neutrophils 81.8 % (42.0-75.0); Hematocrit 24.6 % (36.0-47.0); Hemoglobin 7.4 g/dL (12.0-16.0); Mean Corpuscular HGB CONC 30.1 g/dL (32.0-36.0); Mean Corpuscular Hemoglobin 30.3 pg (27.0-31.0); Mean Corpuscular Volume 100.8 fL (78.0-98.0); Mean Platelet Volume 10.6 fL (7.4-10.4); Platelet Count 112 10x3/uL (130-400); Red Blood Cell (RBC) Count 2.44 mill/uL (4.20-5.40)
[2024-07-13 04:57] LABS: Anion Gap 14 mmol/L (10-20); BUN (Urea Nitrogen) 18 mg/dL (9.8-20.1); Calc. Creatinine Clearance 22 mL/min (70-130); Calcium 9.7 mg/dL (7.8-10.44); Carbon Dioxide 26 mmol/L (23-31); Chloride 100 mmol/L (98-107); Estimated GFR 12; Glucose 110 mg/dL (80-115); Potassium 3.9 mmol/L (3.5-5.1); Sodium 136 mmol/L (136-145)
[2024-07-13] MEDS: Albumin 25% 25 GM (100 mL) BOT IVPB SCH ×2 (15:10→17:37)
[2024-07-13] MEDS: Ciprofloxacin 500 MG TAB PO SCH (21:41)
[2024-07-14] MEDS: Ipratropium/Albuterol 3 ML NEB NEB PRN (00:54)
[2024-07-14] MEDS: Midodrine HCl 5 MG TAB PO SCH (03:53)
[2024-07-14 04:58] LABS: #Basophils Less than 0.03 10x3/uL (0.0-0.2); %Basophils 0.1 % (0.0-1.0); %Eosinophils 0.4 % (0.0-10.0); %Monocytes 9.8 % (0.0-10.0); %Neutrophils 83.8 % (42.0-75.0); Hematocrit 25.2 % (36.0-47.0); Hemoglobin 7.8 g/dL (12.0-16.0); Mean Corpuscular Hemoglobin 29.3 pg (27.0-31.0); Mean Corpuscular Volume 94.7 fL (78.0-98.0); Mean Platelet Volume 11.1 fL (7.4-10.4); Platelet Count 86 10x3/uL (130-400); RBC Distribution Width 22.6 % (11.5-14.5); Red Blood Cell (RBC) Count 2.66 mill/uL (4.20-5.40)
[2024-07-14 05:17] LABS: Anion Gap 13 mmol/L (10-20); BUN (Urea Nitrogen) 15 mg/dL (9.8-20.1); Calc. Creatinine Clearance 27 mL/min (70-130); Calcium 9.8 mg/dL (7.8-10.44); Carbon Dioxide 27 mmol/L (23-31); Chloride 99 mmol/L (98-107); Estimated GFR 15; Glucose 100 mg/dL (80-115); Potassium 3.7 mmol/L (3.5-5.1); Sodium 135 mmol/L (136-145)
[2024-07-14] MEDS: fentaNYL 50 mcg/mL 1 mL Vial SLOW IVP SCH (06:01)
[2024-07-14] MEDS: Albumin 25% 25 GM (100 mL) BOT IVPB SCH (15:01)
[2024-07-14] MEDS: Gabapentin 100 MG CAP PO SCH (21:54)
[2024-07-14] MEDS: Megestrol Acetate 800 MG/20 ML UDCUP PO SCH (21:56)
[2024-07-15 05:24] LABS: Anion Gap 16 mmol/L (10-20); BUN (Urea Nitrogen) 14 mg/dL (9.8-20.1); Calc. Creatinine Clearance 29 mL/min (70-130); Calcium 9.9 mg/dL (7.8-10.44); Carbon Dioxide 25 mmol/L (23-31); Chloride 102 mmol/L (98-107); Estimated GFR 17; Glucose 98 mg/dL (80-115); Sodium 139 mmol/L (136-145)
[2024-07-15 07:42] LABS: #Basophils Less than 0.03 10x3/uL (0.0-0.2); %Basophils 0.2 % (0.0-1.0); %Eosinophils 0.7 % (0.0-10.0); %Lymphocytes 4.1 % (21.0-51.0); %Monocytes 9.5 % (0.0-10.0); %Neutrophils 84.8 % (42.0-75.0); Hematocrit 26.5 % (36.0-47.0); Hemoglobin 7.9 g/dL (12.0-16.0); Mean Corpuscular HGB CONC 29.8 g/dL (32.0-36.0); Mean Corpuscular Hemoglobin 29.9 pg (27.0-31.0); Mean Corpuscular Volume 100.4 fL (78.0-98.0); Mean Platelet Volume 10.6 fL (7.4-10.4); Platelet Count 88 10x3/uL (130-400); RBC Distribution Width 22.7 % (11.5-14.5); Red Blood Cell (RBC) Count 2.64 mill/uL (4.20-5.40)
[2024-07-15] MEDS ORDERED: Heparin 10,000 UNITS/ 10 ML VIAL ONE (08:51)
[2024-07-15] MEDS: Albumin 25% 25 GM (100 mL) BOT IVPB PRN (09:16)
[2024-07-15] MEDS: Megestrol Acetate 800 MG/20 ML UDCUP PO SCH (13:15)
[2024-07-15] MEDS: EPOETIN ALFA-EPBX (ESRD) 10,000 UNITS/ML VIAL IVP SCH (13:49)
[2024-07-15] MEDS: EPOETIN ALFA-EPBX (ESRD) 10,000 UNITS/ML VIAL SC SCH (15:07)
[2024-07-17 05:29] LABS: #Basophils Less than 0.03 10x3/uL (0.0-0.2); #Eosinophils Less than 0.03 10x3/uL (0.0-0.7); %Basophils 0.1 % (0.0-1.0); %Eosinophils 0.1 % (0.0-10.0); %Lymphocytes 3.8 % (21.0-51.0); %Monocytes 7.6 % (0.0-10.0); %Neutrophils 87.6 % (42.0-75.0); Hematocrit 30.9 % (36.0-47.0); Hemoglobin 9.2 g/dL (12.0-16.0); Mean Corpuscular HGB CONC 29.8 g/dL (32.0-36.0); Mean Corpuscular Hemoglobin 29.8 pg (27.0-31.0); Mean Platelet Volume 10.6 fL (7.4-10.4); Platelet Count 88 10x3/uL (130-400); RBC Distribution Width 22.9 % (11.5-14.5); Red Blood Cell (RBC) Count 3.09 mill/uL (4.20-5.40)
[2024-07-17 05:34] LABS: Anion Gap 15 mmol/L (10-20); BUN (Urea Nitrogen) 23 mg/dL (9.8-20.1); Calc. Creatinine Clearance 22 mL/min (70-130); Carbon Dioxide 29 mmol/L (23-31); Chloride 99 mmol/L (98-107); Estimated GFR 12; Glucose 125 mg/dL (80-115); Potassium 4.1 mmol/L (3.5-5.1); Sodium 139 mmol/L (136-145)
[2024-07-17] MEDS ORDERED: Albumin 25% 25 GM (100 mL) BOT IVPB SCH (11:00)
[2024-07-17] MEDS: EPOETIN ALFA-EPBX (ESRD) 10,000 UNITS/ML VIAL SC SCH (15:59)
[2024-07-17] MEDS: Albumin 25% 25 GM (100 mL) BOT IVPB SCH (15:59)
[2024-07-17 16:36] VITALS: BP 99/53; TEMP 98.1
== END 2024-07-17 18:15 | DRG 871 ==
LOC: ERS 13:58 → MSONC 17:15 → 2NO 07-11 03:17
PROVIDERS: ADMIT Student in an Organized Health Care Education/Training Program; ATTEND Family Medicine
PROC: 0W9G3ZX Drainage of Peritoneal Cavity, Percutaneous Approach, Diagnostic (ICD-10-PCS; principal; 2024-07-05)
PROC: 30233N1 Transfusion of Nonautologous Red Blood Cells into Peripheral Vein, Percutaneous Approach (ICD-10-PCS; 2024-07-13)
DX: A41.53 Sepsis due to Serratia (principal); G93.41 Metabolic encephalopathy; N18.6 End stage renal disease; J96.01 Acute respiratory failure with hypoxia; I12.0 Hypertensive chronic kidney disease with stage 5 chronic kidney disease or end stage renal disease; R18.8 Other ascites; I48.91 Unspecified atrial fibrillation; E87.70 Fluid overload, unspecified; D69.6 Thrombocytopenia, unspecified; Z66 Do not resuscitate; E89.0 Postprocedural hypothyroidism; Z51.5 Encounter for palliative care; E11.22 Type 2 diabetes mellitus with diabetic chronic kidney disease; D63.8 Anemia in other chronic diseases classified elsewhere; E78.5 Hyperlipidemia, unspecified; K74.60 Unspecified cirrhosis of liver; Z91.013 Allergy to seafood; Z91.048 Other nonmedicinal substance allergy status; Z79.899 Other long term (current) drug therapy; Z99.2 Dependence on renal dialysis; Z90.49 Acquired absence of other specified parts of digestive tract; Z79.890 Hormone replacement therapy; Z87.891 Personal history of nicotine dependence
CPT/HCPCS: 36415; 36416; 36430; 49083; 71045; 74177; 80048; 80053; 82140; 82945; 83605; 83690; 83735; 84157; 84443; 84484; 85025; 85060; 86850; 86900; 86901; 87040; 87070; 87205; 89051; 90935; 93005; 93010; 93306; 94640; 96365; 96367; 96375; 97139; G0257; J0282; J0692; J0696; J1644; J2272; J2405; J2470; J3370; J7070; J7620; P9016; P9047; Q5105; Q9967